=== PATIENT | male | born 1940 | race Caucasian/White ===

== ENCOUNTER → 2018-03-20 11:27 | Outpatient (CLI) | payer MEDICARE, OTHER, SELFPAY ==
[2018-03-20 13:00] LABS: Erythrocyte Sedimentation Rate 25 MM/HR (0-15)
[2018-03-20 13:47] LABS: Vitamin B12 796 pg/mL (239-931)
[2018-03-29 09:42] LABS: Rapid Plasma Reagin NON-REACTIVE
== END ==
PROVIDERS: PCP Physician Assistant; Visit Provider Specialist
DX: F03.90 Unspecified dementia, unspecified severity, without behavioral disturbance, psychotic disturbance, mood disturbance, and anxiety (principal)
CPT/HCPCS: 36415; 82607; 85651; 86592

== ENCOUNTER → 2018-04-11 14:06 | Outpatient (CLI) | payer MEDICARE, OTHER, SELFPAY | PROVIDERS: PCP Family Medicine; Visit Provider Specialist | DX: F03.90 Unspecified dementia, unspecified severity, without behavioral disturbance, psychotic disturbance, mood disturbance, and anxiety (principal); Z53.9 Procedure and treatment not carried out, unspecified reason ==

== ENCOUNTER → 2018-04-15 13:31 | Outpatient (CLI) | payer MEDICARE, OTHER, SELFPAY ==
--- NOTE | 2018-04-15 | DI.MRI.S_ITS ---
PROCEDURE: MR HEAD/BRAIN WO CON INDICATIONS: DEMENTIA WITHOUT BEHAVIORAL DISTURBANCE TECHNIQUE: Non-contrast axial T1 spin echo, axial T2 fast spin echo, sagittal and axial FLAIR, coronal T2 fast spin echo, axial gradient echo, axial diffusion and ADC through the brain. COMPARISON: None. FINDINGS: Image quality: Excellent. CSF spaces: Ventricles appear symmetric in size and shape. Cavum septum vergae is present. Basal cisterns are patent. No extra-axial fluid collections. Brain: No intracranial bleeds or mass effects. There is cerebral volume loss for age. There are periventricular and deep white matter chronic small vessel ischemic changes. Brainstem appears normal. Diffusion-weighted images show no acute ischemic insults. No chronic ischemic insults. Normal intravascular flow voids are present. Skull and face: Calvarial bone marrow is normal in signal. Orbits are normal. Sinuses: Sinuses and mastoids are clear. IMPRESSION: 1. Volume loss and small vessel ischemic disease. 2. No acute process. No recent infarct. Dictated by: Eliel Foster M.D. on 04/15/2018 at 15:55 Approved by: Eliel Foster M.D. on 04/15/2018 at 15:56
== END ==
PROVIDERS: PCP Family Medicine; Visit Provider Family Medicine
DX: F03.90 Unspecified dementia, unspecified severity, without behavioral disturbance, psychotic disturbance, mood disturbance, and anxiety (principal); I67.82 Cerebral ischemia
CPT/HCPCS: 70551

== ENCOUNTER 2018-05-28 13:54 | Inpatient (IN) | payer MEDICARE, OTHER, SELFPAY ==
[2018-05-28] VITALS (12 sets, daily range): BP systolic 118–151; BP diastolic 45–100; PULSE 84–145; RESP 11–31; TEMP 36.4–36.8; O2SAT 94–98; BMI 22.0
--- NOTE | 2018-05-28 13:59 | ED.WEAKNESS ---
HPI - Weakness General Chief complaint: Weakness Stated complaint: Weakness Time Seen by Provider: 05/28/18 13:58 Source: family Mode of arrival: EMS Limitations: altered mental status History of Present Illness HPI Narrative: Patient is a 77-year-old male brought in by EMS with his daughter for concerns of altered mental status and decreased activity. The patient's daughter states that the patient is being worked up for dementia but he has no specific diagnosis as of yet. She states that 3-4 days ago she noticed that the patient was becoming less active. Is becoming less interactive. Is now completely incontinent of urine, and has had decreased oral intake of food. She states that he has not been moving around like normal. Patient states that he has no complaints. His daughter states that he always says that he has no complaints. No fevers. Related Data Home Medications Medication Instructions Recorded Confirmed aspirin 81 mg PO DAILY #0 03/13/11 05/28/18 multivitamin,[id number] 1 tab PO DAILY 05/28/18 05/28/18 [Complete Multivitamin] red yeast rice 600 mg PO DAILY 05/28/18 05/28/18 tamsulosin 2 cap PO DAILY 05/28/18 05/28/18 tolterodine 1 cap PO DAILY 05/28/18 05/28/18 vitamin B complex 1 cap PO DAILY 05/28/18 05/28/18 Allergies Allergy/AdvReac Type Severity Reaction Status Date / Time No Known Drug Allergies Allergy Verified 05/28/18 14:32 Review of Systems Review of Systems Somewhat provided by daughter who was at bedside Constitutional Reports fatigue, Denies fever(s), Denies frequent falls, Reports lethargy and Reports malaise Cardiovascular Denies chest pain, Denies palpitations and Denies dyspnea Respiratory Denies cough, Denies dyspnea and Denies wheezing Gastrointestinal Gastrointestinal: Denies abdominal pain, Denies change in bowel habits and Denies vomiting Genitourinary Reports urinary incontinence Musculoskeletal Denies myalgias and Denies arthralgias Integumentary/Breasts Denies lesions and Denies rash Neurologic Reports behavioral changes and Denies frequent falls Psychiatric Reports behavioral changes Endocrine Reports fatigue and Denies palpitations Hematologic/Lymphatic Denies easy bleeding and Denies easy bruising Allergic/Immunologic Denies wheezing FOR[facility]LY [facility] Medical History Memory changes (Acute) Urinary incontinence (Acute) Surgical History No pertinent past surgical history (Acute) Exam Initial Vital Signs Initial Vital Signs: Vital Signs Temperature 97.5 F L 05/28/18 14:05 Pulse Rate 145 H 05/28/18 14:05 Respiratory Rate 29 H 05/28/18 14:05 Blood Pressure 127/87 05/28/18 14:05 Pulse Oximetry 95 05/28/18 14:05 Const General: No acute distress, disheveled, frail appearing and ill appearing Orientation: alert, awake, oriented to person, oriented to place and not oriented to time HENMT Head: normal to inspection and normocephalic Eyes Pupils: PERRL Resp Effort & Inspection: normal respiratory effort Auscultation: clear to auscultation bilaterally Cardio Rate: tachycardic Rhythm: abnormal rhythm irregularly irregular Pulses: radial pulses present GI Inspection: non-distended Palpation: soft, No firm and No tender Skin Lesions: no lesions Rashes: no rashes Neuro General: alert, awake and moves all extremities Sensory Exam: no sensory deficits noted Extrem General: normal to inspection and capillary refill normal Psych Appearance: grossly normal and disheveled Scores GCS [place] coma scale eye opening: Spontaneous [place] coma scale verbal response: Orientated [place] coma scale motor response: Obey commands [place] coma scale total score: 15 Course Orders Ordered: ED Orders 05/28/18 14:01 EKG-12 Lead Stat 05/28/18 14:18 XR chest 1V Stat 05/28/18 14:41 B Type Natriuretic Peptide Stat Complete Blood Count AUTO DIFF Stat Comprehensive Metabolic Panel Stat Lactate (Lactic Acid) Stat Procalcitonin Stat Troponin I Stat 05/28/18 14:57 Blood Culture Stat 05/28/18 15:35 Urinalysis and Microscopic Stat 05/28/18 15:45 Consult to Physician Routine Diltiazem HCl 125 mg/ Dextrose 125 mls @ 5 mls/hr IV TITRATE RM; Protocol Last Titration: 05/28/18 16:15 Dose: 15 mg/hr, 15 mls/hr Titration: 05/28/18 16:15 Dose: 10 mg/hr, 10 mls/hr Admin: 05/28/18 15:02 Dose: 5 mg/hr, 5 mls/hr Sodium Chloride (Normal Saline 0.9%) 1,973.13 mls @ 657.71 mls/hr 30 ml/kg infuse over 3 hr (1973.13 ml) IV CONT RM Levofloxacin (Levaquin) 750 mg in 150 mls @ 100 mls/hr IV NOW ONE Stop: 05/28/18 17:02 Discontinued Medications Diltiazem HCl (Cardizem) 20 mg IV NOW ONE Stop: 05/28/18 14:33 Last Admin: 05/28/18 14:49 Dose: 20 mg Sodium Chloride (Normal Saline 0.9%) 1,000 mls @ 1,000 mls/hr IV BOLUS ONE Stop: 05/28/18 15:11 Last Infusion: 05/28/18 15:02 Dose: 150 mls/hr Admin: 05/28/18 14:24 Dose: 1,000 mls/hr Ceftriaxone Sodium/Dextrose (Rocephin) 1 gm in 50 mls @ 100 mls/hr IV NOW ONE Stop: 05/28/18 16:02 Last Admin: 05/28/18 15:59 Dose: 100 mls/hr Vital Signs - 8 hr 05/28/18 14:05 05/28/18 14:49 05/28/18 15:02 Temperature 97.5 F L Pulse Rate 145 H 128 H 96 H Respiratory Rate 29 H Blood Pressure 127/87 143/73 H 133/64 Blood Pressure [Right Arm] Pulse Oximetry 95 05/28/18 16:00 Temperature Pulse Rate 98 H Respiratory Rate 27 H Blood Pressure Blood Pressure [Right Arm] 142/65 H Pulse Oximetry 95 MDM - Weakness Lab Data Attestation: I reviewed the patient's lab results. Result diagrams: 05/28/18 14:41 05/28/18 14:41 Lab Results 05/28/18 05/28/18 05/28/18 Range/Units 14:41 14:41 14:41 WBC 11.5 H (4.5-11.0) X10^3/uL RBC 4.76 (4.5-5.9) X10^6/uL Hgb 14.8 (13.5-17.5) g/dL Hct 43.0 (41-53) % MCV 90.3 (80-100) fL MCH 31.0 (26-34) PG MCHC 34.4 (30-36) % RDW 13.5 (11.6-14.8) % Plt Count 365 (150-400) X10^3/uL Neut % (Auto) 80.9 H (50-75) % Lymph % (Auto) 5.5 L (25-40) % [place] % (Auto) 13.3 (3-14) % Eos % (Auto) 0.1 L (2-4) % Baso % (Auto) 0.2 (0-2) % Neut # (Auto) 9300 H (0374-7409) /uL Sodium 138 (137-145) mmol/L Potassium 4.3 (3.4-5.1) mmol/L Chloride 97 L (98-107) mmol/L Carbon Dioxide 28 (22-32) mmol/L BUN 23 H (9-20) mg/dL Creatinine 1.00 (0.66-1.25) mg/dL Estimated GFR > 60.0 (>60) mL/min BUN/Creatinine Ratio 23.0 H (6-22) Glucose 146 H (80-110) mg/dL Lactate (0.7-2.1) mmol/L Calcium 9.3 (8.4-10.2) mg/dL Total Bilirubin 1.0 (0.2-1.3) mg/dL AST 93 H (17-59) IU/L ALT 115 H (21-72) IU/L Alkaline Phosphatase 167 H (38-126) U/L Troponin I < 0.012 (0.01-0.034) ng/mL B-Natriuretic Peptide 117.0 H (<100) Total Protein 7.7 (6.3-8.2) g/dL Albumin 4.1 (3.5-5.0) g/dL Globulin 3.6 (1.7-4.1) g/dL Albumin/Globulin Ratio 1.1 (1.0-2.8) Procalcitonin 0.61 H (<0.5) ng/mL Urine Color Urine Appearance Urine pH (4.5-8.0) Ur Specific [place] (1.000-1.035) Urine Protein (Negative) Urine Glucose (UA) (Normal) g/dL Urine Ketones (NEGATIVE) Urine Occult Blood (Negative) Urine Nitrate (Negative) Urine Bilirubin (NEGATIVE) Urine Urobilinogen (0.2) E.U./dL Ur Leukocyte Esterase (NEGATIVE) Urine RBC (0-5/HPF) Urine WBC (0-5/HPF) Urine Bacteria (None) Ur Culture Indicated? Micro UA Comment 05/28/18 05/28/18 Range/Units 14:41 15:35 WBC (4.5-11.0) X10^3/uL RBC (4.5-5.9) X10^6/uL Hgb (13.5-17.5) g/dL Hct (41-53) % MCV (80-100) fL MCH (26-34) PG MCHC (30-36) % RDW (11.6-14.8) % Plt Count (150-400) X10^3/uL Neut % (Auto) (50-75) % Lymph % (Auto) (25-40) % [place] % (Auto) (3-14) % Eos % (Auto) (2-4) % Baso % (Auto) (0-2) % Neut # (Auto) (7720-1435) /uL Sodium (137-145) mmol/L Potassium (3.4-5.1) mmol/L Chloride (98-107) mmol/L Carbon Dioxide (22-32) mmol/L BUN (9-20) mg/dL Creatinine (0.66-1.25) mg/dL Estimated GFR (>60) mL/min BUN/Creatinine Ratio (6-22) Glucose (80-110) mg/dL Lactate 3.4 H (0.7-2.1) mmol/L Calcium (8.4-10.2) mg/dL Total Bilirubin (0.2-1.3) mg/dL AST (17-59) IU/L ALT (21-72) IU/L Alkaline Phosphatase (38-126) U/L Troponin I (0.01-0.034) ng/mL B-Natriuretic Peptide (<100) Total Protein (6.3-8.2) g/dL Albumin (3.5-5.0) g/dL Globulin (1.7-4.1) g/dL Albumin/Globulin Ratio (1.0-2.8) Procalcitonin (<0.5) ng/mL Urine Color Yellow Urine Appearance Clear Urine pH 5.5 (4.5-8.0) Ur Specific [place] 1.020 (1.000-1.035) Urine Protein 1+ H (Negative) Urine Glucose (UA) Negative (Normal) g/dL Urine Ketones 1+ H (NEGATIVE) Urine Occult Blood 2+ H (Negative) Urine Nitrate Negative (Negative) Urine Bilirubin Negative (NEGATIVE) Urine Urobilinogen 4.0 H (0.2) E.U./dL Ur Leukocyte Esterase Negative (NEGATIVE) Urine RBC 1-5/hpf (0-5/HPF) Urine WBC None seen (0-5/HPF) Urine Bacteria None seen (None) Ur Culture Indicated? Cult not indicated Micro UA Comment Not Reportable Imaging Data Chest x-ray: Radiologist's impression: PROCEDURE: XR CHEST 1V INDICATIONS: a fib TECHNIQUE: One view of the chest was acquired. COMPARISON: [facility], CHEST 2 VIEW, 05/26/2009, 10:20. FINDINGS: Surgical changes and devices: None. Lungs and pleura: Patchy bibasilar opacities, right greater than left are present. Mediastinum: Mediastinal contours appear normal. Heart size is normal. Bones and chest wall: No suspicious bony lesions. Overlying soft tissues appear unremarkable. IMPRESSION: Left greater than right bibasilar opacities most suggestive of pneumonia. Dictated by: Gina Browne M.D. on 05/28/2018 at 15:23 Approved by: Gina Browne M.D. on 05/28/2018 at 15:24 ECG Data Attestation: I personally reviewed and interpreted this ECG as follows: Prior ECG tracings: not available for review Interpretation: Atrial fibrillation Ventricular rate of 148 Normal axis Normal QRS Normal to QTC Nonspecific ST T wave changes MDM Narrative Medical decision making narrative: According to the patient's daughter who is at bedside he is at his baseline as far as his mental status. He was afebrile. He was in AFib with RVR with rates in the 130s and 140s. The daughter does not recall any prior history of this. He was given Cardizem bolus and then a drip which did improve his rate. Chest x-ray is concerning for pneumonia. Blood cultures were obtained. Patient was given fluids per sepsis protocol. Also has an elevated procalcitonin. Rocephin was ordered for a presumptive diagnosis of a urinary tract infection prior to the return of the urinalysis. Upon return of this it does not appear that he has a infection. The patient does smell of urine. I discussed the case with who is the patient's primary care doctor who will admit. Secondary to the Cardizem drip will place in the ICU. I did discuss the admission with the patient and the daughter. I went back to discuss code status however the patient's daughter was not in the room. Discharge Plan Departure Patient Disposition: Admitted As Inpatient Clinical Impression: Atrial fibrillation with RVR, Pneumonia Admit Date/Time: 05/28/18 16:01 Admit Provider: Rikki Dick
--- NOTE | 2018-05-28 14:18 | DI.RAD.S_ITS ---
PROCEDURE: XR CHEST 1V INDICATIONS: a fib TECHNIQUE: One view of the chest was acquired. COMPARISON: [facility], , CHEST 2 VIEW, 05/26/2009, 10:20. FINDINGS: Surgical changes and devices: None. Lungs and pleura: Patchy bibasilar opacities, right greater than left are present. Mediastinum: Mediastinal contours appear normal. Heart size is normal. Bones and chest wall: No suspicious bony lesions. Overlying soft tissues appear unremarkable. IMPRESSION: Left greater than right bibasilar opacities most suggestive of pneumonia. Dictated by: Gina Browne M.D. on 05/28/2018 at 15:23 Approved by: Gina Browne M.D. on 05/28/2018 at 15:24
[2018-05-28] MEDS: SODIUM CHLORIDE 0.9% 1,000 ML 1000 ML IV (14:24)
[2018-05-28] MEDS: dilTIAZem 5 MG/ML SDV 20 MG IV (14:49)
[2018-05-28] MEDS: dilTIAZem 125 MG in DEXTROSE 5 % IN WATER 100 ML IV (15:02)
[2018-05-28 15:15] LABS: Alanine Aminotransferase 115 IU/L (21-72); Albumin 4.1 g/dL (3.5-5.0); Albumin Globulin Ratio 1.1 (1.0-2.8); Alkaline Phosphatase 167 U/L (38-126); Aspartate Aminotransferase 93 IU/L (17-59); Blood Urea Nitrogen 23 mg/dL (9-20); Calcium 9.3 mg/dL (8.4-10.2); Carbon Dioxide 28 mmol/L (22-32); Chloride 97 mmol/L (98-107); Estimated Glomerular Filt Rate > 60.0 mL/min (>60); Globulin 3.6 g/dL (1.7-4.1); Glucose 146 mg/dL (80-110); HEMOLYSIS < 15 (0-50); Lactate (Lactic Acid) 3.4 mmol/L (0.7-2.1); Potassium 4.3 mmol/L (3.4-5.1); Sodium 138 mmol/L (137-145); Total Protein 7.7 g/dL (6.3-8.2)
[2018-05-28 15:25] LABS: Add Manual Diff / Slide Review NO; Basophils Percent Auto 0.2 % (0-2); Eosinophils Percent Auto 0.1 % (2-4); Hemoglobin 14.8 g/dL (13.5-17.5); Lymphocytes Percent Auto 5.5 % (25-40); Mean Corpuscular HGB Conc 34.4 % (30-36); Mean Corpuscular Volume 90.3 fL (80-100); Monocytes Percent Auto 13.3 % (3-14); Neutrophils Absolute Auto 9300 /uL (3000-5900); Neutrophils Percent Auto 80.9 % (50-75); Platelet Count 365 X10^3/uL (150-400); Red Blood Cell Count 4.76 X10^6/uL (4.5-5.9); Red Cell Distribution Width 13.5 % (11.6-14.8); White Blood Cell Count 11.5 X10^3/uL (4.5-11.0)
[2018-05-28 15:27] LABS: Troponin I < 0.012 ng/mL (0.01-0.034)
[2018-05-28 15:30] LABS: Procalcitonin 0.61 ng/mL (<0.5)
[2018-05-28 15:40] LABS: Bacteria Urine None Seen; WBC Urine None Seen (0-5/HPF)
[2018-05-28 15:41] LABS: Appearance Urine UA CLEAR; Bilirubin Urine UA NEGATIVE (NEGATIVE); Color Urine UA YELLOW; Glucose Urine UA NEGATIVE (Normal); Ketones Urine UA 1+ (NEGATIVE); Leukocyte Esterase Urine UA NEGATIVE (NEGATIVE); Nitrite Urine UA Negative (Negative); Occult Blood Urine UA 2+ (Negative); Protein Urine UA 1+ (Negative); pH Urine UA 5.5 (4.5-8.0)
[2018-05-28 15:49] LABS: Culture Indicated Urine Cult Not Indicated; RBC Urine 1-5/HPF (0-5/HPF)
[2018-05-28] MEDS: CEFTRIAXONE 1 GM/50 ML FROZ.PIGGY IV (15:59)
[2018-05-28] MEDS: levoFLOXacin 750 MG/150 ML PIGGYBACK 100 MG IV (16:28)
--- NOTE | 2018-05-28 16:55 | PC.NURSE ---
Per daughter, pt is normally incontinent, but has been urinating more often in the last week. Upon arrival to the ED, pt's brief was completely saturated with urine. The genital and vannesa area were macerated, tender, and raw. Cleaned the area, applied vannesa cream and applied clean brief.
[2018-05-28 19:01] LABS: Reflexed Lactate in 2 Hours Y
[2018-05-28 19:37] LABS: Lactate 2HR (Lactic Acid Rflx) 1.5 mmol/L (0.7-2.1)
--- NOTE | 2018-05-28 19:53 | P.HP_ITS ---
History of Present Illness Date Patient Seen: 05/28/18 Time Patient Seen: 19:33 Chief complaint: Weakness Narrative: Patient well-known to me lives at home with his but she is currently traveling to [facility], so he has been looked after by his daughter. She notes that he had been his usual self up and around until the last few days when he has become more weak and less able to get up and move. Appetite has been off he has been less conversant. Seemed to be getting more sick so he called the office we advised the ER visit. There he was evaluated found to have a possible pneumonia and evidence of a possible sepsis. So referred for admission. I find him this evening somewhat drowsy, his daughter and granddaughter are present. On questioning he says he feels fine. No problems, better now, obviously eager to get home. He was also found with AFib with RVR in the ER where diltiazem was started and a drip continues however he has converted to sinus rhythm at this time. Patient History Medical History Depression (Chronic) Hyperlipidemia (Chronic) Hypothyroid (Chronic) Memory changes (Chronic) PSA elevation (Chronic) Urinary incontinence (Chronic) Surgical History No pertinent past surgical history (Acute) Family & Social History Family History: Reviewed 05/28/18 by Rikki Dick MD Social History: household members spouse Prior Living Arrangements House Safety & Behavioral: Feels Safe in Current Yes Environment Been Physically Hurt or No Threatened By a Person Suicidal Ideation Description None Suicide Plan Description No Plan Tobacco & Substance use: Tobacco type cigarettes Smoking Status Former smoker alcohol intake current alcohol intake frequency 0-2 drinks per day Substance Use Type does not use Meds Home Medications Medication Instructions Recorded Confirmed Type aspirin 81 mg PO DAILY #0 03/13/11 05/28/18 History multivitamin,hf-[id number] 1 tab PO DAILY 05/28/18 05/28/18 History [Complete Multivitamin] red yeast rice 600 mg PO DAILY 05/28/18 05/28/18 History tamsulosin 2 cap PO DAILY 05/28/18 05/28/18 History vitamin B complex 1 cap PO DAILY 05/28/18 05/28/18 History Allergies Allergy/AdvReac Type Severity Reaction Status Date / Time No Known Drug Allergies Allergy Verified 05/28/18 14:32 Review of Systems Constitutional Constitutional: Reports system reviewed and no additional complaints, except as documented Eyes Eyes: Reports system reviewed; no additional complaints, except as documented ENT Ears, Nose, Mouth, and Throat: Yes system reviewed; no additional complaints, except as documented Cardiovascular Cardiovascular: Reports system reviewed; no additional complaints, except as documented Respiratory Respiratory: Reports system reviewed and no additional complaints, except as documented Gastrointestinal Gastrointestinal: Reports system reviewed and no additional complaints, except as documented Genitourinary Genitourinary: Reports system reviewed and no additional complaints, except as documented Musculoskeletal Musculoskeletal: Reports system reviewed; no additional complaints, except as documented Integumentary/Breasts Skin/Breast: Reports system reviewed and no additional complaints, except as documented Neurologic Neurologic: Reports system reviewed and no additional complaints, except as documented, Reports confusion and Reports memory loss Psychiatric Psychiatric: Reports system reviewed and no additional complaints, except as documented, Reports confusion and Reports memory loss Endocrine Endocrine: Reports system reviewed and no additional complaints, except as documented Hematologic/Lymphatic Hematologic/Lymphatic: Reports system reviewed and no additional complaints, except as documented Allergic/Immunologic Allergic/Immunologic: Reports system reviewed and no additional complaints, except as documented Exam Vital Signs (past 8 hours): - 05/28/18 14:05 05/28/18 14:49 05/28/18 15:02 Temperature 97.5 F L Pulse Rate 145 H 128 H 96 H Respiratory Rate 29 H Blood Pressure 127/87 143/73 H 133/64 Blood Pressure [Right Arm] Pulse Oximetry 95 05/28/18 15:30 05/28/18 16:00 05/28/18 16:30 Temperature Pulse Rate 105 H 98 H 118 H Respiratory Rate 27 H 27 H 31 H Blood Pressure Blood Pressure [Right Arm] 151/67 H 142/65 H 125/63 Pulse Oximetry 94 95 96 05/28/18 16:45 05/28/18 17:00 05/28/18 18:00 Temperature 98.2 F Pulse Rate 101 H 99 H 85 Respiratory Rate 25 H 25 H 24 Blood Pressure 145/75 H 149/100 H 130/61 Blood Pressure [Right Arm] Pulse Oximetry 95 94 97 05/28/18 19:05 Temperature Pulse Rate 93 H Respiratory Rate 11 L Blood Pressure 124/61 Blood Pressure [Right Arm] Pulse Oximetry 97 Oxygen Delivery Method Room Air Narrative Exam Narrative: Frail appearing older man lying quietly in bed responding minimally. HEENT unremarkable normocephalic atraumatic, pupils equal round and reactive to light, oropharynx somewhat dry neck benign without JVD normal pulse no significant lymphadenopathy. Chest shows some basilar crackles heart regular without murmur abdomen soft nontender nondistended normoactive bowel tones no masses or organomegaly neurologically seemed somewhat confused but otherwise nonfocal. Extremities with trace edema intact pulses. Objective Labs Result Diagrams: 05/28/18 14:41 05/28/18 14:41 Labs: Laboratory Results - last 24 hr 05/28/18 05/28/18 05/28/18 14:41 14:41 14:41 WBC 11.5 H RBC 4.76 Hgb 14.8 Hct 43.0 MCV 90.3 MCH 31.0 MCHC 34.4 RDW 13.5 Plt Count 365 Neut % (Auto) 80.9 H Lymph % (Auto) 5.5 L [place] % (Auto) 13.3 Eos % (Auto) 0.1 L Baso % (Auto) 0.2 Neut # (Auto) 9300 H Sodium 138 Potassium 4.3 Chloride 97 L Carbon Dioxide 28 BUN 23 H Creatinine 1.00 Estimated GFR > 60.0 BUN/Creatinine Ratio 23.0 H Glucose 146 H Lactate Calcium 9.3 Total Bilirubin 1.0 AST 93 H ALT 115 H Alkaline Phosphatase 167 H Troponin I < 0.012 B-Natriuretic Peptide 117.0 H Total Protein 7.7 Albumin 4.1 Globulin 3.6 Albumin/Globulin Ratio 1.1 Procalcitonin 0.61 H Urine Color Urine Appearance Urine pH Ur Specific [place] Urine Protein Urine Glucose (UA) Urine Ketones Urine Occult Blood Urine Nitrate Urine Bilirubin Urine Urobilinogen Ur Leukocyte Esterase Urine RBC Urine WBC Urine Bacteria Ur Culture Indicated? Micro UA Comment Nasal Screen MRSA (PCR) 05/28/18 05/28/18 05/28/18 14:41 15:35 16:50 WBC RBC Hgb Hct MCV MCH MCHC RDW Plt Count Neut % (Auto) Lymph % (Auto) [place] % (Auto) Eos % (Auto) Baso % (Auto) Neut # (Auto) Sodium Potassium Chloride Carbon Dioxide BUN Creatinine Estimated GFR BUN/Creatinine Ratio Glucose Lactate 3.4 H Calcium Total Bilirubin AST ALT Alkaline Phosphatase Troponin I B-Natriuretic Peptide Total Protein Albumin Globulin Albumin/Globulin Ratio Procalcitonin Urine Color Yellow Urine Appearance Clear Urine pH 5.5 Ur Specific [place] 1.020 Urine Protein 1+ H Urine Glucose (UA) Negative Urine Ketones 1+ H Urine Occult Blood 2+ H Urine Nitrate Negative Urine Bilirubin Negative Urine Urobilinogen 4.0 H Ur Leukocyte Esterase Negative Urine RBC 1-5/hpf Urine WBC None seen Urine Bacteria None seen Ur Culture Indicated? Cult not indicated Micro UA Comment Not Reportable Nasal Screen MRSA (PCR) Negative for mrsa Assessment & Plan (1) Hyperlipidemia: Problem details: No current treatment Current visit: Yes Status: Chronic (2) Hypothyroid: Problem details: No current treatment Current visit: Yes Status: Chronic (3) PSA elevation: Problem details: No recent lab values Current visit: Yes Status: Chronic (4) Urinary incontinence: Problem details: Chronic persistent Current visit: Yes Status: Chronic (5) Memory changes: Problem details: With suspected dementia, possibly Alzheimer's type followed by local neurology Current visit: Yes Status: Chronic (6) Depression: Problem details: No current treatment Current visit: Yes Status: Chronic (7) No pertinent past surgical history: Current visit: Yes Status: Acute (8) Pneumonia: Problem details: This is problem 1. Acute onset likely bacterial with a history of smoking possible chronic lung disease. Will continue antibiotics. Qualifiers: Aspiration pneumonia type: Laterality: unspecified laterality Lung location: unspecified part of lung Pneumonia type: due to unspecified organism Qualified Code(s): J18.9 - Pneumonia, unspecified organism Current visit: Yes Status: Acute (9) Atrial fibrillation with RVR: Problem details: Suspect a prior history of this but the with recurrence now responding to diltiazem currently in sinus rhythm. Will add oral metoprolol Current visit: Yes Status: Acute Plan: Assessment/Plan Narrative: Reviewed code status with patient he has an interest in full code but no intubation. Will follow labs determine need for PT, OT in the morning. Likely back home with family. Quality VTE Deep Vein Thrombosis/Pulmonary Embolism Present on Admission: No
[2018-05-28] MEDS: METOPROLOL 25 MG TABLET PO (19:58)
[2018-05-29] VITALS (12 sets, daily range): BP systolic 107–135; BP diastolic 56–70; PULSE 59–83; RESP 17–26; TEMP 36.1–36.6; O2SAT 94–98
[2018-05-29] MEDS: CEFTRIAXONE 1 GM/50 ML FROZ.PIGGY IV (04:02)
[2018-05-29] MEDS: SODIUM CHLORIDE 0.9% 250 ML 21 ML IV (04:03)
[2018-05-29] MEDS: SODIUM CHLORIDE 0.9% FLUSH 10 ML IV ×3 (04:03→21:17)
[2018-05-29 05:24] LABS: Add Manual Diff / Slide Review NO; Basophils Percent Auto 0.4 % (0-2); Eosinophils Percent Auto 0.6 % (2-4); Hematocrit 37.6 % (41-53); Lymphocytes Percent Auto 12.5 % (25-40); Mean Corpuscular HGB Conc 34.7 % (30-36); Mean Corpuscular Hemoglobin 31.1 PG (26-34); Mean Corpuscular Volume 89.9 fL (80-100); Monocytes Percent Auto 17.5 % (3-14); Neutrophils Absolute Auto 6300 /uL (3000-5900); Platelet Count 321 X10^3/uL (150-400); Red Blood Cell Count 4.18 X10^6/uL (4.5-5.9); Red Cell Distribution Width 13.5 % (11.6-14.8); White Blood Cell Count 9.1 X10^3/uL (4.5-11.0)
[2018-05-29 05:29] LABS: Alanine Aminotransferase 85 IU/L (21-72); Albumin 3.3 g/dL (3.5-5.0); Albumin Globulin Ratio 1.1 (1.0-2.8); Alkaline Phosphatase 120 U/L (38-126); Aspartate Aminotransferase 83 IU/L (17-59); BUN Creatinine Ratio 26.3 (6-22); Bilirubin Total 0.5 mg/dL (0.2-1.3); Blood Urea Nitrogen 21 mg/dL (9-20); Calcium 8.7 mg/dL (8.4-10.2); Carbon Dioxide 28 mmol/L (22-32); Chloride 103 mmol/L (98-107); Estimated Glomerular Filt Rate > 60.0 mL/min (>60); Globulin 3.1 g/dL (1.7-4.1); Glucose 106 mg/dL (80-110); HEMOLYSIS < 15 (0-50); Potassium 3.9 mmol/L (3.4-5.1); Sodium 138 mmol/L (137-145); Total Protein 6.4 g/dL (6.3-8.2)
[2018-05-29] MEDS: METOPROLOL 25 MG TABLET PO (06:36)
[2018-05-29] MEDS: TAMSULOSIN 0.4 MG CAPSULE PO (09:18)
[2018-05-29] MEDS: TOLTERODINE LA 4 MG PO (09:18)
--- NOTE | 2018-05-29 09:18 | PM.PN.1 ---
Subjective Date Patient Seen: 05/29/18 Time Patient Seen: :18 Interval history: Some better, though little difficult to assess, patient remains rather stoic. Quiet night has remained in sinus rhythm, he says he slept okay. Daughter is here, status discussed. She does note as his primary caregiver she must work today and tomorrow which would make it difficult for her to attend to his needs during that time. Exam Vital Signs (past 8 hours): - 05/29/18 04:10 05/29/18 04:13 05/29/18 07:38 Temperature 97.3 F L 97.7 F Pulse Rate 83 59 L Respiratory Rate 26 H 17 Blood Pressure 135/56 L 126/68 Pulse Oximetry 97 94 05/29/18 08:48 Temperature Pulse Rate Respiratory Rate Blood Pressure Pulse Oximetry 98 Oxygen Delivery Method Room Air Narrative Exam Narrative: Resting quietly in bed no acute distress. Provides minimal answers to questions. HEENT unremarkable chest more clear heart regular with occasional ectopy abdomen soft nontender normoactive bowel tones extremities benign neurologically mostly nonfocal. Objective Labs Result Diagrams: 05/29/18 04:58 05/29/18 04:58 Labs: Laboratory Results - last 24 hr 05/28/18 05/28/18 05/28/18 14:41 14:41 14:41 WBC 11.5 H RBC 4.76 Hgb 14.8 Hct 43.0 MCV 90.3 MCH 31.0 MCHC 34.4 RDW 13.5 Plt Count 365 Neut % (Auto) 80.9 H Lymph % (Auto) 5.5 L Jewell % (Auto) 13.3 Eos % (Auto) 0.1 L Baso % (Auto) 0.2 Neut # (Auto) 9300 H Sodium 138 Potassium 4.3 Chloride 97 L Carbon Dioxide 28 BUN 23 H Creatinine 1.00 Estimated GFR > 60.0 BUN/Creatinine Ratio 23.0 H Glucose 146 H Lactate Calcium 9.3 Total Bilirubin 1.0 AST 93 H ALT 115 H Alkaline Phosphatase 167 H Troponin I < 0.012 B-Natriuretic Peptide 117.0 H Total Protein 7.7 Albumin 4.1 Globulin 3.6 Albumin/Globulin Ratio 1.1 Procalcitonin 0.61 H Urine Color Urine Appearance Urine pH Ur Specific [place] Urine Protein Urine Glucose (UA) Urine Ketones Urine Occult Blood Urine Nitrate Urine Bilirubin Urine Urobilinogen Ur Leukocyte Esterase Urine RBC Urine WBC Urine Bacteria Ur Culture Indicated? Micro UA Comment Nasal Screen MRSA (PCR) 05/28/18 05/28/18 05/28/18 14:41 15:35 16:50 WBC RBC Hgb Hct MCV MCH MCHC RDW Plt Count Neut % (Auto) Lymph % (Auto) Jewell % (Auto) Eos % (Auto) Baso % (Auto) Neut # (Auto) Sodium Potassium Chloride Carbon Dioxide BUN Creatinine Estimated GFR BUN/Creatinine Ratio Glucose Lactate 3.4 H Calcium Total Bilirubin AST ALT Alkaline Phosphatase Troponin I B-Natriuretic Peptide Total Protein Albumin Globulin Albumin/Globulin Ratio Procalcitonin Urine Color Yellow Urine Appearance Clear Urine pH 5.5 Ur Specific [place] 1.020 Urine Protein 1+ H Urine Glucose (UA) Negative Urine Ketones 1+ H Urine Occult Blood 2+ H Urine Nitrate Negative Urine Bilirubin Negative Urine Urobilinogen 4.0 H Ur Leukocyte Esterase Negative Urine RBC 1-5/hpf Urine WBC None seen Urine Bacteria None seen Ur Culture Indicated? Cult not indicated Micro UA Comment Not Reportable Nasal Screen MRSA (PCR) Negative for mrsa 05/28/18 05/29/18 05/29/18 19:16 04:58 04:58 WBC 9.1 RBC 4.18 L Hgb 13.0 L Hct 37.6 L MCV 89.9 MCH 31.1 MCHC 34.7 RDW 13.5 Plt Count 321 Neut % (Auto) 69.0 Lymph % (Auto) 12.5 L Jewell % (Auto) 17.5 H Eos % (Auto) 0.6 L Baso % (Auto) 0.4 Neut # (Auto) 6300 H Sodium 138 Potassium 3.9 Chloride 103 Carbon Dioxide 28 BUN 21 H Creatinine 0.80 Estimated GFR > 60.0 BUN/Creatinine Ratio 26.3 H Glucose 106 Lactate 1.5 Calcium 8.7 Total Bilirubin 0.5 AST 83 H ALT 85 H Alkaline Phosphatase 120 Troponin I B-Natriuretic Peptide Total Protein 6.4 Albumin 3.3 L Globulin 3.1 Albumin/Globulin Ratio 1.1 Procalcitonin Urine Color Urine Appearance Urine pH Ur Specific [place] Urine Protein Urine Glucose (UA) Urine Ketones Urine Occult Blood Urine Nitrate Urine Bilirubin Urine Urobilinogen Ur Leukocyte Esterase Urine RBC Urine WBC Urine Bacteria Ur Culture Indicated? Micro UA Comment Nasal Screen MRSA (PCR) Assessment & Plan (1) LFT elevation: Problem details: With history of alcoholism but prior labs indicated normal function as of last winter. Continue to follow. Current visit: Yes Status: Acute (2) Atrial fibrillation with RVR: Problem details: Has remained in sinus rhythm since converting yesterday afternoon, I have had him on a fair dose of metoprolol which has led to some rather marked bradycardia. Will back off some on that. Check echo today Current visit: Yes Status: Acute (3) Pneumonia: Problem details: This is problem 1. White count is down, has maintained oxygenation, was switched to oral antibiotics Qualifiers: Aspiration pneumonia type: Laterality: unspecified laterality Lung location: unspecified part of lung Pneumonia type: due to unspecified organism Qualified Code(s): J18.9 - Pneumonia, unspecified organism Current visit: Yes Status: Acute Plan: Assessment/Plan Narrative: Will check echo, also with history of hypothyroid, will check TSH in the morning, also due for lipids and will check magnesium. Anticipating home likely tomorrow if all is stable. Quality VTE Deep Vein Thrombosis/Pulmonary Embolism Present on Admission: No
[2018-05-29] MEDS: PANTOPRAZOLE 20 MG TABLET PO (09:19)
--- NOTE | 2018-05-29 12:42 | PT.IIE ---
Current Diagnoses Hypothyroidism, unspecified (05/28/18) Major depressive disorder, single episode, unspecified (05/28/18) Unspecified atrial fibrillation (05/28/18) Unspecified bacterial pneumonia (05/28/18) Pneumonia, unspecified organism (05/28/18) Unspecified urinary incontinence (05/28/18) Other amnesia (05/28/18) Abnormal results of liver function studies (05/28/18) Elevated prostate specific antigen [PSA] (05/28/18) Surgical History (Last Reviewed 05/28/18 @ 19:39 by Rikki Dick MD) No pertinent past surgical history (Acute) Medical History (Last Reviewed 05/28/18 @ 19:39 by Rikki Dick MD) Depression (Chronic) Hyperlipidemia (Chronic) Hypothyroid (Chronic) Memory changes (Chronic) PSA elevation (Chronic) Urinary incontinence (Chronic) Physical Therapy Inpatient Evaluation/Re-Eval M1 PT/OT-IP Prior Functional Status Start: 05/29/18 12:21 Freq: NEEDED Status: Active Protocol: Document 05/29/18 11:43 [facility] (Rec: 05/29/18 12:41 IJS [id number]) Medical Review Prior Functional Status Medical History Reviewed Yes Communication Not very conversant but once aroused will answer questions. Mobility and Gait Fluctuates per daughter since the fall last Sunday he has needed assist with gait/ mobility, dressing, ADL's. Activities of Daily Living and IADL's Needs assist at this time but per daughter was independent prior to his fall. Social History Household Members spouse family Living Arrangements House Number of Floors (Floors) One Floor Number of Stairs To Enter/Railing? Yes in several locations without a rail but the daughter said if he discharges home she will have help to get him inside. Home Environment Standard Height Toilet Employment Status Retired Additional Social History Comment Currently ruling out progressive dementia/ alzhiemers. M2 PT-IP Current Condition Start: 05/29/18 12:21 Freq: NEEDED Status: Active Protocol: Document 05/29/18 11:43 IJS (Rec: 05/29/18 12:41 IJS [id number]) Physical Therapy Current Condition Current Condition Evaluation Date 05/29/18 Treatment Diagnosis Walking/gait disturbance Onset Date 05/28/18 Weight Bearing Status Weight Bearing Status Full Weight Bearing M3 PT-IP Subjective Start: 05/29/18 12:21 Freq: NEEDED Status: Active Protocol: Document 05/29/18 11:43 IJS (Rec: 05/29/18 12:41 IJS [id number]) Subjective Physical Therapy Visit Type Type Initial Evaluation Visit Start Time 10:43 Visit Stop Time 11:05 Total Visit Minutes 23 Number of PMO ANALYST Visits 0 Physical Therapy Visit Comments Patient Comments Initially declined to get up out of bed but with some persuasion he agreed. Patient Goals Unclear M4 PT-IP Mobility and Gait Start: 05/29/18 12:21 Freq: NEEDED Status: Active Protocol: Document 05/29/18 11:43 IJS (Rec: 05/29/18 12:41 IJS [id number]) PT-Bed Mobility Assessment Rolling Level of Assist Minimal Assistance Scooting Scooting Up and Down in Bed Contact Guard Assistance PT-Transfer Assessment Sit to and From Stand Sit to and from Stand Minimal Assistance Moderate Assistance Equipment Transfer Assistive Device None Front Wheeled Walker Orthotic/Prosthetic Devices or Brace: No Transfers Transfer Destination Chair Transfer Technique Stand Step Pivot Transfer Ability Level of Assist Moderate Assistance Comments Mobility Comments Attempted to use walker but he pushed it aside. Initial standing balance poor with loss of balance backwards. Gait Assessment Gait Gait Assistance Required: Moderate Assistance Distance (Feet) 5 Able to Maintain Weight Bearing Status Yes During Gait Assistive Devices Assistive Device None Factors Limiting Gait Function Factors Limiting Gait Function Poor Balance Comments Gait Comments Declined to walk only agreed to go to the chair. PT-Balance Assessment Sitting Balance and Reactions Static Sitting Balance Ability Good Dynamic Sitting Balance Ability Fair Standing Balance and Reactions Static Standing Balance Ability Poor Dynamic Standing Balance Ability Poor M5 PT-IP Objective Assessments Start: 05/29/18 12:21 Freq: NEEDED Status: Active Protocol: Document 05/29/18 11:43 IJS (Rec: 05/29/18 12:41 IJS [id number]) Orientation Orientation/Cognition Level of Alertness Alert Orientation Name Safety Awareness Decreased Safety Awareness Comments Unclear of memory deficits as he does not initiate conversation. Once we were able to wake him up he was clear with his speech. Gross Range of Motion Upper Extremity ROM Assessment Within Functional Limits Lower Extremity ROM Assessment Within Functional Limits Strength Upper Extremity Strength Assessment Within Functional Limits Lower Extremity Strength Assessment Within Functional Limits Comments Strength Comments General weakness secondary to immoblity. Coordination Assessment Gross Coordination Gross Coordination WNL Assessment Finger to Nose Test Normal Performance Pronation/Supination Test Normal Performance Foot Tapping Test Normal Performance Sensation Assessment Sensation Gross Sensation WNL Light Touch Intact Proprioception (Position) Intact Muscle Tone Muscle Tone WNL Yes Other Assessments Other Other Assessments Needs encouragement to increase activity. M6 PT-IP Treatment Start: 05/29/18 12:21 Freq: NEEDED Status: Active Protocol: Document 05/29/18 11:43 IJS (Rec: 05/29/18 12:41 IJS [id number]) Physical Therapy Treatment Exercises Exercises Ankle Pumps M7 PT-IP Assessment and Plan Start: 05/29/18 12:21 Freq: NEEDED Status: Active Protocol: Document 05/29/18 11:43 IJS (Rec: 05/29/18 12:41 IJS [id number]) PT Summary Assessment and Plan Potential Rehabilitation Potential Fair Status of Condition at Evaluation Evolving Summary Impairments Strength Balance Cognition Bed Mobility Transfers Gait Activity Tolerance Assessment Summary Inconsistant base line prior level of function may need additional help at time of discharge vs. SNF. Goals Bed Mobility Goal Contact Guard Assistance Transfer Goal Contact Guard Assistance Gait Goal Contact Guard Assistance Gait Distance 100 Days to Meet Goals 3 Frequency of Treatment Frequency Of Treatment Once a Day Treatment Plan Physical Therapy Treatment Plan Bed Mobility Training Transfer Training Gait Training Therapeutic Exercise Balance Retraining Discharge Planning Recommendations To Nursing Amount of Assist Needed 1 Person Assist Discharge Recommendations PT Discharge Recommendations Home with 26/03 Assist SNF Rehab Other Discharge Recommendations [place] and the daughter does not feel she can take care of all of his needs at this time.
[2018-05-29] MEDS: METOPROLOL ER 25 MG TABLET PO (12:58)
--- NOTE | 2018-05-29 14:52 | OT.IP.TRT ---
Current Diagnoses Hypothyroidism, unspecified (05/28/18) Major depressive disorder, single episode, unspecified (05/28/18) Unspecified atrial fibrillation (05/28/18) Unspecified bacterial pneumonia (05/28/18) Pneumonia, unspecified organism (05/28/18) Unspecified urinary incontinence (05/28/18) Other amnesia (05/28/18) Abnormal results of liver function studies (05/28/18) Elevated prostate specific antigen [PSA] (05/28/18) Occupational Therapy Treatment Note M3 OT- IP Subjective and Pain Start: 05/29/18 14:45 Freq: Status: Active Protocol: Document 05/29/18 14:45 [facility] (Rec: 05/29/18 14:52 [facility] [id number]) OT- Subjective Occupational Therapy Visit Type Type Patient Refusal Notes Attempted to see pt for OT eval , Pt in bed and stated too tired and not wanting to get up for OT eval at this time. Pt does voice that he would like to go home versus skilled rehab. Educated to pt the importance of getting up and moving.
--- NOTE | 2018-05-29 14:58 | CM.DANOTE ---
Patient is a 77 year old male who was admitted on 05/28/18 for Weakness. Pt has MCR and COMM for insurance and his PCP is Dr. Dick. EMR was reviewed. Per MD, pt has some memory issues and lives at home with family and not stable for d/c today. Per PT, recommending SNF vs 26/03 pending progress. SW met bedside with pt and adult Dtr December and explained role and pt seemed quite tired and weak and then began working with PT to get to bedside chair. Dtr December confirmed that the pt lives at home with herself and pt's , who is currently on a cruise but returning this weekend. DPOA is 1) and 2) Dtr December. Dtr confirms that at baseline pt is mostly independent with ADL's and does not require assist with ambulation but reminders to use the bathroom and move around the house and medication management. Pt does not drive and relies on family for transport. Pt does not exhibit any behaviors or exit seeking. Dtr states pt is currently way below baseline and has continued to decline the past few days and currently she does not feel she could safely maintain the pt at home. Dtr denies that pt has any hx of HH or SNF and they currently do not have any other community services in place or any other caregivers as pt has been mostly Independent. Dtr states that she knows the pt is financially over the limit for Medicaid and does not qualify and they have begun to consider [facility] options for future needs as pt's memory issues increase. Dtr states she has spoken with her mother, pt's spouse, and both are in agreement that pt needs SNF rehab prior to safe return home. SW provided the SNF choice List and preference is [facility] and Dtr unsure which back up SNF yet but will review the list. WALESKA Lucero made referral to [facility], they are reviewing. SW completed PASRR. Plan: SW to follow for likely need of SNF at d/c prior to safe return home. SW to follow for [facility] review to determine if they can accept and back up SNF preference from Dtr in case [facility] cannot accept due to bed availability. BAKARI Paz Discharge Planning/Care Management CM Discharge Assessment Start: 05/29/18 14:54 Freq: Status: Active Protocol: Document 05/29/18 14:54 BF (Rec: 05/29/18 14:58 [facility] [id number]) Discharge Planning Assessment Assigned Manufacturers Representative BAKARI Ferreira DPOA/Assigned Designee Name and Dtr Contact Information [phone] Advance Directives? Yes Advance Directives on File No History Provided By Family Member Medical Record Has Patient been admitted in last 30 No days? Prior Living Arrangements House Household Members spouse family Comment Pt lives at home with his spouse and adult Dtr Type of transporation used prior to Relies on Others admit Willing to Return to Facility? in [place] until Sunday night. Daughter Kathy in town . Independent with ADL's Yes Is patient alert and oriented? No: some memory issues, seem to be increased Needs Assistance With Managing Medications Home Chores / Shopping Caregiver for Another No Patient/Family Preference [facility] Facility Comment Pt is weak and below baseline and is not able to complete ADL's at this time. Barriers to Discharge No Discharge Plan [facility] Transportation Arrangement Facility likely can provide transport at d/c. Referrals Initiated [facility] Additional Comment Referral made to [facility], reviewing If patient plan is SNF: Has PASSR been Yes completed? Inpatient Status as of 05/28/18 Medicare Choice List Provided Yes SNF/HH Preference [facility] Has Agency SNF been contacted Yes Comment Referral made, [facility] reviewing Whiteboard Updated in Patient Room with Yes name and ext. # of Manufacturers Representative Review Status In Process Please Provide Date Initial DC 05/29/18 Assessment Was Performed Next Review Type Continued Stay Review
[2018-05-29] MEDS: cefUROXime 250 MG TABLET 500 MG PO (21:17)
[2018-05-30] VITALS (7 sets, daily range): BP systolic 116–143; BP diastolic 52–60; PULSE 59–78; RESP 16–19; TEMP 36.4–36.6; O2SAT 95–99
[2018-05-30 05:19] LABS: Add Manual Diff / Slide Review NO; Basophils Percent Auto 0.5 % (0-2); Eosinophils Percent Auto 1.4 % (2-4); Hematocrit 35.6 % (41-53); Hemoglobin 12.3 g/dL (13.5-17.5); Lymphocytes Percent Auto 19.4 % (25-40); Mean Corpuscular HGB Conc 34.5 % (30-36); Mean Corpuscular Hemoglobin 30.7 PG (26-34); Mean Corpuscular Volume 89.2 fL (80-100); Neutrophils Absolute Auto 5800 /uL (3000-5900); Neutrophils Percent Auto 62.7 % (50-75); Platelet Count 362 X10^3/uL (150-400); Red Cell Distribution Width 13.7 % (11.6-14.8); White Blood Cell Count 9.2 X10^3/uL (4.5-11.0)
[2018-05-30 05:23] LABS: Alanine Aminotransferase 75 IU/L (21-72); Albumin 3.1 g/dL (3.5-5.0); Alkaline Phosphatase 106 U/L (38-126); Aspartate Aminotransferase 65 IU/L (17-59); BUN Creatinine Ratio 22.5 (6-22); Bilirubin Total 0.5 mg/dL (0.2-1.3); Blood Urea Nitrogen 18 mg/dL (9-20); Calcium 8.5 mg/dL (8.4-10.2); Carbon Dioxide 27 mmol/L (22-32); Chloride 102 mmol/L (98-107); Cholesterol 126 mg/dL (140-199); Estimated Glomerular Filt Rate > 60.0 mL/min (>60); Globulin 3.2 g/dL (1.7-4.1); Glucose 96 mg/dL (80-110); HDL Cholesterol 24 mg/dL (40-60); HEMOLYSIS < 15 (0-50); LDL Cholesterol Calculated 83 mg/dL (<100); Magnesium 1.7 mg/dL (1.6-2.3); Potassium 3.5 mmol/L (3.4-5.1); Sodium 136 mmol/L (137-145); Total Protein 6.3 g/dL (6.3-8.2); Triglycerides 96 mg/dL (35-150)
[2018-05-30] MEDS: PANTOPRAZOLE 20 MG TABLET PO (06:22)
--- NOTE | 2018-05-30 08:41 | DI.ECHO.S_ITS ---
[facility] +---------+ [facility] +---------+ : : [address] : : : [place], [place] : : : : [id number] : : : : Phone: [phone]+ Echocardiogram Report + + :Name: BARRINGTON MCKINNON Study Date: 05/30/2018 Height: 68 in : :[facility] Weight: 125 lb: : Gender: Male BSA: 1.7 m2 : :: 1940 Age: 77 yrs : :Reason For Study: AFIB RVR : : Performed By: Antonia Montez : :Referring: ANJELICA ROBINS : + + Interpretation Summary The study quality was technically difficult. The ejection fraction is estimated to be 60-65%. There are no obvious focal wall motion abnormalities noted but poor endocardial definition reduces the sensitivity for the detection of such. The right ventricle is moderately dilated. Right ventricular systolic function is mildly reduced. There is no significant valvular heart disease. Procedure: A two-dimensional transthoracic echocardiogram with color flow and Doppler was performed. The study quality was technically difficult. There is no prior echocardiogram noted for this patient. Patient unable to perform breathing techniques to improve image acquisition. The heart rate ranged between 69-101 bpm during the study. Left Ventricle: The left ventricular cavity is small. There is normal left ventricular wall thickness. The ejection fraction is estimated to be 60-65%. There are no obvious focal wall motion abnormalities noted but poor endocardial definition reduces the sensitivity for the detection of such. Right Ventricle: The right ventricle is moderately dilated. Right ventricular systolic function is mildly reduced. Atria: Both atria are normal in size. There is no Doppler evidence for an interatrial shunt. Mitral Valve: The mitral valve leaflets appear thickened, but open well. There is no mitral regurgitation noted. Aortic Valve: The aortic valve is trileaflet. The aortic valve is mildly calcified. There is no aortic valve stenosis. There is trace aortic regurgitation. Tricuspid Valve: The tricuspid valve is not well visualized, but is grossly normal. There is a trace or physiologic amount of tricuspid regurgitation. Pulmonary artery pressures cannot be estimated because of the lack of a measurable TR jet velocity. Pulmonic Valve: The pulmonic valve is normal in structure and function. Great Vessels: The aortic root is normal size. The ascending aorta is normal in size. The aortic arch could not be visualized. The pulmonary artery is normal size. The IVC is of normal diameter and collapses greater than 50% with a sniff. This suggests a low right atrial pressure of 3 mm Hg. Pericardium/ Pleura There is no pericardial effusion. There is no pleural effusion. MMode/2D Measurements & Calculations LVIDd: 3.7 cm LVOT diam: 2.2 cm IVSd: 0.96 cm Ao root diam: 3.4 cm LVPWd: 0.59 cm asc Aorta Diam: 3.0 cm LV suazo. diameter/BSA (cm/m^2): 2.2 LA A2 area: 14.6 cm2 RA long axis: 5.1 cm LA A4 area: 15.0 cm2 RA area: 13.4 cm2 LA length (vol): 6.0 cm RA vol: 30.3 ml LA vol: 31.0 ml RA : 18.1 ml/m2 LA vol index: 18.5 ml/m2 Doppler Measurements & Calculations Ao V2 max: 93.0 cm/sec LVOT Max Krishna: 71.0 cm/sec Ao V2 mean: 61.2 cm/sec LV V1 max P.0 mmHg Ao max P.5 mmHg LV V1 VTI: 16.7 cm Ao mean P.7 mmHg REAL(I,D): 4.1 cm2 Ao V2 VTI: 15.6 cm REAL(V,D): 3.0 cm2 sev ratio: 1.1 REAL indexed to BSA (cm^2/m^2): 2.5 MV E max krishna: 74.8 cm/sec MV A max krishna: 99.3 cm/sec MV E/A: 0.75 MV dec time: 0.24 sec Reading Physician:05:02 PM
--- NOTE | 2018-05-30 08:53 | PT.IPTN ---
Current Diagnoses Hypothyroidism, unspecified (05/28/18) Major depressive disorder, single episode, unspecified (05/28/18) Unspecified atrial fibrillation (05/28/18) Unspecified bacterial pneumonia (05/28/18) Pneumonia, unspecified organism (05/28/18) Unspecified urinary incontinence (05/28/18) Other amnesia (05/28/18) Abnormal results of liver function studies (05/28/18) Elevated prostate specific antigen [PSA] (05/28/18) Physical Therapy Treatment Note M3 PT-IP Subjective Start: 05/29/18 12:21 Freq: NEEDED Status: Active Protocol: Document 05/30/18 08:50 [facility] (Rec: 05/30/18 08:51 [facility] [id number]) Subjective Physical Therapy Visit Type Type Patient Refusal Visit Start Time 08:35 Notes Pt refused treatment. Encouraged multiple times to get up and asked to be left alone. Follow up with pt later . Informed MD re: dgt discussion with CM about possible SNF planning.
--- NOTE | 2018-05-30 09:12 | P.DS_ITS ---
History of Present Illness Date Patient Seen: 05/30/18 Time Patient Seen: 09:04 Chief complaint: Weakness Narrative: See H&P Discharge Providers Date of admission: 05/28/18 16:01 Primary care physician: Rikki Dick MD Consults: 05/28/18 15:45 Consult to Physician Routine Comment: Consulting Provider: Rikki Dick Reason for consultation: Admission Has provider been notified: Yes 05/28/18 19:19 Consult to Dietitian, Adult Routine Comment: Reason For Exam: assessed at high risk Consult to Incident Analyst Routine Comment: increased weakness at home, falls 05/28/18 19:57 Consult to Discharge Planning Routine Comment: Consult to Occupational Therapy Evaluate & Treat Comment: Physician Instructions: Evaluate and treat Consult to Physical Therapy Evaluate & Treat Comment: Physician Instructions: Evaluate and Treat Discharge provider: Rikki Dick MD Summary Discharge Diagnosis: Generalized weakness Pneumonia Atrial fibrillation with rapid ventricular response Volume depletion Dementia suspect Alzheimer's type Urinary incontinence Hospital Course: Patient admitted through the emergency room, found with pneumonia at that time started on antibiotics. Also some IV fluids. Was found with AFib with RVR and started in the ER with Cardizem bolus followed by drip which over the next 24 hr converted the patient to sinus rhythm. He remained in sinus rhythm through the balance of his stay remaining on rate control. Blood pressure ran a little low heart rate also in the 50s, other vital signs remained stable. Admitted with a slight elevation of white blood count which normalized other labs also normalized. Had ordered echocardiogram yesterday that did not get done not sure why will see if he can accomplish that today before discharge. One minor complication was that patient's who is primary caregiver and most aware of patient's status has been [place] so his daughter has been caregiver, and seemed a bit more anxious about caring for him in the status. See care management note regarding the discussion about home versus SNF as well as the PT note all of whom suggested SNF was most appropriate at this time. I am little anxious about that as he is already but confused I think this change may add about confusion. But it does seem appropriate given his overall status has improved clinically a little more awake and alert has been moving more freely maintaining adequate oxygenation. Status at Discharge Cognitive/behavioral status at discharge: Still seems somewhat confused but more conversant. Functional status at discharge: uses cane/walker Overall status at discharge: patient is not back to baseline Time Spent with Patient Greater than 30 minutes Exam Vital Signs (past 8 hours): - 05/30/18 04:12 05/30/18 07:33 Temperature 97.8 F 98 F Pulse Rate 78 59 L Respiratory Rate 16 18 Blood Pressure 116/60 131/59 L Pulse Oximetry 95 97 Oxygen Delivery Method Room Air Oxygen Flow Rate 0 Narrative Exam Narrative: Rather frail appearing lying quietly in bed responding minimally to questions. Says had a rough night with a headache but no other changes. HEENT unremarkable neck is benign chest is clear heart regular although slow no murmurs abdomen soft nontender normoactive bowel tones extremities benign neurologically nonfocal Objective Labs Result Diagrams: 05/30/18 04:58 05/30/18 04:58 Labs: Laboratory Results - last 24 hr 05/30/18 05/30/18 05/30/18 04:58 04:58 04:58 WBC 9.2 RBC 4.00 L Hgb 12.3 L Hct 35.6 L MCV 89.2 MCH 30.7 MCHC 34.5 RDW 13.7 Plt Count 362 Neut % (Auto) 62.7 Lymph % (Auto) 19.4 L [place] % (Auto) 16.0 H Eos % (Auto) 1.4 L Baso % (Auto) 0.5 Neut # (Auto) 5800 Sodium 136 L Potassium 3.5 Chloride 102 Carbon Dioxide 27 BUN 18 Creatinine 0.80 Estimated GFR > 60.0 BUN/Creatinine Ratio 22.5 H Glucose 96 Calcium 8.5 Magnesium 1.7 Total Bilirubin 0.5 AST 65 H ALT 75 H Alkaline Phosphatase 106 Total Protein 6.3 Albumin 3.1 L Globulin 3.2 Albumin/Globulin Ratio 1.0 Triglycerides 96 Cholesterol 126 L LDL Cholesterol, Calc 83 HDL Cholesterol 24 L TSH 2.50 Discharge Plan Discharge Plan Patient Disposition: SNF Transfer to: [facility] Under care of provider: Mayelin Transportation: Wheelchair Consult as needed: Dental, Hearing, Mental health, Podiatry and Vision I certify the postop hospital usp care is medically necessary on a continuing basis for any conditions for which he/ she received care during this hospitalization.: Yes The receiving facility has agreed to accept transfer and provide medical treatment.: Yes Discharge Med Rec/Prescriptions Prescriptions: New latanoprost [Xalatan] 0.005 % Drops 1 drops EYE-LEFT BEDTIME Qty: 1 RF: 0 acetaminophen 325 mg Tablet 650 mg PO Q6HR PRN (Reason: As Needed For Fever/Mild Pain) Qty: 50 RF: 0 cefuroxime axetil 250 mg Tablet 500 mg PO BID 10 Days Qty: 40 RF: 0 tolterodine [Detrol LA] 4 mg Capsule,Extended Release 24hr 4 mg PO DAILY Qty: 30 RF: 0 pantoprazole 20 mg Tablet,Delayed Release (Dr/Ec) 20 mg PO 0600 Qty: 30 RF: 0 metoprolol succinate 25 mg Tablet Extended Release 24 Hr 25 mg PO DAILY Qty: 30 RF: 0 Continue aspirin 81 mg Tablet,Delayed Release (Dr/Ec) 81 mg PO DAILY Qty: 0 RF: 0 tamsulosin 0.4 mg capsule 2 cap PO DAILY RF: 0 vitamin B complex Capsule 1 cap PO DAILY RF: 0 multivitamin,[id number] [Complete Multivitamin] Tablet 1 tab PO DAILY RF: 0 red yeast rice 600 mg Capsule 600 mg PO DAILY RF: 0 Discharge Health Status Brief summary of current health status: Frail older man with evolving dementia, improving pneumonia Multidrug resistant organism: No MDRO MDRO Verified by culture: Yes Date verified: 05/30/18 Precautions: [place] Provider Discharge Instructions Diet: Diet as Tolerated Liquid consistency: Normal/Thin Food texture: Regular Skin/Wound/Dressing Care Skin care: As needed, focus on vannesa area Report to your healthcare provider any signs of infection, such as:: chills, fever, night sweats, increased pain and unusual drainage Special Rehabilitation Services Reason for rehabilitation: Recovery r/t decondition Rehab type: Physical therapy and Occupational therapy Restrictions to mobility: Weakness Discharge Data Primary Care Provider: Rikki Dick Attending Provider: Rikki Dick Admit Date/Time: 05/28/18 16:01 Quality VTE Deep Vein Thrombosis/Pulmonary Embolism Present on Admission: No
--- NOTE | 2018-05-30 09:12 | PM.PN.1 ---
Subjective Date Patient Seen: 05/30/18 Time Patient Seen: 09:12 Interval history: Complains of headache this morning and not getting a good night's sleep. Otherwise stable. Reviewed PT and case management notes regarding status and potential for home versus SNF Exam Vital Signs (past 8 hours): - 05/30/18 04:12 05/30/18 07:33 Temperature 97.8 F 98 F Pulse Rate 78 59 L Respiratory Rate 16 18 Blood Pressure 116/60 131/59 L Pulse Oximetry 95 97 Oxygen Delivery Method Room Air Oxygen Flow Rate 0 Narrative Exam Narrative: Frail-appearing lying on his side minimal response, HEENT unremarkable chest seems more clear heart regular lobe slow abdomen soft nontender normoactive bowel tones extremities benign neurologically unchanged/nonfocal Objective Labs Result Diagrams: 05/30/18 04:58 05/30/18 04:58 Labs: Laboratory Results - last 24 hr 05/30/18 05/30/18 05/30/18 04:58 04:58 04:58 WBC 9.2 RBC 4.00 L Hgb 12.3 L Hct 35.6 L MCV 89.2 MCH 30.7 MCHC 34.5 RDW 13.7 Plt Count 362 Neut % (Auto) 62.7 Lymph % (Auto) 19.4 L [place] % (Auto) 16.0 H Eos % (Auto) 1.4 L Baso % (Auto) 0.5 Neut # (Auto) 5800 Sodium 136 L Potassium 3.5 Chloride 102 Carbon Dioxide 27 BUN 18 Creatinine 0.80 Estimated GFR > 60.0 BUN/Creatinine Ratio 22.5 H Glucose 96 Calcium 8.5 Magnesium 1.7 Total Bilirubin 0.5 AST 65 H ALT 75 H Alkaline Phosphatase 106 Total Protein 6.3 Albumin 3.1 L Globulin 3.2 Albumin/Globulin Ratio 1.0 Triglycerides 96 Cholesterol 126 L LDL Cholesterol, Calc 83 HDL Cholesterol 24 L TSH 2.50 Assessment & Plan (1) Pneumonia: Problem details: This is problem 1. Clinical findings unchanged with change to oral antibiotics continue same. Qualifiers: Aspiration pneumonia type: Laterality: unspecified laterality Lung location: unspecified part of lung Pneumonia type: due to unspecified organism Qualified Code(s): J18.9 - Pneumonia, unspecified organism Current visit: Yes Status: Acute (2) Atrial fibrillation with RVR: Problem details: Has remained in sinus rhythm since conversion on day 1, now on oral beta-jamin will continue same. Current visit: Yes Status: Acute (3) LFT elevation: Problem details: Numbers have improved slightly. Current visit: Yes Status: Acute Plan: Assessment/Plan Narrative: Plan transfer SNF tomorrow. Orders in place. Quality VTE Deep Vein Thrombosis/Pulmonary Embolism Present on Admission: No
--- NOTE | 2018-05-30 09:15 | P.PN_ITS ---
Subjective Date Patient Seen: 05/30/18 Time Patient Seen: 09:12 Interval history: Complains of headache this morning and not getting a good night's sleep. Otherwise stable. Reviewed PT and case management notes regarding status and potential for home versus SNF Exam Vital Signs (past 8 hours): - 05/30/18 04:12 05/30/18 07:33 Temperature 97.8 F 98 F Pulse Rate 78 59 L Respiratory Rate 16 18 Blood Pressure 116/60 131/59 L Pulse Oximetry 95 97 Oxygen Delivery Method Room Air Oxygen Flow Rate 0 Narrative Exam Narrative: Frail-appearing lying on his side minimal response, HEENT unremarkable chest seems more clear heart regular lobe slow abdomen soft nontender normoactive bowel tones extremities benign neurologically unchanged/ nonfocal Objective Labs Result Diagrams: 05/30/18 04:58 05/30/18 04:58 Labs: Laboratory Results - last 24 hr 05/30/18 05/30/18 05/30/18 04:58 04:58 04:58 WBC 9.2 RBC 4.00 L Hgb 12.3 L Hct 35.6 L MCV 89.2 MCH 30.7 MCHC 34.5 RDW 13.7 Plt Count 362 Neut % (Auto) 62.7 Lymph % (Auto) 19.4 L [place] % (Auto) 16.0 H Eos % (Auto) 1.4 L Baso % (Auto) 0.5 Neut # (Auto) 5800 Sodium 136 L Potassium 3.5 Chloride 102 Carbon Dioxide 27 BUN 18 Creatinine 0.80 Estimated GFR > 60.0 BUN/Creatinine Ratio 22.5 H Glucose 96 Calcium 8.5 Magnesium 1.7 Total Bilirubin 0.5 AST 65 H ALT 75 H Alkaline Phosphatase 106 Total Protein 6.3 Albumin 3.1 L Globulin 3.2 Albumin/Globulin Ratio 1.0 Triglycerides 96 Cholesterol 126 L LDL Cholesterol, Calc 83 HDL Cholesterol 24 L TSH 2.50 Assessment & Plan (1) Pneumonia: Problem details: This is problem 1. Clinical findings unchanged with change to oral antibiotics continue same. Qualifiers: Aspiration pneumonia type: Laterality: unspecified laterality Lung location: unspecified part of lung Pneumonia type: due to unspecified organism Qualified Code(s): J18.9 - Pneumonia, unspecified organism Current visit: Yes Status: Acute (2) Atrial fibrillation with RVR: Problem details: Has remained in sinus rhythm since conversion on day 1, now on oral beta- jamin will continue same. Current visit: Yes Status: Acute (3) LFT elevation: Problem details: Numbers have improved slightly. Current visit: Yes Status: Acute Plan: Assessment/Plan Narrative: Plan transfer SNF tomorrow. Orders in place. Quality VTE Deep Vein Thrombosis/Pulmonary Embolism Present on Admission: No
[2018-05-30] MEDS: cefUROXime 250 MG TABLET 500 MG PO ×2 (09:41→21:24)
[2018-05-30] MEDS: METOPROLOL ER 25 MG TABLET PO (09:41)
[2018-05-30] MEDS: TOLTERODINE LA 4 MG PO (09:41)
[2018-05-30] MEDS: TAMSULOSIN 0.4 MG CAPSULE PO (09:41)
--- NOTE | 2018-05-30 12:25 | PT.IPTN ---
Current Diagnoses Hypothyroidism, unspecified (05/28/18) Major depressive disorder, single episode, unspecified (05/28/18) Unspecified atrial fibrillation (05/28/18) Unspecified bacterial pneumonia (05/28/18) Pneumonia, unspecified organism (05/28/18) Unspecified urinary incontinence (05/28/18) Other amnesia (05/28/18) Abnormal results of liver function studies (05/28/18) Elevated prostate specific antigen [PSA] (05/28/18) Physical Therapy Treatment Note M2 PT-IP Current Condition Start: 05/29/18 12:21 Freq: NEEDED Status: Active Protocol: Document 05/30/18 12:25 RCC (Rec: 05/30/18 12:35 RCC [email or web address]) Physical Therapy Current Condition Current Condition Evaluation Date 05/29/18 Treatment Diagnosis Walking/gait disturbance Onset Date 05/28/18 Weight Bearing Status Weight Bearing Status Full Weight Bearing M3 PT-IP Subjective Start: 05/29/18 12:21 Freq: NEEDED Status: Active Protocol: Document 05/30/18 12:25 RCC (Rec: 05/30/18 12:35 RCC [email or web address]) Subjective Physical Therapy Visit Type Type Treatment Note Visit Start Time 12:05 Visit Stop Time 12:25 Total Visit Minutes 20 Notes Ching, OT also present during session. Number of SEWAGE SCREEN OPERATOR Visits 0 Physical Therapy Visit Comments Patient Comments Pt initially did not want to get OOB, but responded to Ching from OT with simple, direct orders. Patient Goals go home Therapy Pain Assessment Pain Present Pain Present Denied Pain M4 PT-IP Mobility and Gait Start: 05/29/18 12:21 Freq: NEEDED Status: Active Protocol: Document 05/30/18 12:25 RCC (Rec: 05/30/18 12:35 RCC [email or web address]) PT-Bed Mobility Assessment Scooting Scooting to Edge of Bed Moderate Assistance PT-Transfer Assessment Sit to and From Stand Sit to and from Stand Moderate Assistance 2 Person Assistance Use of Upper Extremities Equipment Transfer Assistive Device Gait Belt Transfers Transfer Destination Chair Transfer Technique Stand Step Pivot Transfer Ability Level of Assist Moderate Assistance 1 Person Assistance Comments Mobility Comments Hand-held assistance with gait belt Gait Assessment Gait Gait Assistance Required: Moderate Assistance 1 Person Assist Distance (Feet) 10 Assistive Devices Assistive Device Gait Belt Gait Deviations General Gait Pattern Ataxic Decreased Stride Length Decreased Feet Clearance Flexed Trunk Lateral Trunk Lean Narrow Based Gait Step-to Gait Factors Limiting Gait Function Factors Limiting Gait Function Decreased Activity Tolerance Decreased Strength Difficulty Following Directions Poor Balance Poor Safety Awareness Comments Gait Comments Hand-held gait with gait belt. M5 PT-IP Objective Assessments Start: 05/29/18 12:21 Freq: NEEDED Status: Active Protocol: Document 05/29/18 11:43 IJS (Rec: 05/29/18 12:41 IJS [id number]) Orientation Orientation/Cognition Level of Alertness Alert Orientation Name Safety Awareness Decreased Safety Awareness Comments Unclear of memory deficits as he does not initiate conversation. Once we were able to wake him up he was clear with his speech. Gross Range of Motion Upper Extremity ROM Assessment Within Functional Limits Lower Extremity ROM Assessment Within Functional Limits Strength Upper Extremity Strength Assessment Within Functional Limits Lower Extremity Strength Assessment Within Functional Limits Comments Strength Comments General weakness secondary to immoblity. Coordination Assessment Gross Coordination Gross Coordination WNL Assessment Finger to Nose Test Normal Performance Pronation/Supination Test Normal Performance Foot Tapping Test Normal Performance Sensation Assessment Sensation Gross Sensation WNL Light Touch Intact Proprioception (Position) Intact Muscle Tone Muscle Tone WNL Yes Other Assessments Other Other Assessments Needs encouragement to increase activity. M6 PT-IP Treatment Start: 05/29/18 12:21 Freq: NEEDED Status: Active Protocol: Document 05/30/18 12:25 RCC (Rec: 05/30/18 12:35 RCC [email or web address]) Physical Therapy Treatment Exercises Exercises Ankle Pumps Education Education Provided Safety Other Treatments Other Treatment Performed Ching, OT in room at end of session; chair alarm placed. M7 PT-IP Assessment and Plan Start: 05/29/18 12:21 Freq: NEEDED Status: Active Protocol: Document 05/30/18 12:25 RCC (Rec: 05/30/18 12:35 [facility] [email or web address]) PT Summary Assessment and Plan Summary Assessment Summary Pt required assistance to perform sit<->stand, and demonstrated impulsive behaviors by attempting to sit down too soon/quickly after gait. Pt appeared to be confused with walker yesterday , likely due to not being familiar with using one. Pt was able to ambulate with holding PTs hand, but does require moderate assistance for stability to prevent falls while ambulating even short distances. The burden of care is too high at this time for the pt to safely manage at home or be assisted by family, he would greatly benefit from SNF rehabilitation. Goals Bed Mobility Goal Contact Guard Assistance Transfer Goal Contact Guard Assistance Gait Goal Contact Guard Assistance Gait Distance 100 Days to Meet Goals 3 Frequency of Treatment Frequency Of Treatment Once a Day Treatment Plan Other Recommendations and Next Treatment prog. gait, sit<->stand, Focus activity tolerance Recommendations To Nursing Amount of Assist Needed 2 Person Assist Discharge Recommendations PT Discharge Recommendations SNF Rehab
--- NOTE | 2018-05-30 12:33 | OT.IP.EVAL ---
Current Diagnoses Hypothyroidism, unspecified (05/28/18) Major depressive disorder, single episode, unspecified (05/28/18) Unspecified atrial fibrillation (05/28/18) Unspecified bacterial pneumonia (05/28/18) Pneumonia, unspecified organism (05/28/18) Unspecified urinary incontinence (05/28/18) Other amnesia (05/28/18) Abnormal results of liver function studies (05/28/18) Elevated prostate specific antigen [PSA] (05/28/18) Past Medical History (Last Reviewed 05/28/18 @ 19:39 by Rikki Dick MD) Depression (Chronic) Hyperlipidemia (Chronic) Hypothyroid (Chronic) Memory changes (Chronic) PSA elevation (Chronic) Urinary incontinence (Chronic) Surgical History (Last Reviewed 05/28/18 @ 19:39 by Rikki Dick MD) No pertinent past surgical history (Acute) Occupational Therapy Inpatient Evaluation/Re-Eval M1 PT/OT-IP Prior Functional Status Start: 05/29/18 12:21 Freq: NEEDED Status: Active Protocol: Document 05/29/18 11:43 IJS (Rec: 05/29/18 12:41 IJS [id number]) Medical Review Prior Functional Status Medical History Reviewed Yes Communication Not very conversant but once aroused will answer questions. Mobility and Gait Fluctuates per daughter since the fall last Sunday he has needed assist with gait/ mobility, dressing, ADL's. Activities of Daily Living and IADL's Needs assist at this time but per daughter was independent prior to his fall. Social History Household Members spouse family Living Arrangements House Number of Floors (Floors) One Floor Number of Stairs To Enter/Railing? Yes in several locations without a rail but the daughter said if he discharges home she will have help to get him inside. Home Environment Standard Height Toilet Employment Status Retired Additional Social History Comment Currently ruling out progressive dementia/ Alzheimer. M1 PT/OT-IP Prior Functional Status Start: 05/29/18 14:45 Freq: NEEDED Status: Active Protocol: Document 05/30/18 12:33 PJM (Rec: 05/30/18 15:24 PJM [id number]) Medical Review Prior Functional Status Medical History Reviewed Yes Diet/Fluid Consistency Regular Communication Not very conversant but once aroused will answer questions. Mobility and Gait Fluctuates per daughter; since the fall last Sunday he has needed assist with gait/ mobility, dressing, ADL's. Activities of Daily Living and IADL's Needs assist at this time but per daughter was independent prior to his fall. Social History Household Members spouse family Living Arrangements House Number of Stairs To Enter/Railing? there are stairs in several locations within home, one rail Home Environment Standard Height Toilet Employment Status Retired Additional Social History Comment No family here to confirm home situation M2 OT-IP Current Condition Start: 05/29/18 14:45 Freq: Status: Active Protocol: Document 05/30/18 12:33 PJM (Rec: 05/30/18 15:24 [facility] [id number]) Occupational Therapy Current Condition Current Condition Evaluation Date 05/30/18 Treatment Diagnosis decreased self care, functional mobility, cognition with new dx of PNA Post Operative Precautions Other Precautions fall risk, confusion, bed/ chair alarm Weight Bearing Status Weight Bearing Status Full Weight Bearing M3 OT- IP Subjective and Pain Start: 05/29/18 14:45 Freq: Status: Active Protocol: Document 05/30/18 12:33 PJM (Rec: 05/30/18 15:24 PJ [id number]) OT- Subjective Occupational Therapy Visit Type Type Initial Evaluation Visit Start Time 12:10 Visit Stop Time 12:33 Total Visit Minutes 23 Occupational Therapy Visit Comments Patient/Caregiver Goals pt unable to verbalize goal due to confusion OT Pain Assessment Pain When Pain Assessed After Treatment Pain Present Pain Present Denied Pain M4 OT- IP ADL's Start: 05/29/18 14:45 Freq: Status: Active Protocol: Document 05/30/18 12:33 PJM (Rec: 05/30/18 15:24 [facility] [id number]) OT [id number] General Evaluation Self-Feeding Ability Standby Assistance Comments OT Self-Feeding Comments needs cup with lid to prevent spilling due to inattention; needs set up of meal tray, then intermittent supervision for safety OT ADL-Grooming General Evaluation Grooming Ability Standby Assistance Areas Needing Assistance Combing/Brushing Hair Face Washing Comments OT Grooming Comments with encouragement in chair OT ADL-Oral Care Comments Oral Care Comments to be assessed OT ADL-Dressing Comments OT Dressing Comments to be assessed; pt declined this session OT ADL-Toileting Comments OT Toileting Comments did not occur this session M5 OT- IP IADL's Start: 05/29/18 14:45 Freq: Status: Active Protocol: Document 05/30/18 12:33 PJM (Rec: 05/30/18 15:24 PJ [id number]) OT-Instrumental Activities of Daily Living Deficits IADL Deficits Identified Deficits Home Safety Awareness Awareness of Need for Assistance at Home Decreased Awareness Ability to Problem Solve Emergency Unable to Problem Solve Situations Medication Management Medication Management Caregiver Administers Money Management Money Management Caregiver Provides Assistance Meal Preparation Meal Preparation Caregiver Provides Assist Lump Maker Lump Maker Caregiver Provides Assist Driving Driving Caregiver Provides Assist M6 OT- IP Functional Cognition Start: 05/29/18 14:45 Freq: Status: Active Protocol: Document 05/30/18 12:33 PJM (Rec: 05/30/18 15:24 PJ [email or web address]) Cognitive Factors Limiting Selfcare Function Cognitive Ability Level of Alertness Alert Patient Orientation Name Place Attention Span Ability Capable of Focused Attention Ability to Follow Commands Able to Follow One Step Commands Memory Description Immediate Impaired Short Term Impaired Safety Awareness Decreased Recall of Precautions Underestimates Need for Assistance Problem Solving Ability Unable to Identify Errors Needs Assist to Identify Solutions Executive Function Ability Unable to Filter Distractions Unable to Organize Plans Unable to Remember Details Cognitive Comments Cognitive Assessment Comments Pt cooperative and follows one step commands. Able to state place and recognizes friend in room and asked about friend's appropriately. OT- Vision and Hearing OT- Hearing Assessment OT- Hearing Assessment WFL OT- Vision Assessment Visual Acuity WFL Glasses All The Time Vision Assessment Comments Pt able to read wall clock correctly and see small hand held video game. M7 OT- IP Mobility and Balance Start: 05/29/18 14:45 Freq: Status: Active Protocol: Document 05/30/18 12:33 PJM (Rec: 05/30/18 15:24 PJ [id number]) OT- Bed Mobility Assessment Rolling Type of Rolling Roll to Left Level of Assistance Minimal Assistance 1 Person Assistance Supine to Sit Supine to Sit Assist Moderate Assistance 1 Person Assistance Scooting Scooting to Edge of Bed Minimal Assistance 1 Person Assistance OT-Transfer Assessment Sit to and From Stand Sit to and from Stand Minimal Assistance Transfers Transfer Ability Moderate Assistance Technique Transfer Destination Chair Transfer Technique Stand Step Pivot Devices Transfer Assistive Devices Gait Belt Comments Mobility Comments Pt transfers with hand hold assist due to confusion when FWW presented. OT- Gait Assessment Gait Gait Assistance Required: Moderate Assistance Comments Gait Ability Comments See P.T. note OT- Balance Assessment Sitting Balance and Reactions Static Sitting Balance Ability Fair Standing Balance and Reactions Static Standing Balance Ability Fair M8 OT- IP Objective Assessments Start: 05/29/18 14:45 Freq: Status: Active Protocol: Document 05/30/18 12:33 PJM (Rec: 05/30/18 15:24 PJ [id number]) OT Gross Range of Motion Upper Extremity Range of Motion Assessment Within Functional Limits OT Strength Upper Extremity Strength Assessment Within Functional Limits Hand Woodworking Machine Setter Strength Hand Dominance Right Comments Strength Comments BUE strength at least 3+ to 4-/5 by observation this session OT- Coordination Assessment Comments Coordination Comments WFL for self feeding with finger foods and holding hairbrush this session OT-Muscle Tone Assessment Muscle Tone WNL Yes OT Sensation Assessment Comments Summary Comments appears WFL, unable to formally assess due to cognitive deficits M9 OT- IP Assessment and Plan Start: 05/29/18 14:45 Freq: Status: Active Protocol: Document 05/30/18 12:33 PJM (Rec: 05/30/18 15:24 PJ [id number]) OT Summary Assessment and Plan Potential Rehabilitation Potential Good Analytic Complexity at Evaluation Low Summary OT Impairments Strength Balance Functional Cognition Functional Mobility Grooming Dressing Toileting Bathing Toilet Transfers Shower Transfers Assessment Summary Low complexity OT assessment completed with emphasis on functional mobility and self care. Pt is far below his baseline of ambulating without a device and independence with basic self care with verbal cues only. Pt has significant performance deficits in bed mobility, transfers, ambulation, standing grooming, dressing, bathing, and toileting. Recommend SNF at discharge for subacute rehab. Pt may need Memory Care unit buttermaker helper Goals Grooming Goal Standby Assistance Dressing Goal Standby Assistance Toileting Goal Standby Assistance Bathing Goal Minimal Assistance Toilet Transfer Goal Standby Assistance Shower Transfer Goal Contact Guard Assistance OT-Other Goals Grooming to be done standing at sink Days to Meet Goals 7 Frequency of Treatment Frequency Of Treatment Once a Day Treatment Plan OT Treatment Plan ADL Training Functional Mobility Patient/Family Education Discharge Planning Discharge Recommendations OT Discharge Recommendations SNF Rehab Home Equipment Needs to be determined pending progress
--- NOTE | 2018-05-30 14:29 | CM.DPC ---
Referral faxed to [facility]
--- NOTE | 2018-05-30 16:06 | CM.DPC ---
DCP Cont: [facility] does not have a bed Sunday. Referral faxed to [facility], Michaelle in admissions is reviewing this afternoon and understands pt will be DC Sunday. Following closely. BAKARI Vega
[2018-05-30] MEDS: SODIUM CHLORIDE 0.9% FLUSH 10 ML IV (21:25)
[2018-05-31 00:11] VITALS: BP 136/96; PULSE 66; RESP 17; TEMP 36.9; O2SAT 96
[2018-05-31 05:01] LABS: Add Manual Diff / Slide Review NO; Basophils Percent Auto 0.6 % (0-2); Eosinophils Percent Auto 2.2 % (2-4); Hematocrit 35.1 % (41-53); Hemoglobin 12.3 g/dL (13.5-17.5); Lymphocytes Percent Auto 24.1 % (25-40); Mean Corpuscular Hemoglobin 31.2 PG (26-34); Mean Corpuscular Volume 89.2 fL (80-100); Monocytes Percent Auto 12.8 % (3-14); Neutrophils Absolute Auto 5500 /uL (3000-5900); Neutrophils Percent Auto 60.3 % (50-75); Platelet Count 403 X10^3/uL (150-400); Red Blood Cell Count 3.93 X10^6/uL (4.5-5.9); Red Cell Distribution Width 13.7 % (11.6-14.8); White Blood Cell Count 9.1 X10^3/uL (4.5-11.0)
[2018-05-31 05:08] LABS: Alanine Aminotransferase 79 IU/L (21-72); Albumin 3.1 g/dL (3.5-5.0); Alkaline Phosphatase 91 U/L (38-126); Aspartate Aminotransferase 70 IU/L (17-59); BUN Creatinine Ratio 21.3 (6-22); Bilirubin Total 0.4 mg/dL (0.2-1.3); Blood Urea Nitrogen 17 mg/dL (9-20); Calcium 8.5 mg/dL (8.4-10.2); Carbon Dioxide 30 mmol/L (22-32); Chloride 100 mmol/L (98-107); Estimated Glomerular Filt Rate > 60.0 mL/min (>60); Globulin 3.2 g/dL (1.7-4.1); Glucose 112 mg/dL (80-110); HEMOLYSIS < 15 (0-50); Potassium 3.9 mmol/L (3.4-5.1); Sodium 137 mmol/L (137-145); Total Protein 6.3 g/dL (6.3-8.2)
[2018-05-31 06:00] VITALS: BP 138/61; PULSE 70; RESP 17; TEMP 36.9; O2SAT 95
[2018-05-31] MEDS: PANTOPRAZOLE 20 MG TABLET PO (06:48)
[2018-05-31 07:39] VITALS: BP 107/54; PULSE 74; RESP 18; TEMP 36.8; O2SAT 95
[2018-05-31 07:40] VITALS: BP 107/54; PULSE 75; RESP 23; TEMP 36.8; O2SAT 98
[2018-05-31] MEDS: cefUROXime 250 MG TABLET 500 MG PO (09:02)
[2018-05-31] MEDS: TAMSULOSIN 0.4 MG CAPSULE PO (09:03)
[2018-05-31] MEDS: TOLTERODINE LA 4 MG PO (09:03)
[2018-05-31] MEDS: METOPROLOL ER 25 MG TABLET PO (09:03)
[2018-05-31 09:18] VITALS: O2SAT 94
--- NOTE | 2018-05-31 13:47 | PC.NURSE ---
Addendum entered by Linda Rene R.N. 05/31/18 15:26: 1520 - [facility] staff arrived to pick patient up. Patient discharged to facility with all belongings. Left floor in good condition. Original Note: Addendum entered by Babita Duong R.N. 05/31/18 14:28: report given to nurse at [facility]- awaiting transportation at this time Original Note: pt prepared for discharge ot [facility] this afternoon- his skin is intact other his scrotum and vannesa-area which is bright red and appears tender but pt denies it - cleansed and dried carefully with generous application of barrier cream to entire area- he is mostly incont of urine- awaiting discharge time
--- NOTE | 2018-05-31 15:11 | CM.DPC ---
Addendum entered by BAKARI Vega 05/31/18 15:30: PASSR also faxed to [facility]. Original Note: DC Note: Spoke w/pt's dtr December yesterday and today; she understood that [facility] did not have a bed and requested [facility] as their b/u choice yesterday. Today, [facility] has accepted and they arranged for their van to pick pt up at approx [phone]. Vera and RN made aware of this p/u time. plumber's assistant Federico faxed completed DC ppk and signed med list to [facility]. P: [facility] SNF via w/c van today. BAKARI Vega
== END 2018-05-31 15:20 | DRG 195 ==
LOC: ED 15:45 → ICU 16:54
PROVIDERS: Admitting Provider Family Medicine; Emergency Provider Emergency Medicine; PCP Family Medicine; Visit Provider Family Medicine
DX: J15.9 Unspecified bacterial pneumonia (principal); I48.91 Unspecified atrial fibrillation; E86.9 Volume depletion, unspecified; G30.9 Alzheimer's disease, unspecified; F02.80 Dementia in other diseases classified elsewhere, unspecified severity, without behavioral disturbance, psychotic disturbance, mood disturbance, and anxiety; R32 Unspecified urinary incontinence; E03.9 Hypothyroidism, unspecified; F32.9 Major depressive disorder, single episode, unspecified; E78.5 Hyperlipidemia, unspecified; Z87.891 Personal history of nicotine dependence; R94.5 Abnormal results of liver function studies
CPT/HCPCS: 36415; 71045; 80053; 80061; 81001; 83605; 83735; 83880; 84145; 84443; 84484; 85025; 87040; 87797; 93005; 93306; 96361; 96365; 96366; 96375; 97162; 97165; 97530; 99285; J1956

== ENCOUNTER 2019-06-08 10:40 | Inpatient (IN) | payer MEDICARE, OTHER, SELFPAY ==
[2018-05-28 17:52] VITALS: BMI 22.0
[2019-06-08] VITALS (9 sets, daily range): BP systolic 103–139; BP diastolic 52–63; PULSE 55–91; RESP 15–18; TEMP 36.7–37.1; O2SAT 92–100; BMI 22.1; BMI 21.6
--- NOTE | 2019-06-08 10:59 | DI.RAD.S_ITS ---
PROCEDURE: XR CHEST 2V INDICATIONS: shortness of breath TECHNIQUE: 2 views of the chest were acquired. COMPARISON: [facility], CR, XR CHEST 1V, 05/28/2018, 14:32. FINDINGS: Surgical changes and devices: None. Lungs and pleura: There is moderate airspace disease identified at the left lung base that partially obscures portions of the left diaphragm. Mild airspace disease at the right lung base is also present, which is new. No large effusion is identified. There is no definitive pneumothorax. There may be pleural calcifications within the left lung apex. Mediastinum: Mediastinal contours are normal. Heart size is normal. There is aortic atherosclerosis. Bones and chest wall: No suspicious bony abnormalities. Degenerative changes of the spine and shoulders are not well characterized. Soft tissues appear unremarkable. IMPRESSION: Bibasilar opacities (left greater than right) are most likely related to pneumonia. Atelectasis or aspiration may also have this appearance. Dictated by: Bipin Kraus M.D. on 06/08/2019 at 10:55 Approved by: Bipin Kraus M.D. on 06/08/2019 at 10:56
[2019-06-08 11:39] LABS: Add Manual Diff / Slide Review NO; Basophils Absolute Auto 0 /uL (0-100); Basophils Percent Auto 0.2 % (0-2); Eosinophils Absolute Auto 0 /uL (0-450); Eosinophils Percent Auto 0.1 % (2-4); Hematocrit 39.2 % (41-53); Hemoglobin 13.6 g/dL (13.5-17.5); Lymphocytes Absolute Auto 600 /uL (1100-4500); Lymphocytes Percent Auto 5.2 % (25-40); Mean Corpuscular HGB Conc 34.8 % (30-36); Mean Corpuscular Hemoglobin 31.4 PG (26-34); Mean Corpuscular Volume 90.3 fL (80-100); Monocytes Absolute Auto 600 /uL (0-900); Monocytes Percent Auto 5.4 % (3-14); Neutrophils Absolute Auto 9400 /uL (1500-7000); Neutrophils Percent Auto 89.1 % (50-75); Platelet Count 338 X10^3/uL (150-400); Red Blood Cell Count 4.34 X10^6/uL (4.5-5.9); Red Cell Distribution Width 13.7 % (11.6-14.8); White Blood Cell Count 10.5 X10^3/uL (4.5-11.0)
[2019-06-08 11:43] LABS: INR 1.1 (0.9-1.3); Prothrombin Time 12.1 SECONDS (10.1-12.7)
[2019-06-08 11:45] LABS: PTT Partial Thromboplastin Tim 29 SECONDS (26.4-36.2)
[2019-06-08 11:50] LABS: Alanine Aminotransferase 17 IU/L (21-72); Albumin 4.2 g/dL (3.5-5.0); Albumin Globulin Ratio 1.2 (1.0-2.8); Alkaline Phosphatase 63 U/L (38-126); Aspartate Aminotransferase 24 IU/L (17-59); Bilirubin Total 1.1 mg/dL (0.2-1.3); Blood Urea Nitrogen 16 mg/dL (9-20); Calcium 9.3 mg/dL (8.4-10.2); Carbon Dioxide 29 mmol/L (22-32); Chloride 89 mmol/L (98-107); Estimated Glomerular Filt Rate > 60.0 mL/min (>60); Globulin 3.4 g/dL (1.7-4.1); Glucose 141 mg/dL (80-110); HEMOLYSIS < 15 (0-50); Potassium 4.8 mmol/L (3.4-5.1); Sodium 128 mmol/L (137-145); Total Protein 7.6 g/dL (6.3-8.2)
[2019-06-08 11:51] LABS: Lactate (Lactic Acid) 1.7 mmol/L (0.7-2.1)
[2019-06-08] MEDS: SODIUM CHLORIDE 0.9% 1,000 ML 1000 ML IV ×2 (11:55→14:08)
--- NOTE | 2019-06-08 11:59 | ED_ITS ---
HPI - Weakness General Chief complaint: Weakness Stated complaint: Mobility issues Time Seen by Provider: 06/08/19 11:08 Source: patient and family Mode of arrival: Family Vehicle Limitations: other (Dementia) History of Present Illness HPI Narrative: Patient is brought to the emergency department by his , who i s states that the patient seems to be more confused and weaker today than usual. Patient has had what seemed to be respiratory infection for about the last week, and has a history of COPD and pneumonia. states that the patient has not had as much of a cough over the last couple of days. She states she thinks the patient may have had fevers, but she has not measured his temperature. She denies any nausea or vomiting for the patient. She states that he has Alzheimer's dementia, and that he will always answer that everything is ?fine? if asked. No other complaints at this time. Related Data Home Medications Medication Instructions Recorded Confirmed aspirin 81 mg PO DAILY #0 03/13/11 05/28/18 multivitamin,[id number] 1 tab PO DAILY 05/28/18 05/28/18 [Complete Multivitamin] red yeast rice 600 mg PO DAILY 05/28/18 05/28/18 tamsulosin 2 cap PO DAILY 05/28/18 05/28/18 vitamin B complex 1 cap PO DAILY 05/28/18 05/28/18 Previous Rx's Medication Instructions Recorded acetaminophen 650 mg PO Q6HR PRN #50 tab 05/30/18 latanoprost [Xalatan] 1 drops EYE-LEFT BEDTIME #1 ml 05/30/18 metoprolol succinate 25 mg PO DAILY #30 tab 05/30/18 pantoprazole 20 mg PO 0600 #30 tab 05/30/18 tolterodine [Detrol LA] 4 mg PO DAILY #30 cap 05/30/18 Allergies Allergy/AdvReac Type Severity Reaction Status Date / Time No Known Drug Allergies Allergy Verified 05/28/18 14:32 Review of Systems Constitutional Constitutional: Denies chills, Denies fatigue, Denies fever(s), Denies frequent falls, Denies lethargy and Denies weakness Eyes Eyes: Denies change in vision, Denies eye discharge, Denies irritation and Denies loss of vision ENT Ears, Nose, Mouth, and Throat: Denies change in voice, Denies dizziness, Denies neck pain, Denies sore throat and Denies throat swelling Cardiovascular Cardiovascular: Denies chest pain, Denies irregular heart rhythm, Denies lightheadedness, Denies palpitations, Denies dyspnea, Denies dyspnea on exertion and Denies orthopnea Respiratory Respiratory: Denies cough, Denies dyspnea, Denies dyspnea on exertion and Denies wheezing Gastrointestinal Gastrointestinal: Denies abdominal pain, Denies change in bowel habits, Denies diarrhea, Denies nausea and Denies vomiting Genitourinary Genitourinary: Denies hematuria, Denies flank pain, Denies urinary incontinence and Denies urinary urgency Musculoskeletal Musculoskeletal: Denies back pain, Denies muscle weakness, Denies neck pain, Denies numbness and Denies tingling Integumentary/Breasts Skin/Breast: Denies pruritus, Denies erythema, Denies rash and Denies wounds Neurologic Neurologic: Denies behavioral changes, Denies confusion, Denies dizziness, Denies frequent falls, Denies loss of vision, Denies numbness, Denies tingling and Denies weakness Psychiatric Psychiatric: Denies anxiety, Denies behavioral changes, Denies confusion, Denies depression, Denies homicidal ideation and Denies suicidal ideation Endocrine Endocrine: Denies fatigue, Denies flushing and Denies palpitations Hematologic/Lymphatic Hematologic/Lymphatic: Denies easy bruising Allergic/Immunologic Allergic/Immunologic: Denies urticaria, Denies throat swelling and Denies wheezing [facility] Medical History Depression (Chronic) Hyperlipidemia (Chronic) Hypothyroid (Chronic) Memory changes (Chronic) PSA elevation (Chronic) Urinary incontinence (Chronic) Surgical History No pertinent past surgical history (Acute) Social History household members: spouse and family Smoking Status: Former smoker alcohol intake: current Social History household members: spouse and family Smoking Status: Former smoker alcohol intake: current Exam Initial Vital Signs Initial Vital Signs: Vital Signs Temperature 98.0 F 06/08/19 10:50 Pulse Rate 91 H 06/08/19 10:50 Respiratory Rate 18 06/08/19 10:50 Blood Pressure 113/59 L 06/08/19 10:50 Pulse Oximetry 92 06/08/19 10:50 Const General: cooperative and well developed Nutritional Appearance: well nourished Orientation: alert and awake [facility] Head: normocephalic and atraumatic Ears: external ears normal and TM's normal bilaterally Nose: external nose normal and No nasal discharge Face and sinus: sinuses nontender, face symmetric, no sinus tenderness and No dry mucous membranes Mouth: oral mucosae normal and moist mucous membranes Teeth and gingiva: dentition normal Throat: tonsils normal and uvula midline Eyes General: appearance normal, both eyes and all related structures Eyelids: eyelids normal Conjunctivae: conjunctivae normal Sclera: sclerae normal Pupils: PERRL EOM: EOM intact bilaterally Neck Neck: normal visual inspection, trachea midline, No lymphadenopathy, No midline deformity and No JVD Lymphatic: No lymphedema Chest Chest: normal inspection of the chest Resp Effort & Inspection: normal respiratory effort, able to speak in complete sentences, no respiratory distress and no use of accessory muscles Auscultation: clear to auscultation bilaterally, no rales, no rhonchi and no wheezes Other: The patient has moderately decreased air movement bilaterally Cardio Rate: regular rate Rhythm: regular rhythm Heart Sounds: no click, no gallops, no murmurs and no rubs Pulses: normal peripheral pulses GI Inspection: non-distended Palpation: soft, no hepatosplenomegaly, No guarding, No pulsatile mass and No tender Auscultation: normal bowel sounds Back/Spine/Pelvis Back: No CVA tenderness Cervical Spine: cervical ROM normal and No pain with cervical ROM Thoracic/Lumbar Spine: thoracic and lumbar spine normal to inspection Skin General: no rashes or lesions noted, No jaundice and No petechiae Neuro General: alert, awake and no focal motor deficits Speech: speech normal Extrem General: full ROM, no clubbing, cyanosis or edema, no pedal edema and no calf tenderness Psych Appearance: well kempt Mental Status: mental status grossly normal Attitude: cooperative Thought Content: normal and suicidality Judgment: judgment good Course Course Course Narrative: Patient was worked up with labs, EKG, and chest x-ray, as well as urine dip. He was treated with IV fluids. Chest x-ray showed what appeared to be bilateral basilar infiltrates. The patient's labs were unremarkable. His oxygen saturation in the emergency department was good, and he was hemodynamically stable. Patient was treated with IV Rocephin and Zithromax in the emergency department. Patient was unable to get up or transfer himself at all in the emergency department, and required 2 staff members to strongly support him while transferring. Given his degree of weakness, I felt he should be admitted to the hospital, as patient's stated she is unable to take care of him at home by herself in this condition. spoke with Dr. Aguero, who is the patient's primary care physician and on-call for Family Medicine, and she did agree to admit the patient to her service. Orders Ordered: ED Orders 06/08/19 10:59 XR chest 2V Stat EKG-12 Lead Stat Measure peak expiratory flow ONCE RT Consult Eval and Treat Now 06/08/19 11:15 Complete Blood Count AUTO DIFF Stat Comprehensive Metabolic Panel Stat Lactate (Lactic Acid) Stat Partial Thromboplastin Time Stat Procalcitonin Stat Prothrombin Time INR Stat 06/08/19 12:19 Blood Culture Stat 06/08/19 12:31 B Type Natriuretic Peptide Stat Discontinued Medications Sodium Chloride (Normal Saline 0.9%) 1,000 mls @ 1,000 mls/hr IV BOLUS ONE Stop: 06/08/19 11:59 Last Infusion: 06/08/19 12:23 Dose: 400 mls/hr Documented by: Admin: 06/08/19 11:55 Dose: 1,000 mls/hr Documented by: BENNIE Sodium Chloride (Normal Saline 0.9%) 1,000 mls @ 1,000 mls/hr IV BOLUS ONE Stop: 06/08/19 12:57 Ceftriaxone Sodium/Dextrose (Rocephin) 2 gm in 50 mls @ 100 mls/hr IV NOW ONE Stop: 06/08/19 12:34 Last Infusion: 06/08/19 13:00 Dose: 0 mls/hr Documented by: Admin: 06/08/19 12:22 Dose: 100 mls/hr Documented by: BENNIE Azithromycin 500 mg/ Dextrose 250 mls @ 250 mls/hr IV NOW ONE Stop: 06/08/19 12:06 Last Admin: 06/08/19 12:45 Dose: 250 mls/hr Documented by: BENNIE Vital Signs Vital signs: Vital Signs - 8 hr 06/08/19 10:50 06/08/19 11:35 Temperature 98.0 F Pulse Rate 91 H 68 Respiratory Rate 18 16 Blood Pressure 113/59 L Blood Pressure [Right Arm] 103/63 Pulse Oximetry 92 100 MDM - Weakness Medical Records Attestation: I reviewed the patient's medical records. Lab Data Attestation: I reviewed the patient's lab results. Result diagrams: 06/08/19 11:15 06/08/19 11:15 Labs: Lab Results 06/08/19 06/08/19 06/08/19 Range/Units 11:15 11:15 11:15 WBC 10.5 (4.5-11.0) X10^3/uL RBC 4.34 L (4.5-5.9) X10^6/uL Hgb 13.6 (13.5-17.5) g/dL Hct 39.2 L (41-53) % MCV 90.3 (80-100) fL MCH 31.4 (26-34) PG MCHC 34.8 (30-36) % RDW 13.7 (11.6-14.8) % Plt Count 338 (150-400) X10^3/uL Neut % (Auto) 89.1 H (50-75) % Lymph % (Auto) 5.2 L (25-40) % [place] % (Auto) 5.4 (3-14) % Eos % (Auto) 0.1 L (2-4) % Baso % (Auto) 0.2 (0-2) % Neut # (Auto) 9400 H (6250-8086) /uL Lymph # (Auto) 600 L (2204-6188) /uL [place] # (Auto) 600 (0-900) /uL Eos # (Auto) 0 (0-450) /uL Baso # (Auto) 0 (0-100) /uL PT 12.1 (10.1-12.7) SECONDS INR 1.1 (0.9-1.3) APTT 29 (26.4-36.2) SECONDS Sodium 128 L (137-145) mmol/L Potassium 4.8 (3.4-5.1) mmol/L Chloride 89 L (98-107) mmol/L Carbon Dioxide 29 (22-32) mmol/L BUN 16 (9-20) mg/dL Creatinine 1.00 (0.66-1.25) mg/dL Estimated GFR > 60.0 (>60) mL/min BUN/Creatinine Ratio 16.0 (6-22) Glucose 141 H (80-110) mg/dL Lactate (0.7-2.1) mmol/L Calcium 9.3 (8.4-10.2) mg/dL Total Bilirubin 1.1 (0.2-1.3) mg/dL AST 24 (17-59) IU/L ALT 17 L (21-72) IU/L Alkaline Phosphatase 63 (38-126) U/L B-Natriuretic Peptide (<100) Total Protein 7.6 (6.3-8.2) g/dL Albumin 4.2 (3.5-5.0) g/dL Globulin 3.4 (1.7-4.1) g/dL Albumin/Globulin Ratio 1.2 (1.0-2.8) Procalcitonin (<0.5) ng/mL 06/08/19 06/08/19 06/08/19 Range/Units 11:15 11:15 12:31 WBC (4.5-11.0) X10^3/uL RBC (4.5-5.9) X10^6/uL Hgb (13.5-17.5) g/dL Hct (41-53) % MCV (80-100) fL MCH (26-34) PG MCHC (30-36) % RDW (11.6-14.8) % Plt Count (150-400) X10^3/uL Neut % (Auto) (50-75) % Lymph % (Auto) (25-40) % [place] % (Auto) (3-14) % Eos % (Auto) (2-4) % Baso % (Auto) (0-2) % Neut # (Auto) (7034-5742) /uL Lymph # (Auto) (4705-2740) /uL [place] # (Auto) (0-900) /uL Eos # (Auto) (0-450) /uL Baso # (Auto) (0-100) /uL PT (10.1-12.7) SECONDS INR (0.9-1.3) APTT (26.4-36.2) SECONDS Sodium (137-145) mmol/L Potassium (3.4-5.1) mmol/L Chloride (98-107) mmol/L Carbon Dioxide (22-32) mmol/L BUN (9-20) mg/dL Creatinine (0.66-1.25) mg/dL Estimated GFR (>60) mL/min BUN/Creatinine Ratio (6-22) Glucose (80-110) mg/dL Lactate 1.7 (0.7-2.1) mmol/L Calcium (8.4-10.2) mg/dL Total Bilirubin (0.2-1.3) mg/dL AST (17-59) IU/L ALT (21-72) IU/L Alkaline Phosphatase (38-126) U/L B-Natriuretic Peptide < 100 (<100) Total Protein (6.3-8.2) g/dL Albumin (3.5-5.0) g/dL Globulin (1.7-4.1) g/dL Albumin/Globulin Ratio (1.0-2.8) Procalcitonin < 0.05 (<0.5) ng/mL Imaging Data Chest x-ray: Radiologist's impression: PROCEDURE: XR CHEST 2V INDICATIONS: shortness of breath TECHNIQUE: 2 views of the chest were acquired. COMPARISON: [facility], , XR CHEST 1V, 05/28/2018, 14:32. FINDINGS: Surgical changes and devices: None. Lungs and pleura: There is moderate airspace disease identified at the left lung base that partially obscures portions of the left diaphragm. Mild airspace disease at the right lung base is also present, which is new. No large effusion is identified. There is no definitive pneumothorax. There may be pleural calcifications within the left lung apex. Mediastinum: Mediastinal contours are normal. Heart size is normal. There is aortic atherosclerosis. Bones and chest wall: No suspicious bony abnormalities. Degenerative changes of the spine and shoulders are not well characterized. Soft tissues appear unremarkable. IMPRESSION: Bibasilar opacities (left greater than right) are most likely related to pneumonia. Atelectasis or aspiration may also have this appearance. Dictated by: Bipin Kraus M.D. on 06/08/2019 at 10:55 Approved by: Bipin Kraus M.D. on 06/08/2019 at 10:56 ECG Data Attestation: I personally reviewed and interpreted this ECG as follows: (See below) Interpretation: Twelve lead EKG performed June 08, 2019, at 11:03 a.m., as follows: Regular ventricular rhythm with a rate of 77 beats per minute IN interval to 18 milliseconds QRS duration 71 milliseconds QTC interval 397 millisecond No ectopy No significant ST T wave changes Interpretation: Normal sinus rhythm with first-degree AV block; nonspecific T- wave abnormality; no signs of acute ischemia; abnormal EKG as interpreted by ED MD. Discharge Plan Departure Admit Date/Time: 06/08/19 12:34 Admit Provider: Su Aguero
[2019-06-08 12:14] LABS: Procalcitonin < 0.05 ng/mL (<0.5)
[2019-06-08] MEDS: CEFTRIAXONE 2 GM/50 ML FROZ.PIGGY IV (12:22)
[2019-06-08] MEDS: AZITHROMYCIN 500 MG in DEXTROSE 5% IN WATER 250 ML IV (12:45)
--- NOTE | 2019-06-08 12:49 | PM.HP.1 ---
History of Present Illness History of Present Illness Date Patient Seen: 06/08/19 Time Patient Seen: 12:49 Chief complaint: Mobility issues Narrative: 78 yo Male with Alzheimer's dementia, significant smoking history, and history of respiratory infection x1 week presents from the ED with confusion and weakness x1 day. Chest x-ray showd bibasilar opacities, left greater than right, consistent with pneumonia versus atelectasis versus aspiration. caretakes for for him and states that she has been unable to move him this morning as he was so weak. She has not been taking his temperature but reports a subjective fever. Denies nausea or vomiting. As the patient has Alzheimer's, is providing the history. Patient will answer fine to any question. His last inpatient admission was for the same complaint approximately 1 year ago, developed atrial fibrillation with a rapid ventricular rate during that inpatient stay, was started on metoprolol 25 mg PO qd for rate control but that was discontinued after leaving his SNF. EKG today shows a normal sinus rhythm with first-degree AV block; nonspecific T-wave abnormality and ventricular rate of 77 bmp; no signs of acute ischemia. Echo done during last admission on 05/28/2018 revealed an ejection fraction of 60-65%, moderately dilated right ventricle with RV systolic function mildly reduced and no valvular dysfunction. Vital signs in the ED included a temperature of 98.0, pulse 91, respirations 18, blood pressure 113/59, O2 saturation 92% on room air. Workup including lactate, CBC, CMP, blood cultures, lipase, PT/INR, procalcitonin, and UA significant for a slightly low hematocrit 39.2, low sodium at 128 a.m., low chloride at 89, and elevated glucose at 141. Notable negatives include a normal white count of 10.5, procalcitonin less than 0.05, and lactate of 1.7. Past medical history: Alzheimer's dementia Hyperlipidemia Hypothyroidism, currently euthyroid Atrial fibrillation GERD BPH with urinary obstruction Fecal incontinence Urinary incontinence Chronic alcoholism in remission Former smoker Past surgical history: Tonsillectomy Eye surgery Family history: Father: Disease, heart attack Mother: Brother: from lung cancer Social history: to Demi, 4 children. 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 . Patient History Medical History Depression (Chronic) Hyperlipidemia (Chronic) Hypothyroid (Chronic) Memory changes (Chronic) PSA elevation (Chronic) Urinary incontinence (Chronic) Surgical History No pertinent past surgical history (Acute) Social History household members: spouse and family Smoking Status: Former smoker alcohol intake: current Family & Social History Social History: household members spouse,family Tobacco & Substance use: Tobacco type cigarettes Smoking Status Former smoker alcohol intake current alcohol intake frequency 0-2 drinks per day Substance Use Type does not use Meds Home Medications and Allergies Home Medications Medication Instructions Recorded Confirmed Type aspirin 81 mg PO DAILY #0 03/13/11 06/08/19 History Complete Multivitamin 1 tab PO DAILY 05/28/18 06/08/19 History red yeast rice 600 mg PO DAILY 05/28/18 06/08/19 History tamsulosin 2 cap PO DAILY 05/28/18 06/08/19 History vitamin B complex 1 cap PO DAILY 05/28/18 05/28/18 History acetaminophen 650 mg PO Q6HR PRN #50 tab 05/30/18 06/08/19 Rx latanoprost [Xalatan] 1 drops EYE-LEFT BEDTIME #1 ml 05/30/18 06/08/19 Rx darifenacin mg PO DAILY 06/08/19 History Allergies Allergy/AdvReac Type Severity Reaction Status Date / Time No Known Drug Allergies Allergy Verified 05/28/18 14:32 Review of Systems Review of Systems ROS Unobtainable: All systems reviewed & are unremarkable except as noted in HPI and below Exam Vital Signs (past 8 hours): - 06/08/19 10:50 06/08/19 11:35 Temperature 98.0 F Pulse Rate 91 H 68 Respiratory Rate 18 16 Blood Pressure 113/59 L Blood Pressure [Right Arm] 103/63 Pulse Oximetry 92 100 Oxygen Delivery Method Room Air Narrative Exam Narrative: GENERAL: Alert but disoriented, appearing stated age and in no acute distress. HEENT: Head normocephalic/atraumatic. Pupils equal, round, and reactive to light and accomodation. Extraocular muscles intact. Tympanic membranes clear. Nasal mucosa moist, septum midline. Oral mucosa dry, no lesions. Neck soft and supple, no lymphadenopathy. LUNGS: Diminished inspiratory effort throughout, bibasilar crackles, no wheezes. CV: Normal S1 and S2 with regular rate and rhythm, no audible murmurs, rubs or gallops. ABDOMEN: Soft, non-tender, non-distended, no organomegaly. Positive bowel sounds. EXTREMITIES: No clubbing, cyanosis, or edema. NEURO: Cranial nerves II through XII grossly intact, no focal deficits. PSYCH: Alert and oriented x 3. SKIN: No concerning lesions. Objective Labs Result Diagrams: 06/08/19 11:15 06/08/19 11:15 Labs: Laboratory Results - last 24 hr 06/08/19 06/08/19 06/08/19 11:15 11:15 11:15 WBC 10.5 RBC 4.34 L Hgb 13.6 Hct 39.2 L MCV 90.3 MCH 31.4 MCHC 34.8 RDW 13.7 Plt Count 338 Neut % (Auto) 89.1 H Lymph % (Auto) 5.2 L [place] % (Auto) 5.4 Eos % (Auto) 0.1 L Baso % (Auto) 0.2 Neut # (Auto) 9400 H Lymph # (Auto) 600 L [place] # (Auto) 600 Eos # (Auto) 0 Baso # (Auto) 0 PT 12.1 INR 1.1 APTT 29 Sodium 128 L Potassium 4.8 Chloride 89 L Carbon Dioxide 29 BUN 16 Creatinine 1.00 Estimated GFR > 60.0 BUN/Creatinine Ratio 16.0 Glucose 141 H Lactate Calcium 9.3 Total Bilirubin 1.1 AST 24 ALT 17 L Alkaline Phosphatase 63 Total Protein 7.6 Albumin 4.2 Globulin 3.4 Albumin/Globulin Ratio 1.2 Procalcitonin 06/08/19 06/08/19 11:15 11:15 WBC RBC Hgb Hct MCV MCH MCHC RDW Plt Count Neut % (Auto) Lymph % (Auto) [place] % (Auto) Eos % (Auto) Baso % (Auto) Neut # (Auto) Lymph # (Auto) [place] # (Auto) Eos # (Auto) Baso # (Auto) PT INR APTT Sodium Potassium Chloride Carbon Dioxide BUN Creatinine Estimated GFR BUN/Creatinine Ratio Glucose Lactate 1.7 Calcium Total Bilirubin AST ALT Alkaline Phosphatase Total Protein Albumin Globulin Albumin/Globulin Ratio Procalcitonin < 0.05 Assessment & Plan Assessment & Plan narrative: Assessment 1: Worsening weakness, likely multifactorial and worsened by recent respiratory tract infection. Chest x-ray shows bibasilar opacity, concerning for pneumonia but could also be due to atelectasis versus aspiration. Patient did suffer from aspiration pneumonia during his last inpatient stay. With crackles on patient's exam today, community acquired pneumonia a likely possibility. Patient is not currently febrile and not mounting a white count or procalcitonin, but these may be lagging behind his symptoms. His notes a profound change in his baseline status and he certainly is weak. Plan: Will start levofloxain to cover gram positive, gram negative, and atypical pathogens while awaiting blood and sputum cultures. Will also check influenza A/B as patient has not received his flu shot. PT/OT/RT to consult and treat. CBC, BMP, BNP in the morning. Assessment 2: Atrial fibrillation, paroxysmal, one lifetime episode. Has not been on metoprolol for about 1 year, will watch closely. Due to patient's age and fall risk, anticoagulation contraindicated. Assessment 3: Hyperlipidemia, low-cholesterol diet. Assessment 4: Hpothyroidism, currently euthyroid, will update TSH. Assessment 5: GERD, asymptomatic. Assessment 6: BPH with urinary obstruction and urinary incontinence, continue home doses of tamsulosin 0.4 mg p.o. q.day and tolterodine 4 mg p.o. q.day. Assessment 7: Fecal incontinence, adult diapers. DVT prophylaxis: SCDs Code: DNR.
[2019-06-08 13:06] LABS: B Type Natriuretic Peptide < 100 (<100)
[2019-06-08 14:23] LABS: Bacteria Urine None Seen; RBC Urine None Seen (0-5/HPF)
[2019-06-08 14:32] LABS: Amorphous Sediment Urine 1+; Culture Indicated Urine Specimen Cultured; WBC Urine 0-1/HPF (0-5/HPF)
[2019-06-08] MEDS: DEXTROSE 5%-0.45% NS 1,000 ML 100 ML IV (15:18)
[2019-06-08] MEDS: levoFLOXacin 750 MG/150 ML PIGGYBACK 100 MG IV (15:29)
--- NOTE | 2019-06-08 16:11 | PC.NURSE ---
Arrival to room [address] ba[address] used to transport, IVF infusing per Emar, and daughter at bedside. Admit and med rec completed. POC updated.
[2019-06-08 17:14] LABS: Influenza A and B by PCR Rapid Negative (Negative)
[2019-06-09] MEDS: DEXTROSE 5%-0.45% NS 1,000 ML 100 ML IV ×3 (02:11→23:44)
[2019-06-09 05:22] LABS: Add Manual Diff / Slide Review NO; Basophils Absolute Auto 0 /uL (0-100); Basophils Percent Auto 0.7 % (0-2); Eosinophils Absolute Auto 0 /uL (0-450); Eosinophils Percent Auto 0.6 % (2-4); Hematocrit 34.5 % (41-53); Lymphocytes Absolute Auto 1000 /uL (1100-4500); Mean Corpuscular HGB Conc 34.7 % (30-36); Mean Corpuscular Hemoglobin 31.3 PG (26-34); Mean Corpuscular Volume 90.3 fL (80-100); Monocytes Absolute Auto 1000 /uL (0-900); Monocytes Percent Auto 12.9 % (3-14); Neutrophils Absolute Auto 5400 /uL (1500-7000); Neutrophils Percent Auto 72.8 % (50-75); Platelet Count 284 X10^3/uL (150-400); Red Blood Cell Count 3.82 X10^6/uL (4.5-5.9); Red Cell Distribution Width 13.4 % (11.6-14.8); White Blood Cell Count 7.4 X10^3/uL (4.5-11.0)
[2019-06-09 05:30] LABS: BUN Creatinine Ratio 12.5 (6-22); Blood Urea Nitrogen 10 mg/dL (9-20); Calcium 8.5 mg/dL (8.4-10.2); Carbon Dioxide 24 mmol/L (22-32); Chloride 96 mmol/L (98-107); Estimated Glomerular Filt Rate > 60.0 mL/min (>60); Glucose 115 mg/dL (80-110); HEMOLYSIS < 15 (0-50); Potassium 4.1 mmol/L (3.4-5.1); Sodium 129 mmol/L (137-145)
[2019-06-09 05:57] LABS: B Type Natriuretic Peptide 125 (<100)
[2019-06-09 06:00] VITALS: BP 117/45; PULSE 67; RESP 16; TEMP 36.3; O2SAT 94
[2019-06-09 06:00] LABS: TSH w/ Reflex to FT4 2.91 uIU/mL (0.47-4.68)
--- NOTE | 2019-06-09 08:20 | PM.PN.1 ---
Subjective Subjective Date Patient Seen: 06/09/19 Time Patient Seen: 08:20 Interval history: Patient slept poorly overnight but is feeling better this morning. Had a large meal last night, not hungry this morning. Still feeling weak and coughing, afebrile. Has not had physical therapy yet. Exam Vital Signs (past 8 hours): - 06/09/19 06:00 Temperature 97.4 F L Pulse Rate 67 Respiratory Rate 16 Blood Pressure 117/45 L Pulse Oximetry 94 Oxygen Delivery Method Room Air,Nasal Cannula Narrative Exam Narrative: GENERAL: Alert but disoriented, appearing stated age and in no acute distress. HEENT: Head normocephalic/atraumatic. LUNGS: Diminished inspiratory effort throughout, bibasilar crackles, no wheezes. CV: Normal S1 and S2 with regular rate and rhythm, no audible murmurs, rubs or gallops. ABDOMEN: Soft, non-tender, non-distended, no organomegaly. Positive bowel sounds. EXTREMITIES: No clubbing, cyanosis, or edema. NEURO: Cranial nerves II through XII grossly intact, no focal deficits. PSYCH: Alert and oriented x 3. SKIN: No concerning lesions. Objective Labs Result Diagrams: 06/09/19 04:56 06/09/19 04:56 Labs: Laboratory Results - last 24 hr 06/08/19 06/08/19 06/08/19 11:15 11:15 11:15 WBC 10.5 RBC 4.34 L Hgb 13.6 Hct 39.2 L MCV 90.3 MCH 31.4 MCHC 34.8 RDW 13.7 Plt Count 338 Neut % (Auto) 89.1 H Lymph % (Auto) 5.2 L Bulloch % (Auto) 5.4 Eos % (Auto) 0.1 L Baso % (Auto) 0.2 Neut # (Auto) 9400 H Lymph # (Auto) 600 L Bulloch # (Auto) 600 Eos # (Auto) 0 Baso # (Auto) 0 PT 12.1 INR 1.1 APTT 29 Sodium 128 L Potassium 4.8 Chloride 89 L Carbon Dioxide 29 BUN 16 Creatinine 1.00 Estimated GFR > 60.0 BUN/Creatinine Ratio 16.0 Glucose 141 H Lactate Calcium 9.3 Total Bilirubin 1.1 AST 24 ALT 17 L Alkaline Phosphatase 63 B-Natriuretic Peptide Total Protein 7.6 Albumin 4.2 Globulin 3.4 Albumin/Globulin Ratio 1.2 Procalcitonin TSH Urine RBC Urine WBC Amorphous Sediment Urine Bacteria Ur Culture Indicated? Influenza A & B (PCR) 06/08/19 06/08/19 06/08/19 11:15 11:15 12:31 WBC RBC Hgb Hct MCV MCH MCHC RDW Plt Count Neut % (Auto) Lymph % (Auto) Bulloch % (Auto) Eos % (Auto) Baso % (Auto) Neut # (Auto) Lymph # (Auto) Bulloch # (Auto) Eos # (Auto) Baso # (Auto) PT INR APTT Sodium Potassium Chloride Carbon Dioxide BUN Creatinine Estimated GFR BUN/Creatinine Ratio Glucose Lactate 1.7 Calcium Total Bilirubin AST ALT Alkaline Phosphatase B-Natriuretic Peptide < 100 Total Protein Albumin Globulin Albumin/Globulin Ratio Procalcitonin < 0.05 TSH Urine RBC Urine WBC Amorphous Sediment Urine Bacteria Ur Culture Indicated? Influenza A & B (PCR) 06/08/19 06/08/19 06/09/19 14:20 16:41 04:56 WBC 7.4 RBC 3.82 L Hgb 12.0 L Hct 34.5 L MCV 90.3 MCH 31.3 MCHC 34.7 RDW 13.4 Plt Count 284 Neut % (Auto) 72.8 Lymph % (Auto) 13.0 L Bulloch % (Auto) 12.9 Eos % (Auto) 0.6 L Baso % (Auto) 0.7 Neut # (Auto) 5400 Lymph # (Auto) 1000 L Bulloch # (Auto) 1000 H Eos # (Auto) 0 Baso # (Auto) 0 PT INR APTT Sodium Potassium Chloride Carbon Dioxide BUN Creatinine Estimated GFR BUN/Creatinine Ratio Glucose Lactate Calcium Total Bilirubin AST ALT Alkaline Phosphatase B-Natriuretic Peptide 125 H Total Protein Albumin Globulin Albumin/Globulin Ratio Procalcitonin TSH Urine RBC None seen Urine WBC 0-1/hpf Amorphous Sediment 1+ Urine Bacteria None seen Ur Culture Indicated? Specimen cultured Influenza A & B (PCR) Negative 06/09/19 06/09/19 04:56 04:56 WBC RBC Hgb Hct MCV MCH MCHC RDW Plt Count Neut % (Auto) Lymph % (Auto) Bulloch % (Auto) Eos % (Auto) Baso % (Auto) Neut # (Auto) Lymph # (Auto) Bulloch # (Auto) Eos # (Auto) Baso # (Auto) PT INR APTT Sodium 129 L Potassium 4.1 Chloride 96 L Carbon Dioxide 24 BUN 10 Creatinine 0.80 Estimated GFR > 60.0 BUN/Creatinine Ratio 12.5 Glucose 115 H Lactate Calcium 8.5 Total Bilirubin AST ALT Alkaline Phosphatase B-Natriuretic Peptide Total Protein Albumin Globulin Albumin/Globulin Ratio Procalcitonin TSH 2.91 Urine RBC Urine WBC Amorphous Sediment Urine Bacteria Ur Culture Indicated? Influenza A & B (PCR) Assessment & Plan Assessment & Plan narrative: Assessment 1: Worsening weakness, likely multifactorial and worsened by recent respiratory tract infection. Chest x-ray shows bibasilar opacity, concerning for pneumonia but could also be due to atelectasis versus aspiration. Patient did suffer from aspiration pneumonia during his last inpatient stay. Had crackles on admission exam, community acquired pneumonia a likely possibility. Plan: Continue levofloxain to cover gram positive, gram negative, and atypical pathogens while awaiting blood and sputum cultures. Will also check influenza A/B as patient has not received his flu shot. Swallow evaluation today. PT/OT/RT to consult and treat. CBC, BMP, BNP in the morning. Assessment 2: Hyponatremia and hypochloremia, trending up. Baseline sodium 130-135, now 129. Baseline chloride 99-103, now 96, Will fluid restrict today and trend labs. Assessment 3: Atrial fibrillation, paroxysmal, one lifetime episode. Has not been on metoprolol for about 1 year, will watch closely. Due to patient's age and fall risk, anticoagulation contraindicated. Assessment 4: Hyperlipidemia, low-cholesterol diet. Assessment 5: Hpothyroidism, currently euthyroid, will update TSH. Assessment 6: GERD, asymptomatic. 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 q.day and tolterodine 4 mg p.o. q.day. Assessment 8: Fecal incontinence, adult diapers. DVT prophylaxis: SCDs Code: DNR. Quality VTE Deep Vein Thrombosis/Pulmonary Embolism Present on Admission: No
[2019-06-09 08:47] VITALS: BP 169/73; PULSE 70; RESP 22; TEMP 36.4; O2SAT 94
[2019-06-09] MEDS: ACETAMINOPHEN 325 MG TABLET 650 MG PO (09:47)
[2019-06-09] MEDS: TOLTERODINE LA 4 MG PO (09:48)
[2019-06-09] MEDS: TAMSULOSIN 0.4 MG CAPSULE PO (09:48)
[2019-06-09 10:57] VITALS: PULSE 54; RESP 18; O2SAT 98
--- NOTE | 2019-06-09 11:08 | PT.IIE ---
Current Diagnoses Pneumonia, unspecified organism (06/08/19) Surgical History (Last Reviewed 06/08/19 @ 12:02 by Emily Reilly MD) No pertinent past surgical history (Acute) Medical History (Last Reviewed 06/08/19 @ 12:02 by Emily Reilly MD) Depression (Chronic) Hyperlipidemia (Chronic) Hypothyroid (Chronic) Memory changes (Chronic) PSA elevation (Chronic) Urinary incontinence (Chronic) Physical Therapy Inpatient Evaluation/Re-Eval M1 PT/OT-IP Prior Functional Status Start: 06/09/19 14:46 Freq: NEEDED Status: Active Protocol: Document 06/09/19 15:10 LRN (Rec: 06/09/19 15:38 LRN [id number]) Medical Review Prior Functional Status Medical History Reviewed Yes Communication Poor. Responds typically with fine Mobility and Gait Walked with spouse providing SBA>Deepa of hand held assist. Activities of Daily Living and IADL's Pt requires assist with ADLs. Prior Functional Level (Other details) Pt with Alzheimer's Dementia Fecal and Urinary Incontinence Social History Household Members spouse,family Living Arrangements House Number of Floors (Floors) One Floor Number of Stairs To Enter/Railing? One step, no railing Additional Social History Comment Spouse is caregiver. M2 PT-IP Current Condition Start: 06/09/19 12:50 Freq: NEEDED Status: Active Protocol: Document 06/09/19 15:10 LRN (Rec: 06/09/19 15:38 LRN [id number]) Physical Therapy Current Condition Current Condition Evaluation Date 06/09/19 Treatment Diagnosis Mobility Issues Onset Date 1 week ago Weight Bearing Status Weight Bearing Status Full Weight Bearing M3 PT-IP Subjective Start: 06/09/19 12:50 Freq: NEEDED Status: Active Protocol: Document 06/09/19 15:10 LRN (Rec: 06/09/19 15:38 LRN [id number]) Subjective Physical Therapy Visit Type Type Initial Evaluation Visit Start Time 10:40 Visit Stop Time 11:07 Total Visit Minutes 27 Number of ENGINEERING LIBRARIAN Visits 0 Physical Therapy Visit Comments Patient Comments Pt agreeable to therapy. Patient Goals Pt and spouse goal is to go home at [place]. Therapy Pain Assessment Pain Present Pain Present Denied Pain M4 PT-IP Mobility and Gait Start: 06/09/19 12:50 Freq: NEEDED Status: Active Protocol: Document 06/09/19 15:10 LRN (Rec: 06/09/19 15:38 LRN [id number]) PT-Bed Mobility Assessment Rolling Level of Assist Moderate Assistance,1 Person Assistance Supine to Sit Supine to Sit Moderate Assistance,Maximum Assistance,1 Person Assistance Scooting Scooting to Edge of Bed Moderate Assistance,Maximum Assistance Scooting Up and Down in Bed Moderate Assistance,Maximum Assistance PT-Transfer Assessment Sit to and From Stand Sit to and from Stand Moderate Assistance,Maximum Assistance,1 Person Assistance Equipment Transfer Assistive Device Gait Belt Transfer Ability Level of Assist Moderate Assistance,Maximum Assistance,1 Person Assistance ,Use of Upper Extremities Comments Mobility Comments Pt required trunk flexion training in order to be able to stand at bedside. Deferred gait due to pt's inability to maintain upright positioning. His tendency was to fall backward with a stiff upper body. Gait Assessment Gait Able to Maintain Weight Bearing Status No During Gait Assistive Devices Assistive Device Gait Belt Factors Limiting Gait Function Factors Limiting Gait Function Difficulty Following Directions,Poor Balance,Poor Safety Awareness Comments Gait Comments Pt was not appropriate due to pt's poor standing balance. PT-Balance Assessment Sitting Balance and Reactions Static Sitting Balance Ability Fair Dynamic Sitting Balance Ability Fair Standing Balance and Reactions Static Standing Balance Ability Poor Comments Other Balance Tests/Deviations/Treatment Pt was not able to maintain : balance with static standing. M5 PT-IP Objective Assessments Start: 06/09/19 12:50 Freq: NEEDED Status: Active Protocol: Document 06/09/19 15:10 LRN (Rec: 06/09/19 15:38 LRN [id number]) Orientation Orientation/Cognition Level of Alertness Confusional State Orientation Name Language Function Ability Expressive Aphasia Safety Awareness Decreased Safety Awareness Comments Pt with Alzheimers dementia. Pt did not follow 1 step instructions and did not respond most of the time to questions or conversation. Spouse was present during therapy and answered questions . Gross Range of Motion Upper Extremity ROM Assessment Within Functional Limits Lower Extremity ROM Assessment Within Functional Limits Impairments Pt lacks normal ankle DF with the R worse than the L. Strength Upper Extremity Strength Assessment Within Functional Limits Lower Extremity Strength Assessment Within Functional Limits Comments Strength Comments Pt was not able to follow all of the time to accurately determine strength. M6 PT-IP Treatment Start: 06/09/19 12:50 Freq: NEEDED Status: Active Protocol: Document 06/09/19 15:10 LRN (Rec: 06/09/19 15:38 LRN [id number]) Physical Therapy Treatment Other Treatments Other Treatment Performed Sitting: Active and Active Resistive trunk flexion. M7 PT-IP Assessment and Plan Start: 06/09/19 12:50 Freq: NEEDED Status: Active Protocol: Document 06/09/19 15:10 LRN (Rec: 06/09/19 15:38 LRN [id number]) PT Summary Assessment and Plan Potential Rehabilitation Potential Fair Status of Condition at Evaluation Evolving Summary Impairments Strength,Balance,Cognition,Bed Mobility,Transfers,Gait, Activity Tolerance Assessment Summary Pt presents with general weakness, poor mobility and balance, and was unsafe to ambulate. He has a very supportive who is physically able to assist him; therefore he has good potential for DC home if he is able to participate in therapy. The pt will benefit from skilled physical therapy to improve his activity tolerance, improve his transfer and gait ability on level and stairs in order to achieve his goal to go home on DC. The pt might require acute rehab if he is not able to achieve the ambulatory and gait goals appropriate for DC home. Goals Bed Mobility Goal Contact Guard Assistance, Minimal Assistance Transfer Goal Contact Guard Assistance, Minimal Assistance Gait Goal Minimal Assistance Gait Distance 100' Other Goals Up/Down 1 step with Min>Mod Assist. Days to Meet Goals 2 Frequency of Treatment Frequency Of Treatment Twice a Day Treatment Plan Physical Therapy Treatment Plan Bed Mobility Training,Transfer Training,Gait Training, Therapeutic Exercise, Neuromuscular Re-ed Other Recommendations and Next Treatment Trunk flexion strengthening Focus and neuromuscular re-ed for postural training and awareness. Recommendations To Nursing Amount of Assist Needed 1 Person Assist Discharge Recommendations PT Discharge Recommendations Acute Rehab Other Discharge Recommendations Further assessment is needed. Pt may progress well enough for DC home with spouse to assist 26/03.
[2019-06-09 12:00] VITALS: BP 139/62; PULSE 55; RESP 22; TEMP 36.3; O2SAT 99
--- NOTE | 2019-06-09 12:09 | CM.DANOTE ---
DCP: Case received, EMR reviewed and met with patient. Had originally spoken to , Ericka, via phone, and met her in person at bedside. Patient has history of dementia. Introduced self and role to , and patient. DCP template/assessment completed with information currently available. Patient is a 78 year old male who admitted yesterday afternoon to the care of the hospitalist team. PCP: Was Dr. Dick, retired, Dr. Aguero. Payer: confirmed: Medicare/[employer]. Patient came to the hospital via family vehicle secondary to increased confusion, coughing and weakness. Patient has history of dementia. Patient holds diagnosis of Pneumonia. Originally called , Ericka, and retrieved some information over the phone, and was later able to meet with her in patient's room. Patient and live in [place]. , Ericka, is primary caregiver. Daughter also lives with them and grand daughter. According to , patient was diagnosed a few years ago with dementia. He has a cane, rarely uses it. He needs stand by for showers, reminders, and she assists him with grooming. They have been for approximately 40 years. supportive. Stated, You got to do what you got to do. Dr. Aguero was in earlier seeing the patient. P: DCP to continue to follow closely. Patient had adequate support at home. Will see how he does with P.T. team, and collaborate with them regarding plan. Has supportive help at home. Esthela Bansal RN/Solution Manager
--- NOTE | 2019-06-09 13:18 | PC.NURSE ---
Addendum entered by Isadora Garrison R.N. 06/09/19 13:21: PAIN - with spouse's assist, again asked if any pain, pt stated he did have a headache, given 650mg po tylenol. Original Note: AM NOTE - pt is awake and can follow basic directions, oriented self, states I don't feel good , no specific pain noted, resting calmly, declined po breakfast until his spouse arrived, then ate well, bs dim, with her assist, pt is comfortable, phys therapy in and pt could only mobilize to dangle position, too weak to stand, speech therapy in this afternoon for eval.
[2019-06-09] MEDS: levoFLOXacin 750 MG/150 ML PIGGYBACK 100 MG IV (14:09)
--- NOTE | 2019-06-09 14:39 | PC.NURSE ---
Addendum entered by Jillian Jj 06/09/19 14:47: patient's corey in eye drops from home. Original Note: patient's brought in at home eye drops. stated they are being used to prevent glaucoma. patient has been using them for 1 year. apply in patient left eye at night. eye drops at bedside and labeled
--- NOTE | 2019-06-09 15:00 | DIET.PN ---
Dietary Note Assessment: Mr. Cross is a 78 yom assessed at risk for malnutrition with a low MNA score and worsening hyponatremia. He is currently on fluid restriction. He was eating a sandwich during my assessment with progressing appetite. He was able to tell me likes and dislikes as we reviewed the menu. DX: Mobility Issues, Confusion/Weakness PMHX: Hyperlipidemia, GERD HT: 170.18cm WT: 62.5kg UBW: No change BMI: 21.6 Labs: Na: 129 Glucose: 115 BNP: 125 MNA: 9 Sunday: NA Nutrition Diagnosis: Non-severe acute malnutrition r/t psychological causes aeb energy intake <75% > 1 week, BMI < normative standards (>65yo <23), client HX of severe dementia Interventions: 1. Discussed likes/dislikes and reviewed heart healthy menu options with patient. 2. Discussed adding ONS ensure enlive BID if PO's < 75%. Patient agreeable. Diet Order: Heart Healthy/Cardiac PO's: 50%, 100% EER: 1875 @ 30cal/kg Pro: 75 g @1.2g/kg Monitoring/Evaluations: Weight, PO's, need for ONS, labs.
--- NOTE | 2019-06-09 15:02 | ST.IPIE ---
Visit Care Team Role Provider Type Rikki Dick MD Primary Care Provider Non-Staff Specialty: Family Practice Address: [address] [place] [address], [id number] Email: [email or web address] Emergency Provider Physician Specialty: Emergency Medicine Address: [address] [place] [address], [id number] Email: [email or web address] MD Admit Provider Physician Attending Provider Specialty: [facility] Address: [address] [place] [address], [id number] Email: [email or web address] Current Diagnoses Pneumonia, unspecified organism (06/08/19) Past Medical History (Last Reviewed 06/08/19 @ 12:02 by Emily Reilly MD) Depression (Chronic Medical) No current treatment Hyperlipidemia (Chronic Medical) No current treatment Hypothyroid (Chronic Medical) No current treatment Memory changes (Chronic Medical) With suspected dementia, possibly Alzheimer's type followed by local neurology PSA elevation (Chronic Medical) No recent lab values Urinary incontinence (Chronic Medical) Chronic persistent ST IP Initial Evaulation Report BUILDING DRAFTER Clinical Swallow Evaluation Start: 06/09/19 14:36 Freq: Status: Active Protocol: Document 06/09/19 14:37 SAMSON (Rec: 06/09/19 15:02 SAMSON [id number]) Clinical Swallow Evaluation Session Time Visit Start Time 13:00 Visit Stop Time 13:30 Total Visit Minutes [address] Su Aguero Reason for Referral Hx of aspiration PNA Setting Assessment Location Acute Care Visit Type Note Type Initial Evaluation Next Note Type Next Note Type Treatment Note Patient Information Identification Type Name,ID Card History 78 yo Male with Alzheimer's dementia, significant smoking history, and history of respiratory infection x1 week presented from the ED with confusion and weakness x1 day. Chest x-ray showed bibasilar opacities, left greater than right, consistent with pneumonia versus atelectasis versus aspiration. Worsening weakness, likely multifactorial and worsened by recent respiratory tract infection. Chest x-ray shows bibasilar opacity, concerning for pneumonia but could also be due to atelectasis versus aspiration. Patient did suffer from aspiration pneumonia during his last inpatient stay. With crackles on patient's initial exam, community acquired pneumonia a likely possibility. Clinical swallow evaluation ordered to determine swallow function/safety and aspiration risk. Subjective Observations The pt was sitting up in bed watching TV with at bedside. His empty lunch tray was present. He had consumed a whole soft sandwich and fruit plate. Still water and carbonated beverage were on bedside table. The pt was minimally conversant throughout the evaluation. He did not recall what he had eaten for lunch. He was agreeable to additional oral intake for swallow evaluation. He denied dysphagia symptoms. His reported no significant concern of swallow safety, stating that there is occasional coughing but denied concern of choking. Evaluation Liquids Trialed Thin Solids Trialed Puree,Mechanical Soft,Regular Administration Type Cup Single Sip,Straw,Self- Feeding Oral Impairment Mildly Impaired Oral Strategies Upright at 90 degrees,Lingual Sweep,Controlled Bite/Sip Size, Dementia Strategies Oral Phase Comments Oral Peripheral Exam: Mild- moderate oral residue of bread from the pt's lunch was present at upper and lower right side between teeth and cheeks. The pt was able to clear this with his tongue and finger but did not appear to be aware of its presence prior to BUILDING DRAFTER's instructions. The pt exhibited symmetrical features WFL of strength and ROM. Reduced buccal coordination observed as pt was unable to alternate air in cheeks laterally. He followed 1-step verbal commands with occasional need for demonstration. He wears good- fitting upper and lower full dentures. Soft palate elevates upon phonation. Mildly reduced hyolaryngeal elevation /excursion observed via palpation upon volitional swallow; improved with swallows of food/liquid boluses. Oral Phase: WFL with exception of right side pocketing, of which the pt does not appear to be aware. Bolus formation and A/P propulsion appear normal and swallow trigger prompt. The pt exhibited mild- moderate impulsivity, tending to take in additional food prior to swallowing. This increased content pocketing in right side and required verbal prompts for the pt to reduce rate of intake and clear right side with lingual sweep and/or liquid wash. Pharyngeal Impairment Mildly Impaired Pharyngeal Strategies Sitting Upright (90 deg),Small Bites and Sips Pharyngeal Phase Comments The pt exhibited no overt s/sx of aspiration until the final trial, when, while chewing a bite of sandwhich, he consumed thin liquid. This resulted in strong and long-lasting coughing with occasional gagging. The pt was encouraged to spit out remaining contents, which contained only crumb residue. Oral sweep with toothette was performed by BUILDING DRAFTER, which removed minimal bread crumbs. The pt's reported such coughing is not typical. Findings Dysphagia Type Mild Oropharyngeal Dysphagia Rehabilitation Potential Good Impressions The pt presents with mild oropharyngeal dysphagia secondary to dementia and characterized by impulsive intake, right side pocketing, and reduced coordination and airway protection with mixed textures. The pt requires supervision to monitor rate of intake and right side pocketing. No change in diet will be made at this time. General aspiration precautions, dementia strategies and supervision required. ST to follow up 1-2 times for ongoing assessment and pt/ caregiver training as needed. Diet Recommendations Liquids Order Thin Diet Order Regular Medication Recommendations As Tolerated Additional Dietary Needs Controlled Sips,1:1 Supervision,Reminders to Use Strategies Aspiration Precautions Recommended Precautions Upright at 90 Degrees,Small Bites/Sips,Lingual Sweep,Check for Pocketing Additional Precautions Slow rate of intake. Oral cavity to be clear prior to each bite/sip. Treatment Plan Placement Recommendations after Home Discharge Appropriate for Therapy Yes: Follow-up x 1-2 Therapy Recommendations Ongoing assessment and pt/ caregiver training as needed. Dysphagia Goals 1. The pt will follow safe swallow strategies with minimal cuing to reduce risk of aspiration. 2. The pt will tolerate least restricted diet to meet his nutrition and hydration needs.
[2019-06-09 15:55] VITALS: BP 132/59; PULSE 63; RESP 14; TEMP 36.6; O2SAT 100
[2019-06-09 20:05] VITALS: BP 139/91; PULSE 81; RESP 15; TEMP 37.1; O2SAT 99
[2019-06-09] MEDS: LATANOPROST 0.005% OPHTH 2.5 ML 1 DROPS EYE-LEFT (21:05)
[2019-06-10] VITALS (8 sets, daily range): BP systolic 138–148; BP diastolic 44–70; PULSE 53–80; RESP 15–20; TEMP 36.2–37; O2SAT 96–100
--- NOTE | 2019-06-10 03:20 | PC.NURSE ---
Addendum entered by Shannon Jimenes R.N. 06/10/19 06:29: Voiding large amounts incontinent. Awake most of night watching TV although frequently telling staff I need to sleep. Original Note: Patient is oriented to self, birthday and place. Breath sounds diminished at bases with crackles; RA sat 96% and is on continuous pulse oximetry. Has loose sounding cough but is swallowing anything he brings up so have been unable to obtain a sputum specimen. HRR; on telemetry and 0000 reading was SR with 1st degree AVB, premature junctional contractions and PAC's. Denies nausea. BT present. Incontinent of copious amount brown, pasty stool. Needing help to reposition q2h as is not turning himself. Denies pain. Currently on fluid restriction due to low sodium. Wearing bilateral calf SCD's. Fall risk score high per RN discretion; bed alarm is activated.
[2019-06-10 05:24] LABS: Hematocrit 34.8 % (41-53); Hemoglobin 12.1 g/dL (13.5-17.5); Mean Corpuscular HGB Conc 34.7 % (30-36); Mean Corpuscular Hemoglobin 31.4 PG (26-34); Mean Corpuscular Volume 90.5 fL (80-100); Platelet Count 315 X10^3/uL (150-400); Red Blood Cell Count 3.84 X10^6/uL (4.5-5.9); Red Cell Distribution Width 13.5 % (11.6-14.8)
[2019-06-10 05:33] LABS: Blood Urea Nitrogen 12 mg/dL (9-20); Calcium 8.7 mg/dL (8.4-10.2); Carbon Dioxide 27 mmol/L (22-32); Chloride 94 mmol/L (98-107); Estimated Glomerular Filt Rate > 60.0 mL/min (>60); Glucose 102 mg/dL (80-110); HEMOLYSIS < 15 (0-50); Potassium 4.1 mmol/L (3.4-5.1); Sodium 130 mmol/L (137-145)
[2019-06-10 05:40] LABS: Neutrophils Absolute Manual 5040 /uL (3000-5900); RBC Morphology Normal Morphology; Total Cells Counted 100
--- NOTE | 2019-06-10 09:32 | PC.NURSE ---
Addendum entered by Isadora Garrison R.N. 06/10/19 14:57: MS - phys therapy in and pt assisted to dangle position, using fww, able to ambul into br to void and then ret to chair. Addendum entered by Isadora Garrison R.N. 06/10/19 10:19: /GI - incont urine, brief changed, now ready for breakfast, assisted upright and with supervision celestine po, spouse is at bedside to encourage, given 650mg po tylenol for headache discomfort. Original Note: AM NOTE - pt awakens for vitals this am, no complaint discomfort, declines breakfast at this time, I want to go back to sleep, incont urine, pericare performed, pink at meatus, applied barrier cream, ra 97%, congested cough, enc try to spit out into kleenex, pt swallows, repositioned for comfort, spouse arrives later am and will notifiy staff when pt is ready for po.
[2019-06-10] MEDS: DEXTROSE 5%-0.45% NS 1,000 ML 100 ML IV ×2 (09:55→21:43)
[2019-06-10] MEDS: TOLTERODINE LA 4 MG PO (10:10)
[2019-06-10] MEDS: ACETAMINOPHEN 325 MG TABLET 650 MG PO (10:10)
[2019-06-10] MEDS: TAMSULOSIN 0.4 MG CAPSULE PO (10:11)
--- NOTE | 2019-06-10 10:31 | CM.DPC ---
Addendum entered by Esthela Bansal R.N. 06/10/19 15:20: Patient worked with physical therapy today. Spoke to Yaritza in P.T. Patient ambulating in room, he mostly holds on to items when he walks, needs cueing with walker. , Ericka, stated, he's doing a lot better today. Discussed home health, and gave the Medicare choice list for home health agencies. She mentioned, no preference between [facility] and [facility], but does not want [facility] health, and [facility] does not serve [facility]. Agreed that nursing and P.T. would be beneficial at this time. is not expecting them to be in long, just to get him stronger. Nursing can also come in and check oxygen levels, listen to his lungs. Will have to have provider sign face to face tomorrow. Filled out most of the form already, minus physician signature. Patient has good support system for home, as very supportive. Original Note: DCP Cont: Met with patient's , and patient. He was sitting up in his bed, more alert today. Provider has not yet been in today. Discussed discharge planning, mentioned skilled rehab possibility secondary to weakness. stated that he has been to [facility] before, but feels confident about doing his care at home. She mentioned that skilled is still an option, and will depend upon therapy, and what Dr. Aguero states. Let know that this special events planner would come back later after provider sees patient. P: DCP to continue to follow closely. At this time, is wanting home, but skilled is still an option. Esthela Bansal RN/[employer]
--- NOTE | 2019-06-10 11:19 | ST.IPDYTX ---
Visit Care Team Role Provider Type Rikki Dick MD Primary Care Provider Non-Staff Specialty: Family [facility] Address: [address] [place] [address], [id number] Email: [email or web address] Emily Reilly MD Emergency Provider Physician Specialty: Emergency Medicine Address: [address] [place] [address], [id number] Email: [email or web address] Admit Provider Physician Attending Provider Specialty: [facility] Address: [address] [place] [address], [id number] Email: [email or web address] [email or web address] BOX ATTENDANT Dysphagia Treatment SWEAT BOX ATTENDANT Dysphagia Treatment Start: 06/09/19 14:36 Freq: Status: Active Protocol: Document 06/10/19 11:10 JOLLYK (Rec: 06/10/19 11:19 LNK [id number]) Dysphagia Treatment Session Time Visit Start Time 10:45 Visit Stop Time 11:00 Total Visit Minutes 15 Setting Assessment Location Acute Care Visit Type Note Type Treatment Note Next Note Type Next Note Type Treatment Note Patient Information Subjective Observations Pt in bed with in his room. Had just completed oral care. Treatment Treatment Activities Caregiver training re: safe swallowing strategies secondary to pt eating too quickly with too big of bites. Provided strategies to slow pt PO intake such as: use smaller utensils to decrease amount/bite, close monitoring with cuing as indicated to slow rate of intake, cue to clear pocketing right side with lingual sweep, etc. pt's indicated that she understood and agreed. feels that she would be able to monitor and use strategies as discussed at home. Diet Recommendations Recommendations Continue Current Diet Additional Dietary Needs No Straws,1:1 Supervision,1:1 Assistance,Encourage to Self- Feed,Reminders to Use Strategies Aspiration Precautions Recommended Precautions Upright at 90 Degrees, Alternate Liquids/Solids,Small Bites/Sips,Check for Pocketing,Liquids from Cup Treatment Plan Placement Recommendation after Discharge Long Term Facility,Home with Home Health Appropriate for Continued Therapy No
--- NOTE | 2019-06-10 11:53 | PT.IPTN ---
Current Diagnoses Pneumonia, unspecified organism (06/08/19) Physical Therapy Treatment Note M2 PT-IP Current Condition Start: 06/09/19 12:50 Freq: NEEDED Status: Active Protocol: Document 06/09/19 15:10 LRN (Rec: 06/09/19 15:38 LRN [id number]) Physical Therapy Current Condition Current Condition Evaluation Date 06/09/19 Treatment Diagnosis Mobility Issues Onset Date 1 week ago Weight Bearing Status Weight Bearing Status Full Weight Bearing M3 PT-IP Subjective Start: 06/09/19 12:50 Freq: NEEDED Status: Active Protocol: Document 06/10/19 11:50 CLB (Rec: 06/10/19 11:53 CLB [id number]) Subjective Physical Therapy Visit Type Type Administrative Note Notes Unable to see pt due to activity order. A call to the doctor has been placed and message was left. Dr. Aguero is out today and am awaiting nuclear monitoring technician doctor to return call. Will see pt as soon as activity order has been changed to activity as tolerated.
--- NOTE | 2019-06-10 13:36 | PM.PN.1 ---
Subjective Subjective Date Patient Seen: 05/11/19 Time Patient Seen: 13:00 Interval history: Patient is 78-year-old gentleman with pneumonia. This presented as severe and worsening weakness with following respiratory tract infection. Chest x-ray on admission showed bibasilar pneumonia is. Feels a little bit better today although still profoundly weak. Too weak to participate in physical therapy yesterday even to the level of impossible to almost get him to sit at bedside with his legs dangling. Little less weak today but still profoundly weak and overall. Review reviewed likely diagnosis of pneumonia with patient and spouse. Sodium improved to 130. Patient is eating well has good appetite. Seems alert and cognitively intact. Patient has supportive family here with him an very good level of support. No significant smoking history Exam Vital Signs (past 8 hours): - 06/10/19 05:47 06/10/19 07:40 06/10/19 08:28 Temperature 97.2 F L 97.9 F Pulse Rate 60 53 L 65 Respiratory Rate 18 20 Blood Pressure 143/65 H 142/68 H Pulse Oximetry 97 98 97 06/10/19 13:04 Temperature 97.8 F Pulse Rate 80 Respiratory Rate 20 Blood Pressure 138/62 Pulse Oximetry 96 Oxygen Delivery Method Room Air Oxygen Flow Rate 0 Narrative Exam Narrative: Patient is sitting comfortably in bed speaking 2-3 word replies without signs of significant dyspnea. PERRLA EOMs intact Lungs with decreased range of motion and rales at bases CC see exam shows irregularly irregular heart rate no murmur noted Abdomen nontender no hepatosplenomegaly mass rebound or guarding Neuro shows patient to be awfully weak throughout out. Sensory and speech clear and normal. Patient does have a history of fecal incontinence probably neurogenic Skin without significant skin breakdowns Objective Labs Result Diagrams: 06/10/19 04:53 06/10/19 04:53 Labs: Laboratory Results - last 24 hr 06/10/19 06/10/19 04:53 04:53 WBC 7.0 RBC 3.84 L Hgb 12.1 L Hct 34.8 L MCV 90.5 MCH 31.4 MCHC 34.7 RDW 13.5 Plt Count 315 Total Counted 100 Seg Neutrophils % 72.0 H Lymphocytes % (Manual) 14.0 L Monocytes % (Manual) 12.0 H Basophils % (Manual) 2.0 H Neutrophils # (Manual) 5040 RBC Morphology Normal morphology Sodium 130 L Potassium 4.1 Chloride 94 L Carbon Dioxide 27 BUN 12 Creatinine 0.80 Estimated GFR > 60.0 BUN/Creatinine Ratio 15.0 Glucose 102 Calcium 8.7 Assessment & Plan Assessment & Plan narrative: Assessment 1. Profound weakness. Not significantly improved at this point. Likely cause seems most consistent with pneumonia. At his age I think that with his x-ray seems most likely causative factor. Also borderline or mild decrease in sodium. Has been on fluid restriction will lighten that since it is up to 130 today. Assessment 2. Chronic atrial fibrillation paroxysmal. Patient not on medication for rate control or anticoagulation at this point Assessment 3. History of hyperlipidemia intact will continue on current diet Assessment 4. History of hypothyroidism. Will continue to monitor TSH. Assessment 5. Gastroesophageal reflux disease symptomatic control. Assessment 6. BPH with urinary obstruction and some incontinence. Will continue his current medications for that. Assessment 7. Fecal incontinence with adult diapers. Continue same course. Quality VTE Deep Vein Thrombosis/Pulmonary Embolism Present on Admission: No
--- NOTE | 2019-06-10 14:06 | PT.IPTN ---
Current Diagnoses Pneumonia, unspecified organism (06/08/19) Physical Therapy Treatment Note M2 PT-IP Current Condition Start: 06/09/19 12:50 Freq: NEEDED Status: Active Protocol: Document 06/09/19 15:10 LRN (Rec: 06/09/19 15:38 LRN [id number]) Physical Therapy Current Condition Current Condition Evaluation Date 06/09/19 Treatment Diagnosis Mobility Issues Onset Date 1 week ago Weight Bearing Status Weight Bearing Status Full Weight Bearing M3 PT-IP Subjective Start: 06/09/19 12:50 Freq: NEEDED Status: Active Protocol: Document 06/10/19 13:41 CLB (Rec: 06/10/19 15:24 CLB [id number]) Subjective Physical Therapy Visit Type Type Treatment Note Visit Start Time 13:41 Visit Stop Time 14:06 Total Visit Minutes 25 Number of PROFESSIONAL WRESTLER Visits 1 Physical Therapy Visit Comments Patient Comments Pt agreeable to get up with encouragement from . Patient Goals Pt and spouse goal is to go home at DC. M4 PT-IP Mobility and Gait Start: 06/09/19 12:50 Freq: NEEDED Status: Active Protocol: Document 06/10/19 13:41 CLB (Rec: 06/10/19 15:24 CLB [id number]) PT-Bed Mobility Assessment Supine to Sit Supine to Sit Moderate Assistance,1 Person Assistance,Bedrails Scooting Scooting to Edge of Bed Maximum Assistance PT-Transfer Assessment Sit to and From Stand Sit to and from Stand Minimal Assistance,Moderate Assistance,1 Person Assistance Equipment Transfer Assistive Device None,Bed Rail,Front Wheeled Walker Transfers Transfer Destination Chair,Toilet Transfer Technique Stand Step Pivot Transfer Ability Level of Assist Moderate Assistance,1 Person Assistance Comments Mobility Comments Pt required Mod A and Max verbal and tactile cues to sit up at EOB. Pt needed Max A to get to scoot forward to edge. Pt was able to stand from the bed Min A x1 with FWW but needed Mod A x1 from window seat, toilet and chair. Pt sits prematurely once near chair and sat on arm on chair requiring assist to center in chair. Gait Assessment Gait Gait Assistance Required: Minimum Assistance,Moderate Assistance,1 Person Assist,2 Person Assist Distance (Feet) 20 Assistive Devices Assistive Device None,Gait Belt,Front Wheeled Walker Gait Deviations General Gait Pattern Decreased Stride Length, Decreased Feet Clearance, Flexed Trunk,Wide Based Gait Factors Limiting Gait Function Factors Limiting Gait Function Decreased Activity Tolerance, Decreased Strength,Difficulty Following Directions,Poor Balance,Poor Safety Awareness Comments Gait Comments Pt required Min A with two with FWW, pt will need more training with FWW but and pt agreed that it would be of use with balance. Pt's was able to assist pt Mod A w/ o AD but pt has difficulty PT-Balance Assessment Sitting Balance and Reactions Static Sitting Balance Ability Fair Dynamic Sitting Balance Ability Poor Standing Balance and Reactions Static Standing Balance Ability Fair Dynamic Standing Balance Ability Poor M5 PT-IP Objective Assessments Start: 06/09/19 12:50 Freq: NEEDED Status: Active Protocol: Document 06/09/19 15:10 LRN (Rec: 06/09/19 15:38 LRN [id number]) Orientation Orientation/Cognition Level of Alertness Confusional State Orientation Name Language Function Ability Expressive Aphasia Safety Awareness Decreased Safety Awareness Comments Pt with Alzheimers dementia. Pt did not follow 1 step instructions and did not respond most of the time to questions or conversation. Spouse was present during therapy and answered questions . Gross Range of Motion Upper Extremity ROM Assessment Within Functional Limits Lower Extremity ROM Assessment Within Functional Limits Impairments Pt lacks normal ankle DF with the R worse than the L. Strength Upper Extremity Strength Assessment Within Functional Limits Lower Extremity Strength Assessment Within Functional Limits Comments Strength Comments Pt was not able to follow all of the time to accurately determine strength. M6 PT-IP Treatment Start: 06/09/19 12:50 Freq: NEEDED Status: Active Protocol: Document 06/09/19 15:10 LRN (Rec: 06/09/19 15:38 LRN [id number]) Physical Therapy Treatment Other Treatments Other Treatment Performed Sitting: Active and Active Resistive trunk flexion. M7 PT-IP Assessment and Plan Start: 06/09/19 12:50 Freq: NEEDED Status: Active Protocol: Document 06/10/19 13:41 CLB (Rec: 06/10/19 15:24 CLB [id number]) PT Summary Assessment and Plan Summary Impairments Strength,Balance,Cognition,Bed Mobility,Transfers,Gait, Activity Tolerance Progress Towards Goals Progressing Toward Goals Assessment Summary Pt was able to ambulate in room from bed to window seat with FWW Min A x2. Pt needed assist with walker management and will require additional training for walker use. Pt then ambulated to chair and after resting walked to BR where OT assisted pt with toileting, breif change and pericare. Pt's was able to assist pt during gait w/o an AD pt requiring Mod A from for sit-stand and gait. states pt is almost at baseline. stated she would be comfortable taking the pt home. Pt will may progress during hospital stay and may be safe for d/c home with . Goals Bed Mobility Goal Contact Guard Assistance, Minimal Assistance Transfer Goal Contact Guard Assistance, Minimal Assistance Gait Goal Minimal Assistance Gait Distance 100' Other Goals Up/Down 1 step with Min>Mod Assist. Days to Meet Goals 2 Frequency of Treatment Frequency Of Treatment Twice a Day Treatment Plan Physical Therapy Treatment Plan Bed Mobility Training,Transfer Training,Gait Training, Therapeutic Exercise, Neuromuscular Re-ed Other Recommendations and Next Treatment CG training using FWW, Focus ambulation, bed mobility. Recommendations To Nursing Amount of Assist Needed 1 Person Assist Discharge Recommendations PT Discharge Recommendations Home with 24/7 Assist,Home Health,SNF Rehab Equipment Needed for Home Before FWW Discharge
[2019-06-10] MEDS: levoFLOXacin 750 MG/150 ML PIGGYBACK 100 MG IV (14:30)
--- NOTE | 2019-06-10 15:09 | OT.IP.EVAL ---
Current Diagnoses Pneumonia, unspecified organism (06/08/19) Past Medical History (Last Reviewed 06/08/19 @ 12:02 by Emily Reilly MD) Depression (Chronic) Hyperlipidemia (Chronic) Hypothyroid (Chronic) Memory changes (Chronic) PSA elevation (Chronic) Urinary incontinence (Chronic) Surgical History (Last Reviewed 06/08/19 @ 12:02 by Emily Reilly MD) No pertinent past surgical history (Acute) Occupational Therapy Inpatient Evaluation/Re-Eval M1 PT/OT-IP Prior Functional Status Start: 06/09/19 14:46 Freq: NEEDED Status: Active Protocol: Document 06/10/19 14:38 [facility] (Rec: 06/10/19 15:09 [facility] [id number]) Medical Review Prior Functional Status Medical History Reviewed Yes Communication Pt able to answer simple questions. Mobility and Gait Walked with spouse providing SBA>Deepa of hand held assist. Activities of Daily Living and IADL's Pt requires assist with ADLs for bathing, toileting ( hygiene) needs. Pt has to sit from grooming needs. Pt's states usually able to hand pt his clothing and pt able to get dressed on his own. Prior Functional Level (Other details) Pt has Alzheimer's Dementia, Fecal and Urinary Incontinence Social History Household Members spouse,family Living Arrangements House Number of Floors (Floors) One Floor Number of Stairs To Enter/Railing? One step, no railing Home Environment Tub/Shower Additional Social History Comment Spouse is caregiver. They have a shower chair that pt sits back to. Pt's states has tried a tub bench but did not work for them. M2 OT-IP Current Condition Start: 06/09/19 14:46 Freq: Status: Active Protocol: Document 06/10/19 14:38 [facility] (Rec: 06/10/19 15:09 [facility] [id number]) Occupational Therapy Current Condition Current Condition Evaluation Date 06/10/19 Treatment Diagnosis Pneumonia Diagnosis Onset Date 06/08/19 Weight Bearing Status Weight Bearing Status Weight Bear as Tolerated M3 OT- IP Subjective and Pain Start: 06/09/19 14:46 Freq: Status: Active Protocol: Document 06/10/19 14:38 [facility] (Rec: 06/10/19 15:09 [facility] [id number]) OT- Subjective Occupational Therapy Visit Type Type Initial Evaluation Visit Start Time 13:49 Visit Stop Time 14:27 Total Visit Minutes 38 Occupational Therapy Visit Comments Patient Comments Pt 's present in the room as well as SPIRITUAL COUNSELOR during OT eval . Patient/Caregiver Goals Pt's wanting pt to go home when medically stable. OT Pain Assessment Pain When Pain Assessed At Rest Pain Present Pain Present Denied Pain M4 OT- IP ADL's Start: 06/09/19 14:46 Freq: Status: Active Protocol: Document 06/10/19 14:38 [facility] (Rec: 06/10/19 15:09 [facility] [id number]) OT [id number] Comments OT Self-Feeding Comments Per MAINTENANCE TECHNICIAN 3RD SHIFT note pt currently 1:1 and has been training pt's to be able to assist pt for meals as needed. OT ADL-Grooming Comments OT Grooming Comments Pt able to wipe his hands with wipes after given to pt. OT ADL-Dressing General Eval Lower Body Dressing Ability Maximum Assistance Areas Needing Assistance Underpants/Brief Comments OT Dressing Comments Pt having difficulty to reach down, maintain his balance to be able to lift his legs into the brief and needing assist to elizabeth brief over his feet. Pt needing DEEPA for balance and able to pull up brief over his hips. OT ADL-Toileting Comments OT Toileting Comments Pt is incontinent. OT ADL-Bathing Comments OT Bathing Comments Not ready at this time due to decreased activity tolerance. M5 OT- IP IADL's Start: 06/09/19 14:46 Freq: Status: Active Protocol: Document 06/10/19 14:38 [facility] (Rec: 06/10/19 15:09 [facility] [id number]) OT-Instrumental Activities of Daily Living Home Safety Awareness Awareness of Need for Assistance at Home Decreased Awareness Medication Management Medication Management Caregiver Administers Money Management Money Management Caregiver Provides Assistance Meal Preparation Meal Preparation Caregiver Provides Assist Tribal Council Member Tribal Council Member Caregiver Provides Assist M6 OT- IP Functional Cognition Start: 06/09/19 14:46 Freq: Status: Active Protocol: Document 06/10/19 14:38 [facility] (Rec: 06/10/19 15:09 [facility] [id number]) Cognitive Factors Limiting Selfcare Function Cognitive Ability Level of Alertness Alert Patient Orientation Name Attention Span Ability Capable of Focused Attention Ability to Follow Commands Able to Follow One Step Commands Memory Description Short Term Impaired Safety Awareness Underestimates Need for Assistance Cognitive Comments Cognitive Assessment Comments Pt needing simple concrete commands to follow as per pt has Alzheimer's dementia and today more baseline for cognition versus yesterday. OT- Vision and Hearing OT- Hearing Assessment OT- Hearing Assessment Use of Hearing Aids OT- Vision Assessment Visual Acuity Glasses All The Time M7 OT- IP Mobility and Balance Start: 06/09/19 14:46 Freq: Status: Active Protocol: Document 06/10/19 14:38 [facility] (Rec: 06/10/19 15:09 [facility] [id number]) OT- Bed Mobility Assessment Rolling Type of Rolling Roll to Left Supine to Sit Supine to Sit Assist Moderate Assistance,1 Person Assistance Scooting Scooting to Edge of Bed Maximum Assistance,1 Person Assistance OT-Transfer Assessment Sit to and From Stand Sit to and from Stand Minimal Assistance,Moderate Assistance,1 Person Assistance Transfers Transfer Ability Moderate Assistance Technique Transfer Destination Bed,Chair,Toilet Transfer Technique Stand Step Pivot Devices Transfer Assistive Devices None,Gait Belt,Front Wheeled Walker Comments Mobility Comments Per pt is used to doing SHEET TURNER to walk pt from SBA to DEEPA. Pt prior did use a FWW a year ago when he was in rehab per ,improved so much that he no longer needed the FWW. When asking pt, pt states he would prefer to use FWW now. OT- Balance Assessment Sitting Balance and Reactions Static Sitting Balance Ability Good Dynamic Sitting Balance Ability Fair Standing Balance and Reactions Static Standing Balance Ability Poor Dynamic Standing Balance Ability Poor M8 OT- IP Objective Assessments Start: 06/09/19 14:46 Freq: Status: Active Protocol: Document 06/10/19 14:38 [facility] (Rec: 06/10/19 15:09 [facility] [id number]) OT Gross Range of Motion Upper Extremity Range of Motion Assessment Left Impaired ROM Impairments RUE 0-100, LUE 0-95, per pt's at baseline for AROM. OT Strength Comments Strength Comments BUE 4/5 M9 OT- IP Assessment and Plan Start: 06/09/19 14:46 Freq: Status: Active Protocol: Document 06/10/19 14:38 [facility] (Rec: 06/10/19 15:09 [facility] [id number]) OT Summary Assessment and Plan Potential Rehabilitation Potential Good Analytic Complexity at Evaluation Low Summary OT Impairments Balance,Functional Mobility, Dressing,Toileting,Bathing, Toilet Transfers,Shower Transfers Progress Towards Goals Progressing Toward Goals Assessment Summary Pt low complexity and main barrier is decreased balance , activity tolerance, and now needing more assist for ADL's and functional mobility. Pt's in the room and able to assist pt and states pt not at baseline level but feels confident able to take pt home when medically stable. Pt would benefit from home health. Goals Grooming Goal Standby Assistance Dressing Goal Standby Assistance Toileting Goal Minimal Assistance Toilet Transfer Goal Standby Assistance Shower Transfer Goal Minimal Assistance Patient/Caregiver Education Goal Caregiver Independent Assisting Patient Days to Meet Goals 5 Frequency of Treatment Frequency Of Treatment Once a Day Treatment Plan OT Treatment Plan ADL Training,Functional Mobility,Patient/Family Education,Discharge Planning Other Treatment Recommendations and Next Training with for bathroom Treatment Focus transfers. Discharge Recommendations OT Discharge Recommendations Home with 24/ Assist,Home Health Home Equipment Needs FWW
[2019-06-10] MEDS: LATANOPROST 0.005% OPHTH 2.5 ML 1 DROPS EYE-LEFT (20:16)
--- NOTE | 2019-06-10 23:42 | PC.NURSE ---
Addendum entered by Shannon Jimenes R.N. 06/11/19 06:26: Slept more tonight than last night. Incontinent of large amounts of urine each time changed and has been incontinent of stool x 3 this shift. Denies pain. Repositioned q2h. Original Note: Patient more alert and oriented tonight; did not know day of week, month or year. Breath sounds diminished throughout with expiratory rhonchi in left mid/lower lobes. Loose, intermittent cough which sounds like he brings up sputum but is swallowing rather than expectorating. Denies SOB. RA sat 96%; on continuous pulse oximetry. HRR but bradycardic at 58 bpm. On telemetry. BT present; incontinent of stool. Incontinent of urine. Needing assistance to reposition q2h as not turning himself and is still and resistive when turned. Wearing bilateral SCD's. Denies pain. Fall risk score is high and bed alarm is activated. Continues on fluid restriction.
[2019-06-11 03:10] VITALS: BP 142/69; PULSE 66; RESP 18; TEMP 36.7; O2SAT 97
[2019-06-11 05:07] LABS: Add Manual Diff / Slide Review NO; Basophils Absolute Auto 0 /uL (0-100); Basophils Percent Auto 0.7 % (0-2); Eosinophils Absolute Auto 100 /uL (0-450); Eosinophils Percent Auto 2.5 % (2-4); Hematocrit 34.8 % (41-53); Lymphocytes Absolute Auto 1400 /uL (1100-4500); Lymphocytes Percent Auto 24.3 % (25-40); Mean Corpuscular HGB Conc 34.5 % (30-36); Mean Corpuscular Hemoglobin 31.2 PG (26-34); Mean Corpuscular Volume 90.4 fL (80-100); Monocytes Absolute Auto 700 /uL (0-900); Monocytes Percent Auto 12.2 % (3-14); Neutrophils Absolute Auto 3500 /uL (1500-7000); Neutrophils Percent Auto 60.3 % (50-75); Platelet Count 337 X10^3/uL (150-400); Red Blood Cell Count 3.85 X10^6/uL (4.5-5.9); Red Cell Distribution Width 13.4 % (11.6-14.8); White Blood Cell Count 5.9 X10^3/uL (4.5-11.0)
[2019-06-11 05:15] LABS: Alanine Aminotransferase 17 IU/L (21-72); Albumin 3.3 g/dL (3.5-5.0); Albumin Globulin Ratio 1.1 (1.0-2.8); Alkaline Phosphatase 48 U/L (38-126); Aspartate Aminotransferase 19 IU/L (17-59); Bilirubin Total 0.5 mg/dL (0.2-1.3); Blood Urea Nitrogen 12 mg/dL (9-20); Calcium 8.6 mg/dL (8.4-10.2); Carbon Dioxide 27 mmol/L (22-32); Chloride 94 mmol/L (98-107); Estimated Glomerular Filt Rate > 60.0 mL/min (>60); Globulin 3.1 g/dL (1.7-4.1); Glucose 104 mg/dL (80-110); HEMOLYSIS < 15 (0-50); Sodium 129 mmol/L (137-145); Total Protein 6.4 g/dL (6.3-8.2)
[2019-06-11 07:40] VITALS: BP 145/70; PULSE 74; RESP 16; TEMP 36.8; O2SAT 93
--- NOTE | 2019-06-11 08:29 | PM.PN.1 ---
Subjective Subjective Date Patient Seen: 06/11/19 Time Patient Seen: 08:29 Interval history: Feeling better this morning. reports that his appetite has improved and he is ambulating with physical therapy, approaching his baseline. He continues to be weak. Denies any shortness of breath, not using any supplemental oxygen. offered some additional history today regarding his stool pattern that she says has been loose over the last 3 months. She has used intermittent Imodium which works well but then causes him to be constipated and when he finally does stool, has a ?blow out.? Nursing is at bedside and reports that he had 3 soft stools yesterday. requesting ear lavage for patient today, she had made an outpatient appointment for this in July but was wondering if this could be done in the hospital. Exam Vital Signs (past 8 hours): - 06/11/19 03:10 Temperature 98.0 F Pulse Rate 66 Respiratory Rate 18 Blood Pressure 142/69 H Pulse Oximetry 97 Oxygen Delivery Method Room Air Oxygen Flow Rate 0 Narrative Exam Narrative: GENERAL: Alert but disoriented, appearing stated age and in no acute distress. HEENT: Head normocephalic/atraumatic. Cerumen impaction bilaterally. LUNGS: Diminished inspiratory effort throughout, bibasilar crackles, no wheezes. CV: Normal S1 and S2 with regular rate and rhythm, no audible murmurs, rubs or gallops. ABDOMEN: Soft, non-tender, non-distended, no organomegaly. Positive bowel sounds. EXTREMITIES: No clubbing, cyanosis, or edema. NEURO: Cranial nerves II through XII grossly intact, no focal deficits. PSYCH: Alert and oriented x 3. SKIN: No concerning lesions. Objective Labs Result Diagrams: 06/11/19 04:50 06/11/19 04:50 Labs: Laboratory Results - last 24 hr 06/11/19 06/11/19 04:50 04:50 WBC 5.9 RBC 3.85 L Hgb 12.0 L Hct 34.8 L MCV 90.4 MCH 31.2 MCHC 34.5 RDW 13.4 Plt Count 337 Neut % (Auto) 60.3 Lymph % (Auto) 24.3 L N[place]olls % (Auto) 12.2 Eos % (Auto) 2.5 Baso % (Auto) 0.7 Neut # (Auto) 3500 Lymph # (Auto) 1400 [place] # (Auto) 700 Eos # (Auto) 100 Baso # (Auto) 0 Sodium 129 L Potassium 4.0 Chloride 94 L Carbon Dioxide 27 BUN 12 Creatinine 0.80 Estimated GFR > 60.0 BUN/Creatinine Ratio 15.0 Glucose 104 Calcium 8.6 Total Bilirubin 0.5 AST 19 ALT 17 L Alkaline Phosphatase 48 Total Protein 6.4 Albumin 3.3 L Globulin 3.1 Albumin/Globulin Ratio 1.1 Assessment & Plan Assessment & Plan narrative: Assessment 1: Worsening weakness, likely multifactorial and worsened by recent respiratory tract infection, community acquired pneumonia likely secondary to chest x-ray and age. Patient was able to ambulate with physical therapy yesterday and feels that he is progressing back to his baseline. Plan: Will transition to oral levofloxain today with anticipated discharge tomorrow. Continue PT/OT/RT. Will plan for home physical therapy upon discharge. CBC, BMP, in the morning. Assessment 2: Hyponatremia and hypochloremia, trending back down but close to baseline. Baseline sodium 130-135, now again 129. Baseline chloride 99-103, now 94, Will fluid restrict again today and trend labs. Assessment 3: Atrial fibrillation, paroxysmal, one lifetime episode. Has not been on metoprolol for about 1 year, will watch closely. Due to patient's age and fall risk, anticoagulation contraindicated. Assessment 4: Hyperlipidemia, low-cholesterol diet. Assessment 5: Hpothyroidism, currently euthyroid, TSH within normal limits. Assessment 6: GERD, asymptomatic. 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 q.day and tolterodine 4 mg p.o. q.day. Assessment 8: Fecal incontinence, adult diapers. Assessment 9: Chronic diarrhea, will check stool culture and O& P. Will start probiotics. Assessment 10: Cerumen impaction, bilateral ear lavage today. DVT prophylaxis: SCDs Code: DNR. Disposition: Plan for discharge to home tomorrow with home health PT and close outpatient follow-up. Quality VTE Deep Vein Thrombosis/Pulmonary Embolism Present on Admission: No
[2019-06-11] MEDS: TOLTERODINE LA 4 MG PO (09:26)
[2019-06-11] MEDS: ACETAMINOPHEN 325 MG TABLET 650 MG PO (09:26)
[2019-06-11] MEDS: TAMSULOSIN 0.4 MG CAPSULE PO (09:26)
[2019-06-11] MEDS: DEXTROSE 5%-0.45% NS 1,000 ML 100 ML IV ×2 (09:28→21:13)
--- NOTE | 2019-06-11 11:56 | PT.IPTN ---
Current Diagnoses Pneumonia, unspecified organism (06/08/19) Physical Therapy Treatment Note M2 PT-IP Current Condition Start: 06/09/19 12:50 Freq: NEEDED Status: Active Protocol: Document 06/09/19 15:10 LRN (Rec: 06/09/19 15:38 LRN [id number]) Physical Therapy Current Condition Current Condition Evaluation Date 06/09/19 Treatment Diagnosis Mobility Issues Onset Date 1 week ago Weight Bearing Status Weight Bearing Status Full Weight Bearing M3 PT-IP Subjective Start: 06/09/19 12:50 Freq: NEEDED Status: Active Protocol: Document 06/11/19 11:00 HH (Rec: 06/11/19 11:55 [id number]) Subjective Physical Therapy Visit Type Type Treatment Note Visit Start Time 11:00 Visit Stop Time 11:25 Total Visit Minutes 25 Notes pt's spouse attended session Number of FELLER MACHINE OPERATOR Visits 0 Physical Therapy Visit Comments Patient Comments Pt agreeable to get up with encouragement from . M4 PT-IP Mobility and Gait Start: 06/09/19 12:50 Freq: NEEDED Status: Active Protocol: Document 06/11/19 11:00 HH (Rec: 06/11/19 11:55 [id number]) PT-Transfer Assessment Sit to and From Stand Sit to and from Stand Minimal Assistance,Moderate Assistance,1 Person Assistance Equipment Transfer Assistive Device None,Gait Belt Transfers Transfer Destination Chair Transfer Technique Stand Step Pivot Transfer Ability Level of Assist Minimal Assistance,1 Person Assistance,Use of Upper Extremities Comments Mobility Comments Pt required max verbal and tactile cues for safety, mobility and sequencing. Pt overall needed min A for sit<> stand, scooting in chair and transfers. Pt's did CUSTOM FEED MILL OPERATOR HELPER the entire time and able to instruct pt. Gait Assessment Gait Gait Assistance Required: Minimum Assistance,Moderate Assistance,1 Person Assist,2 Person Assist Distance (Feet) 20 Assistive Devices Assistive Device None,Gait Belt Gait Deviations General Gait Pattern Decreased Stride Length, Decreased Feet Clearance,Wide Based Gait Factors Limiting Gait Function Factors Limiting Gait Function Decreased Activity Tolerance, Decreased Strength,Difficulty Following Directions,Poor Balance,Poor Safety Awareness Comments Gait Comments Pt required CUSTOM FEED MILL OPERATOR HELPER with and pt appears with a improved upright posture. Pt amb approx 50 ft in total but request to sit and rest after due to fatigue. M5 PT-IP Objective Assessments Start: 06/09/19 12:50 Freq: NEEDED Status: Active Protocol: Document 06/09/19 15:10 LRN (Rec: 06/09/19 15:38 LRN [id number]) Orientation Orientation/Cognition Level of Alertness Confusional State Orientation Name Language Function Ability Expressive Aphasia Safety Awareness Decreased Safety Awareness Comments Pt with Alzheimers dementia. Pt did not follow 1 step instructions and did not respond most of the time to questions or conversation. Spouse was present during therapy and answered questions . Gross Range of Motion Upper Extremity ROM Assessment Within Functional Limits Lower Extremity ROM Assessment Within Functional Limits Impairments Pt lacks normal ankle DF with the R worse than the L. Strength Upper Extremity Strength Assessment Within Functional Limits Lower Extremity Strength Assessment Within Functional Limits Comments Strength Comments Pt was not able to follow all of the time to accurately determine strength. M6 PT-IP Treatment Start: 06/09/19 12:50 Freq: NEEDED Status: Active Protocol: Document 06/09/19 15:10 LRN (Rec: 06/09/19 15:38 LRN [id number]) Physical Therapy Treatment Other Treatments Other Treatment Performed Sitting: Active and Active Resistive trunk flexion. M7 PT-IP Assessment and Plan Start: 06/09/19 12:50 Freq: NEEDED Status: Active Protocol: Document 06/11/19 11:00 HH (Rec: 06/11/19 11:55 HH [id number]) PT Summary Assessment and Plan Summary Impairments Strength,Balance,Cognition,Bed Mobility,Transfers,Gait, Activity Tolerance Progress Towards Goals Progressing Toward Goals Assessment Summary Pt's spouse attended session today and used CUSTOM FEED MILL OPERATOR HELPER for pt's mobility without FWW. Pt overall did fairly well for this session but he refused to use FWW. He shows improved steadiness, amb distance and min A for scooting, transfers and amb. Pt's has a very good understanding for safety awareness and techniques on assisting pt. Educated her to use gait belt for pt's mobility to prevent falls. At this point, home health will be a better option for pt to cont improve mobiltiy and strength Goals Bed Mobility Goal Contact Guard Assistance, Minimal Assistance Transfer Goal Contact Guard Assistance, Minimal Assistance Gait Goal Minimal Assistance Gait Distance 100' Other Goals Up/Down 1 step with Min>Mod Assist. Days to Meet Goals 2 Frequency of Treatment Frequency Of Treatment Twice a Day Treatment Plan Physical Therapy Treatment Plan Bed Mobility Training,Transfer Training,Gait Training, Therapeutic Exercise, Neuromuscular Re-ed Other Recommendations and Next Treatment CG training using FWW/ CUSTOM FEED MILL OPERATOR HELPER, Focus ambulation, bed mobility. step training Recommendations To Nursing Amount of Assist Needed 1 Person Assist Discharge Recommendations PT Discharge Recommendations Home with 26/03 Assist,Home Health Equipment Needed for Home Before FWW if needed Discharge
--- NOTE | 2019-06-11 12:18 | OT.IP.TRT ---
Current Diagnoses Pneumonia, unspecified organism (06/08/19) Occupational Therapy Treatment Note M2 OT-IP Current Condition Start: 06/09/19 14:46 Freq: Status: Active Protocol: Document 06/10/19 14:38 [facility] (Rec: 06/10/19 15:09 [facility] [id number]) Occupational Therapy Current Condition Current Condition Evaluation Date 06/10/19 Treatment Diagnosis Pneumonia Diagnosis Onset Date 06/08/19 Weight Bearing Status Weight Bearing Status Weight Bear as Tolerated M3 OT- IP Subjective and Pain Start: 06/09/19 14:46 Freq: Status: Active Protocol: Document 06/11/19 12:01 [facility] (Rec: 06/11/19 12:17 [facility] [id number]) OT- Subjective Occupational Therapy Visit Type Type Treatment Note Visit Start Time 10:13 Visit Stop Time 10:58 Total Visit Minutes 45 Occupational Therapy Visit Comments Patient Comments Pt agreeable to get up and pt' s present for caregiver training. Patient/Caregiver Goals To go home. OT Pain Assessment Pain When Pain Assessed At Rest Pain Present Pain Present Denied Pain M4 OT- IP ADL's Start: 06/09/19 14:46 Freq: Status: Active Protocol: Document 06/11/19 12:01 [facility] (Rec: 06/11/19 12:17 [facility] [id number]) OT [id number] Comments OT Self-Feeding Comments Noted residue of eggs in his mouth. Educated pt's to double check his mouth especially after eating and to sit upright prior for at least 30 minutes before lying down. OT ADL-Toileting General Evaluation Toileting Ability Maximum Assistance Areas Needing Assistance Manage Clothing,Perform Perineal Hygiene Comments OT Toileting Comments Pt needing MODA to stand and MAX a for all hygiene and pants management needs. M5 OT- IP IADL's Start: 06/09/19 14:46 Freq: Status: Active Protocol: Document 06/10/19 14:38 [facility] (Rec: 06/10/19 15:09 [facility] [id number]) OT-Instrumental Activities of Daily Living Home Safety Awareness Awareness of Need for Assistance at Home Decreased Awareness Medication Management Medication Management Caregiver Administers Money Management Money Management Caregiver Provides Assistance Meal Preparation Meal Preparation Caregiver Provides Assist Snuff Grinder And Screener Snuff Grinder And Screener Caregiver Provides Assist M6 OT- IP Functional Cognition Start: 06/09/19 14:46 Freq: Status: Active Protocol: Document 06/11/19 12:01 [facility] (Rec: 06/11/19 12:17 [facility] [id number]) Cognitive Factors Limiting Selfcare Function Cognitive Ability Level of Alertness Alert Patient Orientation Name Attention Span Ability Capable of Focused Attention Ability to Follow Commands Able to Follow One Step Commands Memory Description Short Term Impaired Safety Awareness Underestimates Need for Assistance Cognitive Comments Cognitive Assessment Comments Educated pt's to give simple concrete commands, emphasized that pt need time to process the information and at times tactile and visual cues can be more beneficial to the pt. M7 OT- IP Mobility and Balance Start: 06/09/19 14:46 Freq: Status: Active Protocol: Document 06/11/19 12:01 [facility] (Rec: 06/11/19 12:17 [facility] [id number]) OT- Bed Mobility Assessment Rolling Type of Rolling Roll to Left Supine to Sit Supine to Sit Assist Moderate Assistance,1 Person Assistance OT-Transfer Assessment Sit to and From Stand Sit to and from Stand Minimal Assistance,Moderate Assistance,1 Person Assistance Transfers Transfer Ability Moderate Assistance Technique Transfer Destination Bed,Chair,Toilet Transfer Technique Stand Step Pivot Devices Transfer Assistive Devices None,Gait Belt Comments Mobility Comments Asked pt of his preference to use FWW or hand held assist and pt know wanting to just be hand held assist. Pt's educated how to put on the gait belt, how to hold the gait belt and use of other hand to hold his hand to help guide the pt. Pt's doing better today and therapist not having to have hands on to assist today. Continued caregiver training would be beneficial for transfer needs. OT- Balance Assessment Sitting Balance and Reactions Static Sitting Balance Ability Fair Dynamic Sitting Balance Ability Poor Standing Balance and Reactions Static Standing Balance Ability Poor Dynamic Standing Balance Ability Poor Comments Other Balance Tests/Deviations/Treatment Educated pt and for : stretching into anterior and lateral tilt to the right and left to help pt's midline when sitting and when standing. M8 OT- IP Objective Assessments Start: 06/09/19 14:46 Freq: Status: Active Protocol: Document 06/10/19 14:38 [facility] (Rec: 06/10/19 15:09 [facility] [id number]) OT Gross Range of Motion Upper Extremity Range of Motion Assessment Left Impaired ROM Impairments RUE 0-100, LUE 0-95, per pt's at baseline for AROM. OT Strength Comments Strength Comments BUE 4/5 M9 OT- IP Assessment and Plan Start: 06/09/19 14:46 Freq: Status: Active Protocol: Document 06/11/19 12:01 [facility] (Rec: 06/11/19 12:17 [facility] [id number]) OT Summary Assessment and Plan Potential Rehabilitation Potential Good Analytic Complexity at Evaluation Low Summary OT Impairments Balance,Functional Mobility, Dressing,Toileting,Bathing, Toilet Transfers,Shower Transfers Progress Towards Goals Progressing Toward Goals Assessment Summary Pt's doing caregiver training and feeling more comfortable to be able to assist pt for needs at home. Home health OT/PT/STONEMASON would help to benefit pt and for continued education for safety of transfers, mobility and ADl needs. Goals Grooming Goal Standby Assistance Dressing Goal Standby Assistance Toileting Goal Minimal Assistance Toilet Transfer Goal Standby Assistance Shower Transfer Goal Minimal Assistance Patient/Caregiver Education Goal Caregiver Independent Assisting Patient Days to Meet Goals 4 Frequency of Treatment Frequency Of Treatment Once a Day Treatment Plan OT Treatment Plan ADL Training,Functional Mobility,Patient/Family Education,Discharge Planning Other Treatment Recommendations and Next Caregiver training. Treatment Focus Discharge Recommendations OT Discharge Recommendations Home with 26/03 Assist,Home Health
[2019-06-11] MEDS: LACTOBACILLUS ACIDOPHILUS TABLET 1 EACH PO (12:36)
[2019-06-11 13:25] VITALS: BP 148/73; PULSE 73; RESP 17; TEMP 36.6; O2SAT 95
--- NOTE | 2019-06-11 13:32 | CM.DPC ---
Addendum entered by Courtney Lester LPN 06/11/19 14:26: Spoke now with Justyn/[facility]ia [facility] PT Advocate: cell: [phone]. He clarifies that he is now the contact for Lucia and as Rosemarie has taken a different position. Referral is accepted and he will look at the clinicals that have been faxed. He then plans to reach out to pt's spouse to further discuss HH specific plans. Original Note: DCP: continued: Case received, EMR reviewed and note plan for home with spouse Ericka and HH support. Met now in followup with both. Introduced self and role. Ericka confirms that she is the primary caregiver for her who carries dx of Alzheimer's disease. Their daughter Vera lives with them and can also assist. Ericka has [facility] private caregiver agency lined up for prn use in case of respite need. She says they have been wonderful to work with but expensive (although she says she knows not more so that other pvt agencies). She very much agrees with the HH plan and, after more discussion, agrees RN/PT/OT would be helpful. Pt did see TECHNICAL ASSOCIATE while here and recommendations have been posted in room and also discussed with her. She says she does not think having TECHNICAL ASSOCIATE at home will be helpful but the ideas provided here by TECHNICAL ASSOCIATE were. She says she is extremely attentive to her when he eats has he does go too fast and can pocket food. As per CM Esthela's discussion with them yesterday have now given referral to [facility] as they are HH Vendor Choice for this week per CM Door To Door Sales Representative monthly schedule. [facility] will fax the referral info. Have placed a vm to the [facility] liaison number and am awaiting call back. HH specific order is obtained. Face/Face reviewed. Needs Dr. Aguero's signature and form is now placed on the Red Folder/chart at [facility]. RADHA Braswell is updated. Will be looking for Dr. Aguero tomorrow morning and go from there. P: home when stable, likely tomorrow, with [facility] and family support.
--- NOTE | 2019-06-11 14:01 | PC.NURSE ---
Day Shift- Ear irrigation performed with warm water and 60ml syringe. Bilateral ears irrigated. Left ear had very small pieces of gold colored material. Right ear had even less very scant pieces of yellow material. Pt's present during irrigation. Pt stated while the irrigation was taking place that it hurt. Pt's states that at the Dr's office, he also says this.
[2019-06-11] MEDS: levoFLOXacin 250 MG TABLET 750 MG PO (14:07)
--- NOTE | 2019-06-11 15:54 | PT.IPTN ---
Current Diagnoses Pneumonia, unspecified organism (06/08/19) Physical Therapy Treatment Note M2 PT-IP Current Condition Start: 06/09/19 12:50 Freq: NEEDED Status: Active Protocol: Document 06/09/19 15:10 LRN (Rec: 06/09/19 15:38 LRN [id number]) Physical Therapy Current Condition Current Condition Evaluation Date 06/09/19 Treatment Diagnosis Mobility Issues Onset Date 1 week ago Weight Bearing Status Weight Bearing Status Full Weight Bearing M3 PT-IP Subjective Start: 06/09/19 12:50 Freq: NEEDED Status: Active Protocol: Document 06/11/19 15:54 AB (Rec: 06/11/19 17:37 AB [id number]) Subjective Physical Therapy Visit Type Type Treatment Note Visit Start Time 15:54 Visit Stop Time 16:22 Total Visit Minutes 28 Number of BLEACH MIXER Visits 0 Physical Therapy Visit Comments Patient Comments spouse in room with pt M4 PT-IP Mobility and Gait Start: 06/09/19 12:50 Freq: NEEDED Status: Active Protocol: Document 06/11/19 15:54 AB (Rec: 06/11/19 17:37 AB [id number]) PT-Transfer Assessment Sit to and From Stand Sit to and from Stand Maximum Assistance,1 Person Assistance,Use of Upper Extremities Equipment Transfer Assistive Device None,Bed Rail Orthotic/Prosthetic Devices or Brace: No Transfers Transfer Destination Chair Transfer Technique pt ambulated with FIELD CROP II FARMWORKER Transfer Ability Level of Assist Maximum Assistance,1 Person Assistance,Use of Upper Extremities Comments Mobility Comments pt found sitting on the toilet . spouse in room. Assisted pt sit to stand from the toilet using grab bar max A and max cues. NAC assisted with hygiene care. pt required max A to maintain standing balance. pt requires max cues with all tasks. pt ambulated in room FIELD CROP II FARMWORKER max A and max cues ~ 20 ft. pt tends to just sit down unsafely when tired. Spouse able to cue pt appropriately. SC increased to 131 bpm after ambulation and O2 sat at 96%. caregiver training conducted. Spouse stated that she has been trained and knows what to do. asked spouse to demonstrate assisting pt. spouse tried to assist pt sit to stand from the chair and spouse was pulling on pt's L arm/shoulder to get up and pt was unable to stand. educated spouse on how to use safety belt to assist pt and completed. completed up/down step stool and spouse was able to safely assist pt but with PT providing CGA. spouse stated that her daughter will also be available to assist them with the step if pt goes home tomorrow. spouse was able to ambulate pt in the room ~ 20 ft. positioned pt on the chair. educated spouse on how to use safety belt and how it will assist for safe mobility with pt. spouse understood. will conduct further caregiver training next tx session. Gait Assessment Gait Gait Assistance Required: Maximum Assistance Distance (Feet) 20 Able to Maintain Weight Bearing Status Yes During Gait Assistive Devices Assistive Device None,Gait Belt Orthotic/Prosthetic Devices or Brace: No Gait Deviations General Gait Pattern Decreased Stride Length, Decreased Feet Clearance, Flexed Trunk Factors Limiting Gait Function Factors Limiting Gait Function Decreased Activity Tolerance, Decreased Strength,Difficulty Following Directions, Incoordination,Poor Balance, Poor Safety Awareness, Respiratory Distress Comments Gait Comments please refer to mobility section for details Stair Climbing Assessment Evaluation Level of Assist On Stairs Maximal Assistance,1 Person Assistance,2 Person Assistance Devices Stair Climbing Assistive Devices None Technique/Endurance Stair Climbing Direction Ascend and Descend Stair Climbing Technique Step to Step Number of Steps Climbed 1 Stair Climbing Set # Repetitions (reps) 1 M5 PT-IP Objective Assessments Start: 06/09/19 12:50 Freq: NEEDED Status: Active Protocol: Document 06/09/19 15:10 LRN (Rec: 06/09/19 15:38 LRN [id number]) Orientation Orientation/Cognition Level of Alertness Confusional State Orientation Name Language Function Ability Expressive Aphasia Safety Awareness Decreased Safety Awareness Comments Pt with Alzheimers dementia. Pt did not follow 1 step instructions and did not respond most of the time to questions or conversation. Spouse was present during therapy and answered questions . Gross Range of Motion Upper Extremity ROM Assessment Within Functional Limits Lower Extremity ROM Assessment Within Functional Limits Impairments Pt lacks normal ankle DF with the R worse than the L. Strength Upper Extremity Strength Assessment Within Functional Limits Lower Extremity Strength Assessment Within Functional Limits Comments Strength Comments Pt was not able to follow all of the time to accurately determine strength. M6 PT-IP Treatment Start: 06/09/19 12:50 Freq: NEEDED Status: Active Protocol: Document 06/09/19 15:10 LRN (Rec: 06/09/19 15:38 LRN [id number]) Physical Therapy Treatment Other Treatments Other Treatment Performed Sitting: Active and Active Resistive trunk flexion. M7 PT-IP Assessment and Plan Start: 06/09/19 12:50 Freq: NEEDED Status: Active Protocol: Document 06/11/19 15:54 AB (Rec: 06/11/19 17:37 AB [id number]) PT Summary Assessment and Plan Potential Rehabilitation Potential Fair Summary Impairments Pain,ROM,Strength,Balance, Coordination,Sensation,Tone, Cognition,Bed Mobility, Transfers,Gait,Activity Tolerance Progress Towards Goals Slow Progress due to Medical Issues,Slow Progress due to Activity Tolerance Assessment Summary caregiver training conducted and will need further training . pt plans to go home and spouse to assist him. Pt will need homehealth services. Goals Bed Mobility Goal Contact Guard Assistance, Minimal Assistance Transfer Goal Contact Guard Assistance, Minimal Assistance Gait Goal Minimal Assistance Gait Distance 100' Other Goals Up/Down 1 step with Min>Mod Assist. Days to Meet Goals 5 Frequency of Treatment Frequency Of Treatment Twice a Day Treatment Plan Physical Therapy Treatment Plan Bed Mobility Training,Transfer Training,Gait Training, Therapeutic Exercise, Neuromuscular Re-ed Other Recommendations and Next Treatment CG training using FWW/ FIELD CROP II FARMWORKER, Focus ambulation, bed mobility. step training Recommendations To Nursing Amount of Assist Needed 1 Person Assist Discharge Recommendations PT Discharge Recommendations Home with 26/03 Assist,Home Health
[2019-06-11 15:55] VITALS: BP 107/55; RESP 18; TEMP 36.6; O2SAT 98
[2019-06-11 19:54] VITALS: BP 125/65; PULSE 79; RESP 18; TEMP 36.4; O2SAT 100
[2019-06-11] MEDS: LATANOPROST 0.005% OPHTH 2.5 ML 1 DROPS EYE-LEFT (20:27)
[2019-06-11 23:20] VITALS: BP 137/77; PULSE 77; RESP 16; TEMP 37.1; O2SAT 94
[2019-06-12] VITALS (8 sets, daily range): BP systolic 119–169; BP diastolic 56–69; PULSE 57–72; RESP 16–19; TEMP 36.3–36.7; O2SAT 97–99
--- NOTE | 2019-06-12 01:40 | PC.NURSE ---
Addendum entered by Shannon Jimenes R.N. 06/12/19 06:32: Has had large amounts of soft stools when changed q2h. Slightly reddened around perianal area; using barrier cream. Original Note: Patient alert and mostly oriented; did not know day of month or year. Breath sounds diminished with crackles in right LL; RA sat 96%. Remains on continuous oximetry per MD order. HRR; telemetry reading was SR w/1st degree AVB. Denies nausea. Incontinent of B&B; stools soft/loose but not liquid or watery. Needs assist to reposition q2h. Wearing bilateral SCD's. Denies pain. Continues on fluid restriction although rarely will accept offer of po intake during the night. Fall risk score is high and bed alarm is activated.
[2019-06-12 05:11] LABS: Add Manual Diff / Slide Review NO; Basophils Absolute Auto 0 /uL (0-100); Basophils Percent Auto 0.8 % (0-2); Eosinophils Absolute Auto 100 /uL (0-450); Eosinophils Percent Auto 2.5 % (2-4); Hematocrit 33.9 % (41-53); Hemoglobin 11.8 g/dL (13.5-17.5); Lymphocytes Absolute Auto 1600 /uL (1100-4500); Lymphocytes Percent Auto 28.5 % (25-40); Mean Corpuscular HGB Conc 34.7 % (30-36); Mean Corpuscular Hemoglobin 31.2 PG (26-34); Monocytes Absolute Auto 800 /uL (0-900); Monocytes Percent Auto 13.4 % (3-14); Neutrophils Absolute Auto 3100 /uL (1500-7000); Neutrophils Percent Auto 54.8 % (50-75); Platelet Count 353 X10^3/uL (150-400); Red Blood Cell Count 3.77 X10^6/uL (4.5-5.9); Red Cell Distribution Width 13.5 % (11.6-14.8); White Blood Cell Count 5.6 X10^3/uL (4.5-11.0)
[2019-06-12 05:14] LABS: BUN Creatinine Ratio 12.2 (6-22); Blood Urea Nitrogen 11 mg/dL (9-20); Calcium 8.5 mg/dL (8.4-10.2); Carbon Dioxide 26 mmol/L (22-32); Chloride 93 mmol/L (98-107); Estimated Glomerular Filt Rate > 60.0 mL/min (>60); Glucose 95 mg/dL (80-110); HEMOLYSIS < 15 (0-50); Potassium 3.9 mmol/L (3.4-5.1); Sodium 127 mmol/L (137-145)
--- NOTE | 2019-06-12 05:17 | PC.NURSE ---
Patient is laying supine with his knees bent. We were changing patient's brief and were going to turn him to face the sunrise (on his left), or we offered to turn him onto his right side. He refused both ways and wanted to lay supine with his knees bench. He said he was comfortable as is. Bed alarm on, call light within reach.
--- NOTE | 2019-06-12 08:12 | PM.PN.1 ---
Subjective Subjective Date Patient Seen: 06/12/19 Time Patient Seen: 08:12 Interval history: Patient is feeling well this morning. Appetite is good and he is eating his breakfast this morning. Denies nausea or vomiting. No cough. Continues to be weak but progressing back to his baseline with PT. Nutrition was by yesterday treating his acute malnutrition. Exam Vital Signs (past 8 hours): - 06/12/19 05:05 Temperature 98.0 F Pulse Rate 67 Respiratory Rate 16 Blood Pressure 157/58 H Pulse Oximetry 98 Oxygen Delivery Method Room Air Oxygen Flow Rate 0 Narrative Exam Narrative: GENERAL: Alert but disoriented, appearing stated age and in no acute distress. HEENT: Head normocephalic/atraumatic. Cerumen impaction bilaterally. LUNGS: Diminished inspiratory effort throughout, bibasilar crackles, no wheezes. CV: Normal S1 and S2 with regular rate and rhythm, no audible murmurs, rubs or gallops. ABDOMEN: Soft, non-tender, non-distended, no organomegaly. Positive bowel sounds. EXTREMITIES: No clubbing, cyanosis, or edema. NEURO: Cranial nerves II through XII grossly intact, no focal deficits. PSYCH: Alert and oriented x 3. SKIN: No concerning lesions. Objective Labs Result Diagrams: 06/12/19 04:51 06/12/19 04:51 Labs: Laboratory Results - last 24 hr 06/12/19 06/12/19 04:51 04:51 WBC 5.6 RBC 3.77 L Hgb 11.8 L Hct 33.9 L MCV 90.0 MCH 31.2 MCHC 34.7 RDW 13.5 Plt Count 353 Neut % (Auto) 54.8 Lymph % (Auto) 28.5 [place] % (Auto) 13.4 Eos % (Auto) 2.5 Baso % (Auto) 0.8 Neut # (Auto) 3100 Lymph # (Auto) 1600 [place] # (Auto) 800 Eos # (Auto) 100 Baso # (Auto) 0 Sodium 127 L Potassium 3.9 Chloride 93 L Carbon Dioxide 26 BUN 11 Creatinine 0.90 Estimated GFR > 60.0 BUN/Creatinine Ratio 12.2 Glucose 95 Calcium 8.5 Assessment & Plan Assessment & Plan narrative: Assessment 1: Worsening weakness, likely multifactorial and worsened by recent respiratory tract infection. Community acquired pneumonia likely secondary to chest x-ray and age. Cannot exclude acute on chronic hyponatremia. Patient participating in physical therapy and progressing back to baseline. Plan: Continue oral levofloxain with anticipated discharge to home tomorrow. Continue PT/OT/RT. Will plan for home physical therapy upon discharge. CBC, BMP, in the morning. Assessment 2: Hyponatremia and hypochloremia, trending down again, will delay discharge while searching for etiology. Patient does have chronic hyponatremia and hypochloremia but he is falling below his baseline; with his weakness, this may be the underlying reason. Will search for cause and try to correct before discharge. Will check urine sodium, urine chloride, and urine osmolality today. Patient is demented and has acute malnutrition and that certainly could have contributed to his suspected hypovolemic hyponatremia. Senior Mobile Application Developer is consulting, appreciate their care. Will continue fluid restrictions, less than 800 cc per day. Baseline sodium 130-135, now 127. Baseline chloride 99-103, now 93. Will trend labs in the morning. Assessment 3: Acute malnutrition, as above. Assessment 4: Atrial fibrillation, paroxysmal, one lifetime episode. Has not been on metoprolol for about 1 year, will watch closely. Due to patient's age and fall risk, anticoagulation contraindicated. Assessment 5: Hyperlipidemia, low-cholesterol diet. Assessment 6: Hpothyroidism, currently euthyroid, TSH within normal limits. Assessment 7: GERD, asymptomatic. 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 q.day and tolterodine 4 mg p.o. q.day. Assessment 9: Fecal incontinence, adult diapers. Assessment 10: Chronic diarrhea, will check stool culture and O& P. Will start probiotics. Assessment 11: Cerumen impaction, bilateral ear lavage completed yesterday. DVT prophylaxis: SCDs Code: DNR. Disposition: Plan for discharge to home tomorrow with home health PT and close outpatient follow-up. Quality VTE Deep Vein Thrombosis/Pulmonary Embolism Present on Admission: No
--- NOTE | 2019-06-12 08:50 | CM.DPC ---
DCP: continued: Checked in this morning as planned. RADHA Braswell said Dr. Aguero was here to see pt, is keeping him as his sodium level is still problematic. The Face/Face HH document is not yet signed. Michaelle said she expects an update from Dr. Aguero later today and will alert her to need to sign the F/F (still attached to [employer] hard copy chart at [facility]. Spoke now with pt's , at bedside. She said she tried to be here early enough to see Dr. Patel but missed her. She says she understands from RADHA Braswell that her will be here at least until tomorrow. Gave her the [facility] brochure. P: follow..Home with and daughter support and HHS when pt stable for same.
[2019-06-12] MEDS: levoFLOXacin 250 MG TABLET 750 MG PO (09:41)
[2019-06-12] MEDS: LACTOBACILLUS ACIDOPHILUS TABLET 1 EACH PO (09:41)
[2019-06-12] MEDS: TAMSULOSIN 0.4 MG CAPSULE PO (09:42)
[2019-06-12] MEDS: TOLTERODINE LA 4 MG PO (09:44)
--- NOTE | 2019-06-12 11:30 | PT.IPTN ---
Current Diagnoses Hypo-osmolality and hyponatremia (06/08/19) Pneumonia, unspecified organism (06/08/19) Physical Therapy Treatment Note M2 PT-IP Current Condition Start: 06/09/19 12:50 Freq: NEEDED Status: Active Protocol: Document 06/09/19 15:10 LRN (Rec: 06/09/19 15:38 LRN [id number]) Physical Therapy Current Condition Current Condition Evaluation Date 06/09/19 Treatment Diagnosis Mobility Issues Onset Date 1 week ago Weight Bearing Status Weight Bearing Status Full Weight Bearing M3 PT-IP Subjective Start: 06/09/19 12:50 Freq: NEEDED Status: Active Protocol: Document 06/12/19 11:30 GGD (Rec: 06/12/19 12:08 GGD [id number]) Subjective Physical Therapy Visit Type Type Treatment Note Visit Start Time 11:11 Visit Stop Time 11:30 Total Visit Minutes 18 Number of MEDICARE BILLER Visits 1 Physical Therapy Visit Comments Patient Comments Pt states he doesn't feel good . M4 PT-IP Mobility and Gait Start: 06/09/19 12:50 Freq: NEEDED Status: Active Protocol: Document 06/12/19 11:30 GGD (Rec: 06/12/19 12:08 GGD [id number]) PT-Bed Mobility Assessment Supine to Sit Supine to Sit Moderate Assistance,1 Person Assistance,Bedrails Scooting Scooting to Edge of Bed Moderate Assistance PT-Transfer Assessment Sit to and From Stand Sit to and from Stand Minimal Assistance,1 Person Assistance,Use of Upper Extremities Equipment Transfer Assistive Device None,Bed Rail Orthotic/Prosthetic Devices or Brace: No Transfers Transfer Destination Toilet Transfer Ability Level of Assist Moderate Assistance,1 Person Assistance,Use of Upper Extremities Comments Mobility Comments Pt assisted with sit to stand with pt's hand hold assist. She need min cues for safety. Pt had mild LOB, but was able to keep pateint safe. Gait Assessment Gait Gait Assistance Required: Minimum Assistance,1 Person Assist Distance (Feet) 10 Assistive Devices Assistive Device None,Gait Belt Gait Deviations General Gait Pattern Decreased Stride Length, Decreased Feet Clearance, Flexed Trunk Factors Limiting Gait Function Factors Limiting Gait Function Decreased Activity Tolerance, Decreased Strength,Difficulty Following Directions, Incoordination,Poor Balance, Poor Safety Awareness, Respiratory Distress M5 PT-IP Objective Assessments Start: 06/09/19 12:50 Freq: NEEDED Status: Active Protocol: Document 06/09/19 15:10 LRN (Rec: 06/09/19 15:38 LRN [id number]) Orientation Orientation/Cognition Level of Alertness Confusional State Orientation Name Language Function Ability Expressive Aphasia Safety Awareness Decreased Safety Awareness Comments Pt with Alzheimers dementia. Pt did not follow 1 step instructions and did not respond most of the time to questions or conversation. Spouse was present during therapy and answered questions . Gross Range of Motion Upper Extremity ROM Assessment Within Functional Limits Lower Extremity ROM Assessment Within Functional Limits Impairments Pt lacks normal ankle DF with the R worse than the L. Strength Upper Extremity Strength Assessment Within Functional Limits Lower Extremity Strength Assessment Within Functional Limits Comments Strength Comments Pt was not able to follow all of the time to accurately determine strength. M6 PT-IP Treatment Start: 06/09/19 12:50 Freq: NEEDED Status: Active Protocol: Document 06/09/19 15:10 LRN (Rec: 06/09/19 15:38 LRN [id number]) Physical Therapy Treatment Other Treatments Other Treatment Performed Sitting: Active and Active Resistive trunk flexion. M7 PT-IP Assessment and Plan Start: 06/09/19 12:50 Freq: NEEDED Status: Active Protocol: Document 06/12/19 11:30 GGD (Rec: 06/12/19 12:08 GGD [id number]) PT Summary Assessment and Plan Summary Assessment Summary Caregiver training conducted for bed mobility and transfers . needed min cues for gait belt. Frequency of Treatment Frequency Of Treatment Twice a Day Treatment Plan Physical Therapy Treatment Plan Bed Mobility Training,Transfer Training,Gait Training, Therapeutic Exercise, Neuromuscular Re-ed Other Recommendations and Next Treatment CG training using FWW/ EXTRACTIONS TECHNOLOGIST, Focus ambulation, bed mobility. step training Recommendations To Nursing Amount of Assist Needed 1 Person Assist Discharge Recommendations PT Discharge Recommendations Home with / Assist,Home Health
--- NOTE | 2019-06-12 12:04 | OT.IP.TRT ---
Current Diagnoses Hypo-osmolality and hyponatremia (06/08/19) Pneumonia, unspecified organism (06/08/19) Occupational Therapy Treatment Note M2 OT-IP Current Condition Start: 06/09/19 14:46 Freq: Status: Active Protocol: Document 06/10/19 14:38 [facility] (Rec: 06/10/19 15:09 [facility] [id number]) Occupational Therapy Current Condition Current Condition Evaluation Date 06/10/19 Treatment Diagnosis Pneumonia Diagnosis Onset Date 06/08/19 Weight Bearing Status Weight Bearing Status Weight Bear as Tolerated M3 OT- IP Subjective and Pain Start: 06/09/19 14:46 Freq: Status: Active Protocol: Document 06/12/19 11:40 [facility] (Rec: 06/12/19 12:04 [facility] [id number]) OT- Subjective Occupational Therapy Visit Type Type Treatment Note Visit Start Time 11:26 Visit Stop Time 11:36 Total Visit Minutes 10 Occupational Therapy Visit Comments Patient Comments WORK ORDER DETAILER just finishing with pt and and pt sitting on the commode. Pt states has a head ache all over but not able to state a number, nursing surgical services director aware and looking to get him medication. Patient/Caregiver Goals Pt wanting to go home. Pt's wanting pt to go home when medically stable. OT Pain Assessment Pain When Pain Assessed At Rest Pain Present Pain Present Pain Reported M4 OT- IP ADL's Start: 06/09/19 14:46 Freq: Status: Active Protocol: Document 06/12/19 11:40 [facility] (Rec: 06/12/19 12:04 [facility] [id number]) OT ADL-Grooming General Evaluation Grooming Ability Maximum Assistance Comments OT Grooming Comments Pt needing cues to use hand cloth to wash his hands thoroughly and needing hands to be soaked to be able to clean his fingernails with toothbrush by . OT ADL-Dressing General Eval Lower Body Dressing Ability Moderate Assistance Areas Needing Assistance Underpants/Brief Comments OT Dressing Comments Pt having to assist to elizabeth brief over his feet, assisted him for balance and pt able to assist to pull up brief over his hips with SHAISTA from in the back. OT ADL-Toileting General Evaluation Toileting Ability Maximum Assistance Areas Needing Assistance Manage Clothing,Perform Perineal Hygiene Comments OT Toileting Comments Pt able to demonstrate good safety to stand and help pt with balance by blocking him with her hip and able to reach back to do all hygiene needs for pt. Pt able to use grab bar to help with his balance. Pt's states looking to install grab bar in the bathroom. OT ADL-Bathing Comments OT Bathing Comments Per if pt feeling better tomorrow willing to try shower with pt. M5 OT- IP IADL's Start: 06/09/19 14:46 Freq: Status: Active Protocol: Document 06/10/19 14:38 [facility] (Rec: 06/10/19 15:09 [facility] [id number]) OT-Instrumental Activities of Daily Living Home Safety Awareness Awareness of Need for Assistance at Home Decreased Awareness Medication Management Medication Management Caregiver Administers Money Management Money Management Caregiver Provides Assistance Meal Preparation Meal Preparation Caregiver Provides Assist Quality Assurance Lead Quality Assurance Lead Caregiver Provides Assist M6 OT- IP Functional Cognition Start: 06/09/19 14:46 Freq: Status: Active Protocol: Document 06/12/19 11:40 [facility] (Rec: 06/12/19 12:04 [facility] [id number]) Cognitive Factors Limiting Selfcare Function Cognitive Ability Level of Alertness Alert Patient Orientation Name Attention Span Ability Capable of Focused Attention Ability to Follow Commands Able to Follow One Step Commands Memory Description Short Term Impaired Safety Awareness Underestimates Need for Assistance Cognitive Comments Cognitive Assessment Comments Pt at baseline level for cognition. Pt's doing better today with not over giving cues to pt in order to let him try to process the information first. M7 OT- IP Mobility and Balance Start: 06/09/19 14:46 Freq: Status: Active Protocol: Document 06/12/19 11:40 [facility] (Rec: 06/12/19 12:04 [facility] [id number]) OT-Transfer Assessment Sit to and From Stand Sit to and from Stand Moderate Assistance Transfers Transfer Ability Moderate Assistance Technique Transfer Destination Chair,Toilet Transfer Technique Stand Step Pivot Devices Transfer Assistive Devices None,Gait Belt Comments Mobility Comments Pt's much improved today for use of gait and safety with pt for getting up from the toilet and walk over to the recliner to sit. OT- Balance Assessment Sitting Balance and Reactions Static Sitting Balance Ability Good Dynamic Sitting Balance Ability Fair Standing Balance and Reactions Static Standing Balance Ability Poor Dynamic Standing Balance Ability Poor M8 OT- IP Objective Assessments Start: 06/09/19 14:46 Freq: Status: Active Protocol: Document 06/10/19 14:38 [facility] (Rec: 06/10/19 15:09 [facility] [id number]) OT Gross Range of Motion Upper Extremity Range of Motion Assessment Left Impaired ROM Impairments RUE 0-100, LUE 0-95, per pt's at baseline for AROM. OT Strength Comments Strength Comments BUE 4/5 M9 OT- IP Assessment and Plan Start: 06/09/19 14:46 Freq: Status: Active Protocol: Document 06/12/19 11:40 [facility] (Rec: 06/12/19 12:04 [facility] [id number]) OT Summary Assessment and Plan Potential Rehabilitation Potential Good Analytic Complexity at Evaluation Low Summary OT Impairments Balance,Functional Mobility, Dressing,Toileting,Bathing, Toilet Transfers,Shower Transfers Progress Towards Goals Progressing Toward Goals Assessment Summary Pt feeling confident that she will be able to assist pt when he is medically stable to go home. Home health is still recommended to help look at safety needs in the home for ADl needs. Goals Grooming Goal Moderate Assistance Dressing Goal Moderate Assistance Toileting Goal Moderate Assistance Toilet Transfer Goal Minimal Assistance Shower Transfer Goal Moderate Assistance Patient/Caregiver Education Goal Caregiver Independent Assisting Patient Days to Meet Goals 3 Frequency of Treatment Frequency Of Treatment Once a Day Treatment Plan OT Treatment Plan ADL Training,Functional Mobility,Patient/Family Education,Discharge Planning Other Treatment Recommendations and Next Caregiver training/shower Treatment Focus Discharge Recommendations OT Discharge Recommendations Home with 26/03 Assist,Home Health
--- NOTE | 2019-06-12 16:07 | PT.IPTN ---
Current Diagnoses Hypo-osmolality and hyponatremia (06/08/19) Pneumonia, unspecified organism (06/08/19) Physical Therapy Treatment Note M2 PT-IP Current Condition Start: 06/09/19 12:50 Freq: NEEDED Status: Active Protocol: Document 06/09/19 15:10 LRN (Rec: 06/09/19 15:38 LRN [id number]) Physical Therapy Current Condition Current Condition Evaluation Date 06/09/19 Treatment Diagnosis Mobility Issues Onset Date 1 week ago Weight Bearing Status Weight Bearing Status Full Weight Bearing M3 PT-IP Subjective Start: 06/09/19 12:50 Freq: NEEDED Status: Active Protocol: Document 06/12/19 15:58 GGD (Rec: 06/12/19 16:06 GGD [email or web address]) Subjective Physical Therapy Visit Type Type Treatment Note Visit Start Time 15:30 Visit Stop Time 15:58 Total Visit Minutes 28 Number of CREW MESS ATTENDANT Visits 2 Physical Therapy Visit Comments Patient Comments Pt willing to work with therapy. M4 PT-IP Mobility and Gait Start: 06/09/19 12:50 Freq: NEEDED Status: Active Protocol: Document 06/12/19 15:58 GGD (Rec: 06/12/19 16:06 GGD [id number]) PT-Transfer Assessment Sit to and From Stand Sit to and from Stand Minimal Assistance,1 Person Assistance,Use of Upper Extremities Equipment Transfer Assistive Device None,Gait Belt Orthotic/Prosthetic Devices or Brace: No Transfers Transfer Destination Chair,Toilet Transfer Ability Level of Assist Moderate Assistance,1 Person Assistance,Use of Upper Extremities Comments Mobility Comments Pt assist with pt's mobility. needed min cues for sit to stand technique. Gait Assessment Gait Gait Assistance Required: Minimum Assistance,1 Person Assist Distance (Feet) 30 Assistive Devices Assistive Device None,Gait Belt Gait Deviations General Gait Pattern Decreased Stride Length, Decreased Feet Clearance, Flexed Trunk Factors Limiting Gait Function Factors Limiting Gait Function Decreased Activity Tolerance, Decreased Strength,Difficulty Following Directions, Incoordination,Poor Balance, Poor Safety Awareness, Respiratory Distress Stair Climbing Assessment Evaluation Level of Assist On Stairs Maximal Assistance,1 Person Assistance Devices Stair Climbing Assistive Devices None Technique/Endurance Stair Climbing Direction Ascend and Descend Stair Climbing Technique Step to Step Number of Steps Climbed 1 Stair Climbing Set # Repetitions (reps) 2 M5 PT-IP Objective Assessments Start: 06/09/19 12:50 Freq: NEEDED Status: Active Protocol: Document 06/09/19 15:10 LRN (Rec: 06/09/19 15:38 LRN [id number]) Orientation Orientation/Cognition Level of Alertness Confusional State Orientation Name Language Function Ability Expressive Aphasia Safety Awareness Decreased Safety Awareness Comments Pt with Alzheimers dementia. Pt did not follow 1 step instructions and did not respond most of the time to questions or conversation. Spouse was present during therapy and answered questions . Gross Range of Motion Upper Extremity ROM Assessment Within Functional Limits Lower Extremity ROM Assessment Within Functional Limits Impairments Pt lacks normal ankle DF with the R worse than the L. Strength Upper Extremity Strength Assessment Within Functional Limits Lower Extremity Strength Assessment Within Functional Limits Comments Strength Comments Pt was not able to follow all of the time to accurately determine strength. M6 PT-IP Treatment Start: 06/09/19 12:50 Freq: NEEDED Status: Active Protocol: Document 06/09/19 15:10 LRN (Rec: 06/09/19 15:38 LRN [id number]) Physical Therapy Treatment Other Treatments Other Treatment Performed Sitting: Active and Active Resistive trunk flexion. M7 PT-IP Assessment and Plan Start: 06/09/19 12:50 Freq: NEEDED Status: Active Protocol: Document 06/12/19 15:58 GGD (Rec: 06/12/19 16:06 GGD [id number]) PT Summary Assessment and Plan Summary Assessment Summary caregiver training conducted for gait, sit to stand and stair mobility. able to assist pt with all mobility. Frequency of Treatment Frequency Of Treatment Twice a Day Treatment Plan Physical Therapy Treatment Plan Bed Mobility Training,Transfer Training,Gait Training, Therapeutic Exercise, Neuromuscular Re-ed Other Recommendations and Next Treatment CG training using FWW/ RAIL CAR PAINTER/SANDBLASTER, Focus ambulation, bed mobility. step training Recommendations To Nursing Amount of Assist Needed 1 Person Assist Discharge Recommendations PT Discharge Recommendations Home with 26/03 Assist,Home Health
[2019-06-12 16:29] LABS: Sodium Urine Random 145 mmol/L (30-90)
[2019-06-12] MEDS: DEXTROSE 5%-0.45% NS 1,000 ML 100 ML IV (19:00)
[2019-06-12] MEDS: LATANOPROST 0.005% OPHTH 2.5 ML 1 DROPS EYE-LEFT (21:26)
--- NOTE | 2019-06-13 00:24 | PC.NURSE ---
Addendum entered by Shannon Jimenes R.N. 06/13/19 06:21: Has, again, had multiple soft, loose, incontinent stools this shift. Addendum entered by Shannon Jimenes R.N. 06/13/19 03:37: Found crawling out of bed; states I need to use the bathroom. Assisted to BSC with 1 assist + walker but patient very unsteady on feet so used 2 assist back into bed. Original Note: Patient is alert but confused; knew self, birthday, month and place. Breath sounds diminished but CTA with RA sat of 97%; continues on continuous oximetry per MD order. HRR with telemetry reading of SR w/1st degree AVB. Denies nausea. BT present; no stools since yesterday morning. Incontinent of B&B and voids large amounts so needs to be changed at least q2h with repositioning as patient does not turn himself. Noted scabbed abrasions on left anterior/lateral lower extremity. At shift change refused SCD's but now agreeable to having them put on. Denies pain. Remains on 800cc fluid restriction. Fall risk score is high and bed alarm is activated.
[2019-06-13 03:45] VITALS: BP 134/68; PULSE 61; RESP 16; TEMP 36.3; O2SAT 98
[2019-06-13] MEDS: DEXTROSE 5%-0.45% NS 1,000 ML 100 ML IV (04:27)
[2019-06-13 05:27] LABS: Add Manual Diff / Slide Review NO; Basophils Absolute Auto 0 /uL (0-100); Basophils Percent Auto 0.8 % (0-2); Eosinophils Absolute Auto 100 /uL (0-450); Eosinophils Percent Auto 2.1 % (2-4); Hematocrit 34.4 % (41-53); Hemoglobin 11.9 g/dL (13.5-17.5); Lymphocytes Absolute Auto 1500 /uL (1100-4500); Lymphocytes Percent Auto 25.7 % (25-40); Mean Corpuscular HGB Conc 34.6 % (30-36); Mean Corpuscular Hemoglobin 30.9 PG (26-34); Mean Corpuscular Volume 89.4 fL (80-100); Monocytes Absolute Auto 700 /uL (0-900); Neutrophils Absolute Auto 3300 /uL (1500-7000); Neutrophils Percent Auto 58.4 % (50-75); Platelet Count 367 X10^3/uL (150-400); Red Blood Cell Count 3.85 X10^6/uL (4.5-5.9); Red Cell Distribution Width 13.2 % (11.6-14.8); White Blood Cell Count 5.7 X10^3/uL (4.5-11.0)
[2019-06-13 05:31] LABS: BUN Creatinine Ratio 13.8 (6-22); Blood Urea Nitrogen 11 mg/dL (9-20); Calcium 8.3 mg/dL (8.4-10.2); Carbon Dioxide 26 mmol/L (22-32); Chloride 91 mmol/L (98-107); Estimated Glomerular Filt Rate > 60.0 mL/min (>60); Glucose 91 mg/dL (80-110); HEMOLYSIS < 15 (0-50); Potassium 3.8 mmol/L (3.4-5.1)
[2019-06-13 05:37] LABS: Sodium 126 mmol/L (137-145)
[2019-06-13 08:00] VITALS: BP 115/55; PULSE 54; TEMP 36.9; O2SAT 100
--- NOTE | 2019-06-13 08:20 | P.PN_ITS ---
Subjective Subjective Date Patient Seen: 06/13/19 Time Patient Seen: 08:20 Interval history: Patient continues to feel better, walking in the hallways with PT, feels like he is getting back to his baseline. Good appetite and eating well. No nausea or vomiting. is present and she complains of worsening eczema on his face, long-standing problem. Uses lotion as home, has been applying in the hospital as well. No diarrhea or vomiting. Exam Vital Signs (past 8 hours): - 06/13/19 03:45 06/13/19 08:00 Temperature 97.4 F L 98.4 F Pulse Rate 61 54 L Respiratory Rate 16 Blood Pressure 134/68 115/55 L Pulse Oximetry 98 100 Oxygen Delivery Method Room Air Oxygen Flow Rate 0 Narrative Exam Narrative: GENERAL: Alert but disoriented, appearing stated age and in no acute distress. HEENT: Head normocephalic/atraumatic. Cerumen impaction in left ear today. LUNGS: Diminished inspiratory effort throughout, bibasilar crackles, no wheezes. CV: Normal S1 and S2 with regular rate and rhythm, no audible murmurs, rubs or gallops. ABDOMEN: Soft, non-tender, non-distended, no organomegaly. Positive bowel sounds. EXTREMITIES: No clubbing, cyanosis, or edema. NEURO: Cranial nerves II through XII grossly intact, no focal deficits. PSYCH: Alert and oriented x 3. SKIN: Dry, eczematous rash, periorbital. Objective Labs Result Diagrams: 06/13/19 05:01 06/13/19 05:01 Labs: Laboratory Results - last 24 hr 06/12/19 06/13/19 06/13/19 Unknown 05:01 05:01 WBC 5.7 RBC 3.85 L Hgb 11.9 L Hct 34.4 L MCV 89.4 MCH 30.9 MCHC 34.6 RDW 13.2 Plt Count 367 Neut % (Auto) 58.4 Lymph % (Auto) 25.7 [place] % (Auto) 13.0 Eos % (Auto) 2.1 Baso % (Auto) 0.8 Neut # (Auto) 3300 Lymph # (Auto) 1500 [place] # (Auto) 700 Eos # (Auto) 100 Baso # (Auto) 0 Sodium 126 L Potassium 3.8 Chloride 91 L Carbon Dioxide 26 BUN 11 Creatinine 0.80 Estimated GFR > 60.0 BUN/Creatinine Ratio 13.8 Glucose 91 Calcium 8.3 L Ur Random Sodium 145 H Assessment & Plan Assessment & Plan narrative: Assessment 1: Weakness, likely multifactorial and worsened by recent respiratory tract infection. Community acquired pneumonia suspected secondary to chest x-ray and age. Possible SIADH. Patient is working well with physical therapy and progressing back to his baseline. Plan: Will continue oral levofloxain. Continue PT/OT/RT. Will plan for home physical therapy upon discharge. CBC, BMP, in the morning. Assessment 2: Hyponatremia and hypochloremia, worsening. Baseline sodium 130- 135, now 126. Baseline chloride 99-103, now 91. Suspect SIADH, urine sodium quite elevated, urine osmolality and urine chloride still pending. If SIADH confirmed, will look for etiology; possibly secondary to pneumonia or age but cannot rule out malignancy. Will update chest x-ray. While awaiting studies, will continue fluid restriction again today and trend labs. Assessment 3: Eczema, 1% hydrocortisone to affected area, twice daily as needed. Continue liberal lubrication. Assessment 4: Atrial fibrillation, paroxysmal, one lifetime episode. Has not been on metoprolol for about 1 year, will watch closely. Due to patient's age and fall risk, anticoagulation contraindicated. Assessment 5: Hyperlipidemia, low-cholesterol diet. Assessment 6: Hpothyroidism, currently euthyroid, TSH within normal limits. Assessment 7: GERD, asymptomatic. 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 q.day and tolterodine 4 mg p.o. q.day. Assessment 9: Fecal incontinence, adult diapers. Assessment 10: Chronic diarrhea, will check stool culture and O& P. Will start probiotics. Assessment 11: Cerumen impaction, left ear lavage today. DVT prophylaxis: SCDs Code: DNR. Disposition: Plan for discharge to home tomorrow with home health PT and close outpatient follow-up. Quality VTE Deep Vein Thrombosis/Pulmonary Embolism Present on Admission: No
--- NOTE | 2019-06-13 08:29 | DI.RAD.S_ITS ---
PROCEDURE: XR CHEST 2V INDICATIONS: PNA follow up TECHNIQUE: 2 views of the chest were acquired. COMPARISON: [facility], CR, XR CHEST 2V, 06/08/2019, 11:10. [facility], CR, XR CHEST 1V, 05/28/2018, 14:32. FINDINGS: Surgical changes and devices: None. Lungs and pleura: Lungs are abnormal with persistent interstitial prominence diffusely, and left lower lobe pneumonia superimposed. This is in the setting of pulmonary hyperexpansion consistent with COPD. No pleural effusions or pneumothorax. Mediastinum: Mediastinal contours are normal. Heart size is normal. Bones and chest wall: No suspicious bony abnormalities. Soft tissues appear unremarkable. IMPRESSION: No change from 5 days ago, left lower lobe pneumonia in addition to chronic interstitial prominence and severe COPD. Dictated by: Enrique Rodriguez M.D. on 06/13/2019 at 10:35 Approved by: Enrique Rodriguez M.D. on 06/13/2019 at 10:36
[2019-06-13] MEDS: levoFLOXacin 250 MG TABLET 750 MG PO (09:24)
[2019-06-13] MEDS: TAMSULOSIN 0.4 MG CAPSULE PO (09:24)
[2019-06-13] MEDS: TOLTERODINE LA 4 MG PO (09:24)
[2019-06-13] MEDS: LACTOBACILLUS ACIDOPHILUS TABLET 1 EACH PO (09:24)
[2019-06-13 10:37] VITALS: RESP 18
--- NOTE | 2019-06-13 11:35 | PT.IPTN ---
Current Diagnoses Hypo-osmolality and hyponatremia (06/08/19) Pneumonia, unspecified organism (06/08/19) Physical Therapy Treatment Note M2 PT-IP Current Condition Start: 06/09/19 12:50 Freq: NEEDED Status: Active Protocol: Document 06/09/19 15:10 LRN (Rec: 06/09/19 15:38 LRN [id number]) Physical Therapy Current Condition Current Condition Evaluation Date 06/09/19 Treatment Diagnosis Mobility Issues Onset Date 1 week ago Weight Bearing Status Weight Bearing Status Full Weight Bearing M3 PT-IP Subjective Start: 06/09/19 12:50 Freq: NEEDED Status: Active Protocol: Document 06/13/19 11:35 SP (Rec: 06/13/19 11:46 SP [id number]) Subjective Physical Therapy Visit Type Type Treatment Note Visit Start Time 11:10 Visit Stop Time 11:35 Total Visit Minutes 25 Number of MEDICAL ASSISTANT INSTRUCTOR Visits 3 Physical Therapy Visit Comments Patient Comments Pt willing to work with therapy. M4 PT-IP Mobility and Gait Start: 06/09/19 12:50 Freq: NEEDED Status: Active Protocol: Document 06/13/19 11:35 SP (Rec: 06/13/19 11:46 SP [id number]) PT-Bed Mobility Assessment Supine to Sit Supine to Sit Moderate Assistance,2 Person Assistance Scooting Scooting to Edge of Bed Moderate Assistance PT-Transfer Assessment Sit to and From Stand Sit to and from Stand Minimal Assistance,1 Person Assistance,Use of Upper Extremities Equipment Transfer Assistive Device None,Gait Belt Orthotic/Prosthetic Devices or Brace: No Transfers Transfer Destination Chair Transfer Ability Level of Assist Moderate Assistance,1 Person Assistance,2 Person Assistance ,Use of Upper Extremities Comments Mobility Comments Pt assist with pt's mobility. needed min cues for sit to stand technique. Gait Assessment Gait Gait Assistance Required: Minimum Assistance,1 Person Assist Distance (Feet) 65 Assistive Devices Assistive Device None,Gait Belt Gait Deviations General Gait Pattern Decreased Stride Length, Decreased Feet Clearance, Flexed Trunk Factors Limiting Gait Function Factors Limiting Gait Function Decreased Activity Tolerance, Decreased Strength,Difficulty Following Directions, Incoordination,Poor Balance, Poor Safety Awareness, Respiratory Distress Comments Gait Comments Increased stride length. COCOA BUTTER FILTER OPERATOR no AD. M5 PT-IP Objective Assessments Start: 06/09/19 12:50 Freq: NEEDED Status: Active Protocol: Document 06/09/19 15:10 LRN (Rec: 06/09/19 15:38 LRN [id number]) Orientation Orientation/Cognition Level of Alertness Confusional State Orientation Name Language Function Ability Expressive Aphasia Safety Awareness Decreased Safety Awareness Comments Pt with Alzheimers dementia. Pt did not follow 1 step instructions and did not respond most of the time to questions or conversation. Spouse was present during therapy and answered questions . Gross Range of Motion Upper Extremity ROM Assessment Within Functional Limits Lower Extremity ROM Assessment Within Functional Limits Impairments Pt lacks normal ankle DF with the R worse than the L. Strength Upper Extremity Strength Assessment Within Functional Limits Lower Extremity Strength Assessment Within Functional Limits Comments Strength Comments Pt was not able to follow all of the time to accurately determine strength. M6 PT-IP Treatment Start: 06/09/19 12:50 Freq: NEEDED Status: Active Protocol: Document 06/09/19 15:10 LRN (Rec: 06/09/19 15:38 LRN [id number]) Physical Therapy Treatment Other Treatments Other Treatment Performed Sitting: Active and Active Resistive trunk flexion. M7 PT-IP Assessment and Plan Start: 06/09/19 12:50 Freq: NEEDED Status: Active Protocol: Document 06/13/19 11:35 SP (Rec: 06/13/19 11:46 SP [id number]) PT Summary Assessment and Plan Summary Assessment Summary caregiver training conducted for gait, sit to stand and stair mobility. able to assist pt with all mobility. Frequency of Treatment Frequency Of Treatment Twice a Day Treatment Plan Physical Therapy Treatment Plan Bed Mobility Training,Transfer Training,Gait Training, Therapeutic Exercise, Neuromuscular Re-ed Other Recommendations and Next Treatment CG training using FWW/ COCOA BUTTER FILTER OPERATOR, Focus ambulation, bed mobility. step training Recommendations To Nursing Amount of Assist Needed 1 Person Assist Discharge Recommendations PT Discharge Recommendations Home with 26/03 Assist,Home Health
--- NOTE | 2019-06-13 11:52 | PC.NURSE ---
Addendum entered by Michaelle Ritter R.N. 06/13/19 14:59: Per Dr. Aguero, briefs, urine output are to be weighed. Started at 1135, dry small white pull up is 67 grams weighed with a black garbage bag. Pt's brief was 194 grams. Equals 127. Information passed to evening shift. Addendum entered by Michaelle Ritter R.N. 06/13/19 13:51: Left ear irrigation done with water water and 60ml syringe. Pt allowed for 3 X60mls flush then asked me to stop flushing. Only scant pieces of orange material flushed out. Pt's Demi assists pt with meals and some ADL's, she performs 1:1 feeding assist and monitors for pocketing of food. Pt eating 100% of meals. Pt does not usually eat breakfast when at home. Original Note: Day Shift- Pt A&OX3, disoriented to day, day of week, year, states June. Denies pain, nausea, shortness of breath. Does exhibit SOBOE when transferring from bed to wheelchair for XRAY this AM. Pt has intermittent moist cough with white sputum production. AE diminished with coarseness to LLL. O2 sat 97% on RA. Pt has rash to forehead and right side of face that states is intermittent to various parts of pt's body. 06/12, pt's requested lotion as skin was dry at some areas peeling. Hypoallergenic lotion given. Pt OOB to wheelchair for XRAY this AM with 2PA using walker and gait belt, pt has weakness to BLE and did need frequent verbal cues for positioning of walker and direction to turn and placement of hands to assist OOB movement. Around 1130, pt OOB with PT assist and pt's Demi both performing hand held assist. High fall precautions in place, bed/chair alarm on.
--- NOTE | 2019-06-13 12:13 | DIET.PN ---
Dietary Progress Note Pt POs 50-100% which are normal for him per his . Concern with dropping sodium (126) despite hypertonic IV @100mL/h. Pt is on heart healthy diet which limits dietary sodium to 2g/d and is on fluid restriction. DX: Mobility Issues, Confusion/Weakness PMHX: Hyperlipidemia, GERD HT: 170.18cm WT: 64.1 kg BMI: 22 Labs: Na: 126 trending down Glucose: 91-94 MNA: 9 Diet Order: Heart Healthy/Cardiac PO's: 50%, 100% EER: 1875 @ 30cal/kg Pro: 75 g @1.2g/kg Monitoring/Evaluations: Weight, PO's, labs.
[2019-06-13 13:44] VITALS: BP 117/56; PULSE 66; RESP 17; TEMP 36.7; O2SAT 99
--- NOTE | 2019-06-13 13:47 | CM.DPC ---
DCP; continued: Dr. Patel was here this afternoon and spoke re POC with RADHA Braswell and with pt and his . Pt's sodium level is worsening and Dr. Patel is following closely for same. See #2 problem in her progress note of today. Dr. Aguero has told pt that he will likely need to be here a couple more days. Face/Face document is now signed and faxed to Lucia . Justyn/Lucia is updated. [facility] Aguero's note to Lucia today to coincide with F/F signature.
--- NOTE | 2019-06-13 14:52 | CM.DPC ---
DCP Cont: Faxed Face 2 Face form and today's progress note to [facility] at fax # [phone] as requested by the DCP. Delmis Hua, Care [employer] Coach
--- NOTE | 2019-06-13 15:02 | OT.IP.TRT ---
Current Diagnoses Hypo-osmolality and hyponatremia (06/08/19) Pneumonia, unspecified organism (06/08/19) Occupational Therapy Treatment Note M2 OT-IP Current Condition Start: 06/09/19 14:46 Freq: Status: Active Protocol: Document 06/10/19 14:38 [facility] (Rec: 06/10/19 15:09 [facility] [id number]) Occupational Therapy Current Condition Current Condition Evaluation Date 06/10/19 Treatment Diagnosis Pneumonia Diagnosis Onset Date 06/08/19 Weight Bearing Status Weight Bearing Status Weight Bear as Tolerated M3 OT- IP Subjective and Pain Start: 06/09/19 14:46 Freq: Status: Active Protocol: Document 06/13/19 15:01 [facility] (Rec: 06/13/19 15:02 [facility] [id number]) OT- Subjective Occupational Therapy Visit Type Type Patient Unavailable Notes Attempted to see pt for OT treatment and also caregiver training for possible shower. Nurse stated that pt's gone for the day and aids were able to shower to pt. Therefore to see pt tomorrow for OT treatment.
[2019-06-13 16:22] VITALS: BP 116/60; PULSE 66; RESP 14; TEMP 36.7; O2SAT 99
--- NOTE | 2019-06-13 16:24 | PT-IP ANOTE ---
Pt refused physical therapy in the afternoon, I don't want to go, I just want to stay in my chair.
[2019-06-13 19:38] VITALS: BP 130/67; PULSE 67; RESP 14; TEMP 36.9; O2SAT 97
[2019-06-13] MEDS: SODIUM CHLORIDE 0.9% FLUSH 10 ML IV (21:07)
[2019-06-13] MEDS: LATANOPROST 0.005% OPHTH 2.5 ML 1 DROPS EYE-LEFT (21:07)
[2019-06-14] VITALS (7 sets, daily range): BP systolic 106–189; BP diastolic 57–90; PULSE 69–96; RESP 15–19; TEMP 36.5–36.9; O2SAT 94–100
[2019-06-14 05:14] LABS: Add Manual Diff / Slide Review NO; Basophils Absolute Auto 100 /uL (0-100); Basophils Percent Auto 0.7 % (0-2); Eosinophils Absolute Auto 100 /uL (0-450); Eosinophils Percent Auto 1.5 % (2-4); Hematocrit 35.1 % (41-53); Hemoglobin 12.4 g/dL (13.5-17.5); Lymphocytes Absolute Auto 1700 /uL (1100-4500); Lymphocytes Percent Auto 20.8 % (25-40); Mean Corpuscular HGB Conc 35.2 % (30-36); Mean Corpuscular Volume 88.2 fL (80-100); Monocytes Absolute Auto 1100 /uL (0-900); Monocytes Percent Auto 13.4 % (3-14); Neutrophils Absolute Auto 5100 /uL (1500-7000); Neutrophils Percent Auto 63.6 % (50-75); Platelet Count 374 X10^3/uL (150-400); Red Blood Cell Count 3.98 X10^6/uL (4.5-5.9); Red Cell Distribution Width 13.1 % (11.6-14.8)
[2019-06-14 05:19] LABS: BUN Creatinine Ratio 12.2 (6-22); Blood Urea Nitrogen 11 mg/dL (9-20); Calcium 8.7 mg/dL (8.4-10.2); Carbon Dioxide 26 mmol/L (22-32); Chloride 91 mmol/L (98-107); Estimated Glomerular Filt Rate > 60.0 mL/min (>60); Glucose 88 mg/dL (80-110); HEMOLYSIS < 15 (0-50); Potassium 4.3 mmol/L (3.4-5.1); Sodium 124 mmol/L (137-145)
[2019-06-14] MEDS: TAMSULOSIN 0.4 MG CAPSULE PO (08:41)
[2019-06-14] MEDS: LACTOBACILLUS ACIDOPHILUS TABLET 1 EACH PO (08:41)
[2019-06-14] MEDS: levoFLOXacin 250 MG TABLET 750 MG PO (08:42)
[2019-06-14] MEDS: SODIUM CHLORIDE 0.9% FLUSH 10 ML IV ×2 (08:42→20:34)
[2019-06-14] MEDS: TOLTERODINE LA 4 MG PO (08:42)
[2019-06-14] MEDS: HYDROCORTISONE 1% CREAM 28 GM 1 APPLIC TOP (08:42)
--- NOTE | 2019-06-14 11:18 | DI.CT.S_ITS ---
PROCEDURE: CT CHEST WO CON INDICATIONS: pneumonia , severe hyponatremia TECHNIQUE: Noncontrast 5 mm thick sections acquired from the pulmonary apices to the posterior costophrenic angles. 1 mm lung window, 5 mm thick coronal and sagittal and 7 mm axial MIP reformats were then acquired. For radiation dose reduction, the following was used: automated exposure control, adjustment of mA and/or kV according to patient size. COMPARISON: [facility], CR, XR CHEST 2V, 06/13/2019, 10:39. FINDINGS: Image quality: Excellent. Lungs and pleura: No acute air space opacities. No pleural effusions or pneumothorax. Central and peripheral airways are patent and normal in caliber. Reticular opacities are present at the bases with areas of focal increased superimposed opacity. Mediastinum: Heart size is normal. No pericardial effusion. No mediastinal adenopathy by size criteria. Thoracic aorta and central pulmonary arteries are normal in size. Esophagus is normal in caliber. No hiatal hernia. Bones and chest wall: No suspicious bony lesions. No vertebral body compression fractures. No axillary or supraclavicular adenopathy by size criteria. Thyroid gland is unremarkable. Abdomen: Visualized upper abdominal solid organs and bowel loops appear normal in the absence of contrast. IMPRESSION: 1. Reticular opacities within the lung most prominent in the bases. As noted above, there are focal areas of increased patchy opacity suggestive of superimposed airspace disease such as pneumonia. Recommend interval followup after appropriate therapy to document resolution. Dictated by: Gina Browne M.D. on 06/14/2019 at 13:54 Approved by: Gina Browne M.D. on 06/14/2019 at 13:56
--- NOTE | 2019-06-14 11:23 | PM.PN.1 ---
Subjective Subjective Date Patient Seen: 06/14/19 Time Patient Seen: 10:30 Interval history: Patient is a 78-year-old male with history of dementia with hospitalized with significant bilateral pneumonia. Continues to be on antibiotics. On and has had progressive development of hyponatremia in spite of fluid redo stricture chin Z and careful review of medications. Do not see acute neurologic change to suggest that he might have a brain related SIADH but possibility of a pulmonary SI ADH situation would go get a CT scan today to try to make sure he content. He continues to drop sodium small amount each day and if that gets just a little bit lower I think he is going to be extreme risk for cognitive dysfunction worsening and acute severe medical complications secondary to that. Exam Vital Signs (past 8 hours): - 06/14/19 03:33 06/14/19 08:00 Temperature 97.7 F 98.4 F Pulse Rate 95 H 76 Respiratory Rate 18 19 Blood Pressure 159/90 H 189/72 H Pulse Oximetry 94 96 Oxygen Delivery Method Room Air Oxygen Flow Rate 0 Narrative Exam Narrative: Patient is sitting up in bed and vital signs are good answering questions with his baseline level of cognitive dysfunction. No complaints of pain. PERRLA EOMs intact Lungs with rhonchi and significant gurgling Cardiovascular exam shows regular rate and rhythm without murmur. Abdomen no mass no significant hepatosplenomegaly no rebound Neuro shows cognitive deficit which is patient's baseline per family which is present and attentive. Skin without significant breakdowns. Motor and musculoskeletal function limitations secondary to patient's chronic disease but no evolution or worsening Objective Labs Result Diagrams: 06/14/19 04:50 06/14/19 04:50 Labs: Laboratory Results - last 24 hr 06/14/19 06/14/19 04:50 04:50 WBC 8.0 RBC 3.98 L Hgb 12.4 L Hct 35.1 L MCV 88.2 MCH 31.0 MCHC 35.2 RDW 13.1 Plt Count 374 Neut % (Auto) 63.6 Lymph % (Auto) 20.8 L [place] % (Auto) 13.4 Eos % (Auto) 1.5 L Baso % (Auto) 0.7 Neut # (Auto) 5100 Lymph # (Auto) 1700 [place] # (Auto) 1100 H Eos # (Auto) 100 Baso # (Auto) 100 Sodium 124 L Potassium 4.3 Chloride 91 L Carbon Dioxide 26 BUN 11 Creatinine 0.90 Estimated GFR > 60.0 BUN/Creatinine Ratio 12.2 Glucose 88 Calcium 8.7 Assessment & Plan Assessment & Plan narrative: Assessment 1. Pneumonia patient continues to cough up prep productive material at this point fact may even have increased a little bit. Will continue with his antibiotics today. Assessment 2. Continuing drop in sodium levels now down to 124. And no medications that I am aware that would be responsible for that. Is on fluid restriction free fluid restriction and yet continues to drop this level. Neurologic is used status seems stable but maybe a slight worsening in his productive cough makes 1 wonder about pulmonary SI ADH situation. Will do CT scan today. Assessment 3. Alzheimer's dementia which actually seems stable at this point patient is good with basic questions answers clearly without neurologic compromise for pronunciation or difficulty swallowing. Assessment 3. History of hypothyroidism has been evaluated in felt to be stable Assessment 4. Atrial fibrillation has been in good control during this admission. Assessment 5. 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 July combined with small as well smoking history Quality VTE Deep Vein Thrombosis/Pulmonary Embolism Present on Admission: No
--- NOTE | 2019-06-14 14:16 | PC.NURSE ---
AM NOTE - pt awakens easily, prefers to wait until spouse arrived and then repositioned upright for breakfast, incont urine, vannesa care performed, hr 78, ra 96%, bs dim, denies pain, per spouse no headache today, hydrocortisone cream applied to red rash patches face and neck, after lunch phys and occup therapy in, pt wc to stair practice with family, notified by icu pt hr was in 140's w/max to 150, observed pt on the practice stair w/PT and spouse, he appeared anxious trying go down steps, req that PT have pt back into wc when down from step, hr decr to low 100s, wheeled back to room, assisted back to bed, spouse and mult family members at bedside. No rr distress noted, 02 sat 98%.
--- NOTE | 2019-06-14 15:24 | PT.IPTN ---
Current Diagnoses Hypo-osmolality and hyponatremia (06/08/19) Pneumonia, unspecified organism (06/08/19) Physical Therapy Treatment Note M2 PT-IP Current Condition Start: 06/09/19 12:50 Freq: NEEDED Status: Active Protocol: Document 06/09/19 15:10 LRN (Rec: 06/09/19 15:38 LRN [id number]) Physical Therapy Current Condition Current Condition Evaluation Date 06/09/19 Treatment Diagnosis Mobility Issues Onset Date 1 week ago Weight Bearing Status Weight Bearing Status Full Weight Bearing M3 PT-IP Subjective Start: 06/09/19 12:50 Freq: NEEDED Status: Active Protocol: Document 06/14/19 14:14 LJ (Rec: 06/14/19 15:24 LJ [email or web address]) Subjective Physical Therapy Visit Type Type Treatment Note Visit Start Time 14:14 Visit Stop Time 14:44 Total Visit Minutes 30 Notes OT with pt in bathroom. assisteng Physical Therapy Visit Comments Patient Comments Pt willing to work with therapy. M4 PT-IP Mobility and Gait Start: 06/09/19 12:50 Freq: NEEDED Status: Active Protocol: Document 06/14/19 14:14 LJ (Rec: 06/14/19 15:24 LJ [email or web address]) PT-Bed Mobility Assessment Sit to Supine Sit to Supine Moderate Assistance,1 Person Assistance Scooting Scooting to Edge of Bed Maximum Assistance PT-Transfer Assessment Sit to and From Stand Sit to and from Stand Minimal Assistance,1 Person Assistance,Use of Upper Extremities Equipment Transfer Assistive Device None,Gait Belt Orthotic/Prosthetic Devices or Brace: No Transfers Transfer Destination Bed,Wheelchair Transfer Ability Level of Assist Moderate Assistance,1 Person Assistance,Use of Upper Extremities Comments Mobility Comments initially assisting pt from toilet to WC next to bed. Deepa with Mod cueing for. Pt able to transfer sit<>stand with Deepa and mod cues. Sit> supine required mod cues and ModA for getting legs into bed . Pt needed MaxA x2 (PT and ) for scooting up in bed. Gait Assessment Gait Gait Assistance Required: Moderate Assistance,1 Person Assist Distance (Feet) 12 Assistive Devices Assistive Device None,Gait Belt Gait Deviations General Gait Pattern Decreased Stride Length, Decreased Feet Clearance, Flexed Trunk,Narrow Based Gait Factors Limiting Gait Function Factors Limiting Gait Function Decreased Activity Tolerance, Decreased Strength,Difficulty Following Directions, Incoordination,Limited Range of Motion,Poor Balance,Poor Safety Awareness Comments Gait Comments Pt needs Mod cueing for all mobility, transfers, and gait activities. Pt more effecient with CGA and cueing w/o AD than when using FWW. Pt with posterior lean in standing, flexed trunk with gait. uses hand hold on pt and one arm under his armpit to assist pt with ambulation and transfers. Occasionally uses gait belt but is inconsistent and relies on her body to support . Situation is unsafe for both pt and . Stair Climbing Assessment Evaluation Level of Assist On Stairs Maximal Assistance,2 Person Assistance Devices Stair Climbing Assistive Devices None,Right Railing Technique/Endurance Stair Climbing Direction Ascend and Descend Stair Climbing Technique Step to Step Number of Steps Climbed 3 Stair Climbing Set # Repetitions (reps) 2 Comments Stair Climbing Comments First time pt attempted stairs was holding pts R hand and pt had arm over wifes shoulder. Ascending req'd max cueing. Descent on first trial pt used ;'s hand and arm around her waist. Pt stepped with L foot first and slid on heels onto lower steps. It was an unsafe situation for both pt and . Second time pt attempted stairs he held onto L rail and was on pts right side. Max cues were required. On descent pt held onto R rail and had arm around and again stepped and slid down steps landing on [place] feet almost simultaneously. Again, an unsafe situation for both pt and . During second trial, nurse arrived and reported pt HR at 140. Pt immediately returned to bed. M5 PT-IP Objective Assessments Start: 06/09/19 12:50 Freq: NEEDED Status: Active Protocol: Document 06/09/19 15:10 LRN (Rec: 06/09/19 15:38 LRN [id number]) Orientation Orientation/Cognition Level of Alertness Confusional State Orientation Name Language Function Ability Expressive Aphasia Safety Awareness Decreased Safety Awareness Comments Pt with Alzheimers dementia. Pt did not follow 1 step instructions and did not respond most of the time to questions or conversation. Spouse was present during therapy and answered questions . Gross Range of Motion Upper Extremity ROM Assessment Within Functional Limits Lower Extremity ROM Assessment Within Functional Limits Impairments Pt lacks normal ankle DF with the R worse than the L. Strength Upper Extremity Strength Assessment Within Functional Limits Lower Extremity Strength Assessment Within Functional Limits Comments Strength Comments Pt was not able to follow all of the time to accurately determine strength. M6 PT-IP Treatment Start: 06/09/19 12:50 Freq: NEEDED Status: Active Protocol: Document 06/09/19 15:10 LRN (Rec: 06/09/19 15:38 LRN [id number]) Physical Therapy Treatment Other Treatments Other Treatment Performed Sitting: Active and Active Resistive trunk flexion. M7 PT-IP Assessment and Plan Start: 06/09/19 12:50 Freq: NEEDED Status: Active Protocol: Document 06/14/19 14:14 LJ (Rec: 06/14/19 15:24 LJ [email or web address]) PT Summary Assessment and Plan Summary Assessment Summary is able to assist pt but is not safe with methods of assisting pt. Hand placement and guarding of pt inappropriate for both pt and . Inconsistent use of gait belt and 's comment on having difficulty remembering how to use the belt is a concern. Assist with handhold and arm under pts armpit is not a safe or stable method of gait and/or transfer activity assistance. Would recommend further caregiver training for in view of the fact that the burden of care has increased. Frequency of Treatment Frequency Of Treatment Twice a Day Treatment Plan Physical Therapy Treatment Plan Bed Mobility Training,Transfer Training,Gait Training, Therapeutic Exercise, Neuromuscular Re-ed Other Recommendations and Next Treatment CG training using proper Focus assisting methods with ambulation, bed mobility. transfers and stair training Recommendations To Nursing Amount of Assist Needed 1 Person Assist Discharge Recommendations PT Discharge Recommendations Home with 26/03 Assist,Home Health
--- NOTE | 2019-06-14 15:39 | OT.IP.TRT ---
Current Diagnoses Hypo-osmolality and hyponatremia (06/08/19) Pneumonia, unspecified organism (06/08/19) Occupational Therapy Treatment Note M2 OT-IP Current Condition Start: 06/09/19 14:46 Freq: Status: Active Protocol: Document 06/10/19 14:38 CCC (Rec: 06/10/19 15:09 [facility] [id number]) Occupational Therapy Current Condition Current Condition Evaluation Date 06/10/19 Treatment Diagnosis Pneumonia Diagnosis Onset Date 06/08/19 Weight Bearing Status Weight Bearing Status Weight Bear as Tolerated M3 OT- IP Subjective and Pain Start: 06/09/19 14:46 Freq: Status: Active Protocol: Document 06/14/19 15:30 CGR (Rec: 06/14/19 15:38 CGR [id number]) OT- Subjective Occupational Therapy Visit Type Type Treatment Note Visit Start Time 13:46 Visit Stop Time 14:10 Total Visit Minutes 24 Notes Overlap with P.T. OT Pain Assessment Pain When Pain Assessed At Rest Pain Present Pain Present Denied Pain M4 OT- IP ADL's Start: 06/09/19 14:46 Freq: Status: Active Protocol: Document 06/14/19 15:30 CGR (Rec: 06/14/19 15:38 CGR [id number]) OT [id number] Comments OT Self-Feeding Comments Not meal time OT ADL-Grooming Comments OT Grooming Comments Not performed OT ADL-Oral Care Comments Oral Care Comments Not performed OT ADL-Dressing Comments OT Dressing Comments Not performed OT ADL-Toileting General Evaluation Toileting Ability Maximum Assistance Devices Toileting Assistive Devices Grab Bars Comments OT Toileting Comments max a for pericare, mod a for clothing management. M5 OT- IP IADL's Start: 06/09/19 14:46 Freq: Status: Active Protocol: Document 06/10/19 14:38 CCC (Rec: 06/10/19 15:09 [facility] [id number]) OT-Instrumental Activities of Daily Living Home Safety Awareness Awareness of Need for Assistance at Home Decreased Awareness Medication Management Medication Management Caregiver Administers Money Management Money Management Caregiver Provides Assistance Meal Preparation Meal Preparation Caregiver Provides Assist Junior Loan Processor Junior Loan Processor Caregiver Provides Assist M6 OT- IP Functional Cognition Start: 06/09/19 14:46 Freq: Status: Active Protocol: Document 06/14/19 15:30 CGR (Rec: 06/14/19 15:38 CGR [id number]) Cognitive Factors Limiting Selfcare Function Cognitive Ability Level of Alertness Confusional State Patient Orientation Name Attention Span Ability Unable to Focus,Unable to Sustain Attention Ability to Follow Commands Able to Follow One Step Commands with Increased Time, Able to Follow One Step Commands with Repetition Memory Description Immediate Impaired,Short Term Impaired,[facility] Impaired, Working Impaired Cognitive Comments Cognitive Assessment Comments Pt with advanced dementia OT- Vision and Hearing OT- Hearing Assessment OT- Hearing Assessment Use of Hearing Aids OT- Vision Assessment Visual Acuity Glasses All The Time M7 OT- IP Mobility and Balance Start: 06/09/19 14:46 Freq: Status: Active Protocol: Document 06/14/19 15:30 CGR (Rec: 06/14/19 15:38 CGR [id number]) OT- Bed Mobility Assessment Supine to Sit Supine to Sit Assist Moderate Assistance Scooting Scooting to Edge of Bed Moderate Assistance OT-Transfer Assessment Sit to and From Stand Sit to and from Stand Minimal Assistance Transfers Transfer Ability Contact Guard Assistance Technique Transfer Destination Bed,Chair,Toilet Transfer Technique Stand Pivot Devices Transfer Assistive Devices Gait Belt Comments Mobility Comments Started with FWW but pt does better with hand held assist. OT- Gait Assessment Gait Gait Assistance Required: Contact Guard Assist Assistive Devices Assistive Device Gait Belt Comments Gait Ability Comments Pt ambulated around the room with CGA OT- Balance Assessment Sitting Balance and Reactions Static Sitting Balance Ability Good Dynamic Sitting Balance Ability Fair M8 OT- IP Objective Assessments Start: 06/09/19 14:46 Freq: Status: Active Protocol: Document 06/10/19 14:38 [facility] (Rec: 06/10/19 15:09 CCC [id number]) OT Gross Range of Motion Upper Extremity Range of Motion Assessment Left Impaired ROM Impairments RUE 0-100, LUE 0-95, per pt's at baseline for AROM. OT Strength Comments Strength Comments BUE 4/5 M9 OT- IP Assessment and Plan Start: 06/09/19 14:46 Freq: Status: Active Protocol: Document 06/14/19 15:30 CGR (Rec: 06/14/19 15:38 CGR [id number]) OT Summary Assessment and Plan Potential Rehabilitation Potential Good Analytic Complexity at Evaluation Low Summary OT Impairments Balance,Functional Mobility, Dressing,Toileting,Bathing, Toilet Transfers,Shower Transfers Progress Towards Goals Progressing Toward Goals Assessment Summary Pt feeling confident that she will be able to assist pt when he is medically stable to go home. Home health is still recommended to help look at safety needs in the home for ADl needs. Pt and family would likely benefit from a ramp entry after discussion with P.T. Goals Grooming Goal Moderate Assistance Dressing Goal Moderate Assistance Toileting Goal Moderate Assistance Toilet Transfer Goal Minimal Assistance Shower Transfer Goal Moderate Assistance Patient/Caregiver Education Goal Caregiver Independent Assisting Patient Days to Meet Goals 2 Frequency of Treatment Frequency Of Treatment Once a Day Treatment Plan OT Treatment Plan ADL Training,Functional Mobility,Patient/Family Education,Discharge Planning Other Treatment Recommendations and Next Caregiver training/shower Treatment Focus Discharge Recommendations OT Discharge Recommendations Home with 26/03 Assist,Home Health Home Equipment Needs IESHA
[2019-06-14 15:56] LABS: Osmolality Urine 416 mOsm/kg (50-1200)
[2019-06-14] MEDS: LATANOPROST 0.005% OPHTH 2.5 ML 1 DROPS EYE-LEFT (20:34)
[2019-06-15] VITALS (8 sets, daily range): BP systolic 101–159; BP diastolic 51–104; PULSE 59–91; RESP 17–20; TEMP 36.6–36.9; O2SAT 94–99
[2019-06-15 05:11] LABS: Add Manual Diff / Slide Review NO; Basophils Absolute Auto 100 /uL (0-100); Basophils Percent Auto 0.7 % (0-2); Eosinophils Absolute Auto 100 /uL (0-450); Eosinophils Percent Auto 1.4 % (2-4); Hematocrit 34.7 % (41-53); Hemoglobin 12.2 g/dL (13.5-17.5); Lymphocytes Absolute Auto 1700 /uL (1100-4500); Lymphocytes Percent Auto 24.4 % (25-40); Mean Corpuscular Volume 88.5 fL (80-100); Monocytes Absolute Auto 1000 /uL (0-900); Monocytes Percent Auto 14.3 % (3-14); Neutrophils Absolute Auto 4200 /uL (1500-7000); Neutrophils Percent Auto 59.2 % (50-75); Platelet Count 377 X10^3/uL (150-400); Red Blood Cell Count 3.92 X10^6/uL (4.5-5.9); Red Cell Distribution Width 13.4 % (11.6-14.8); White Blood Cell Count 7.1 X10^3/uL (4.5-11.0)
[2019-06-15 05:20] LABS: Alanine Aminotransferase 23 IU/L (21-72); Albumin 3.6 g/dL (3.5-5.0); Albumin Globulin Ratio 1.2 (1.0-2.8); Alkaline Phosphatase 47 U/L (38-126); Aspartate Aminotransferase 25 IU/L (17-59); BUN Creatinine Ratio 17.8 (6-22); Bilirubin Total 0.5 mg/dL (0.2-1.3); Blood Urea Nitrogen 16 mg/dL (9-20); Calcium 8.8 mg/dL (8.4-10.2); Carbon Dioxide 25 mmol/L (22-32); Chloride 91 mmol/L (98-107); Estimated Glomerular Filt Rate > 60.0 mL/min (>60); Globulin 2.9 g/dL (1.7-4.1); Glucose 85 mg/dL (80-110); HEMOLYSIS < 15 (0-50); Potassium 4.8 mmol/L (3.4-5.1); Sodium 126 mmol/L (137-145); Total Protein 6.5 g/dL (6.3-8.2)
[2019-06-15] MEDS: levoFLOXacin 250 MG TABLET 750 MG PO (08:33)
[2019-06-15] MEDS: LACTOBACILLUS ACIDOPHILUS TABLET 1 EACH PO (08:33)
[2019-06-15] MEDS: HYDROCORTISONE 1% CREAM 28 GM 1 APPLIC TOP (08:34)
[2019-06-15] MEDS: SODIUM CHLORIDE 0.9% FLUSH 10 ML IV ×2 (08:34→19:06)
[2019-06-15] MEDS: TOLTERODINE LA 4 MG PO (08:34)
[2019-06-15] MEDS: TAMSULOSIN 0.4 MG CAPSULE PO (08:35)
--- NOTE | 2019-06-15 08:58 | PC.NURSE ---
Addendum entered by Isadora Garrison R.N. 06/15/19 14:06: MS/CARDIAC - up with phys therapy, ambul into hallway partially around [facility], during mobilization, notified by icu that pt hr incr to 130 briefly, ret to chair and hr slowed to 90's - low 100's. Original Note: AM NOTE - awakened when spouse arrived, oriented to hospital, incont urine, pericare performed, barrier cream to pink at coccyx, blanchable and no opening noted, enc freq repositioning while in bed when discussing care plan w/spouse, denies pain this am, occassional congested, non productive cough, repositioned upright and spouse supervised meal.
--- NOTE | 2019-06-15 10:45 | P.PN_ITS ---
Subjective Subjective Date Patient Seen: 06/15/19 Time Patient Seen: 11:18 Interval history: Patient Caleb Cross with a admission for profound weakness and pneumonia. Continues on antibiotics during this admission use also had profound rapidly progressive hyponatremia. This was evaluated by his regular physician Dr. Aguero looking at possibility of SIADH medication interactions and. No focal neurologic abnormality other than his longstanding dementia issu es and lower extremity weakness issues which are chronic. Patient is feeling better and less week following his pneumonia issues however continued to have his hyponatremia progress yesterday was down to 124 in spite of no diuretic activity or other meds that should lower that. 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 That is probably the culprit. No new focal changes in his recognition or Clementina family's recognition to suggested he might have a GLASS BLOWING LATHE OPERATOR mediated S side ADH issue. Also not on diuretics for meds that would spend that sodium. Will continue patient on his free fluid really restriction today and his IV antibiotics given that he is making progress even though it is somewhat slow. Exam Vital Signs (past 8 hours): - 06/15/19 05:00 06/15/19 08:00 06/15/19 08:24 Temperature 97.8 F 97.9 F Pulse Rate 60 91 H Respiratory Rate 18 20 Blood Pressure 124/69 159/104 H Pulse Oximetry 96 96 94 06/15/19 09:53 Temperature Pulse Rate 59 L Respiratory Rate 18 Blood Pressure Pulse Oximetry 96 Oxygen Delivery Method Room Air Oxygen Flow Rate 0 Narrative Exam Narrative: Sitting fairly alert in bed without complication or problem progressing neurologically. PERRLA EOMs intact Neck without mass Lungs rales and spots diffusely but better than has been CV is shows irregular rhythm. Good rate control Abdomen nontender no hepatosplenomegaly or mass Neuro shows lower extremity weakness. There is stable cognitive dysfunction that patient notes and family notes is not progressed at all No skin lesions. Objective Labs Result Diagrams: 06/15/19 04:55 06/15/19 04:55 Labs: Laboratory Results - last 24 hr 06/12/19 06/15/19 06/15/19 Unknown 04:55 04:55 WBC 7.1 RBC 3.92 L Hgb 12.2 L Hct 34.7 L MCV 88.5 MCH 31.0 MCHC 35.0 RDW 13.4 Plt Count 377 Neut % (Auto) 59.2 Lymph % (Auto) 24.4 L [place] % (Auto) 14.3 H Eos % (Auto) 1.4 L Baso % (Auto) 0.7 Neut # (Auto) 4200 Lymph # (Auto) 1700 [place] # (Auto) 1000 H Eos # (Auto) 100 Baso # (Auto) 100 Sodium 126 L Potassium 4.8 Chloride 91 L Carbon Dioxide 25 BUN 16 Creatinine 0.90 Estimated GFR > 60.0 BUN/Creatinine Ratio 17.8 Glucose 85 Calcium 8.8 Total Bilirubin 0.5 AST 25 ALT 23 Alkaline Phosphatase 47 Total Protein 6.5 Albumin 3.6 Globulin 2.9 Albumin/Globulin Ratio 1.2 Urine Osmolality 416 Assessment & Plan Assessment & Plan narrative: Assessment 1. Pneumonia. Patient continues to have infiltrates and bilateral lobes wound in with his chest CT scan done yesterday afternoon. There is no pleural effusion or mass noted other than these infiltrate like fullness as bilaterally. Will continue with antibiotics at this point Assessment 2. Hyponatremia. Sodium is improved from 124-126 today. Will continue free fluid restriction. Assessment 3. Chronic atrial fibrillation rate stable control at this point vital signs good. Will continue with current regimen Assessment 4. BPH tolerating that well and not having complications with the current management will continue current medications and avoiding care Assessment 5. 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 CT scan shows no use of the ileum a like lesions. Time Spent With Patient Time with patient: 25 - 35 minutes Quality VTE Deep Vein Thrombosis/Pulmonary Embolism Present on Admission: No
--- NOTE | 2019-06-15 10:52 | PT.IPTN ---
Current Diagnoses Hypo-osmolality and hyponatremia (06/08/19) Pneumonia, unspecified organism (06/08/19) Physical Therapy Treatment Note M2 PT-IP Current Condition Start: 06/09/19 12:50 Freq: NEEDED Status: Active Protocol: Document 06/09/19 15:10 LRN (Rec: 06/09/19 15:38 LRN [id number]) Physical Therapy Current Condition Current Condition Evaluation Date 06/09/19 Treatment Diagnosis Mobility Issues Onset Date 1 week ago Weight Bearing Status Weight Bearing Status Full Weight Bearing M3 PT-IP Subjective Start: 06/09/19 12:50 Freq: NEEDED Status: Active Protocol: Document 06/15/19 10:27 CLB (Rec: 06/15/19 13:33 CLB [id number]) Subjective Physical Therapy Visit Type Type Treatment Note Visit Start Time 10:27 Visit Stop Time 10:52 Total Visit Minutes 25 Number of SYSTEMS LIBRARIAN Visits 5 Physical Therapy Visit Comments Patient Comments Pt willing to work with therapy. M4 PT-IP Mobility and Gait Start: 06/09/19 12:50 Freq: NEEDED Status: Active Protocol: Document 06/15/19 10:27 CLB (Rec: 06/15/19 13:33 CLB [id number]) PT-Bed Mobility Assessment Supine to Sit Supine to Sit Moderate Assistance,1 Person Assistance Scooting Scooting to Edge of Bed Moderate Assistance PT-Transfer Assessment Sit to and From Stand Sit to and from Stand Minimal Assistance,1 Person Assistance,Use of Upper Extremities Equipment Transfer Assistive Device None,Gait Belt Orthotic/Prosthetic Devices or Brace: No Transfers Transfer Destination Chair Transfer Ability Level of Assist Moderate Assistance,1 Person Assistance,Use of Upper Extremities Comments Mobility Comments assisted pt supine-sit then to EOB Mod A. Pt stood with assistance with GB Min A, pt then ambulated with assisting with ELECTRICAL ASSEMBLER and other hand on GB. Pt was able to open BR door and turn on light with cues from . gave Max verbal cues for turning for approach to toilet and cues for hand placement to use grab bars on BR wall. donned clean brief and assist pt with pericare. Gait Assessment Gait Gait Assistance Required: Moderate Assistance,1 Person Assist Distance (Feet) 70 Assistive Devices Assistive Device None,Gait Belt Gait Deviations General Gait Pattern Decreased Stride Length, Decreased Feet Clearance, Flexed Trunk,Narrow Based Gait Factors Limiting Gait Function Factors Limiting Gait Function Decreased Activity Tolerance, Decreased Strength,Difficulty Following Directions, Incoordination,Limited Range of Motion,Poor Balance,Poor Safety Awareness Comments Gait Comments Pt ambulated with 's assistance of ELECTRICAL ASSEMBLER and GB Min A with cues for direction and destination. Once pt was back in room pt required increased assist with Max cues for chair approach. M5 PT-IP Objective Assessments Start: 06/09/19 12:50 Freq: NEEDED Status: Active Protocol: Document 06/09/19 15:10 LRN (Rec: 06/09/19 15:38 LRN [id number]) Orientation Orientation/Cognition Level of Alertness Confusional State Orientation Name Language Function Ability Expressive Aphasia Safety Awareness Decreased Safety Awareness Comments Pt with Alzheimers dementia. Pt did not follow 1 step instructions and did not respond most of the time to questions or conversation. Spouse was present during therapy and answered questions . Gross Range of Motion Upper Extremity ROM Assessment Within Functional Limits Lower Extremity ROM Assessment Within Functional Limits Impairments Pt lacks normal ankle DF with the R worse than the L. Strength Upper Extremity Strength Assessment Within Functional Limits Lower Extremity Strength Assessment Within Functional Limits Comments Strength Comments Pt was not able to follow all of the time to accurately determine strength. M6 PT-IP Treatment Start: 06/09/19 12:50 Freq: NEEDED Status: Active Protocol: Document 06/09/19 15:10 LRN (Rec: 06/09/19 15:38 LRN [id number]) Physical Therapy Treatment Other Treatments Other Treatment Performed Sitting: Active and Active Resistive trunk flexion. M7 PT-IP Assessment and Plan Start: 06/09/19 12:50 Freq: NEEDED Status: Active Protocol: Document 06/15/19 10:27 CLB (Rec: 06/15/19 13:33 CLB [id number]) PT Summary Assessment and Plan Summary Assessment Summary Pt's is able to perform care for using Max cuing for safety during transfers. Pt's is able to assist pt with ELECTRICAL ASSEMBLER and use of other hand on GB. Pt gives appropriate cues for all mobility. stated she has one step to get onto porch and then a threshold to cross. Pt 's has assist of daughter that lives in home to assist with pt into house. Goals Bed Mobility Goal Contact Guard Assistance, Minimal Assistance Transfer Goal Contact Guard Assistance, Minimal Assistance Gait Goal Minimal Assistance Gait Distance 100' Other Goals Up/Down 1 step with Min>Mod Assist. Days to Meet Goals 5 Frequency of Treatment Frequency Of Treatment Twice a Day Treatment Plan Physical Therapy Treatment Plan Bed Mobility Training,Transfer Training,Gait Training, Therapeutic Exercise, Neuromuscular Re-ed Other Recommendations and Next Treatment CG training using proper Focus assisting methods with ambulation, bed mobility. transfers and stair training Recommendations To Nursing Amount of Assist Needed 1 Person Assist Discharge Recommendations PT Discharge Recommendations Home with 26/03 Assist,Home Health
--- NOTE | 2019-06-15 14:07 | PT.IPTN ---
Current Diagnoses Hypo-osmolality and hyponatremia (06/08/19) Pneumonia, unspecified organism (06/08/19) Physical Therapy Treatment Note M2 PT-IP Current Condition Start: 06/09/19 12:50 Freq: NEEDED Status: Active Protocol: Document 06/09/19 15:10 LRN (Rec: 06/09/19 15:38 LRN [id number]) Physical Therapy Current Condition Current Condition Evaluation Date 06/09/19 Treatment Diagnosis Mobility Issues Onset Date 1 week ago Weight Bearing Status Weight Bearing Status Full Weight Bearing M3 PT-IP Subjective Start: 06/09/19 12:50 Freq: NEEDED Status: Active Protocol: Document 06/15/19 13:41 CLB (Rec: 06/15/19 15:06 CLB [id number]) Subjective Physical Therapy Visit Type Type Treatment Note Visit Start Time 13:41 Visit Stop Time 14:07 Total Visit Minutes 26 Number of CAREER LAW CLERK Visits 6 Physical Therapy Visit Comments Patient Comments Pt willing to work with therapy. M4 PT-IP Mobility and Gait Start: 06/09/19 12:50 Freq: NEEDED Status: Active Protocol: Document 06/15/19 13:41 CLB (Rec: 06/15/19 15:06 CLB [id number]) PT-Transfer Assessment Sit to and From Stand Sit to and from Stand Minimal Assistance,1 Person Assistance,Use of Upper Extremities Equipment Transfer Assistive Device None,Gait Belt Orthotic/Prosthetic Devices or Brace: No Transfers Transfer Destination Chair,Toilet Transfer Ability Level of Assist Moderate Assistance,1 Person Assistance,Use of Upper Extremities Comments Mobility Comments Pt's able to transfer pt from chair to toilet with DRILLER HELPER and use of GB. assisted pt doffing/donning brief. Gait Assessment Gait Gait Assistance Required: Moderate Assistance,1 Person Assist Distance (Feet) 70 Assistive Devices Assistive Device None,Gait Belt Gait Deviations General Gait Pattern Decreased Stride Length, Decreased Feet Clearance, Flexed Trunk,Narrow Based Gait Factors Limiting Gait Function Factors Limiting Gait Function Decreased Activity Tolerance, Decreased Strength,Difficulty Following Directions, Incoordination,Limited Range of Motion,Poor Balance,Poor Safety Awareness Comments Gait Comments Pt requires Max cues for safety during ambulation, pt able to assist pt with DRILLER HELPER and use of GB with other hand while providing approriate cues for safety. Pt HR was 130 towards end of walk and GARNETT FEEDER came into room. Pt sat and RN stated HR was decreasing. M5 PT-IP Objective Assessments Start: 06/09/19 12:50 Freq: NEEDED Status: Active Protocol: Document 06/09/19 15:10 LRN (Rec: 06/09/19 15:38 LRN [id number]) Orientation Orientation/Cognition Level of Alertness Confusional State Orientation Name Language Function Ability Expressive Aphasia Safety Awareness Decreased Safety Awareness Comments Pt with Alzheimers dementia. Pt did not follow 1 step instructions and did not respond most of the time to questions or conversation. Spouse was present during therapy and answered questions . Gross Range of Motion Upper Extremity ROM Assessment Within Functional Limits Lower Extremity ROM Assessment Within Functional Limits Impairments Pt lacks normal ankle DF with the R worse than the L. Strength Upper Extremity Strength Assessment Within Functional Limits Lower Extremity Strength Assessment Within Functional Limits Comments Strength Comments Pt was not able to follow all of the time to accurately determine strength. M6 PT-IP Treatment Start: 06/09/19 12:50 Freq: NEEDED Status: Active Protocol: Document 06/09/19 15:10 LRN (Rec: 06/09/19 15:38 LRN [id number]) Physical Therapy Treatment Other Treatments Other Treatment Performed Sitting: Active and Active Resistive trunk flexion. M7 PT-IP Assessment and Plan Start: 06/09/19 12:50 Freq: NEEDED Status: Active Protocol: Document 06/15/19 13:41 CLB (Rec: 06/15/19 15:06 CLB [id number]) PT Summary Assessment and Plan Summary Assessment Summary Pt's continues to assist pt in approapriate manner and will be able to safely care for her . Pt's able to assist pt from chair to toilet then for walk in serna ~70ft with DRILLER HELPER and gait belt giving pt max cues to assure pt's safety. Pt uses small shuffled steps and flexed posture needing cues for yenni and posture as well as cues to avoid obstacles in serna. Goals Bed Mobility Goal Contact Guard Assistance, Minimal Assistance Transfer Goal Contact Guard Assistance, Minimal Assistance Gait Goal Minimal Assistance Gait Distance 100' Other Goals Up/Down 1 step with Min>Mod Assist. Days to Meet Goals 5 Frequency of Treatment Frequency Of Treatment Twice a Day Treatment Plan Physical Therapy Treatment Plan Bed Mobility Training,Transfer Training,Gait Training, Therapeutic Exercise, Neuromuscular Re-ed Other Recommendations and Next Treatment CG training using proper Focus assisting methods with ambulation, bed mobility. transfers and stair training Recommendations To Nursing Amount of Assist Needed 1 Person Assist Discharge Recommendations PT Discharge Recommendations Home with 24/7 Assist,Home Health
[2019-06-15] MEDS: LATANOPROST 0.005% OPHTH 2.5 ML 1 DROPS EYE-LEFT (20:59)
[2019-06-16] VITALS (10 sets, daily range): BP systolic 107–159; BP diastolic 56–76; PULSE 62–105; RESP 16–18; TEMP 36.5–37.1; O2SAT 95–98
[2019-06-16 05:29] LABS: Add Manual Diff / Slide Review NO; Basophils Absolute Auto 100 /uL (0-100); Basophils Percent Auto 0.9 % (0-2); Eosinophils Absolute Auto 100 /uL (0-450); Eosinophils Percent Auto 1.3 % (2-4); Hematocrit 34.6 % (41-53); Hemoglobin 12.1 g/dL (13.5-17.5); Lymphocytes Absolute Auto 1900 /uL (1100-4500); Lymphocytes Percent Auto 26.3 % (25-40); Mean Corpuscular Hemoglobin 30.9 PG (26-34); Mean Corpuscular Volume 88.2 fL (80-100); Monocytes Absolute Auto 1100 /uL (0-900); Monocytes Percent Auto 15.2 % (3-14); Neutrophils Absolute Auto 4000 /uL (1500-7000); Neutrophils Percent Auto 56.3 % (50-75); Platelet Count 396 X10^3/uL (150-400); Red Blood Cell Count 3.92 X10^6/uL (4.5-5.9); Red Cell Distribution Width 13.5 % (11.6-14.8); White Blood Cell Count 7.2 X10^3/uL (4.5-11.0)
[2019-06-16 05:35] LABS: BUN Creatinine Ratio 18.9 (6-22); Blood Urea Nitrogen 17 mg/dL (9-20); Calcium 8.8 mg/dL (8.4-10.2); Carbon Dioxide 26 mmol/L (22-32); Chloride 93 mmol/L (98-107); Estimated Glomerular Filt Rate > 60.0 mL/min (>60); Glucose 84 mg/dL (80-110); HEMOLYSIS < 15 (0-50); Potassium 4.2 mmol/L (3.4-5.1); Sodium 127 mmol/L (137-145)
--- NOTE | 2019-06-16 05:54 | PC.NURSE ---
Pt is alert to self and the month, not day or year. Pleasantly confused. Tolerating room air at 96%. Has intermittent non-productive cough. Lungs very diminished. Incontinent of urine, frequent changes, weighing diapers when able. IV site changed this morning with labs. No complaints of pain. Refused SCDs overnight, i explained DVT/stroke risks, pt still refusing. Tele: NSR/1st AVB Fluid restriction maintained. T&P q2h with pillow support.
--- NOTE | 2019-06-16 08:10 | P.PN_ITS ---
Subjective Subjective Date Patient Seen: 06/16/19 Time Patient Seen: 08:51 Interval history: Feeling good this morning, at bedside helping patient brush his teeth/gums. He had one episode of elevated blood pressure yesterday while working on stairs during his physical therapy session. Otherwise, doing well, no cough, afebrile. Tolerating diet, no nausea or vomiting. Exam Vital Signs (past 8 hours): - 06/16/19 05:05 Temperature 98.7 F Pulse Rate 69 Respiratory Rate 18 Blood Pressure 125/58 L Pulse Oximetry 96 Oxygen Delivery Method Room Air Oxygen Flow Rate 0 Narrative Exam Narrative: GENERAL: Alert but disoriented, appearing stated age and in no acute distress. HEENT: Head normocephalic/atraumatic. LUNGS: Diminished inspiratory effort throughout, no crackles, no wheezes. CV: Normal S1 and S2 with regular rate and rhythm, no audible murmurs, rubs or gallops. ABDOMEN: Soft, non-tender, non-distended, no organomegaly. Positive bowel sounds. EXTREMITIES: No clubbing, cyanosis, or edema. NEURO: Cranial nerves II through XII grossly intact, no focal deficits. PSYCH: Alert and oriented x 3. SKIN: Dry, eczematous rash, periorbital. Objective Labs Result Diagrams: 06/16/19 05:10 06/16/19 05:10 Labs: Laboratory Results - last 24 hr 06/16/19 06/16/19 05:10 05:10 WBC 7.2 RBC 3.92 L Hgb 12.1 L Hct 34.6 L MCV 88.2 MCH 30.9 MCHC 35.0 RDW 13.5 Plt Count 396 Neut % (Auto) 56.3 Lymph % (Auto) 26.3 Noble % (Auto) 15.2 H Eos % (Auto) 1.3 L Baso % (Auto) 0.9 Neut # (Auto) 4000 Lymph # (Auto) 1900 Noble # (Auto) 1100 H Eos # (Auto) 100 Baso # (Auto) 100 Sodium 127 L Potassium 4.2 Chloride 93 L Carbon Dioxide 26 BUN 17 Creatinine 0.90 Estimated GFR > 60.0 BUN/Creatinine Ratio 18.9 Glucose 84 Calcium 8.8 Assessment & Plan Assessment & Plan narrative: Assessment 1: Weakness, likely multifactorial and worsened by recent respiratory tract infection. Community acquired pneumonia suspected secondary to chest x-ray, CT, and age. Possible SIADH. Patient continues physical therapy and is progressing back to his baseline. Plan: Will continue oral levofloxain. Continue PT/OT/RT. Will plan for home physical therapy upon discharge. CBC, BMP, in the morning. Assessment 2: Hyponatremia and hypochloremia, improving. Baseline sodium 130- 135, now 127. Baseline chloride 99-103, now 93. Possible SIADH, urine sodium was quite elevated last week, urine osmolality within normal limits. IV fluids with D5 1/2 NS found to be continuously run despite order for fluid restriction, TAR < 800. Hyponatremia possibly iatrogenic due to dilution from fluids. Will recheck urine sodium and watch sodium and choloride trends and continue with fluid restriction TAR < 800. CT consistent with pneumonia rather than mass. Currently asymptomatic from hyponatremia. Assessment 3: Eczema, 1% hydrocortisone to affected area, twice daily as needed. Continue liberal lubrication. Assessment 4: Atrial fibrillation, paroxysmal, one lifetime episode. Has not been on metoprolol for about 1 year, will watch closely. Due to patient's age and fall risk, anticoagulation contraindicated. Assessment 5: Hyperlipidemia, low-cholesterol diet. Assessment 6: Hpothyroidism, currently euthyroid, TSH within normal limits. Assessment 7: GERD, asymptomatic. 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 q.day and tolterodine 4 mg p.o. q.day. Assessment 9: Fecal incontinence, adult diapers. Assessment 10: Chronic diarrhea, stool culture and O& P negative. Continue probiotics. Assessment 11: Cerumen impaction, status post ear lavage. DVT prophylaxis: SCDs Code: DNR. Disposition: possibly home tomorrow. Quality VTE Deep Vein Thrombosis/Pulmonary Embolism Present on Admission: No
--- NOTE | 2019-06-16 08:54 | CM.DPC ---
Addendum entered by Courtney Lester LPN 06/16/19 09:49: Spoke now by phone with Dr. Aguero. She confirms that she is concerned re pt's overall weakness and sodium level and has been reluctant to let him go home too early as she is concerned he may fall again and readmit with the sodium still low. Discussed option of a snf stay but she noted this would only be for a day or so and not best option for pt. She is hopeful that pt will continue to do well today and will plan to d/c him to home setting with his tomorrow. Discussed that addition of RN and OT to the PT HHS and she readily agrees this will be helpful. Addendum entered by Courtney Lester LPN 06/16/19 09:17: Spoke briefly with pt and Ericka. Both were in serna walking with PT and marching in place. Dr. Aguero was here earlier this morning and says that pt may be ready for d/c tomorrow with HHS. OF NOTE: UR RN Boogie did review case over weekend and this morning. He states that the UR criteria guidelines state that pt is no longer meeting acute level of care need as of 06/15. As per his protocol he has discussed case with physician advisor Dr. Brennan who agrees with same. Cm manager play Maricruz advises this d/c land planner discuss case further with Dr. Aguero who may be able to provide the needed documentation to support the continued inpt stay. Original Note: DCP: continued: Case received and note that pt has remained here over the weekend. Those notes are reviewed. Will check in today and follow accordingly. Pt is currently set up to d/c to home setting with family support and [facility] services.
[2019-06-16] MEDS: LACTOBACILLUS ACIDOPHILUS TABLET 1 EACH PO (09:26)
[2019-06-16] MEDS: levoFLOXacin 250 MG TABLET 750 MG PO (09:26)
[2019-06-16] MEDS: TAMSULOSIN 0.4 MG CAPSULE PO (09:27)
[2019-06-16] MEDS: SODIUM CHLORIDE 0.9% FLUSH 10 ML IV ×2 (09:27→21:43)
[2019-06-16] MEDS: TOLTERODINE LA 4 MG PO (09:27)
--- NOTE | 2019-06-16 09:34 | PT.IPTN ---
Current Diagnoses Hypo-osmolality and hyponatremia (06/08/19) Pneumonia, unspecified organism (06/08/19) Physical Therapy Treatment Note M2 PT-IP Current Condition Start: 06/09/19 12:50 Freq: NEEDED Status: Active Protocol: Document 06/09/19 15:10 LRN (Rec: 06/09/19 15:38 LRN [id number]) Physical Therapy Current Condition Current Condition Evaluation Date 06/09/19 Treatment Diagnosis Mobility Issues Onset Date 1 week ago Weight Bearing Status Weight Bearing Status Full Weight Bearing M3 PT-IP Subjective Start: 06/09/19 12:50 Freq: NEEDED Status: Active Protocol: Document 06/16/19 08:57 LJ (Rec: 06/16/19 09:34 LJ [id number]) Subjective Physical Therapy Visit Type Type Treatment Note Visit Start Time 08:57 Visit Stop Time 09:23 Total Visit Minutes 26 Number of GRAPHIC ENGINEER Visits 7 Physical Therapy Visit Comments Patient Comments Pt willing to work with therapy. in room ready to assist pt. M4 PT-IP Mobility and Gait Start: 06/09/19 12:50 Freq: NEEDED Status: Active Protocol: Document 06/16/19 08:57 LJ (Rec: 06/16/19 09:34 LJ [id number]) PT-Bed Mobility Assessment Supine to Sit Supine to Sit Moderate Assistance,1 Person Assistance Scooting Scooting to Edge of Bed Moderate Assistance PT-Transfer Assessment Sit to and From Stand Sit to and from Stand Minimal Assistance,1 Person Assistance,Use of Upper Extremities Equipment Transfer Assistive Device None,Gait Belt Orthotic/Prosthetic Devices or Brace: No Transfers Transfer Destination Chair,Toilet Transfer Ability Level of Assist Moderate Assistance,1 Person Assistance,Use of Upper Extremities Comments Mobility Comments Pt's able to transfer pt from bed to toilet with BRAZER HELPER INDUCTION and use of GB. assisted pt doffing/donning brief. Pt more involved with his situation and more appropriate with ADLs this session. Gait Assessment Gait Gait Assistance Required: Moderate Assistance,1 Person Assist Distance (Feet) 150 Gait Deviations General Gait Pattern Decreased Stride Length, Decreased Feet Clearance, Flexed Trunk,Narrow Based Gait ,Step-to Gait Factors Limiting Gait Function Factors Limiting Gait Function Decreased Activity Tolerance, Decreased Strength,Difficulty Following Directions, Incoordination,Limited Range of Motion,Poor Balance,Poor Safety Awareness Comments Gait Comments Pt more aware and involved with his mobility this session . still giving max cues but pt responding quicker and appropriatesl. Ambulated in hallway with BRAZER HELPER INDUCTION and gait belt assist. Pt used railing outside his room with holding GB. Pt and team demonstrating safe ambulation and transfers. M5 PT-IP Objective Assessments Start: 06/09/19 12:50 Freq: NEEDED Status: Active Protocol: Document 06/09/19 15:10 LRN (Rec: 06/09/19 15:38 LRN [id number]) Orientation Orientation/Cognition Level of Alertness Confusional State Orientation Name Language Function Ability Expressive Aphasia Safety Awareness Decreased Safety Awareness Comments Pt with Alzheimers dementia. Pt did not follow 1 step instructions and did not respond most of the time to questions or conversation. Spouse was present during therapy and answered questions . Gross Range of Motion Upper Extremity ROM Assessment Within Functional Limits Lower Extremity ROM Assessment Within Functional Limits Impairments Pt lacks normal ankle DF with the R worse than the L. Strength Upper Extremity Strength Assessment Within Functional Limits Lower Extremity Strength Assessment Within Functional Limits Comments Strength Comments Pt was not able to follow all of the time to accurately determine strength. M6 PT-IP Treatment Start: 06/09/19 12:50 Freq: NEEDED Status: Active Protocol: Document 06/09/19 15:10 LRN (Rec: 06/09/19 15:38 LRN [id number]) Physical Therapy Treatment Other Treatments Other Treatment Performed Sitting: Active and Active Resistive trunk flexion. M7 PT-IP Assessment and Plan Start: 06/09/19 12:50 Freq: NEEDED Status: Active Protocol: Document 06/16/19 08:57 LJ (Rec: 06/16/19 09:34 LJ [id number]) PT Summary Assessment and Plan Summary Assessment Summary Pt's continues to assist pt in approapriate manner and will be able to safely care for her . Pt's able to assist pt from chair to toilet then for walk in serna ~150ft with BRAZER HELPER INDUCTION and gait belt giving pt max cues to assure pt's safety. Pt uses small shuffled steps and flexed posture. Pt able to take larger steps and lift feet for better clearance when cued to november. Goals Transfer Goal Contact Guard Assistance, Minimal Assistance Gait Goal Minimal Assistance Gait Distance 100' Other Goals Up/Down 1 step with Min>Mod Assist. Days to Meet Goals 5 Frequency of Treatment Frequency Of Treatment Twice a Day Treatment Plan Physical Therapy Treatment Plan Bed Mobility Training,Transfer Training,Gait Training, Therapeutic Exercise, Neuromuscular Re-ed Discharge Recommendations PT Discharge Recommendations Home with 26/03 Assist,Home Health
[2019-06-16] MEDS: HYDROCORTISONE 1% CREAM 28 GM 1 APPLIC TOP (09:37)
--- NOTE | 2019-06-16 09:38 | PC.NURSE ---
Patient up to chair, at bedside Patient is A/O to birthday, name and place, not to date. Patient is calm and cooperative. IV flushed with 10cc NS, patent dsg is cdi Patient was up with PT this morning, tolerated well Hydrocortisone applied to patients face with 's assistance remains in room.
--- NOTE | 2019-06-16 14:26 | OT.IP.TRT ---
Current Diagnoses Hypo-osmolality and hyponatremia (06/08/19) Pneumonia, unspecified organism (06/08/19) Occupational Therapy Treatment Note M2 OT-IP Current Condition Start: 06/09/19 14:46 Freq: Status: Active Protocol: Document 06/10/19 14:38 [facility] (Rec: 06/10/19 15:09 [facility] [id number]) Occupational Therapy Current Condition Current Condition Evaluation Date 06/10/19 Treatment Diagnosis Pneumonia Diagnosis Onset Date 06/08/19 Weight Bearing Status Weight Bearing Status Weight Bear as Tolerated M3 OT- IP Subjective and Pain Start: 06/09/19 14:46 Freq: Status: Active Protocol: Document 06/16/19 14:22 [facility] (Rec: 06/16/19 14:26 [facility] [id number]) OT- Subjective Occupational Therapy Visit Type Type Administrative Note Notes Touched base with pt's regarding any further caregiver training for OT needs. Attempted to do caregiver training for showering, but insisting she did not need any further training at this time. Pt's wanting pt to get a shower, informed nursing of her request.
--- NOTE | 2019-06-16 17:08 | PT.IPTN ---
Current Diagnoses Hypo-osmolality and hyponatremia (06/08/19) Pneumonia, unspecified organism (06/08/19) Physical Therapy Treatment Note M2 PT-IP Current Condition Start: 06/09/19 12:50 Freq: NEEDED Status: Active Protocol: Document 06/09/19 15:10 LRN (Rec: 06/09/19 15:38 LRN [id number]) Physical Therapy Current Condition Current Condition Evaluation Date 06/09/19 Treatment Diagnosis Mobility Issues Onset Date 1 week ago Weight Bearing Status Weight Bearing Status Full Weight Bearing M3 PT-IP Subjective Start: 06/09/19 12:50 Freq: NEEDED Status: Active Protocol: Document 06/16/19 16:38 LJ (Rec: 06/16/19 17:07 LJ [id number]) Subjective Physical Therapy Visit Type Type Treatment Note Visit Start Time 16:38 Visit Stop Time 16:58 Total Visit Minutes 20 Notes Per nusring, pt goes into Afib during mobility. Nursing states he can get up but keep activity to a minimum. Physical Therapy Visit Comments Patient Comments Pt willing to get up and transfer to chair for dinner. M4 PT-IP Mobility and Gait Start: 06/09/19 12:50 Freq: NEEDED Status: Active Protocol: Document 06/16/19 16:38 LJ (Rec: 06/16/19 17:07 LJ [id number]) PT-Bed Mobility Assessment Supine to Sit Supine to Sit Moderate Assistance,1 Person Assistance Scooting Scooting to Edge of Bed Moderate Assistance PT-Transfer Assessment Sit to and From Stand Sit to and from Stand Minimal Assistance,2 Person Assistance Equipment Transfer Assistive Device None,Gait Belt Orthotic/Prosthetic Devices or Brace: No Transfers Transfer Destination Chair Transfer Ability Level of Assist Minimal Assistance,2 Person Assistance Comments Mobility Comments Pt was fatigued and confused this afternoon. Required more assistance and verbal cueing to transfer to chair. Mobility still slow with posterior lean during transfer. Gait Assessment Gait Gait Assistance Required: Moderate Assistance,2 Person Assist Distance (Feet) 3 Assistive Devices Assistive Device None,Gait Belt Gait Deviations General Gait Pattern Decreased Stride Length, Decreased Feet Clearance, Flexed Trunk,Narrow Based Gait ,Step-to Gait Factors Limiting Gait Function Factors Limiting Gait Function Decreased Activity Tolerance, Decreased Strength,Difficulty Following Directions, Incoordination,Limited Range of Motion,Poor Balance,Poor Safety Awareness Comments Gait Comments Pt fatigued this afternoon and requiring max cueing. Pts assisting pt more this time with bed mobility. Pt was able to transfer but demonstrates increased posterior lean. Ptresponded appropriately to cueing. M5 PT-IP Objective Assessments Start: 06/09/19 12:50 Freq: NEEDED Status: Active Protocol: Document 06/09/19 15:10 LRN (Rec: 06/09/19 15:38 LRN [id number]) Orientation Orientation/Cognition Level of Alertness Confusional State Orientation Name Language Function Ability Expressive Aphasia Safety Awareness Decreased Safety Awareness Comments Pt with Alzheimers dementia. Pt did not follow 1 step instructions and did not respond most of the time to questions or conversation. Spouse was present during therapy and answered questions . Gross Range of Motion Upper Extremity ROM Assessment Within Functional Limits Lower Extremity ROM Assessment Within Functional Limits Impairments Pt lacks normal ankle DF with the R worse than the L. Strength Upper Extremity Strength Assessment Within Functional Limits Lower Extremity Strength Assessment Within Functional Limits Comments Strength Comments Pt was not able to follow all of the time to accurately determine strength. M6 PT-IP Treatment Start: 06/09/19 12:50 Freq: NEEDED Status: Active Protocol: Document 06/09/19 15:10 LRN (Rec: 06/09/19 15:38 LRN [id number]) Physical Therapy Treatment Other Treatments Other Treatment Performed Sitting: Active and Active Resistive trunk flexion. M7 PT-IP Assessment and Plan Start: 06/09/19 12:50 Freq: NEEDED Status: Active Protocol: Document 06/16/19 16:38 LJ (Rec: 06/16/19 17:07 LJ [id number]) PT Summary Assessment and Plan Summary Assessment Summary Due to nursing report pt is experiencing Afib with activity. Pt fatigued this afternoon however transfered safely with additional cueing. is appropriate to assist pt independently. Goals Bed Mobility Goal Contact Guard Assistance, Minimal Assistance Transfer Goal Contact Guard Assistance, Minimal Assistance Gait Goal Minimal Assistance Gait Distance 100' Other Goals Up/Down 1 step with Min>Mod Assist. Days to Meet Goals 5 Recommendations To Nursing Amount of Assist Needed 1 Person Assist Discharge Recommendations PT Discharge Recommendations Home with 26/03 Assist,Home Health
[2019-06-16 17:34] LABS: Sodium Urine Random 75 mmol/L (30-90)
[2019-06-16] MEDS: CARVEDILOL 12.5 MG TABLET PO (18:02)
[2019-06-16] MEDS: LATANOPROST 0.005% OPHTH 2.5 ML 1 DROPS EYE-LEFT (21:43)
[2019-06-17 03:39] VITALS: BP 117/55; PULSE 60; RESP 18; TEMP 36.5; O2SAT 95
[2019-06-17 05:29] LABS: Add Manual Diff / Slide Review NO; Basophils Absolute Auto 100 /uL (0-100); Basophils Percent Auto 0.9 % (0-2); Eosinophils Absolute Auto 100 /uL (0-450); Eosinophils Percent Auto 2.2 % (2-4); Hematocrit 33.6 % (41-53); Hemoglobin 11.8 g/dL (13.5-17.5); Lymphocytes Absolute Auto 1900 /uL (1100-4500); Lymphocytes Percent Auto 29.3 % (25-40); Mean Corpuscular HGB Conc 35.2 % (30-36); Mean Corpuscular Hemoglobin 31.3 PG (26-34); Monocytes Absolute Auto 900 /uL (0-900); Monocytes Percent Auto 14.6 % (3-14); Neutrophils Absolute Auto 3400 /uL (1500-7000); Platelet Count 397 X10^3/uL (150-400); Red Blood Cell Count 3.77 X10^6/uL (4.5-5.9); Red Cell Distribution Width 13.2 % (11.6-14.8); White Blood Cell Count 6.4 X10^3/uL (4.5-11.0)
[2019-06-17 05:36] LABS: Blood Urea Nitrogen 18 mg/dL (9-20); Calcium 8.7 mg/dL (8.4-10.2); Carbon Dioxide 29 mmol/L (22-32); Chloride 89 mmol/L (98-107); Estimated Glomerular Filt Rate > 60.0 mL/min (>60); Glucose 82 mg/dL (80-110); HEMOLYSIS < 15 (0-50); Potassium 4.4 mmol/L (3.4-5.1)
[2019-06-17 05:51] LABS: Sodium 126 mmol/L (137-145)
[2019-06-17 08:00] VITALS: BP 159/61; PULSE 62; RESP 18; TEMP 36.6; O2SAT 97
--- NOTE | 2019-06-17 08:14 | DI.ECHO.S_ITS ---
[facility] +---------+ : : [address] : : : : [id number] : : : : Phone: [phone]---------+ Echocardiogram Report + + :Name: BARRINGTON MCKINNON Study Date: 06/18/2019 Height: 67 in : :[facility] Weight: 137 lb : : Gender: Male BSA: 1.7 m2 : :: 1940 Age: 78 yrs BP: 144/62 mmHg: :Reason For Study: AFIB : : Performed By: Mahamed Cannon : :Referring: JOSE BLANCO : + + Interpretation Summary The study quality was technically difficult. Echo contrast to improve visualization. The subcostal views were difficult to obtain and are suboptimal in quality. The patient was in normal sinus rhythm during the exam. There is a questionable mild hypokinesis in the basal anterolateral wall. However, visualization is limited due to poor acoustic windows. The left ventricular ejection fraction is normal. The right ventricle is mildly dilated. The systolic function is normal. Pulmonary artery pressures cannot be estimated because of the lack of a measurable TR jet velocity. -The left ventricular ejection fraction is normal. There is a questionable area of hypokinesis. However, this wall is not adequately visualized. If coronary artery disease suspected, a perfusion study is recommended. -Overall findings are similar to the prior echocardiogram. The wall motion cannot be directly compared as this is study was done with echo contrast. Procedure: A two-dimensional transthoracic echocardiogram with color flow and Doppler was performed. The study quality was technically difficult. Comparison is made with the echocardiogram of 05/30/18. A contrast injection of Definity was performed to improve assessment of LV function. The subcostal views were difficult to obtain and are suboptimal in quality. The patient was in normal sinus rhythm during the exam. Left Ventricle: The left ventricle is normal in size. Left ventricular wall thickness is at the upper limits of normal. The ejection fraction is estimated to be 60-65%. The left ventricular ejection fraction is normal. There are no focal wall motion abnormalities. Diastolic parameters suggest a relaxation abnormality of the left ventricle, consistent with probable normal filling pressures. Right Ventricle: The right ventricle is mildly dilated. The right ventricular systolic function is normal. Atria: Both atria are normal in size. There is no Doppler evidence for an interatrial shunt. Mitral Valve: The mitral valve is normal in structure and function. There is no mitral regurgitation noted. Aortic Valve: The aortic valve is trileaflet. The aortic valve is mildly calcified. The aortic valve opens well. There is discrete nodular thickening of the non- coronary cusp. There is no aortic valve stenosis. No aortic regurgitation is present. Tricuspid Valve: The tricuspid valve is normal in structure and function. No tricuspid regurgitation. Pulmonary artery pressures cannot be estimated because of the lack of a measurable TR jet velocity. Pulmonic Valve: The pulmonic valve is normal in structure and function. There is trace pulmonic regurgitation. Great Vessels: The aortic root is normal size. The ascending aorta is mildly enlarged. The pulmonary artery is normal size. The inferior vena cava was not well visualized. Pericardium/ Pleura There is no pericardial effusion. There is no pleural effusion. MMode/2D Measurements & Calculations LVIDd: 3.9 cm LVOT diam: 2.1 cm LVIDs: 1.5 cm Ao root diam: 3.5 cm FS: 61.4 % Aortic Jxn: 2.7 cm EPSS: 0.43 cm asc Aorta Diam: 3.5 cm IVSd: 0.95 cm LVPWd: 1.1 cm LV suazo. diameter/BSA (cm/m^2): 2.3 LV sys. diameter/BSA (cm/m^2): 0.87 LA dimension: 2.9 cm RA long axis: 4.4 cm LA A2 area: 13.4 cm2 RA area: 13.8 cm2 LA A4 area: 18.5 cm2 RA vol: 36.5 ml LA length (vol): 5.3 cm RA : 21.2 ml/m2 LA vol: 40.0 ml LA vol index: 23.3 ml/m2 RVD1 (basal): 4.5 cm RVD2 (mid): 3.9 cm Doppler Measurements & Calculations Ao V2 max: 107.1 cm/sec LVOT Max Krishna: 70.2 cm/sec Ao V2 mean: 81.1 cm/sec LV V1 max P.0 mmHg Ao max P.6 mmHg LV V1 VTI: 13.2 cm Ao mean P.8 mmHg REAL(I,D): 2.4 cm2 Ao V2 VTI: 18.4 cm REAL(V,D): 2.2 cm2 sev ratio: 0.72 REAL indexed to BSA (cm^2/m^2): 1.4 MV E max krishna: 68.0 cm/sec PA V2 max: 72.2 cm/sec MV A max krishna: 96.8 cm/sec PA V2 mean: 55.0 cm/sec MV E/A: 0.70 PA mean P.3 mmHg Med Peak E' Krishna: 5.6 cm/sec PA pr(Accel): 44.1 mmHg E/E' med: 12.2 PA Accel Time: 0.08 sec Lat Peak E' Krishna: 5.8 cm/sec E/E' lat: 11.8 E/e' average: 12.0 MV dec time: 0.19 sec SV(LVOT): 45.2 ml Electronically signed by: Jalil Hennessy M.D. on Reading Physician:06/18/2019 02:41 PM
--- NOTE | 2019-06-17 08:17 | P.PN_ITS ---
Subjective Subjective Date Patient Seen: 06/17/19 Time Patient Seen: 08:30 Interval history: Nursing reports no further episodes of atrial fibrillation overnight, has received carvedilol 12.5 mg x1 after 3 hours of atrial fibrillation yesterday, no further recurrence. Patient denies shortness of breath, headache, nausea, vomiting, or chest pain but does say that he reported to her yesterday that he felt dopey. He has dementia and often answers that he is fine to every questions, so this is a change. They had many visitors yesterday and after they left, he took a shower and that is what started the atrial fibrillation. Was weak yesterday during physical therapy. On general diet now, continues on fluid restriction. Exam Vital Signs (past 8 hours): - 06/17/19 03:39 Temperature 97.7 F Pulse Rate 60 Respiratory Rate 18 Blood Pressure 117/55 L Pulse Oximetry 95 Oxygen Delivery Method Room Air Oxygen Flow Rate 0 Narrative Exam Narrative: GENERAL: Alert but disoriented, appearing stated age and in no acute distress. HEENT: Head normocephalic/atraumatic. LUNGS: Diminished inspiratory effort throughout, no crackles, no wheezes. CV: Normal S1 and S2 with regular rate and rhythm, no audible murmurs, rubs or gallops. ABDOMEN: Soft, non-tender, non-distended, no organomegaly. Positive bowel sounds. EXTREMITIES: No clubbing, cyanosis, or edema. NEURO: Cranial nerves II through XII grossly intact, no focal deficits. PSYCH: Alert and oriented x 3. SKIN: Dry, eczematous rash, periorbital. Objective Labs Result Diagrams: 06/17/19 05:05 06/17/19 05:05 Labs: Laboratory Results - last 24 hr 06/16/19 06/17/19 06/17/19 16:45 05:05 05:05 WBC 6.4 RBC 3.77 L Hgb 11.8 L Hct 33.6 L MCV 89.0 MCH 31.3 MCHC 35.2 RDW 13.2 Plt Count 397 Neut % (Auto) 53.0 Lymph % (Auto) 29.3 Blaine % (Auto) 14.6 H Eos % (Auto) 2.2 Baso % (Auto) 0.9 Neut # (Auto) 3400 Lymph # (Auto) 1900 Blaine # (Auto) 900 Eos # (Auto) 100 Baso # (Auto) 100 Sodium 126 L Potassium 4.4 Chloride 89 L Carbon Dioxide 29 BUN 18 Creatinine 0.90 Estimated GFR > 60.0 BUN/Creatinine Ratio 20.0 Glucose 82 Calcium 8.7 Ur Random Sodium 75 Assessment & Plan Assessment & Plan narrative: Assessment 1: Atrial fibrillation, paroxysmal, recurrence yesterday x 1 for approximately 3 hours. Previously had one other episode while ill with pneumonia approximately 1 year ago. Placed on metoprolol at that time but discontinued prior to [facility] discharge and has not been on metoprolol for about 1 year. Secondary to patient's low blood pressures, started low does carvedilol 12.5 mg p.o. x1 yesterday, no further atrial fibrillation noted throughout the night. Due to patient's age and fall risk, anticoagulation contraindicated. Will get EKG and echo this morning and follow telemetry closely. Secondary to hypotension and mandaeism of sinus rhythm, will hold carvedilol today. Also stopping levofloxacin as noted in Assessment 3 to see if that improves patient's hyponatremia which may be contributing to the atrial fibrillation. Watching closely. Assessment 2: Weakness, likely multifactorial and worsened by recent respiratory tract infection. Community acquired pneumonia suspected secondary to chest x-ray, CT, and age. Possible SIADH. Patient continues physical therapy and is progressing back to his baseline, but progress is slow and complicated by his dementia. Plan: Continue PT/OT/RT. Will plan for home physical therapy upon discharge. CBC, BMP, in the morning. Assessment 3: Hyponatremia and hypochloremia, worsening again. Baseline sodium 130-135, now 126, down from 127 yesterday. Baseline chloride 99-103, now 89, down from 93. Possible SIADH, urine sodium was quite elevated last week, normal yesterday upon recheck. Urine osmolality within normal limits. IV fluids with D5 1/2 NS found to be continuously run despite order for fluid restriction, TAR < 800. Hyponatremia possibly iatrogenic due to dilution from fluids but now falling again even after fluids have been stopped. Diet has been changed from cardiac to regular. Possibly secondary to levofloxacin, patient has had a full course and has been afebrile with no white count throughout his stay, will discontinue levofloacin and trend labs. Will continue with fluid restriction TAR < [address] consistent with pneumonia rather than mass. Unclear if paroxysmal atrial fibrillation yesterday secondary to hyponatremia or patient's pneumonia, will continue to follow closely. Assessment 4: Eczema, 1% hydrocortisone to affected area, twice daily as need ed. Continue liberal lubrication. Assessment 5: Hyperlipidemia, low-cholesterol diet. Assessment 6: Hpothyroidism, currently euthyroid, TSH within normal limits. Assessment 7: GERD, asymptomatic. 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 q.day and tolterodine 4 mg p.o. q.day. Assessment 9: Fecal incontinence, adult diapers. Assessment 10: Chronic diarrhea, stool culture and O& P negative. Continue probiotics. Assessment 11: Cerumen impaction, status post ear lavage. DVT prophylaxis: SCDs Code: DNR. Disposition: possibly home tomorrow. Quality VTE Deep Vein Thrombosis/Pulmonary Embolism Present on Admission: No
[2019-06-17] MEDS: TAMSULOSIN 0.4 MG CAPSULE PO (08:32)
[2019-06-17] MEDS: TOLTERODINE LA 4 MG PO (08:32)
[2019-06-17] MEDS: LACTOBACILLUS ACIDOPHILUS TABLET 1 EACH PO (08:33)
[2019-06-17] MEDS: MAGNESIUM HYDROXIDE 30 ML UDC PO (08:35)
[2019-06-17] MEDS: SODIUM CHLORIDE 0.9% FLUSH 10 ML IV ×2 (08:36→20:09)
--- NOTE | 2019-06-17 10:25 | CM.DPC ---
DCP; continued: checked in with pt and his after Team Rounds. reports Dr. Aguero was here, is keeping pt for another day as concerns continue re his sodium level and episode of AFib (see her note today for specifics and her addendum to her progress note of 06/17). UR Team is updated re the need for continued care in hospital setting as per Dr. Aguero. P: remains home with support and [facility]. [facility] is updated now. He confirms that [facility] has all needed information. Just needs to be updated on day of d/c and d/c summary faxed when available.
--- NOTE | 2019-06-17 11:11 | PC.NURSE ---
Pt is Alert but confused x2. He is familiar with his and faces. Pt repositioned to his back from his left side. He feeds himself at meals and appetite is good. Pt has had no BM for 4 days, given MOM this morning to help promote movement. Pt does have some skin issues, please refer to physical assessment to see.
--- NOTE | 2019-06-17 11:48 | PT.IPTN ---
Current Diagnoses Hypo-osmolality and hyponatremia (06/08/19) Pneumonia, unspecified organism (06/08/19) Physical Therapy Treatment Note M2 PT-IP Current Condition Start: 06/09/19 12:50 Freq: NEEDED Status: Active Protocol: Document 06/09/19 15:10 LRN (Rec: 06/09/19 15:38 LRN [id number]) Physical Therapy Current Condition Current Condition Evaluation Date 06/09/19 Treatment Diagnosis Mobility Issues Onset Date 1 week ago Weight Bearing Status Weight Bearing Status Full Weight Bearing M3 PT-IP Subjective Start: 06/09/19 12:50 Freq: NEEDED Status: Active Protocol: Document 06/17/19 11:23 CLB (Rec: 06/17/19 12:15 CLB [id number]) Subjective Physical Therapy Visit Type Type Treatment Note Visit Start Time 11:23 Visit Stop Time 11:48 Total Visit Minutes 25 Number of PARA MACHINE OPERATOR Visits 9 M4 PT-IP Mobility and Gait Start: 06/09/19 12:50 Freq: NEEDED Status: Active Protocol: Document 06/17/19 11:23 CLB (Rec: 06/17/19 12:15 CLB [id number]) PT-Bed Mobility Assessment Supine to Sit Supine to Sit Moderate Assistance,1 Person Assistance Scooting Scooting to Edge of Bed Contact Guard Assistance PT-Transfer Assessment Sit to and From Stand Sit to and from Stand Minimal Assistance,1 Person Assistance Equipment Transfer Assistive Device None,Gait Belt Orthotic/Prosthetic Devices or Brace: No Transfers Transfer Destination Chair,Toilet Transfer Ability Level of Assist Minimal Assistance,1 Person Assistance Comments Mobility Comments Pt improved with bed mobility, able to assist pt to EOB . Gait Assessment Gait Gait Assistance Required: Moderate Assistance,1 Person Assist Distance (Feet) 100 Assistive Devices Assistive Device None,Gait Belt Gait Deviations General Gait Pattern Decreased Stride Length, Decreased Feet Clearance, Flexed Trunk,Narrow Based Gait ,Step-to Gait Factors Limiting Gait Function Factors Limiting Gait Function Decreased Activity Tolerance, Decreased Strength,Difficulty Following Directions, Incoordination,Limited Range of Motion,Poor Balance,Poor Safety Awareness Comments Gait Comments Pt requires max cuing and pts is able to appropriately cues pt during gait. Stair Climbing Assessment Comments Stair Climbing Comments stating she thinks she will do just fine getting him up the step and respectfully refused stair training st this time. M5 PT-IP Objective Assessments Start: 06/09/19 12:50 Freq: NEEDED Status: Active Protocol: Document 06/09/19 15:10 LRN (Rec: 06/09/19 15:38 LRN [id number]) Orientation Orientation/Cognition Level of Alertness Confusional State Orientation Name Language Function Ability Expressive Aphasia Safety Awareness Decreased Safety Awareness Comments Pt with Alzheimers dementia. Pt did not follow 1 step instructions and did not respond most of the time to questions or conversation. Spouse was present during therapy and answered questions . Gross Range of Motion Upper Extremity ROM Assessment Within Functional Limits Lower Extremity ROM Assessment Within Functional Limits Impairments Pt lacks normal ankle DF with the R worse than the L. Strength Upper Extremity Strength Assessment Within Functional Limits Lower Extremity Strength Assessment Within Functional Limits Comments Strength Comments Pt was not able to follow all of the time to accurately determine strength. M6 PT-IP Treatment Start: 06/09/19 12:50 Freq: NEEDED Status: Active Protocol: Document 06/09/19 15:10 LRN (Rec: 06/09/19 15:38 LRN [id number]) Physical Therapy Treatment Other Treatments Other Treatment Performed Sitting: Active and Active Resistive trunk flexion. M7 PT-IP Assessment and Plan Start: 06/09/19 12:50 Freq: NEEDED Status: Active Protocol: Document 06/17/19 11:23 CLB (Rec: 06/17/19 12:15 CLB [id number]) PT Summary Assessment and Plan Summary Assessment Summary Pt improved with bed mobility and was able to assist with donning his brief as supported pt using gait belt. Pt was able to follow her commands during bed mobility, transfer and gait. Pt is at his baseline and after speaking with PT, someone from the therapy team will see pt once a day to continue with CG training. Goals Transfer Goal Contact Guard Assistance, Minimal Assistance Gait Goal Minimal Assistance Gait Distance 100' Other Goals Up/Down 1 step with Min>Mod Assist. Days to Meet Goals 5 Frequency of Treatment Frequency Of Treatment Once a Day Treatment Plan Physical Therapy Treatment Plan Bed Mobility Training,Transfer Training,Gait Training, Therapeutic Exercise, Neuromuscular Re-ed Recommendations To Nursing Amount of Assist Needed 1 Person Assist Discharge Recommendations PT Discharge Recommendations Home with 26/03 Assist,Home Health
[2019-06-17 12:00] VITALS: BP 124/64; PULSE 64; RESP 18; TEMP 36.8; O2SAT 96
--- NOTE | 2019-06-17 15:00 | OT.IP.TRT ---
Current Diagnoses Hypo-osmolality and hyponatremia (06/08/19) Pneumonia, unspecified organism (06/08/19) Occupational Therapy Treatment Note M2 OT-IP Current Condition Start: 06/09/19 14:46 Freq: Status: Active Protocol: Document 06/10/19 14:38 [facility] (Rec: 06/10/19 15:09 [facility] [id number]) Occupational Therapy Current Condition Current Condition Evaluation Date 06/10/19 Treatment Diagnosis Pneumonia Diagnosis Onset Date 06/08/19 Weight Bearing Status Weight Bearing Status Weight Bear as Tolerated M3 OT- IP Subjective and Pain Start: 06/09/19 14:46 Freq: Status: Active Protocol: Document 06/17/19 15:00 [facility] (Rec: 06/17/19 15:00 [facility] [id number]) OT- Subjective Occupational Therapy Visit Type Type Patient Unavailable Notes Pt's states has no further OT needs at this time.
[2019-06-17 16:00] VITALS: BP 106/55; PULSE 68; RESP 14; TEMP 36.5; O2SAT 96
[2019-06-17 20:00] VITALS: BP 123/57; PULSE 69; RESP 16; TEMP 36.9; O2SAT 96
[2019-06-17] MEDS: LATANOPROST 0.005% OPHTH 2.5 ML 1 DROPS EYE-LEFT (20:06)
--- NOTE | 2019-06-17 21:38 | PC.NURSE ---
Jaylene shift note: Patient continue with Strict I and O's Output 156 ml weighted brief, x 1 large unmeasured incontinent void Intake for JAYLENE shift 200 ml
[2019-06-18 00:10] VITALS: BP 118/54; PULSE 70; RESP 16; TEMP 36.8; O2SAT 94
[2019-06-18 05:18] LABS: Add Manual Diff / Slide Review NO; Basophils Absolute Auto 100 /uL (0-100); Basophils Percent Auto 0.5 % (0-2); Eosinophils Absolute Auto 100 /uL (0-450); Hematocrit 32.6 % (41-53); Hemoglobin 11.3 g/dL (13.5-17.5); Lymphocytes Absolute Auto 1500 /uL (1100-4500); Lymphocytes Percent Auto 15.3 % (25-40); Mean Corpuscular HGB Conc 34.7 % (30-36); Mean Corpuscular Hemoglobin 31.1 PG (26-34); Mean Corpuscular Volume 89.6 fL (80-100); Monocytes Absolute Auto 1200 /uL (0-900); Monocytes Percent Auto 12.2 % (3-14); Neutrophils Absolute Auto 6700 /uL (1500-7000); Platelet Count 397 X10^3/uL (150-400); Red Blood Cell Count 3.64 X10^6/uL (4.5-5.9); Red Cell Distribution Width 13.3 % (11.6-14.8); White Blood Cell Count 9.5 X10^3/uL (4.5-11.0)
[2019-06-18 05:20] VITALS: BP 134/46; PULSE 71; RESP 20; TEMP 36.6; O2SAT 92
[2019-06-18 05:23] LABS: Blood Urea Nitrogen 21 mg/dL (9-20); Calcium 8.4 mg/dL (8.4-10.2); Carbon Dioxide 27 mmol/L (22-32); Chloride 95 mmol/L (98-107); Estimated Glomerular Filt Rate > 60.0 mL/min (>60); Glucose 97 mg/dL (80-110); HEMOLYSIS < 15 (0-50); Potassium 4.2 mmol/L (3.4-5.1); Sodium 128 mmol/L (137-145)
--- NOTE | 2019-06-18 06:21 | PC.NURSE ---
Pt A&O x1. Pt strict NPO, offered sips of water at bedside. Pt declined all PO intake overnight. Pt incontinent in brief. Weighing briefs. Pt con't with congested cough, able to clear secretions. HOB elevated as best pt tolerates. On tele in NSR with 1 AVB, Monitoring NA level, this AM is 128, yesterday 127. Pt turned/shifted weight with assist q2hr overnight, barrier to bottom, skin appears pink. Anticipate dishcharge to SNF today.
--- NOTE | 2019-06-18 06:41 | PM.DS.1 ---
History of Present Illness History of Present Illness Chief complaint: Mobility issues Narrative: 78 yo Male with Alzheimer's dementia, significant smoking history, and history of respiratory infection x1 week presents from the ED with confusion and weakness x1 day. Chest x-ray showd bibasilar opacities, left greater than right, consistent with pneumonia versus atelectasis versus aspiration. caretakes for for him and states that she has been unable to move him this morning as he was so weak. She has not been taking his temperature but reports a subjective fever. Denies nausea or vomiting. As the patient has Alzheimer's, is providing the history. Patient will answer fine to any question. His last inpatient admission was for the same complaint approximately 1 year ago, developed atrial fibrillation with a rapid ventricular rate during that inpatient stay, was started on metoprolol 25 mg PO qd for rate control but that was discontinued after leaving his SNF. EKG today shows a normal sinus rhythm with first-degree AV block; nonspecific T-wave abnormality and ventricular rate of 77 bmp; no signs of acute ischemia. Echo done during last admission on 05/28/2018 revealed an ejection fraction of 60-65%, moderately dilated right ventricle with RV systolic function mildly reduced and no valvular dysfunction. Vital signs in the ED included a temperature of 98.0, pulse 91, respirations 18, blood pressure 113/59, O2 saturation 92% on room air. Workup including lactate, CBC, CMP, blood cultures, lipase, PT/INR, procalcitonin, and UA significant for a slightly low hematocrit 39.2, low sodium at 128 a.m., low chloride at 89, and elevated glucose at 141. Notable negatives include a normal white count of 10.5, procalcitonin less than 0.05, and lactate of 1.7. Past medical history: Alzheimer's dementia Hyperlipidemia Hypothyroidism, currently euthyroid Atrial fibrillation GERD BPH with urinary obstruction Fecal incontinence Urinary incontinence Chronic alcoholism in remission Former smoker Past surgical history: Tonsillectomy Eye surgery Family history: Father: Disease, heart attack Mother: Brother: from lung cancer Social history: to Demi, 4 children. 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 . Discharge Providers Provider Date of admission: 06/08/19 12:34 Discharge Date: 06/18/19 Primary care physician: Su Aguero MD Consults: 06/08/19 14:31 Consult to Discharge Planning Routine Comment: Consult to Occupational Therapy Evaluate & Treat Comment: Physician Instructions: Evaluate and treat Consult to Physical Therapy Evaluate & Treat Comment: Physician Instructions: Evaluate and Treat 06/08/19 14:32 Consult to Respiratory Therapy Evaluate & Treat Comment: Physician Instructions: Evaluate and treat 06/08/19 16:01 Consult to Dietitian, Adult Routine Comment: Reason For Exam: score 06/09/19 08:54 Consult to Speech Therapy Evaluate & Treat Comment: hx aspiration pneumonia Physician Instructions: Evaluate and treat 06/10/19 12:03 Consult to Physical Therapy Evaluate & Treat Comment: Ambulate as tolerated Physician Instructions: Evaluate and Treat 06/11/19 13:25 Consult to Home Health Routine Comment: Reason For Exam: Home Health PT/OT/web press operator assistant provider: Su Aguero MD Summary Hospital Course Discharge Diagnosis: Assessment 1: Community-acquired pneumonia, resolved Assessment 2: Weakness, multifactorial improved Assessment 3: Hyponatremia and hypochloremia, possible SIADH, improving Assessment 4: Atrial fibrillation, paroxysmal, resolved. Assessment 5: Eczema, improving Assessment 6: Hyperlipidemia, chronic Assessment 7: Hpothyroidism, euthyroid Assessment 8: GERD, chronic, stable Assessment 9: BPH with urinary obstruction and urinary incontinence, chronic Assessment 9: Fecal incontinence, chronic Assessment 10: Chronic diarrhea, improved Assessment 11: Cerumen impaction, resolved. Hospital Course: Patient was admitted for profound weakness, likely multifactorial and secondary to community-acquired pneumonia and chronic disease. Patient does have chronic hyponatremia and hypochloremia but both significantly worsened during his inpatient stay and it was unclear why. His fluid was restricted with little improvement and there was concern for SIADH. Repeat chest x-ray and CT chest showed ongoing opacities consistent with pneumonia but no mass. Urine sodium concentration was initially elevated but then normalized. Urine osmolality was normal. On the day prior to discharge, patient's levofloxacin was discontinued as his sodium continued to fall and on day of discharge his sodium is now trending up. Hyponatremia possibly secondary to medication effect alone. Will recheck BMP in the outpatient setting in 1 week. Patient did have 1 episode of approximately 3 hours paroxysmal atrial fibrillation after a day of visiting, hot shower, and physical therapy. He was treated with 1 dose of carvedilol 12.5 mg and it resolved with no recurrence. It is unclear if this atrial fibrillation was secondary to his hyponatremia and/or exacerbated by activity, infection, or excitement. His white count has remained low and normal throughout his hospital stay and he has been afebrile. He received 9 total days of levofloxacin. Patient has only 1 other lifetime episode of paroxysmal atrial fibrillation that also occurred in the setting of a pneumonia. He was prescribed metoprolol at that time but never took it after being discharged from senior living. Patient has been observed for approximately 36 hours with no recurrence of his atrial fibrillation; will hold off on rate control as it does not appear the patient needs that and he is at risk of bradycardia and hypotension with treatment. He has contraindications for anticoagulation secondary to his dementia fall risk. Echo results pending from yesterday. If any ongoing concerns, will refer to cardiology as an outpatient. Plan to follow up in 1 week. Goal of visit will be to check BMP and ensure that sodium and chloride are trending towards his baseline levels and that he has continuity of care with home PT/OT, and home health. Will also perform EKG at that visit to ensure that patient is maintaining sinus rhythm. Time spent on Discharge and Coordination of post-hospital care: 35 minutes Exam Vital Signs (past 8 hours): - 06/18/19 00:10 06/18/19 05:20 Temperature 98.2 F 97.9 F Pulse Rate 70 71 Respiratory Rate 16 20 Blood Pressure 118/54 L 134/46 L Pulse Oximetry 94 92 Oxygen Delivery Method Room Air Oxygen Flow Rate 0 Narrative Exam Narrative: GENERAL: Alert but disoriented, appearing stated age and in no acute distress. HEENT: Head normocephalic/atraumatic. LUNGS: Diminished inspiratory effort throughout, no crackles, no wheezes. CV: Normal S1 and S2 with regular rate and rhythm, no audible murmurs, rubs or gallops. ABDOMEN: Soft, non-tender, non-distended, no organomegaly. Positive bowel sounds. EXTREMITIES: No clubbing, cyanosis, or edema. NEURO: Cranial nerves II through XII grossly intact, no focal deficits. PSYCH: Alert and oriented x 3. SKIN: Dry, eczematous rash, periorbital. Objective Labs Result Diagrams: 06/18/19 05:05 06/18/19 05:05 Labs: Laboratory Results - last 24 hr 06/18/19 06/18/19 05:05 05:05 WBC 9.5 RBC 3.64 L Hgb 11.3 L Hct 32.6 L MCV 89.6 MCH 31.1 MCHC 34.7 RDW 13.3 Plt Count 397 Neut % (Auto) 71.0 Lymph % (Auto) 15.3 L [place] % (Auto) 12.2 Eos % (Auto) 1.0 L Baso % (Auto) 0.5 Neut # (Auto) 6700 Lymph # (Auto) 1500 [place] # (Auto) 1200 H Eos # (Auto) 100 Baso # (Auto) 100 Sodium 128 L Potassium 4.2 Chloride 95 L Carbon Dioxide 27 BUN 21 H Creatinine 1.00 Estimated GFR > 60.0 BUN/Creatinine Ratio 21.0 Glucose 97 Calcium 8.4 Discharge Plan Discharge Plan Patient Disposition: Home Discharge Med Rec/Prescriptions Prescriptions: New hydrocortisone 1 % Cream 1 applic topical BID PRN (Reason: Eczema) 30 Days Qty: 25 RF: 0 Bacid 1 billion cell- 250 mg Tablet 1 ea PO DAILY 21 Days Qty: 21 RF: 0 Continued aspirin 81 mg Tablet,Delayed Release (Dr/Ec) 81 mg PO DAILY Qty: 0 RF: 0 tamsulosin 0.4 mg capsule 2 cap PO DAILY RF: 0 vitamin B complex Capsule 1 cap PO DAILY RF: 0 Complete Multivitamin Tablet 1 tab PO DAILY RF: 0 red yeast rice 600 mg Capsule 600 mg PO DAILY RF: 0 latanoprost [Xalatan] 0.005 % Drops 1 drops EYE-LEFT BEDTIME Qty: 1 RF: 0 acetaminophen 325 mg Tablet 650 mg PO Q6HR PRN (Reason: As Needed For Fever/Mild Pain) Qty: 50 RF: 0 darifenacin 7.5 mg tablet extended release 24 hr 7.5 mg PO DAILY RF: 0 Follow up/Referrals: Rikki Dick MD [Primary Care Provider] - Su Aguero MD [Physician] - Provider Discharge Instructions Diet: Regular Activity: with assist, home PT/OT, home health Skin/Wound/Dressing Care Skin care: hydrocortisone 1% cream to rash as needed. Report to your healthcare provider any signs of infection, such as:: chills, fever and increased pain Visit Report/Discharge Packet Instructions: DI for Pneumonia -- Adult, DI for Hyponatremia, How to Prevent Falls, DI for Muscle Weakness Discharge Data Primary Care Provider: iRkki Dick Quality VTE Deep Vein Thrombosis/Pulmonary Embolism Present on Admission: No
[2019-06-18 08:20] VITALS: BP 144/62; PULSE 71; RESP 16; TEMP 37; O2SAT 91
--- NOTE | 2019-06-18 08:48 | CM.DPC ---
DCP Cont: Patient is being discharged today, went ahead and contacted [facility], and sent over notes, DC summary, face to face, and orders. Esthela Bansal RN/Golf Club Manager
[2019-06-18] MEDS: SODIUM CHLORIDE 0.9% FLUSH 10 ML IV (09:59)
[2019-06-18] MEDS: TAMSULOSIN 0.4 MG CAPSULE PO (09:59)
[2019-06-18] MEDS: TOLTERODINE LA 4 MG PO (09:59)
[2019-06-18] MEDS: LACTOBACILLUS ACIDOPHILUS TABLET 1 EACH PO (09:59)
--- NOTE | 2019-06-18 10:28 | PT.IPTN ---
Current Diagnoses Hypo-osmolality and hyponatremia (06/08/19) Pneumonia, unspecified organism (06/08/19) Physical Therapy Treatment Note M2 PT-IP Current Condition Start: 06/09/19 12:50 Freq: NEEDED Status: Active Protocol: Document 06/09/19 15:10 LRN (Rec: 06/09/19 15:38 LRN [id number]) Physical Therapy Current Condition Current Condition Evaluation Date 06/09/19 Treatment Diagnosis Mobility Issues Onset Date 1 week ago Weight Bearing Status Weight Bearing Status Full Weight Bearing M3 PT-IP Subjective Start: 06/09/19 12:50 Freq: NEEDED Status: Active Protocol: Document 06/18/19 10:28 SP (Rec: 06/18/19 10:51 SP [id number]) Subjective Physical Therapy Visit Type Type Treatment Note Visit Start Time 10:00 Visit Stop Time 10:28 Total Visit Minutes 28 Number of SEMICONDUCTOR PACKAGE SYMBOL STAMPER Visits 10 Physical Therapy Visit Comments Patient Comments Pt willing to get up and walk to the bathroom then stay up in the chair. M4 PT-IP Mobility and Gait Start: 06/09/19 12:50 Freq: NEEDED Status: Active Protocol: Document 06/18/19 10:28 SP (Rec: 06/18/19 10:51 SP [id number]) PT-Bed Mobility Assessment Rolling Type of Rolling Roll to Right Supine to Sit Supine to Sit Moderate Assistance,2 Person Assistance Scooting Scooting to Edge of Bed Maximum Assistance PT-Transfer Assessment Sit to and From Stand Sit to and from Stand Maximum Assistance,2 Person Assistance Equipment Transfer Assistive Device Gait Belt Orthotic/Prosthetic Devices or Brace: No Transfers Transfer Destination Toilet Transfer Ability Level of Assist Maximum Assistance,2 Person Assistance Comments Mobility Comments Pt required Max cuing by therapist and for forward trunk flexion initially at EOB then standing tall ( forward shlds, flexed posture) PREDATORY GAME HUNTER then use FWW. Gait Assessment Gait Gait Assistance Required: Maximum Assistance,2 Person Assist Distance (Feet) 15 Assistive Devices Assistive Device None,Gait Belt,Front Wheeled Walker Orthotic/Prosthetic Devices or Brace: No Gait Deviations General Gait Pattern Antalgic,Ataxic,Decreased Stride Length,Decreased Feet Clearance,Festinating,Flexed Trunk,Lateral Trunk Lean, Narrow Based Gait,Step-to Gait Factors Limiting Gait Function Factors Limiting Gait Function Decreased Activity Tolerance, Decreased Strength,Difficulty Following Directions, Incoordination,Poor Balance, Poor Safety Awareness Comments Gait Comments Pt required max cues for upright posture, body spacial awareness, advancing BLE and directioning, initially PREDATORY GAME HUNTER then incorporated FWW for BUE WB allowin A Max A x2 for directioning. and therapist assisted. PT-Balance Assessment Sitting Balance and Reactions Static Sitting Balance Ability Poor Dynamic Sitting Balance Ability Poor Standing Balance and Reactions Static Standing Balance Ability Poor Dynamic Standing Balance Ability Poor Device Used PREDATORY GAME HUNTER and FWW M5 PT-IP Objective Assessments Start: 06/09/19 12:50 Freq: NEEDED Status: Active Protocol: Document 06/09/19 15:10 LRN (Rec: 06/09/19 15:38 LRN [id number]) Orientation Orientation/Cognition Level of Alertness Confusional State Orientation Name Language Function Ability Expressive Aphasia Safety Awareness Decreased Safety Awareness Comments Pt with Alzheimers dementia. Pt did not follow 1 step instructions and did not respond most of the time to questions or conversation. Spouse was present during therapy and answered questions . Gross Range of Motion Upper Extremity ROM Assessment Within Functional Limits Lower Extremity ROM Assessment Within Functional Limits Impairments Pt lacks normal ankle DF with the R worse than the L. Strength Upper Extremity Strength Assessment Within Functional Limits Lower Extremity Strength Assessment Within Functional Limits Comments Strength Comments Pt was not able to follow all of the time to accurately determine strength. M6 PT-IP Treatment Start: 06/09/19 12:50 Freq: NEEDED Status: Active Protocol: Document 06/09/19 15:10 LRN (Rec: 06/09/19 15:38 LRN [id number]) Physical Therapy Treatment Other Treatments Other Treatment Performed Sitting: Active and Active Resistive trunk flexion. M7 PT-IP Assessment and Plan Start: 06/09/19 12:50 Freq: NEEDED Status: Active Protocol: Document 06/18/19 10:28 SP (Rec: 06/18/19 10:51 SP [id number]) PT Summary Assessment and Plan Summary Assessment Summary Pt required increased A of 2 person for BM, transfers and gait with max cuing. Suggested using bed side commode if mobility is decreased. Utilized belt for safety. Goals Bed Mobility Goal Contact Guard Assistance, Minimal Assistance Transfer Goal Contact Guard Assistance, Minimal Assistance Gait Goal Minimal Assistance Gait Distance 100' Other Goals Up/Down 1 step with Min>Mod Assist. Days to Meet Goals 5 Frequency of Treatment Frequency Of Treatment Once a Day Treatment Plan Physical Therapy Treatment Plan Bed Mobility Training,Transfer Training,Gait Training, Therapeutic Exercise, Neuromuscular Re-ed Recommendations To Nursing Amount of Assist Needed 2 Person Assist Discharge Recommendations PT Discharge Recommendations Home with 26/03 Assist,Home Health
--- NOTE | 2019-06-18 10:40 | OT.IP.TRT ---
Current Diagnoses Hypo-osmolality and hyponatremia (06/08/19) Pneumonia, unspecified organism (06/08/19) Occupational Therapy Treatment Note M2 OT-IP Current Condition Start: 06/09/19 14:46 Freq: Status: Active Protocol: Document 06/10/19 14:38 [facility] (Rec: 06/10/19 15:09 [facility] [id number]) Occupational Therapy Current Condition Current Condition Evaluation Date 06/10/19 Treatment Diagnosis Pneumonia Diagnosis Onset Date 06/08/19 Weight Bearing Status Weight Bearing Status Weight Bear as Tolerated M3 OT- IP Subjective and Pain Start: 06/09/19 14:46 Freq: Status: Active Protocol: Document 06/18/19 10:40 [facility] (Rec: 06/18/19 13:34 [facility] [id number]) OT- Subjective Occupational Therapy Visit Type Type Administrative Note Notes Assisted nursing to get pt back from recliner to bed. Dependent x 1 stand pivot. No charge. M4 OT- IP ADL's Start: 06/09/19 14:46 Freq: Status: Active Protocol: Document 06/14/19 15:30 CGR (Rec: 06/14/19 15:38 CGR [id number]) OT [id number] Comments OT Self-Feeding Comments Not meal time OT ADL-Grooming Comments OT Grooming Comments Not performed OT ADL-Oral Care Comments Oral Care Comments Not performed OT ADL-Dressing Comments OT Dressing Comments Not performed OT ADL-Toileting General Evaluation Toileting Ability Maximum Assistance Devices Toileting Assistive Devices Grab Bars Comments OT Toileting Comments max a for pericare, mod a for clothing management. M5 OT- IP IADL's Start: 06/09/19 14:46 Freq: Status: Active Protocol: Document 06/10/19 14:38 [facility] (Rec: 06/10/19 15:09 [facility] [id number]) OT-Instrumental Activities of Daily Living Home Safety Awareness Awareness of Need for Assistance at Home Decreased Awareness Medication Management Medication Management Caregiver Administers Money Management Money Management Caregiver Provides Assistance Meal Preparation Meal Preparation Caregiver Provides Assist Trauma Nurse Trauma Nurse Caregiver Provides Assist M6 OT- IP Functional Cognition Start: 06/09/19 14:46 Freq: Status: Active Protocol: Document 06/14/19 15:30 CGR (Rec: 06/14/19 15:38 CGR [id number]) Cognitive Factors Limiting Selfcare Function Cognitive Ability Level of Alertness Confusional State Patient Orientation Name Attention Span Ability Unable to Focus,Unable to Sustain Attention Ability to Follow Commands Able to Follow One Step Commands with Increased Time, Able to Follow One Step Commands with Repetition Memory Description Immediate Impaired,Short Term Impaired,Dye Range Operator Impaired, Working Impaired Cognitive Comments Cognitive Assessment Comments Pt with advanced dementia OT- Vision and Hearing OT- Hearing Assessment OT- Hearing Assessment Use of Hearing Aids OT- Vision Assessment Visual Acuity Glasses All The Time M7 OT- IP Mobility and Balance Start: 06/09/19 14:46 Freq: Status: Active Protocol: Document 06/14/19 15:30 CGR (Rec: 06/14/19 15:38 CGR [id number]) OT- Bed Mobility Assessment Supine to Sit Supine to Sit Assist Moderate Assistance Scooting Scooting to Edge of Bed Moderate Assistance OT-Transfer Assessment Sit to and From Stand Sit to and from Stand Minimal Assistance Transfers Transfer Ability Contact Guard Assistance Technique Transfer Destination Bed,Chair,Toilet Transfer Technique Stand Pivot Devices Transfer Assistive Devices Gait Belt Comments Mobility Comments Started with FWW but pt does better with hand held assist. OT- Gait Assessment Gait Gait Assistance Required: Contact Guard Assist Assistive Devices Assistive Device Gait Belt Comments Gait Ability Comments Pt ambulated around the room with CGA OT- Balance Assessment Sitting Balance and Reactions Static Sitting Balance Ability Good Dynamic Sitting Balance Ability Fair M8 OT- IP Objective Assessments Start: 06/09/19 14:46 Freq: Status: Active Protocol: Document 06/10/19 14:38 [facility] (Rec: 06/10/19 15:09 [facility] [id number]) OT Gross Range of Motion Upper Extremity Range of Motion Assessment Left Impaired ROM Impairments RUE 0-100, LUE 0-95, per pt's at baseline for AROM. OT Strength Comments Strength Comments BUE 4/5 M9 OT- IP Assessment and Plan Start: 06/09/19 14:46 Freq: Status: Active Protocol: Document 06/14/19 15:30 CGR (Rec: 06/14/19 15:38 CGR [id number]) OT Summary Assessment and Plan Potential Rehabilitation Potential Good Analytic Complexity at Evaluation Low Summary OT Impairments Balance,Functional Mobility, Dressing,Toileting,Bathing, Toilet Transfers,Shower Transfers Progress Towards Goals Progressing Toward Goals Assessment Summary Pt feeling confident that she will be able to assist pt when he is medically stable to go home. Home health is still remommended to help look at safety needs in the home for ADl needs. Pt and family would lauren solano from a ramp entry after discussion with PAugustin. Goals Grooming Goal Moderate Assistance Dressing Goal Moderate Assistance Toileting Goal Moderate Assistance Toilet Transfer Goal Minimal Assistance Shower Transfer Goal Moderate Assistance Patient/Caregiver Education Goal Caregiver Independent Assisting Patient Days to Meet Goals 2 Frequency of Treatment Frequency Of Treatment Once a Day Treatment Plan OT Treatment Plan ADL Training,Functional Mobility,Patient/Family Education,Discharge Planning Other Treatment Recommendations and Next Caregiver training/shower Treatment Focus Discharge Recommendations OT Discharge Recommendations Home with 26/03 Assist,Home Health Home Equipment Needs FWW
[2019-06-18 12:00] VITALS: BP 142/60; PULSE 101; RESP 16; TEMP 36.8; O2SAT 95
--- NOTE | 2019-06-18 13:35 | OT.IP.TRT ---
Current Diagnoses Hypo-osmolality and hyponatremia (06/08/19) Pneumonia, unspecified organism (06/08/19) Occupational Therapy Treatment Note M2 OT-IP Current Condition Start: 06/09/19 14:46 Freq: Status: Active Protocol: Document 06/10/19 14:38 [facility] (Rec: 06/10/19 15:09 [facility] [id number]) Occupational Therapy Current Condition Current Condition Evaluation Date 06/10/19 Treatment Diagnosis Pneumonia Diagnosis Onset Date 06/08/19 Weight Bearing Status Weight Bearing Status Weight Bear as Tolerated M3 OT- IP Subjective and Pain Start: 06/09/19 14:46 Freq: Status: Active Protocol: Document 06/18/19 10:40 [facility] (Rec: 06/18/19 13:34 [facility] [id number]) OT- Subjective Occupational Therapy Visit Type Type Administrative Note Notes Assisted nursing to get pt back from recliner to bed. Dependent x 1 stand pivot. No charge.
--- NOTE | 2019-06-18 14:17 | PC.NURSE ---
Discharge Note: Pt with uneventful shift. Pt helped to the bathroom with PT and LOG YARD DERRICK OPERATOR. Large BM in bathroom. Pt's at bedside and participating in planning and care management. Discharge orders received. Pt slightly fatigued after transferring to bathroom and chair. Helped back to bed but required more assistance than is normally required for mobility. Pt's stated that she thought he was overwhelmed by the number of people and activity in room, and that he normally takes naps after breakfast. Pt allowed to rest and then had lunch. Pt then discharged without incident to private vehicle. Pt's states that her daughter lives with them exhibits curator and will be able to assist with care when needed. Arrangements for home health and PT/OT made by care management. Pt discharged to private vehicle without incident this shift.
== END 2019-06-18 14:15 | disposition home health service (06) | DRG 194 ==
LOC: ED 12:29 → AC 12:35
PROVIDERS: Family Medicine; Admitting Provider Student in an Organized Health Care Education/Training Program; Emergency Provider Emergency Medicine; PCP Family Medicine; Visit Provider Student in an Organized Health Care Education/Training Program
DX: J18.9 Pneumonia, unspecified organism (principal); E46 Unspecified protein-calorie malnutrition; E22.2 Syndrome of inappropriate secretion of antidiuretic hormone; G30.9 Alzheimer's disease, unspecified; F02.80 Dementia in other diseases classified elsewhere, unspecified severity, without behavioral disturbance, psychotic disturbance, mood disturbance, and anxiety; E87.8 Other disorders of electrolyte and fluid balance, not elsewhere classified; I48.0 Paroxysmal atrial fibrillation; E78.5 Hyperlipidemia, unspecified; E03.9 Hypothyroidism, unspecified; N40.1 Benign prostatic hyperplasia with lower urinary tract symptoms; R33.9 Retention of urine, unspecified; R32 Unspecified urinary incontinence; R53.1 Weakness; R15.9 Full incontinence of feces; H61.23 Impacted cerumen, bilateral; K52.9 Noninfective gastroenteritis and colitis, unspecified; Z68.22 Body mass index [BMI] 22.0-22.9, adult; R19.7 Diarrhea, unspecified; L30.9 Dermatitis, unspecified
CPT/HCPCS: 36415; 71046; 71250; 80048; 80053; 81003; 81015; 83605; 83880; 83935; 84145; 84300; 84443; 85025; 85610; 85730; 87040; 87045; 87070; 87086; 87147; 87177; 87205; 87400; 87502; 87899; 92526; 92610; 93005; 93306; 94760; 94762; 96365; 96366; 96367; 96368; 97116; 97162; 97165; 97530; 97535; 99285; J0696; J1956; Q9957

== ENCOUNTER 2019-07-19 00:59 | Inpatient (IN) | payer MEDICARE, OTHER, SELFPAY ==
[2019-06-08 15:55] VITALS: BMI 21.6
[2019-07-19] VITALS (23 sets, daily range): BP systolic 104–161; BP diastolic 46–74; PULSE 70–92; RESP 12–20; TEMP 36.1–37.6; O2SAT 89–100; BMI 23.8
--- NOTE | 2019-07-19 | DI.RAD.S_ITS ---
PROCEDURE: XR PELVIS 1-2V INDICATIONS: INTER OP TECHNIQUE: Intra-operative view of the pelvis and hip acquired. COMPARISON: [facility], CR, XR HIP W PEL IF DONE LT 2V, 07/19/2019, 1:07. FINDINGS: Bones: Intraoperative devices prior to placement of arthroplasty prostheses are in expected positions. No fractures or suspicious bony lesions. Soft tissues: Overlying surgical retractors are present, along with other intraoperative changes. IMPRESSION: Intraoperative images obtained during the patient's left hip arthroplasty. Dictated by: Bipin Kraus M.D. on 07/19/2019 at 15:48 Approved by: Bipin Kraus M.D. on 07/19/2019 at 15:48
--- NOTE | 2019-07-19 | DI.RAD.S_ITS ---
PROCEDURE: XR PELVIS 1-2V INDICATIONS: POST OP TECHNIQUE: 1 view of the lower pelvis acquired. COMPARISON: [facility], , XR PELVIS 1-2V, 07/19/2019, 16:14. FINDINGS: Bones: Patient is status post left hip arthroplasty, with hardware components in expected positions. The hip joint appears congruent. The visualized bony structures appear intact. Soft tissues: Overlying postoperative changes are noted. No suspicious soft tissue densities. Expected postoperative changes within the overlying soft tissues of the left hip are present related to the patient's left hip arthroplasty. There is a soft tissue air and edema. Skin karli are noted. No unexpected radiopaque foreign bodies are identified. A very large amount of stool is seen within the rectal vault. Scattered vascular calcifications are present. IMPRESSION: 1. Expected postoperative changes related to a left hip arthroplasty. 2. Large amount of stool within the rectal vault may represent constipation or early fecal impaction. Please correlate clinically. Dictated by: Bipin Kraus M.D. on 07/19/2019 at 16:52 Approved by: Bipin Kraus M.D. on 07/19/2019 at 16:53
--- NOTE | 2019-07-19 01:05 | DI.RAD.S_ITS ---
PROCEDURE: XR HIP W PEL IF DONE LT 2V INDICATIONS: fall with left hip pain TECHNIQUE: 2 views of the hip were acquired. COMPARISON: None. FINDINGS: Bones: A transverse fracture is identified extending through the left femoral neck with superior displacement of the distal larger fracture fragment by as much as 2 cm. No dislocation is evident. No definite suspicious osseous lesions are appreciated. However, the femoral neck region is not well seen on this exam. No additional displaced pelvic fractures are evident. Soft tissues: A large amount of stool seen within the rectal vault. Otherwise, no suspicious soft tissue calcifications or masses. IMPRESSION: 1. Left femoral neck fracture. 2. Large amount of stool within the rectal vault may represent early fecal impaction or constipation. Note: The preliminary ED physician interpretation and the final report are concordant. Dictated by: Bipin Kraus M.D. on 07/19/2019 at 7:04 Approved by: Bipin Kraus M.D. on 07/19/2019 at 7:06
--- NOTE | 2019-07-19 01:30 | PC.NURSE ---
Patient's daughter at bedside.
--- NOTE | 2019-07-19 01:39 | ED_ITS ---
HPI - Fall General Chief Complaint: Fall Stated Complaint: GLF, Left hip pain Time Seen by Provider: 07/19/19 01:03 Source: family and EMS Mode of arrival: EMS History of Present Illness HPI Narrative: Patient is a 78-year-old male with history of dementia and atrial fibrillation presenting with ground level fall and left hip pain. He got up to use the restroom when he fell he called for his who found him on the ground. He is unable to ambulate. Left leg is shortened. No head injury or loss of consciousness. He is on aspirin but no other anticoagulation medication. Admitted in June for pneumonia and hyponatremia. Patient is a poor historian but denies any all other pain or injury. MD complaint: fall Onset (ago): minute(s) Fall from: standing Related Data Home Medications Medication Instructions Recorded Confirmed aspirin 81 mg PO DAILY #0 03/13/11 06/08/19 Complete Multivitamin 1 tab PO DAILY 05/28/18 06/08/19 red yeast rice 600 mg PO DAILY 05/28/18 06/08/19 tamsulosin 2 cap PO DAILY 05/28/18 06/08/19 vitamin B complex 1 cap PO DAILY 05/28/18 06/09/19 darifenacin 7.5 mg PO DAILY 06/08/19 06/09/19 Previous Rx's Medication Instructions Recorded acetaminophen 650 mg PO Q6HR PRN #50 tab 05/30/18 latanoprost [Xalatan] 1 drops EYE-LEFT BEDTIME #1 ml 05/30/18 hydrocortisone 1 applic TOPICAL BID PRN 30 Days 06/18/19 #25 gram Allergies Allergy/AdvReac Type Severity Reaction Status Date / Time No Known Drug Allergies Allergy Verified 05/28/18 14:32 Review of Systems Review of Systems ROS Unobtainable: All systems reviewed & are unremarkable except as noted in HPI and below Constitutional Constitutional: Denies chills, Denies fever(s), Denies lethargy and Denies weakness Cardiovascular Cardiovascular: Denies chest pain, Denies irregular heart rhythm, Denies lightheadedness, Denies palpitations, Denies dyspnea, Denies dyspnea on exertion and Denies orthopnea Respiratory Respiratory: Denies cough, Denies dyspnea, Denies dyspnea on exertion and Denies wheezing Gastrointestinal Gastrointestinal: Denies abdominal pain, Denies change in bowel habits, Denies diarrhea, Denies nausea and Denies vomiting Genitourinary Genitourinary: Denies hematuria, Denies flank pain, Denies urinary incontinence and Denies urinary urgency Musculoskeletal Musculoskeletal: Reports as per HPI Integumentary/Breasts Skin/Breast: Denies pruritus, Denies erythema, Denies rash and Denies wounds Neurologic Neurologic: Denies weakness Endocrine Endocrine: Denies palpitations Allergic/Immunologic Allergic/Immunologic: Denies wheezing Patient History Medical History Depression (Chronic) Hyperlipidemia (Chronic) Hypothyroid (Chronic) Memory changes (Chronic) PSA elevation (Chronic) Urinary incontinence (Chronic) Surgical History No pertinent past surgical history (Acute) Social History household members: spouse and family Smoking Status: Former smoker alcohol intake: current alcohol intake frequency: 0-2 drinks per day Substance Use Type: does not use Exam Initial Vital Signs Initial Vital Signs: Vital Signs Temperature 97.8 F 07/19/19 01:00 Pulse Rate 84 07/19/19 01:00 Respiratory Rate 16 07/19/19 01:00 Blood Pressure 155/63 H 07/19/19 01:00 Pulse Oximetry 94 07/19/19 01:00 GENERAL: Alert pleasant elderly male HEENT: Head atraumatic,EOMI, pupils reactive, face symmetric, no vertebral tenderness no step-off CARDIOVASCULAR: Regular rate and rhythm without murmurs, rubs or gallops. RESPIRATORY: Breath sounds equal bilaterally, no wheezes rales or rhonchi. ABDOMEN: Soft, nontender. Normoactive bowel sounds all 4 quadrants. No guarding or rebound. EXTREMITIES: Normal range of motion, no clubbing or edema. 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 Course Orders Ordered: ED Orders 07/19/19 01:05 XR hip w pel if done LT 2V Stat 07/19/19 01:36 EKG-12 Lead Stat 07/19/19 02:05 Complete Blood Count AUTO DIFF Stat Comprehensive Metabolic Panel Stat Partial Thromboplastin Time Stat Prothrombin Time INR Stat 07/19/19 04:00 Consult to Orthopedic Surgery Routine Acetaminophen (Tylenol) 650 mg PO Q6HR PRN PRN Reason: As Needed for Fever/Mild Pain Sodium Chloride (Normal Saline 0.9%) 1,000 mls @ 125 mls/hr IV CONT RM Morphine Sulfate (Morphine) 2 mg IV Q4HR PRN PRN Reason: Pain, Moderate (4-6) Ondansetron HCl (Zofran) 4 mg IV Q4HR PRN PRN Reason: Nausea And Vomiting Discontinued Medications Lidocaine HCl (Urojet) 5 ml TOP NOW ONE Stop: 07/19/19 02:24 Last Admin: 07/19/19 02:40 Dose: 5 ml Documented by: PAMELA Morphine Sulfate (Morphine) 2 mg IV NOW ONE Stop: 07/19/19 01:29 Last Admin: 07/19/19 03:47 Dose: Not Given Documented by: PAMELA Consultations Consultation #1: Ortho Dr. Alcaraz, updated on patient's symptoms test results of with admission to Medicine NPO for likely OR today. Time: 02:22 Consultation #2: Dr. Irene updated on patient's symptoms test results agrees with admission Vital Signs Vital signs: Vital Signs - 8 hr 07/19/19 01:00 07/19/19 01:29 07/19/19 02:44 Temperature 97.8 F Pulse Rate 84 84 85 Respiratory Rate 16 18 16 Blood Pressure 155/63 H Blood Pressure [Right Arm] 161/64 H 147/63 H Pulse Oximetry 94 94 92 07/19/19 03:06 Temperature Pulse Rate Respiratory Rate Blood Pressure Blood Pressure [Right Arm] Pulse Oximetry 100 MDM - Fall Lab Data Attestation: I reviewed the patient's lab results. Result diagrams: 07/19/19 02:05 07/19/19 02:05 Labs: Lab Results 07/19/19 07/19/19 07/19/19 Range/Units 02:05 02:05 02:05 WBC 8.4 (4.5-11.0) X10^3/uL RBC 3.84 L (4.5-5.9) X10^6/uL Hgb 11.8 L (13.5-17.5) g/dL Hct 34.1 L (41-53) % MCV 88.9 (80-100) fL MCH 30.8 (26-34) PG MCHC 34.6 (30-36) % RDW 13.8 (11.6-14.8) % Plt Count 311 (150-400) X10^3/uL Neut % (Auto) 77.8 H (50-75) % Lymph % (Auto) 11.5 L (25-40) % [place] % (Auto) 9.7 (3-14) % Eos % (Auto) 0.4 L (2-4) % Baso % (Auto) 0.6 (0-2) % Neut # (Auto) 6500 (7705-7591) /uL Lymph # (Auto) 1000 L (7261-4891) /uL [place] # (Auto) 800 (0-900) /uL Eos # (Auto) 0 (0-450) /uL Baso # (Auto) 100 (0-100) /uL PT 11.0 (10.1-12.7) SECONDS INR 1.0 (0.9-1.3) APTT 29 (26.4-36.2) SECONDS Sodium 129 L (137-145) mmol/L Potassium 4.5 (3.4-5.1) mmol/L Chloride 94 L (98-107) mmol/L Carbon Dioxide 27 (22-32) mmol/L BUN 19 (9-20) mg/dL Creatinine 0.80 (0.66-1.25) mg/dL Estimated GFR > 60.0 (>60) mL/min BUN/Creatinine Ratio 23.8 H (6-22) Glucose 116 H (80-110) mg/dL Calcium 8.8 (8.4-10.2) mg/dL Total Bilirubin 0.5 (0.2-1.3) mg/dL AST 32 (17-59) IU/L ALT 16 (<50) IU/L Alkaline Phosphatase 63 (38-126) U/L Total Protein 7.1 (6.3-8.2) g/dL Albumin 4.1 (3.5-5.0) g/dL Globulin 3.0 (1.7-4.1) g/dL Albumin/Globulin Ratio 1.4 (1.0-2.8) Imaging Data Left hip:: Attestation: I personally reviewed and interpreted this imaging study as follows: My impression: Left femoral neck fracture ECG Data Attestation: I personally reviewed and interpreted this ECG as follows: Prior ECG tracings: available for review Interpretation: Sinus rhythm rate 84 p.r. interval [address] changes no T-wave inversions 06/08/2019 [facility] Narrative Medical decision making narrative: The patient's pain is relatively controlled he is actually able to bend his left knee. Peripheral pulses intact. Discharge Plan Departure Patient Disposition: Admitted As Inpatient Clinical Impression: Chronic hyponatremia Closed left hip fracture Qualifiers: Encounter type: initial encounter Qualified Code(s): S72.002A - Fracture of unspecified part of neck of left femur, initial encounter for closed fracture Discharge Date/Time: 07/19/19 03:50 Admit Date/Time: 07/19/19 03:36 Admit Provider: Fernando Irene
[2019-07-19 02:12] LABS: Add Manual Diff / Slide Review NO; Basophils Absolute Auto 100 /uL (0-100); Basophils Percent Auto 0.6 % (0-2); Eosinophils Absolute Auto 0 /uL (0-450); Eosinophils Percent Auto 0.4 % (2-4); Hematocrit 34.1 % (41-53); Hemoglobin 11.8 g/dL (13.5-17.5); Lymphocytes Absolute Auto 1000 /uL (1100-4500); Lymphocytes Percent Auto 11.5 % (25-40); Mean Corpuscular HGB Conc 34.6 % (30-36); Mean Corpuscular Hemoglobin 30.8 PG (26-34); Mean Corpuscular Volume 88.9 fL (80-100); Monocytes Absolute Auto 800 /uL (0-900); Monocytes Percent Auto 9.7 % (3-14); Neutrophils Absolute Auto 6500 /uL (1500-7000); Neutrophils Percent Auto 77.8 % (50-75); Platelet Count 311 X10^3/uL (150-400); Red Blood Cell Count 3.84 X10^6/uL (4.5-5.9); Red Cell Distribution Width 13.8 % (11.6-14.8); White Blood Cell Count 8.4 X10^3/uL (4.5-11.0)
[2019-07-19 02:21] LABS: PTT Partial Thromboplastin Tim 29 SECONDS (26.4-36.2)
[2019-07-19 02:24] LABS: Alanine Aminotransferase 16 IU/L (<50); Albumin 4.1 g/dL (3.5-5.0); Albumin Globulin Ratio 1.4 (1.0-2.8); Alkaline Phosphatase 63 U/L (38-126); Aspartate Aminotransferase 32 IU/L (17-59); BUN Creatinine Ratio 23.8 (6-22); Bilirubin Total 0.5 mg/dL (0.2-1.3); Blood Urea Nitrogen 19 mg/dL (9-20); Calcium 8.8 mg/dL (8.4-10.2); Carbon Dioxide 27 mmol/L (22-32); Chloride 94 mmol/L (98-107); Estimated Glomerular Filt Rate > 60.0 mL/min (>60); Glucose 116 mg/dL (80-110); HEMOLYSIS 24 (0-50); Potassium 4.5 mmol/L (3.4-5.1); Sodium 129 mmol/L (137-145); Total Protein 7.1 g/dL (6.3-8.2)
[2019-07-19] MEDS: LIDOCAINE 2% (UROJET) 5 ML GEL TOP (02:40)
--- NOTE | 2019-07-19 02:46 | PC.NURSE ---
Patient refusing pain medication. States he has no pain. Pillow given to support LLE. Tolerated placement of simpson well. Clear yellow urine returned with coude catheter.
[2019-07-19] MEDS: SODIUM CHLORIDE 0.9% 1,000 ML 125 ML IV ×3 (04:30→19:05)
--- NOTE | 2019-07-19 05:45 | PC.ADMIT ---
Safe hand off from ED. Pt brought to unit on stretcher and we used a slider board to transfer him to the bed. Pt VSS, lung sounds diminished bilaterally, pt was recently hospitalized at [facility] for bilateral pneumonia. O2 sats are 97% on 2 liters [place] Pt denies pain. Pt has simpson catheter, output blood tinged and brief placed on patient for stool incontinence. Pt has some dementia stated by . Pt is AxO to self w/ some confusion about where he is, why he's here and the month, date or year. Pt was educated about the use of call light, it's within reach, bed is low and locked. Latanoprost medication placed in night pharmacy. [address] A Drink Admission Note: The patient,Caleb Cross,78 y/o, was given written information regarding hospital policies, unit procedures and contact persons. Patient's smoking status: Former smoker. Vital Signs - 8 hr 07/19/19 01:00 07/19/19 01:29 07/19/19 02:44 Temperature 97.8 F Pulse Rate 84 84 85 Respiratory Rate 16 18 16 Blood Pressure 155/63 H Blood Pressure [Right Arm] 161/64 H 147/63 H Pulse Oximetry 94 94 92 07/19/19 03:06 07/19/19 03:48 07/19/19 04:00 Temperature 98.4 F 96.9 F L Pulse Rate 74 92 H Respiratory Rate 18 16 Blood Pressure 132/74 142/74 H Blood Pressure [Right Arm] Pulse Oximetry 100 96 95
--- NOTE | 2019-07-19 08:33 | P.CONS_ITS ---
History of Present Illness Consult details Date Patient Seen: 07/19/19 Time Patient Seen: 08:34 Chief complaint: GLF, Left hip pain Reason for consult: Displaced femoral neck fracture Narrative: Patient is a 78-year-old male who got to the bathroom last night. He had a ground level fall onto his left side and sustained a displaced femoral neck fracture. Patient has a history of dementia. Patient is not currently oriented to place or time. He complains of pain in the hip. He has not complained of any other extremity or axial pain. [facility] Medical History Depression (Chronic) Hyperlipidemia (Chronic) Hypothyroid (Chronic) Memory changes (Chronic) PSA elevation (Chronic) Urinary incontinence (Chronic) Surgical History No pertinent past surgical history (Acute) Social History household members: spouse and family Smoking Status: Former smoker alcohol intake: current Meds Home Medications and Allergies Home Medications Medication Instructions Recorded Confirmed Type aspirin 81 mg PO DAILY #0 03/13/11 07/19/19 History Complete Multivitamin 1 tab PO DAILY 05/28/18 07/19/19 History red yeast rice 600 mg PO DAILY 05/28/18 07/19/19 History tamsulosin 2 cap PO DAILY 05/28/18 07/19/19 History vitamin B complex 1 cap PO DAILY 05/28/18 07/19/19 History acetaminophen 650 mg PO Q6HR PRN #50 tab 05/30/18 07/19/19 Rx latanoprost [Xalatan] 1 drops EYE-LEFT BEDTIME #1 ml 05/30/18 07/19/19 Rx hydrocortisone 1 applic TOPICAL BID PRN 30 Days 06/18/19 07/19/19 Rx #25 gram Allergies Allergy/AdvReac Type Severity Reaction Status Date / Time No Known Drug Allergies Allergy Verified 05/28/18 14:32 Review of Systems Review of Systems ROS Unobtainable: unobtainable due to mental condition Exam Vital Signs (past 8 hours): - 07/19/19 01:00 07/19/19 01:29 07/19/19 02:44 Temperature 97.8 F Pulse Rate 84 84 85 Respiratory Rate 16 18 16 Blood Pressure 155/63 H Blood Pressure [Right Arm] 161/64 H 147/63 H Pulse Oximetry 94 94 92 07/19/19 03:06 07/19/19 03:48 07/19/19 04:00 Temperature 98.4 F 96.9 F L Pulse Rate 74 92 H Respiratory Rate 18 16 Blood Pressure 132/74 142/74 H Blood Pressure [Right Arm] Pulse Oximetry 100 96 95 Oxygen Delivery Method Nasal Cannula Oxygen Flow Rate 2 Narrative Exam Narrative: Oriented to person. Not oriented to place or time. Left lower extremity is shortened as compared to the right. Sensation grossly intact to the left lower extremity. Patient is able to dorsiflex plantar flexion and fire EHL. No open wounds about the hip. Objective Labs Result Diagrams: 07/19/19 02:05 07/19/19 02:05 Labs: Laboratory Results - last 24 hr 07/19/19 07/19/19 07/19/19 02:05 02:05 02:05 WBC 8.4 RBC 3.84 L Hgb 11.8 L Hct 34.1 L MCV 88.9 MCH 30.8 MCHC 34.6 RDW 13.8 Plt Count 311 Neut % (Auto) 77.8 H Lymph % (Auto) 11.5 L [place] % (Auto) 9.7 Eos % (Auto) 0.4 L Baso % (Auto) 0.6 Neut # (Auto) 6500 Lymph # (Auto) 1000 L [place] # (Auto) 800 Eos # (Auto) 0 Baso # (Auto) 100 PT 11.0 INR 1.0 APTT 29 Sodium 129 L Potassium 4.5 Chloride 94 L Carbon Dioxide 27 BUN 19 Creatinine 0.80 Estimated GFR > 60.0 BUN/Creatinine Ratio 23.8 H Glucose 116 H Calcium 8.8 Total Bilirubin 0.5 AST 32 ALT 16 Alkaline Phosphatase 63 Total Protein 7.1 Albumin 4.1 Globulin 3.0 Albumin/Globulin Ratio 1.4 Assessment & Plan Assessment & Plan narrative: Patient is a 78-year-old male who had a ground level fall on his left side sustaining a displaced femoral neck fracture. Patient denies any previous history of left hip or groin pain. The patient also has history of dementia. Due to his dementia and no previous groin pain we will like to proceed with a left hip hemiarthroplasty. I will consent the when she is at bedside. -NPO -nonweightbearing left lower extremity Time Spent With Patient Time with patient: less than 15 minutes
--- NOTE | 2019-07-19 09:49 | PM.HP.1 ---
History of Present Illness History of Present Illness Date Patient Seen: 07/19/19 Time Patient Seen: 09:49 Chief complaint: GLF, Left hip pain Narrative: Patient is a 78-year-old patient of Dr. Abreu nurse who I am covering for who presents with ground level fall. Was getting up to go to the bathroom. usually helps him but did not wake up. As he was approaching the bed he fell. Appeared to trip. No other symptoms or signs. Was awake through the whole process. helped him up in the bed. Was unable to ambulate. Otherwise to peer normal. No history of other trauma. No other complaint or problem. Patient has been recently discharged from the hospital for pneumonia. Was getting better. Home health and just left the house. Ambulation seem better. He was more stable. Still was weak but was improving daily. Have been out of the house recently without other complaints or problems. He is not complaining of chest pain. Fevers chills or cough. Had no other complaint or problem. Past medical history: Alzheimer's dementia Hyperlipidemia Hypothyroidism History of atrial fibrillation GERD BPH Fecal incontinence Urinary incontinence Chronic alcoholism in remission Former smoker Past surgical history: Tonsillectomy Eye surgery Family history: Father: Heart attack Mother unknown cause. Brother lung cancer Social history to [place]. Retired longshoreman. Twelve years of education. Supportive children in town. Patient History Medical History Depression (Chronic) Hyperlipidemia (Chronic) Hypothyroid (Chronic) Memory changes (Chronic) PSA elevation (Chronic) Urinary incontinence (Chronic) Surgical History No pertinent past surgical history (Acute) Family & Social History Social History: household members spouse,family Prior Living Arrangements House Safety & Behavioral: Feels Safe in Current Yes Environment Been Physically Hurt or No Threatened By a Person Suicidal Ideation Description None Suicide Plan Description No Plan Tobacco & Substance use: Tobacco type cigarettes Smoking Status Former smoker alcohol intake current alcohol intake frequency a few times a week Substance Use Type does not use Meds Home Medications and Allergies Home Medications Medication Instructions Recorded Confirmed Type aspirin 81 mg PO DAILY #0 03/13/11 07/19/19 History Complete Multivitamin 1 tab PO DAILY 05/28/18 07/19/19 History red yeast rice 600 mg PO DAILY 05/28/18 07/19/19 History tamsulosin 2 cap PO DAILY 05/28/18 07/19/19 History vitamin B complex 1 cap PO DAILY 05/28/18 07/19/19 History acetaminophen 650 mg PO Q6HR PRN #50 tab 05/30/18 07/19/19 Rx latanoprost [Xalatan] 1 drops EYE-LEFT BEDTIME #1 ml 05/30/18 07/19/19 Rx hydrocortisone 1 applic TOPICAL BID PRN 30 Days 06/18/19 07/19/19 Rx #25 gram Allergies Allergy/AdvReac Type Severity Reaction Status Date / Time No Known Drug Allergies Allergy Verified 05/28/18 14:32 Review of Systems Review of Systems ROS Unobtainable: All systems reviewed & are unremarkable except as noted in HPI and below Exam Vital Signs (past 8 hours): - 07/19/19 02:44 07/19/19 03:06 07/19/19 03:48 Temperature 98.4 F Pulse Rate 85 74 Respiratory Rate 16 18 Blood Pressure 132/74 Blood Pressure [Right Arm] 147/63 H Pulse Oximetry 92 100 96 07/19/19 04:00 07/19/19 08:28 07/19/19 08:30 Temperature 96.9 F L 99.1 F Pulse Rate 92 H 78 Respiratory Rate 16 20 Blood Pressure 142/74 H 150/66 H Blood Pressure [Right Arm] Pulse Oximetry 95 89 L 96 Oxygen Delivery Method Nasal Cannula Oxygen Flow Rate 2 Narrative Exam Narrative: Alert elderly male interactive somewhat confused in no acute distress. HEENT exam pupils require spots of light no oral lesions. Mucous membranes moist. Neck supple without adenopathy JVD or bruits. Lungs are clear without rhonchi wheeze or crackles. Heart regular rate and rhythm without murmurs clicks rubs or gallops abdomen is soft positive bowel sounds nontender. Extremities without cyanosis clubbing edema. Did not move left leg. Moving all extremities except for left leg at this time due to pain. Neuro exam otherwise unremarkable. Nonfocal. Psychologically he is alert and oriented to self and . Knows he is in the hospital knows he broke his hip knows he had a fall. Thinks it is 1975 and he is in the [facility]. Psychologically appears fine. Objective Labs Result Diagrams: 07/19/19 02:05 07/19/19 02:05 Labs: Laboratory Results - last 24 hr 07/19/19 07/19/19 07/19/19 02:05 02:05 02:05 WBC 8.4 RBC 3.84 L Hgb 11.8 L Hct 34.1 L MCV 88.9 MCH 30.8 MCHC 34.6 RDW 13.8 Plt Count 311 Neut % (Auto) 77.8 H Lymph % (Auto) 11.5 L [place] % (Auto) 9.7 Eos % (Auto) 0.4 L Baso % (Auto) 0.6 Neut # (Auto) 6500 Lymph # (Auto) 1000 L [place] # (Auto) 800 Eos # (Auto) 0 Baso # (Auto) 100 PT 11.0 INR 1.0 APTT 29 Sodium 129 L Potassium 4.5 Chloride 94 L Carbon Dioxide 27 BUN 19 Creatinine 0.80 Estimated GFR > 60.0 BUN/Creatinine Ratio 23.8 H Glucose 116 H Calcium 8.8 Total Bilirubin 0.5 AST 32 ALT 16 Alkaline Phosphatase 63 Total Protein 7.1 Albumin 4.1 Globulin 3.0 Albumin/Globulin Ratio 1.4 Assessment & Plan Assessment & Plan narrative: Dementia. Quite severe. Family has elected for no treatment. Had seen a neurologist in the past. Will follow. History of atrial fibrillation. Appears to be in sinus rhythm at this time. Will follow closely after surgery. Have elected for no treatment in the past. Left hip fracture as per orthopedist will be operated on today. Hypoxia. Probably combination of immobility and recent history of pneumonia. Does not seem to be actively an issue but will follow. Will continue oxygen until surgery and then slowly wean once we get him up and mobilized a little more. If not will consider chest x-ray and further workup. History of pneumonia stable at this time. Does not appear to be actively an issue. Had been improving Ground level fall. Does not appear to be cardiac or neurologic probably secondary to weakness and poor decision-making secondary to his dementia. Hyponatremia. Longstanding. Certainly not worse will follow. Hypothyroidism. Patient has been considered to be euthyroid. Will continue off medication. Fecal and urinary incontinence. Will continue diapering certainly [place] until after surgery. Code status. Patient has had pulsed form signed confirmed with no code is the desired goal if occurrence happens Disposition is suspect will be here 3 days and then transfer to assisted rehab center when able.
--- NOTE | 2019-07-19 12:26 | CM.DANOTE ---
Addendum entered by Loreto Saha R.N. 07/19/19 15:15: Maryan from [facility] called back to let us know that they think they will be able to accept the patient but it will depend on post surgery PT/OT notes and patients needs following todays surgery. CM department to f/u with [facility] once patient has PT/OT evaluations. Loreto Saha RN Addendum entered by Loreto Saha R.N. 07/19/19 14:35: PASRR done. Original Note: DCP Assessment: EMR Reviewed: Patient is a 78 yr old male who was admitted for a GLF, Broken Lt Hip. PCP is Dr. Aguero. CM/RN met with patient and his Demi at the bedside and explained what CM/RN role is. patient has dementia and lives at home with his and adult daughter. Patient fell yesterday while at home and broke his hip and will need surgical repair today 07/19/2019. Patient was not alert or oriented at CM visit. CM/RN spoke with patients who is his DPOA about D/C planning options since patient was not able to participate. Patients and Dr. Irene both agree that patient will need a stay at SNF after surgical repair and a few days here at [facility] PT/OT will evaluate post surgery. CM/RN gave the patients the SNF medicare list to choose preferred option. She chose [facility]. CM/RN contacted [facility] they are reviewing for possible placement. Insurance: 1st: medicare 2nd: First choice. Plan: D/C to SNF when medically stable. [facility] reviewing. Loreto Saha RN Discharge Planning/Care Management CM Discharge Assessment Start: 07/19/19 12:22 Freq: Status: Active Protocol: Document 07/19/19 12:22 HS (Rec: 07/19/19 12:25 HS [id number]) Discharge Planning Assessment Assigned Materials And Processes Manager Loreto saha RN DPOA/Assigned Designee Name Demi Cross () Contact Information [phone] Advance Directives? Yes: POLST/DPOA, LIVING WILL, GDPOA Advance Directives on File No History Provided By Significant Other,Medical Record Has Patient been admitted in last 30 No days? Comment pt last IP admission was 2018 Prior Living Arrangements House Household Members spouse,family Type of transporation used prior to Relies on Others admit Independent with ADL's No Is patient alert and oriented? No: patient has dementia Needs Assistance With Bathing,Meal Prep,Home Chores / Shopping Caregiver for Another No DME Already Rented / Owned Bath Bench,FWW / Walker,Cane Comment Rarely uses cane, according to . Patient/Family Preference Halfway Facility Discharge Plan Halfway Facility Transportation Arrangement Family. Referrals Initiated Halfway Additional Comment Referral made to [facility], reviewing If patient plan is SNF: Has PASSR been Yes completed? Whiteboard Updated in Patient Room with Yes name and ext. # of Materials And Processes Manager Review Status In Process Next Review Type Continued Stay Review
--- NOTE | 2019-07-19 12:57 | PC.NURSE ---
Addendum entered by Michaelle Ritter R.N. 07/19/19 13:50: Large amount of leaking noted around penis. Brief soaked with bloody urine. Small amount of urine in catheter bag. [facility] provided. Urinary catheter balloon deflated, 4mls rec'd out. Inflated balloon with 10mls. report given to RADHA Krishna at 1352, and aware. Right heel red, blanchable, heels floated with pillows. Oral care provided. Original Note: Day Shift- Pt oriented to name, , age, situation, states he is in [facility], 1975. Whne asked how to get help, pt states I push the red button. High fall risk precautions in place, bed alarm on, call light within reach. Pt has not used call light this shift. Denies pain, able to slightly reposition using PANCHO bed tilt function, and pt denied pain. Pt able to wiggle toes and flex at ankle to bilateral feet. PPP, warm to touch. Pt's bilateral knees are bent, unable to assess length of legs. Pt's Demi at bedside this AM, update given, pt remains NPO, awaiting surgery this afternoon. Demi aware that consent for surgery needs to be signed after speaking to Dr. Alcaraz. She is aware this might happen on the unit versus in pre-op area. No other voiced concerns.
--- NOTE | 2019-07-19 15:00 | PC.NURSE ---
Patient just left for hip surgery. in room and signed consent for his surgery. o pain complaints
[2019-07-19] MEDS: LACTATED RINGERS 1,000 ML 42 ML IV ×2 (15:10→16:38)
[2019-07-19] MEDS: CEFAZOLIN 2 GM/100 ML FROZ.PIGGY IV ×2 (15:41→23:39)
[2019-07-19] MEDS: ROPIVACAINE 0.5% PF 20ML 60 ML, MORPHINE 4 MG, KETOROLAC 30 MG INJ (16:02)
[2019-07-19] MEDS: TRANEXAMIC ACID 1,000 MG VIAL 1000 MG IV ×2 (16:03→16:39)
--- NOTE | 2019-07-19 16:07 | SUR.OPER ---
Lateral on padded OR bed. Gel axillary roll. Arms secured on padded armboard with pillow supporting top arm. Padded hip positioner braces x4 - anterior and posterior chest and pelvis. Additional gel pad used anterior pelvis. Gel pad under bottom leg from knee to foot and secured with tape over sheet.
--- NOTE | 2019-07-19 17:05 | PM.OP.1 ---
Operative Date/Time/Diagnoses Date of procedure: 07/19/19 Time of procedure: 17:05 Pre-op diagnosis: Left displaced intra-capsular femoral neck fracture Post-op diagnosis: same Procedure & Clinicians Procedure: Left hip hemiarthroplasty Same procedure as scheduled: Yes Indications: Displaced left intra-capsular femoral neck fracture Surgeon: Rajesh Alcaraz Chemical Checker: Isaias Rutledge Anesthesia Type: General Operative Notes Closure Type: primary Specimen(s): none sent Prosthetic devices, grafts, tissues, transplants, or devices: [employer] Synergy high offset size 13 28 mm cobalt chrome head 28 mm inside diameter 48 mm outside diameter cobalt chrome shell ultra-high molecular weight polyethylene liner Applied: catheter Estimated Blood Loss (mL): 100 Blood products transfused: none Procedure in detail: The patient was met in the preoperative holding area with sinusitis remarkably MD all last minute questions were answered. Patient was then brought back in the operating room where the patient was placed under general anesthesia before being transferred onto the operating room table. Patient is a thin placed in the right lateral decubitus position all bony prominences were well padded. The left hip and leg were then prepped and draped in normal sterile fashion. A surgical time-out was then performed verifying side and site of surgery as well as the name and MRN of the patient. A 10 cm long incision was made over the greater trochanter at a 40 degree angle posteriorly. Incision was made using 10. Blade electrocautery was then used down to the level of the glute max fashion IT band. ID band was then split using sharp knife and the glue fascia was also split with the same night. The gluteus carole fibers and split using blunt dissection and electrocautery. The piriformis was then identified and released off the back of the greater trochanter. The short external rotators were also released. The capsule was incised using electrocautery and taken down off the back of the neck in 1 large flap. Both the piriformis and the capsule were then tagged. Corkscrew on power was then placed into the femoral head and the femoral head was removed. A freshening cut of the femoral neck was then performed using a reciprocating saw. A canal finer was then used followed by powered reamers up sizing from [id number] and 13. Broaches were then used sequentially in size from 05/13/2011 12 in . A 13 broach was then left in the canal and a calcar Reamer was then used to freshen up the calcar. A standard offset neck was then placed along with a 40 mm outside diameter bipolar head. This is then reduced and trialed through range of motion. Intraoperative x-ray was taken showing good canal fill. Intraoperative x-ray showed that we had decreased his offset as compared to his contralateral side. At this time we decided to select a 13 synergy high offset stem. The hip was then dislocated the broach was removed along with the bipolar head and neck. The final stem was then placed. The 40 mm outside diameter bipolar hemiarthroplasty head was then impacted onto the Guerrero taper of the neck. The hip was then reduced taken through range of motion. He was stable through range of motion without impingement. For flexion to 90? with internal rotation to approximately 80?. The surgical site was then thoroughly irrigated with normal saline local anesthetic was then injected. Nisreen the bone was then used to repair the capsule. A small drill hole was placed in the back of the trochanter and 1 of the limbs of the tagging suture for the piriformis then passed through the back of the trochanter using a [employer] suture Passer the other limb of the tag suture was then passed through the gluteus medius tendon insertion in the piriformis was repaired in this fashion. The ID band was then closed using interrupted 1. Vicryl suture. The gluteus carole fascia was then closed using a running locking 1. Vicryl suture. A 1. Vicryl was used in the fat layer followed by 2 0 Vicryl in the subcutaneous layer followed by sutures on skin and an Aquacel dressing Josiane then removed a hip abduction pillow was then placed and patient was transferred onto the hospital room bed. He was transferred to PACU in stable condition. Complications: none Post-operative Condition: stable Disposition: PACU Plan for aftercare: Posterior hip precautions. Weightbearing as tolerated left lower extremity. I anticipate patient will require halfway facility at time of discharge. We will him follow up in 2 weeks time for x-rays and wound check.
--- NOTE | 2019-07-19 20:27 | PC.NURSE ---
Pt off unit to [facility] dept at 1500 during shift change. Pt returned to unit at approx 1800. Drowsy, oriented to self and place. VSS. 2L NC sating high 90's. Drsg c/d/i. CMS+. Denies pain. Lowry draining erickson urine to gravity. IVF per orders. Bed alarm on. Call light within reach. Door open for close monitoring. Supportive at bedside.
[2019-07-20] VITALS (20 sets, daily range): BP systolic 103–142; BP diastolic 48–66; PULSE 88–135; RESP 18–24; TEMP 36.5–37.4; O2SAT 82–98
--- NOTE | 2019-07-20 00:01 | PC.NURSE ---
Addendum entered by Shannon Jimenes R.N. 07/20/19 06:21: Noted O2 sat to be at 89% so increased oxygen to 1.5L/min and sat still at 89% so increased to 2L. Original Note: Patient is oriented to self, birthdate, age and knows he is in the hospital following a fall but thought town was [place] and did not remember he had surgery. Breath sounds diminished and has intermittent moist sounding non productive cough. Oxygen at 1L/min per NC with sat of 96%. HRR and telemetry reading was SR w/1st degree AVB. Denies nausea. BT hypoactive; abdomen is soft. Indwelling catheter is patent; has hematuria but no clots noted. Dressing to left hip is CDI. Abductor pillow between legs. Has 1+ edema in bilateral feet. Needs assistance to reposition q2h as unable to turn himself. Wearing bilateral calf SCD's. Fall risk score is high and bed alarm is activated.
[2019-07-20] MEDS: SODIUM CHLORIDE 0.9% 1,000 ML 125 ML IV (03:37)
[2019-07-20 05:53] LABS: BUN Creatinine Ratio 13.8 (6-22); Blood Urea Nitrogen 11 mg/dL (9-20); Calcium 7.9 mg/dL (8.4-10.2); Carbon Dioxide 26 mmol/L (22-32); Chloride 98 mmol/L (98-107); Estimated Glomerular Filt Rate > 60.0 mL/min (>60); Glucose 114 mg/dL (80-110); HEMOLYSIS < 15 (0-50); Potassium 4.8 mmol/L (3.4-5.1); Sodium 131 mmol/L (137-145)
[2019-07-20] MEDS: CEFAZOLIN 2 GM/100 ML FROZ.PIGGY IV (08:35)
[2019-07-20] MEDS: HYDROCODONE/ACET 5/325 TABLET 1 TAB PO ×2 (08:36→13:57)
[2019-07-20] MEDS: TAMSULOSIN 0.4 MG CAPSULE 0.8 MG PO (08:36)
[2019-07-20] MEDS: ASPIRIN EC 81 MG TABLET PO (08:36)
[2019-07-20] MEDS: ENOXAPARIN 30 MG/0.3 ML SYRINGE SUBCUT (08:43)
--- NOTE | 2019-07-20 08:59 | PC.NURSE ---
Day Shift- Per Dr. Alcaraz at 0858, okay for pt to have ice pack intermittent to surgical site, Change activity order to activity as tolerated and weight bear as tolerated. Hip flexion no more than 90 degrees.
--- NOTE | 2019-07-20 09:25 | PM.PN.1 ---
Subjective Subjective Date Patient Seen: 07/20/19 Time Patient Seen: 09:25 Interval history: POD #1 from left hip hemiarthroplasty. No pain complaints this morning. Patient is oriented to place and person but is not oriented to time. Exam Vital Signs (past 8 hours): - 07/20/19 04:20 07/20/19 05:45 07/20/19 06:21 Temperature 98.5 F Pulse Rate 89 Respiratory Rate 19 Blood Pressure 142/66 H Pulse Oximetry 90 L 89 L 89 L 07/20/19 06:30 07/20/19 06:50 07/20/19 07:20 Temperature 99.3 F Pulse Rate 93 H Respiratory Rate 20 Blood Pressure 130/54 L Pulse Oximetry 88 L 97 94 07/20/19 08:34 07/20/19 08:45 Temperature Pulse Rate Respiratory Rate Blood Pressure Pulse Oximetry 97 97 Oxygen Delivery Method Nasal Cannula Oxygen Flow Rate 2 Narrative Exam Narrative: Dressings clean dry intact without strike through. Patient is able the dorsiflex plantar flex and fire EHL. Thigh is soft and nontender. Objective Labs Result Diagrams: 07/19/19 02:05 07/20/19 05:16 Labs: Laboratory Results - last 24 hr 07/20/19 05:16 Sodium 131 L Potassium 4.8 Chloride 98 Carbon Dioxide 26 BUN 11 Creatinine 0.80 Estimated GFR > 60.0 BUN/Creatinine Ratio 13.8 Glucose 114 H Calcium 7.9 L Assessment & Plan Assessment & Plan narrative: Patient is a 78-year-old male with dementia who sustained a left intracapsular femoral neck fracture. He is now postop day 1 from left hip hemiarthroplasty. Patient is weight-bearing as tolerated. Posterior hip precautions. Time Spent With Patient Time with patient: less than 15 minutes
--- NOTE | 2019-07-20 10:41 | PM.PN.1 ---
Subjective Subjective Date Patient Seen: 07/20/19 Time Patient Seen: 10:41 Interval history: Overall doing well. No major issues. Patient is not complaining of any pain. Not feeling any chest pain shortness of breath or other change. Has no complaints this morning. Exam Vital Signs (past 8 hours): - 07/20/19 04:20 07/20/19 05:45 07/20/19 06:21 Temperature 98.5 F Pulse Rate 89 Respiratory Rate 19 Blood Pressure 142/66 H Pulse Oximetry 90 L 89 L 89 L 07/20/19 06:30 07/20/19 06:50 07/20/19 07:20 Temperature 99.3 F Pulse Rate 93 H Respiratory Rate 20 Blood Pressure 130/54 L Pulse Oximetry 88 L 97 94 07/20/19 08:34 07/20/19 08:45 Temperature Pulse Rate Respiratory Rate Blood Pressure Pulse Oximetry 97 97 Oxygen Delivery Method Nasal Cannula Oxygen Flow Rate 2 Narrative Exam Narrative: Alert male in no acute distress Lungs are clear. Heart regular rate and rhythm. Abdomen is soft positive bowel sounds nontender neurologic exam peers be nonfocal he is alert awake and responsive Objective Labs Result Diagrams: 07/19/19 02:05 07/20/19 05:16 Labs: Laboratory Results - last 24 hr 07/20/19 05:16 Sodium 131 L Potassium 4.8 Chloride 98 Carbon Dioxide 26 BUN 11 Creatinine 0.80 Estimated GFR > 60.0 BUN/Creatinine Ratio 13.8 Glucose 114 H Calcium 7.9 L Assessment & Plan Assessment & Plan narrative: Hypoxia. Etiology is unclear but I suspect this is secondary to patient just being a little weak and not up we encouraged incentive spirometry. Discussed with . Hopefully once we get him ambulating things will go better. Lung exam looks normal and will have to follow. No other changes. Re-evaluate in a.m. hopefully will be off O2 by that time. Left hip fracture status post replacement. Physical therapy and further care by orthopedist. Is going to need senior care placement discussed with social service. They will be working on that today. Dementia. Stable. No changes at this time. Code status no code. Disposition hopefully discharge tomorrow Time Spent With Patient Time with patient: 15-24 minutes
--- NOTE | 2019-07-20 11:07 | OT.IP.EVAL ---
Surgery Performed Operation Date: 07/19/19 11:00 Actual Procedures p Hip Hemiarthroplasty(Left) - Rajesh Alcaraz MD Past Medical History (Last Reviewed 07/19/19 @ 08:35 by Rajesh Alcaraz MD) Depression (Chronic) Hyperlipidemia (Chronic) Hypothyroid (Chronic) Memory changes (Chronic) PSA elevation (Chronic) Urinary incontinence (Chronic) Surgical History (Last Reviewed 07/19/19 @ 01:50 by Torrie Morales DO) No pertinent past surgical history (Acute) Occupational Therapy Inpatient Evaluation/Re-Eval M1 PT/OT-IP Prior Functional Status Start: 07/20/19 11:41 Freq: NEEDED Status: Active Protocol: Document 07/20/19 11:41 CGR (Rec: 07/20/19 12:00 CGR [email or web address]) Medical Review Prior Functional Status Medical History Reviewed Yes Communication Pt is able to communicate effectively. Mobility and Gait Pt was SBA to min a with hand held assist by the . He does not use a cane or walker. Activities of Daily Living and IADL's Pt needed assist with bathing, and toileting but was able to dress and perform simple ADLs with VC and set up. Social History Household Members spouse,family Living Arrangements House Number of Floors (Floors) One Floor Number of Stairs To Enter/Railing? 1 step no rail. Home Environment High Toilet,Tub/Shower Home Equipment Straight Cane,Shower Seat with Backrest,Grab Bars In Shower Employment Status Retired Additional Social History Comment Pt has dementia and his is his time analysis clerk caregiver. M2 OT-IP Current Condition Start: 07/20/19 11:41 Freq: Status: Active Protocol: Document 07/20/19 11:41 CGR (Rec: 07/20/19 12:00 CGR [email or web address]) Occupational Therapy Current Condition Current Condition Evaluation Date 07/20/19 Treatment Diagnosis Fall with L hip fx s/p 07/19 L hip arthroplasty posterior. Diagnosis Onset Date 07/19/19 Post Operative Precautions Posterior Hip Precautions No Hip Flexion > 90 degrees,No Hip Internal Rotation,No Hip Adduction Weight Bearing Status Weight Bearing Status Weight Bear as Tolerated M3 OT- IP Subjective and Pain Start: 07/20/19 11:41 Freq: Status: Active Protocol: Document 07/20/19 11:41 CGR (Rec: 07/20/19 12:00 CGR [email or web address]) OT- Subjective Occupational Therapy Visit Type Type Initial Evaluation Visit Start Time 10:49 Visit Stop Time 11:07 Total Visit Minutes 18 Notes Cotreat with P.T. OT Pain Assessment Pain When Pain Assessed During Mobility Pain Present Pain Present Pain Reported Location Left Hip Scale Used unable to rate but states pain with movement. Management Techniques Distraction,Modification of Treatment,Re-positioning, Timing of Activity with Medications M4 OT- IP ADL's Start: 07/20/19 11:41 Freq: Status: Active Protocol: Document 07/20/19 11:41 CGR (Rec: 07/20/19 12:00 CGR [email or web address]) OT [id number] Comments OT Self-Feeding Comments not meal time OT ADL-Grooming Comments OT Grooming Comments performed iwth pt prior to OT services. OT ADL-Oral Care Comments Oral Care Comments performed iwth pt prior to OT services. OT ADL-Dressing General Eval Lower Body Dressing Ability Total Assistance Areas Needing Assistance Socks OT ADL-Toileting Comments OT Toileting Comments Pt with simpson OT ADL-Bathing Comments OT Bathing Comments Not performed in this session. M5 OT- IP IADL's Start: 07/20/19 11:41 Freq: Status: Active Protocol: Document 07/20/19 11:41 CGR (Rec: 07/20/19 12:00 CGR [email or web address]) OT-Instrumental Activities of Daily Living Deficits IADL Deficits Identified Deficits Home Safety Awareness Awareness of Need for Assistance at Home Decreased Awareness Ability to Problem Solve Emergency Unable to Problem Solve Situations Medication Management Medication Management Caregiver Administers Money Management Money Management Caregiver Provides Assistance Meal Preparation Meal Preparation Caregiver Provides Assist Cotton Candy Maker Cotton Candy Maker Caregiver Provides Assist Driving Driving Comments Pt does not drive. M6 OT- IP Functional Cognition Start: 07/20/19 11:41 Freq: Status: Active Protocol: Document 07/20/19 11:41 CGR (Rec: 07/20/19 12:00 CGR [email or web address]) Cognitive Factors Limiting Selfcare Function Cognitive Ability Level of Alertness Alert Patient Orientation Name,Birthday,Place Attention Span Ability Capable of Focused Attention, Capable of Sustained Attention Ability to Follow Commands Able to Follow One Step Commands with Increased Time, Able to Follow One Step Commands with Repetition Memory Description Immediate Impaired,Short Term Impaired,Nursing Home Impaired, Working Impaired Safety Awareness Decreased Recall of Precautions Cognitive Comments Cognitive Assessment Comments Pt has a diagnosis of advanced dementia OT- Vision and Hearing OT- Hearing Assessment OT- Hearing Assessment Use of Hearing Aids OT- Vision Assessment Visual Acuity Glasses All The Time Visual Attentiveness WFL Occular Pursuits WFL Visual Convergence WFL Visual [place] WFL Vision Assessment Comments Pt wears bifocals M7 OT- IP Mobility and Balance Start: 07/20/19 11:41 Freq: Status: Active Protocol: Document 07/20/19 11:41 CGR (Rec: 07/20/19 12:00 CGR [email or web address]) OT- Bed Mobility Assessment Scooting Scooting to Edge of Bed Maximum Assistance,1 Person Assistance OT-Transfer Assessment Sit to and From Stand Sit to and from Stand Maximum Assistance,2 Person Assistance Transfers Transfer Ability Maximum Assistance,2 Person Assistance Technique Transfer Destination Bed,Chair Transfer Technique Stand Step Pivot Devices Transfer Assistive Devices Gait Belt,Front Wheeled Walker Comments Mobility Comments Pt needed assist with weight shifting and encouragment to perform sit to stand. Pt needed the chair pulled up behind him as he started to sit prior to being infront of the chair and wouldn't return to full standing to take further steps dispite verbal cues. OT- Balance Assessment Sitting Balance and Reactions Static Sitting Balance Ability Good Dynamic Sitting Balance Ability Fair M8 OT- IP Objective Assessments Start: 07/20/19 11:41 Freq: Status: Active Protocol: Document 07/20/19 11:41 CGR (Rec: 07/20/19 12:00 CGR [email or web address]) OT Gross Range of Motion Upper Extremity Range of Motion Assessment Within Functional Limits OT Strength Upper Extremity Strength Assessment Within Functional Limits Comments Strength Comments grossly 4/5 OT- Coordination Assessment Upper Extremity Finger to Nose Test Within Functional Limits Finger Tapping Test Within Functional Limits OT-Muscle Tone Assessment Muscle Tone WNL Yes OT Sensation Assessment Comments Summary Comments No sensation deficits noted Edema Edema Absent M9 OT- IP Assessment and Plan Start: 07/20/19 11:41 Freq: Status: Active Protocol: Document 07/20/19 11:41 CGR (Rec: 07/20/19 12:00 CGR [email or web address]) OT Summary Assessment and Plan Potential Rehabilitation Potential Good Analytic Complexity at Evaluation Moderate Summary OT Impairments Pain,Strength,Balance, Functional Cognition, Functional Mobility,Self- Feeding,Grooming,Dressing, Toileting,Bathing,Toilet Transfers,Shower Transfers Progress Towards Goals Slow Progress due to Pain,Slow Progress due to Cognition Assessment Summary Pt presents as a moderate complexity evaluation s/p fall and L hip arthroplasty. Pt has posterior hip precautions and a history of dementia. Pt will benefit from OT services to address declines. Pt will likley do best with transfer to SNF for intensive rehab prior to returning home. Goals Grooming Goal Independent Dressing Goal Standby Assistance,Campground Hand, Sock Aid Toileting Goal Minimal Assistance Toilet Transfer Goal Minimal Assistance,Raised Toilet Seat,Grab Bars Days to Meet Goals 10 Frequency of Treatment Frequency Of Treatment Once a Day Treatment Plan OT Treatment Plan ADL Training,Functional Cognition Training,Functional Mobility,Patient/Family Education,Discharge Planning Other Treatment Recommendations and Next ADLs seated. Treatment Focus Discharge Recommendations OT Discharge Recommendations SNF Rehab Home Equipment Needs TBD
--- NOTE | 2019-07-20 12:18 | PT.IIE ---
Surgery Performed Operation Date: 07/19/19 11:00 Actual Procedures p Hip Hemiarthroplasty(Left) - Rajesh Alcaraz MD Surgical History (Last Reviewed 07/19/19 @ 01:50 by Torrie Morales DO) No pertinent past surgical history (Acute) Medical History (Last Reviewed 07/19/19 @ 08:35 by Rajesh Alcaraz MD) Depression (Chronic) Hyperlipidemia (Chronic) Hypothyroid (Chronic) Memory changes (Chronic) PSA elevation (Chronic) Urinary incontinence (Chronic) Physical Therapy Inpatient Evaluation/Re-Eval M1 PT/OT-IP Prior Functional Status Start: 07/20/19 11:41 Freq: NEEDED Status: Active Protocol: Document 07/20/19 11:44 AW (Rec: 07/20/19 12:17 AW [id number]) Medical Review Prior Functional Status Medical History Reviewed Yes Diet/Fluid Consistency Regular Communication Poor. Pt with dementia. Mobility and Gait Pt walked and transferred with spouse assist SBA to min A of hand hold assist. Activities of Daily Living and IADL's Setup assist required for dressing. Setup and some physical assist required for showering. Hygiene assist required for toileting Prior Functional Level (Other details) Pt with Alzheimer's dementia. Fecal and urinary incontinence at baseline Social History Household Members spouse,family Living Arrangements House Number of Floors (Floors) One Floor Number of Stairs To Enter/Railing? 1 [place], no railing. Home Environment High Toilet,Tub/Shower Home Equipment Straight Cane,Shower Seat with Backrest,Hand Held Shower, Grab Bars In Shower Employment Status Retired Additional Social History Comment Pt lives with his spouse, Ericka, who is his primary caregiver. His daughter and granddaughter also live in the house and provide occasional respite for Ericka. Pt had just closed with [facility] last week . M2 PT-IP Current Condition Start: 07/20/19 08:32 Freq: NEEDED Status: Active Protocol: Document 07/20/19 11:44 AW (Rec: 07/20/19 12:17 AW [id number]) Physical Therapy Current Condition Current Condition Evaluation Date 07/20/19 Treatment Diagnosis left hip fracture s/p hemiarthroplasty, impaired mobility. Precautions Posterior Hip Precautions No Hip Flexion > 90 degrees,No Hip Internal Rotation,No Hip Adduction Other Precautions Pt has SpO2 goal of 91%. Pt in abduction pillow. Weight Bearing Status Weight Bearing Status Weight Bear as Tolerated M3 PT-IP Subjective Start: 07/20/19 08:32 Freq: NEEDED Status: Active Protocol: Document 07/20/19 11:44 AW (Rec: 07/20/19 12:17 AW [id number]) Subjective Physical Therapy Visit Type Type Initial Evaluation Visit Start Time 10:22 Visit Stop Time 11:06 Total Visit Minutes 44 Number of CUTTING TORCH OPERATOR Visits 0 Physical Therapy Visit Comments Patient Comments Pt willing to work with therapy. Spouse at bedside encouraging pt to participate. Patient Goals Pt's spouse notes pt may require SNF rehab Therapy Pain Assessment Pain When Pain Assessed During Mobility Pain Present Pain Present Pain Reported FLACC Pain Scale Face Occasional grimace/frown Legs Uneasy, restless, tense Activity Squirming,shifting Cry No cry (awake or asleep) Consolability Reassurable with touch FLACC Total 4 M4 PT-IP Mobility and Gait Start: 07/20/19 08:32 Freq: NEEDED Status: Active Protocol: Document 07/20/19 11:44 AW (Rec: 07/20/19 12:17 AW [id number]) PT-Bed Mobility Assessment Supine to Sit Supine to Sit Maximum Assistance,1 Person Assistance,Head of Bed Elevated Scooting Scooting to Edge of Bed Maximum Assistance PT-Transfer Assessment Sit to and From Stand Sit to and from Stand Maximum Assistance,2 Person Assistance,Use of Upper Extremities Equipment Transfer Assistive Device Gait Belt,Front Wheeled Walker Orthotic/Prosthetic Devices or Brace: No Transfers Transfer Destination Chair Transfer Technique Stand Step Pivot Transfer Ability Level of Assist Maximum Assistance,2 Person Assistance,Use of Upper Extremities Comments Mobility Comments Pt completed supine to sit with HOB elevated and scooting toward EOB with max assist x 1 with use of draw sheet to pivot hips and pull to EOB. Pt was able to sit without UE support ~2 minutes. Pt completed sit to stand with max assist x 2. He then completed stand step pivot transfer to chair using FWW and max assist x 2 including assist to weight shift and advance each LE plus max verbal cues. Pt with decreased safety awareness - evident in attempts to sit during transfer before he was positioned in front of chair. Pt left in reclined chair with spouse attending, abduction pillow placed for precautions. Call light and table within reach. RN notified of vitals ( BP stable 116/56, 110/51; SpO2 91% on room air at rest to poor reading at 70% during transfer). Gait Assessment Comments Gait Comments See mobility comments Stair Climbing Assessment Comments Stair Climbing Comments Not assessed. PT-Balance Assessment Sitting Balance and Reactions Static Sitting Balance Ability Fair Dynamic Sitting Balance Ability Fair Standing Balance and Reactions Static Standing Balance Ability Poor Dynamic Standing Balance Ability Poor M5 PT-IP Objective Assessments Start: 07/20/19 08:32 Freq: NEEDED Status: Active Protocol: Document 07/20/19 11:44 AW (Rec: 07/20/19 12:17 AW [id number]) Orientation Orientation/Cognition Level of Alertness Confusional State Orientation Name,Birthday,Situation Language Function Ability Expressive Aphasia Safety Awareness Decreased Safety Awareness Memory Description Short Term Impaired,Jail Impaired Comments Pt able to follow 1-step instructions for MMT, but required spouse assist to answer most questions. Gross Range of Motion Upper Extremity ROM Assessment Bilaterally Impaired Lower Extremity ROM Assessment Bilaterally Impaired Strength Upper Extremity Strength Assessment Bilaterally Impaired Shoulder 4-/5 Elbow 4-/5 Hand 4/5 Lower Extremity Strength Assessment Bilaterally Impaired Comments Strength Comments RLE grossly 4-/5 to 4/5 Sensation Assessment Comments Sensation Comments Difficult to assess due to cognition, but no observable deficit on exam. M6 PT-IP Treatment Start: 07/20/19 08:32 Freq: NEEDED Status: Active Protocol: Document 07/20/19 11:44 AW (Rec: 07/20/19 12:17 AW [id number]) Physical Therapy Treatment Education Education Provided Precautions,Weight Bearing Status,Safety M7 PT-IP Assessment and Plan Start: 07/20/19 08:32 Freq: NEEDED Status: Active Protocol: Document 07/20/19 11:44 AW (Rec: 07/20/19 12:17 AW [id number]) PT Summary Assessment and Plan Potential Rehabilitation Potential Fair Status of Condition at Evaluation Evolving Summary Impairments Pain,ROM,Strength,Balance, Cognition,Bed Mobility, Transfers,Gait,Activity Tolerance Assessment Summary Pt is a 78 yo man seen for PT eval on POD1 following left hip hemiarthroplasty subsequent to a GLF at home. PLOF: Pt with dementia and required hand hold assist/min assist for ambulation without assistive device and setup assist for most ADL's. CLOF: Pt required max assist x 1 for bed mobility and mas assist x 2 for sit to stand and transfers. Pt is not safe for home environment and will require SNF rehab to reinforce posterior hip precautions, for strengthening, and to increase independence with transfers, ambulation. Goals Bed Mobility Goal Minimal Assistance Transfer Goal Minimal Assistance,Front Wheeled Walker Gait Goal Minimal Assistance,Front Wheel Walker Gait Distance 50 Other Goals up/down 1 step without railing min assist Days to Meet Goals 10 Frequency of Treatment Frequency Of Treatment Twice a Day Treatment Plan Physical Therapy Treatment Plan Bed Mobility Training,Transfer Training,Gait Training, Therapeutic Exercise,Balance Retraining,Post Op Education, Discharge Planning,Hot or Cold Pack,Neuromuscular Re-ed, Coordination Retraining,Manual Therapy Recommendations To Nursing Amount of Assist Needed 2 Person Assist,Mechanical Lift Discharge Recommendations PT Discharge Recommendations SNF Rehab
--- NOTE | 2019-07-20 16:12 | PT.IPTN ---
Surgery Performed Operation Date: 07/19/19 11:00 Actual Procedures p Hip Hemiarthroplasty(Left) - Rajesh Alcaraz MD Physical Therapy Treatment Note M2 PT-IP Current Condition Start: 07/20/19 08:32 Freq: NEEDED Status: Active Protocol: Document 07/20/19 11:44 AW (Rec: 07/20/19 12:17 AW [id number]) Physical Therapy Current Condition Current Condition Evaluation Date 07/20/19 Treatment Diagnosis left hip fracture s/p hemiarthroplasty, impaired mobility. Precautions Posterior Hip Precautions No Hip Flexion > 90 degrees,No Hip Internal Rotation,No Hip Adduction Other Precautions Pt has SpO2 goal of 91%. Pt in abduction pillow. Weight Bearing Status Weight Bearing Status Weight Bear as Tolerated M3 PT-IP Subjective Start: 07/20/19 08:32 Freq: NEEDED Status: Active Protocol: Document 07/20/19 16:03 AW (Rec: 07/20/19 16:12 AW [id number]) Subjective Physical Therapy Visit Type Type Treatment Note Visit Start Time 15:43 Visit Stop Time 15:58 Total Visit Minutes 15 Number of EARLY HEAD START DIRECTOR Visits 0 Physical Therapy Visit Comments Patient Comments Pt comfortable in chair, not ready to get back to bed yet. Therapy Pain Assessment Pain When Pain Assessed During Mobility Pain Present Pain Present Denied Pain M4 PT-IP Mobility and Gait Start: 07/20/19 08:32 Freq: NEEDED Status: Active Protocol: Document 07/20/19 16:03 AW (Rec: 07/20/19 16:12 AW [id number]) PT-Transfer Assessment Sit to and From Stand Sit to and from Stand Maximum Assistance,2 Person Assistance,Use of Upper Extremities Comments Mobility Comments Pt not interested in return to bed but agreed to work on sit to stand and standing tolerance. Pt attempted sit to stand x 4 but unable to achieve full extension. Standing attempts required max assist x 2 and max cues for placement of right foot and pushof with upper extremities. Pt reported no pain, but complained that he did not feel well and did not wish to continue. Repositioned pt in recliner with abduction pillow in place, call light and table within reach, and spouse at bedside. Communicated with NAC about need to use mechanical lift for return to bed. M5 PT-IP Objective Assessments Start: 07/20/19 08:32 Freq: NEEDED Status: Active Protocol: Document 07/20/19 11:44 AW (Rec: 07/20/19 12:17 AW [id number]) Orientation Orientation/Cognition Level of Alertness Confusional State Orientation Name,Birthday,Situation Language Function Ability Expressive Aphasia Safety Awareness Decreased Safety Awareness Memory Description Short Term Impaired,Circuit Court Clerk Impaired Comments Pt able to follow 1-step instructions for MMT, but required spouse assist to answer most questions. Gross Range of Motion Upper Extremity ROM Assessment Bilaterally Impaired Lower Extremity ROM Assessment Bilaterally Impaired Strength Upper Extremity Strength Assessment Bilaterally Impaired Shoulder 4-/5 Elbow 4-/5 Hand 4/5 Lower Extremity Strength Assessment Bilaterally Impaired Comments Strength Comments RLE grossly 4-/5 to 4/5 Sensation Assessment Comments Sensation Comments Difficult to assess due to cognition, but no observable deficit on exam. M6 PT-IP Treatment Start: 07/20/19 08:32 Freq: NEEDED Status: Active Protocol: Document 07/20/19 16:03 AW (Rec: 07/20/19 16:12 AW [id number]) Physical Therapy Treatment Education Education Provided Precautions,Weight Bearing Status,Safety M7 PT-IP Assessment and Plan Start: 07/20/19 08:32 Freq: NEEDED Status: Active Protocol: Document 07/20/19 16:03 AW (Rec: 07/20/19 16:12 AW [id number]) PT Summary Assessment and Plan Summary Assessment Summary Pt unable to bear weight this session, requiring max assist x 2 for multiple attempts to stand from chair. Discussed recommendation for SNF rehab with pt and spouse who are agreeable. They mentioned they have been talking with discharge planning as well. Goals Bed Mobility Goal Minimal Assistance Transfer Goal Minimal Assistance,Front Wheeled Walker Gait Goal Minimal Assistance,Front Wheel Walker Gait Distance 50 Other Goals up/down 1 step without railing min assist Days to Meet Goals 10 Frequency of Treatment Frequency Of Treatment Twice a Day Treatment Plan Physical Therapy Treatment Plan Bed Mobility Training,Transfer Training,Gait Training, Therapeutic Exercise,Balance Retraining,Post Op Education, Discharge Planning,Hot or Cold Pack,Neuromuscular Re-ed, Coordination Retraining,Manual Therapy Recommendations To Nursing Amount of Assist Needed Mechanical Lift Discharge Recommendations PT Discharge Recommendations SNF Rehab
--- NOTE | 2019-07-20 17:47 | RT ---
Spoke with RADHA Regalado about patient in light of his increasing oxygen demands and productive cough. Feel patient would benefit from a CXR as he recently had pneumonia and was still recovering from it prior to fracturing his hip. Feel patient could possibly be backsliding in regards to his respiratory status.
--- NOTE | 2019-07-20 17:58 | PC.NURSE ---
Addendum entered by Sabine Agrawal R.N. 07/20/19 21:11: Dr. Irene returned call and ordered CXR, Lasix and UA. Orders placed. HR has remained elevated 100-130 this evening. Paged rec VTO for Levaquin and 500 ml bolus tonight, Labs and EKG in AM. Original Note: Assumed care of pt at 1500. Pt sitting up in chair during bedside hand-off. 2L NC sats 92-97%. Denies chest discomfort of SOB. At approx 1750 pt started coughing after using I.S.; desat to 87%, coughing fit caused vomiting. R.T. witness event, suctioned right away. Dr. Irene paged to notify of event and request chest x-ray. Awaiting return call.
--- NOTE | 2019-07-20 18:06 | RT ---
Standing at nurses station with RADHA Regalado when patient had an episode of vomiting. This advertising copywriter immediately set up suction and suctioned patient's mouth obtaining a small amount of brown vomitus. Patient's gown was saturated with a large amount of brown vomitus. Before suctioning patient's mouth, patient did have a gurgly voice but this resolved after suction. Breath sounds remained the same after this event, again demonstrating diminished lung ely with some fine crackles. Patient 98% on 3 liters, weaned down to 2 liters and sats are 96%.
--- NOTE | 2019-07-20 18:51 | DI.RAD.S_ITS ---
PROCEDURE: XR CHEST 1V INDICATIONS: Crackles in lungs; increased cough TECHNIQUE: One view of the chest was acquired. COMPARISON: [facility], CR, XR CHEST 2V, 06/13/2019, 10:39. FINDINGS: Surgical changes and devices: None. Lungs and pleura: Hyperlucent lungs with coarse interstitial markings. Patchy bilateral lower lung alveolar opacities. Development of small left pleural effusion.. No pleural effusions or pneumothorax. Mediastinum: Mediastinal contours appear normal. Prominent central pulmonary arteries. Heart size is normal. Bones and chest wall: No suspicious bony lesions. Overlying soft tissues appear unremarkable. IMPRESSION: 1. Patchy bilateral alveolar opacities and small left effusion. This may be secondary to interstitial and alveolar edema versus infection and atelectasis. 2. Underlying features of moderate emphysema. Dictated by: Rhoda Castillo M.D. on 07/20/2019 at 19:30 Approved by: Rhoda Castillo M.D. on 07/20/2019 at 19:33
[2019-07-20 19:38] LABS: Appearance Urine UA SL CLOUDY; Bilirubin Urine UA NEGATIVE (NEGATIVE); Glucose Urine UA NEGATIVE (Negative); Ketones Urine UA NEGATIVE (NEGATIVE); Leukocyte Esterase Urine UA 1+ (NEGATIVE); Nitrite Urine UA NEGATIVE (Negative); Occult Blood Urine UA 3+ (Negative); Protein Urine UA 2+ (Negative); Specific Gravity Urine UA <=1.005 (1.000-1.035)
[2019-07-20 19:54] LABS: Color Urine UA Other
[2019-07-20 19:55] LABS: RBC Urine >100/HPF (0-5/HPF)
[2019-07-20 19:56] LABS: Bacteria Urine Moderate (10-30); Culture Indicated Urine Specimen Cultured; Squamous Epithelial Cell Urine 0-1 /HPF (0-5/HPF); WBC Urine 5-10/HPF (0-5/HPF)
[2019-07-20] MEDS: DOCUSATE 100 MG CAPSULE PO (20:18)
[2019-07-20] MEDS: FUROSEMIDE 20 MG/2 ML VIAL IV (20:18)
[2019-07-20] MEDS: LATANOPROST 1 EACH EYE-LEFT (20:19)
[2019-07-20] MEDS: SODIUM CHLORIDE 0.9% 500 ML IV (21:54)
[2019-07-20] MEDS: levoFLOXacin 500 MG/100 ML PIGGYBACK 100 MG IV (21:54)
[2019-07-21] VITALS (11 sets, daily range): BP systolic 134–159; BP diastolic 58–74; PULSE 74–100; RESP 17–20; TEMP 36.5–37.2; O2SAT 88–100
[2019-07-21 06:03] LABS: Add Manual Diff / Slide Review NO; Basophils Absolute Auto 100 /uL (0-100); Basophils Percent Auto 0.5 % (0-2); Eosinophils Absolute Auto 100 /uL (0-450); Eosinophils Percent Auto 0.9 % (2-4); Hematocrit 30.3 % (41-53); Hemoglobin 10.7 g/dL (13.5-17.5); Lymphocytes Absolute Auto 900 /uL (1100-4500); Lymphocytes Percent Auto 8.5 % (25-40); Mean Corpuscular HGB Conc 35.3 % (30-36); Mean Corpuscular Hemoglobin 31.3 PG (26-34); Mean Corpuscular Volume 88.7 fL (80-100); Monocytes Absolute Auto 1300 /uL (0-900); Monocytes Percent Auto 13.1 % (3-14); Neutrophils Absolute Auto 7900 /uL (1500-7000); Platelet Count 295 X10^3/uL (150-400); Red Blood Cell Count 3.41 X10^6/uL (4.5-5.9); White Blood Cell Count 10.3 X10^3/uL (4.5-11.0)
[2019-07-21 06:12] LABS: Blood Urea Nitrogen 18 mg/dL (9-20); Calcium 8.1 mg/dL (8.4-10.2); Carbon Dioxide 25 mmol/L (22-32); Chloride 95 mmol/L (98-107); Estimated Glomerular Filt Rate > 60.0 mL/min (>60); Glucose 121 mg/dL (80-110); HEMOLYSIS < 15 (0-50); Potassium 4.2 mmol/L (3.4-5.1); Sodium 127 mmol/L (137-145)
--- NOTE | 2019-07-21 07:21 | P.PN_ITS ---
Subjective Subjective Date Patient Seen: 07/21/19 Time Patient Seen: 07:21 Interval history: Patient denies pain. No fever /chills. Exam Vital Signs (past 8 hours): - 07/20/19 23:45 07/21/19 02:55 Temperature 98.5 F Pulse Rate 98 H Respiratory Rate 20 Blood Pressure 141/68 H Pulse Oximetry 97 96 Oxygen Delivery Method Nasal Cannula Oxygen Flow Rate 2 Narrative Exam Narrative: Left hip dressing is clean, dry and intact. Sensation grossly intact to light touch distal left lower extremity. Motor functions intact distal left lower extremity. Left leg is warm and dry. Objective Labs Result Diagrams: 07/21/19 05:49 07/21/19 05:49 Labs: Laboratory Results - last 24 hr 07/20/19 07/21/19 07/21/19 19:10 05:49 05:49 WBC 10.3 RBC 3.41 L Hgb 10.7 L Hct 30.3 L MCV 88.7 MCH 31.3 MCHC 35.3 RDW 14.0 Plt Count 295 Neut % (Auto) 77.0 H Lymph % (Auto) 8.5 L [place] % (Auto) 13.1 Eos % (Auto) 0.9 L Baso % (Auto) 0.5 Neut # (Auto) 7900 H Lymph # (Auto) 900 L [place] # (Auto) 1300 H Eos # (Auto) 100 Baso # (Auto) 100 Sodium 127 L Potassium 4.2 Chloride 95 L Carbon Dioxide 25 BUN 18 Creatinine 0.90 Estimated GFR > 60.0 BUN/Creatinine Ratio 20.0 Glucose 121 H Calcium 8.1 L Urine Color Other Urine Appearance Sl cloudy Urine pH 6.0 Ur Specific [place] <=1.005 Urine Protein 2+ H Urine Glucose (UA) Negative Urine Ketones Negative Urine Occult Blood 3+ H Urine Nitrate Negative Urine Bilirubin Negative Urine Urobilinogen 1.0 Ur Leukocyte Esterase 1+ H Urine RBC >100/hpf Urine WBC 5-10/hpf H Ur Squamous Epith Cells 0-1 /hpf Urine Bacteria Moderate (10-30) H Ur Culture Indicated? Specimen cultured Assessment & Plan Post-op Postoperative Procedures: Procedures Operation Date: 07/19/19 11:00 Actual Procedures Side Surgeon p Hip Hemiarthroplasty Left Rajesh Alcaraz MD Postop day 2 status post left total hip arthroplasty due to left displaced intracapsular femoral neck fracture. Weightbearing as tolerated. Posterior hip precautions. Mobilize with physical therapy. Possible discharge tomorrow if medically stable.
--- NOTE | 2019-07-21 07:49 | PM.PN.1 ---
Subjective Subjective Date Patient Seen: 07/21/19 Time Patient Seen: 07:49 Interval history: Patient was short of breath overnight, Lasix given x1. Pulse was running high last night, now normal. Afebrile. White count this morning is normal. Oxygen saturations dropped to 88% this morning, now 92, on 2 L of oxygen. Chest x-ray yesterday showed a small left pleural effusion significant for interstitial versus alveolar edema versus infiltrate versus atelectasis. Patient reports that he just feels tired this mornign and wants to go to sleep, denies pain or dyspnea. Appetite is good, no nausea or vomiting. Exam Vital Signs (past 8 hours): - 07/21/19 02:55 07/21/19 07:05 07/21/19 07:30 Temperature 98.5 F Pulse Rate 98 H Respiratory Rate 20 Blood Pressure 141/68 H Pulse Oximetry 96 88 L 92 Oxygen Delivery Method Nasal Cannula Oxygen Flow Rate 2 Narrative Exam Narrative: GENERAL: Alert but disoriented, appearing stated age and in no acute distress. HEENT: Head normocephalic/atraumatic. LUNGS: Diminished inspiratory effort, no wheezes, rhonchi or rales. CV: Normal S1 and S2 with regular rate and rhythm, no audible murmurs, rubs or gallops. ABDOMEN: Soft, non-tender, non-distended, no organomegaly. Positive bowel sounds. EXTREMITIES: SCDs in place, bandage, left hip. NEURO: Cranial nerves II through XII grossly intact, no focal deficits. SKIN: No concerning lesions. Objective Labs Result Diagrams: 07/21/19 05:49 07/21/19 05:49 Labs: Laboratory Results - last 24 hr 07/20/19 07/21/19 07/21/19 19:10 05:49 05:49 WBC 10.3 RBC 3.41 L Hgb 10.7 L Hct 30.3 L MCV 88.7 MCH 31.3 MCHC 35.3 RDW 14.0 Plt Count 295 Neut % (Auto) 77.0 H Lymph % (Auto) 8.5 L [place] % (Auto) 13.1 Eos % (Auto) 0.9 L Baso % (Auto) 0.5 Neut # (Auto) 7900 H Lymph # (Auto) 900 L [place] # (Auto) 1300 H Eos # (Auto) 100 Baso # (Auto) 100 Sodium 127 L Potassium 4.2 Chloride 95 L Carbon Dioxide 25 BUN 18 Creatinine 0.90 Estimated GFR > 60.0 BUN/Creatinine Ratio 20.0 Glucose 121 H Calcium 8.1 L Urine Color Other Urine Appearance Sl cloudy Urine pH 6.0 Ur Specific [place] <=1.005 Urine Protein 2+ H Urine Glucose (UA) Negative Urine Ketones Negative Urine Occult Blood 3+ H Urine Nitrate Negative Urine Bilirubin Negative Urine Urobilinogen 1.0 Ur Leukocyte Esterase 1+ H Urine RBC >100/hpf Urine WBC 5-10/hpf H Ur Squamous Epith Cells 0-1 /hpf Urine Bacteria Moderate (10-30) H Ur Culture Indicated? Specimen cultured Assessment & Plan Assessment & Plan narrative: 1. Hypoxia, worsened. X-ray nondiagnostic but there is a left pleural effusion that could be simply atelectasis from his surgery versus an infiltrate. He is certainly at risk for pneumonia with his recent infection and with his worsening dyspnea and oxgyen status, will continue prophylactic coverage with levofloxacin 750 mg p.o. q.day and watch closely over the next 24 hours. Will start incentive spirometry and continue OT/PT. If all is well, plan for [facility] to [facility] tomorrow. 2. Left hip fracture status post replacement. Occupational/physical therapy and orthopedist consulting. Plan for discharge to SNF tomorrow if medically stable. 3. Dementia. Stable. No changes at this time. 4. Hyponatremia/hypochloremia, chronic, at baseline. 5. Hypothyroidism, euthyroid, not requiring medication. 6. Paroxysmal atrial fibrillation, history, two lifetime episodes, watching closely. Due to age and infrequent episodes, patient is not being rate controlled and anticoagulated. DVT prophylaxis: Lovenox, SCDs Code: DNR/DNI Disposition: hopeful for transfer to SNF tomorrow.
[2019-07-21] MEDS: SODIUM CHLORIDE 0.9% FLUSH 10 ML IV ×2 (08:54→20:24)
--- NOTE | 2019-07-21 10:51 | CM.DPC ---
Addendum entered by Esthela Bansal R.N. 07/21/19 11:28: Did get in touch with Maryan at [facility] in admissions, and confirmed, they can accept patient tomorrow if medically stable. Original Note: DCP Cont: Met with patient and , Ericka. Patient had just been discharged from [facility], before sustaining a fall at home. very supportive. This classification case manager is familiar with patient and , from recent hospitalization. Verified with that [facility] is the facility of choice. Left a message with [facility] to confirm acceptance, have not yet heard back, but will call again. Patient would be eligible by tomorrow, according to Medicare guidelines. P: DCP to continue to follow and will follow up with [facility]. Esthela Bansal RN/[employer]
[2019-07-21] MEDS: ACETAMINOPHEN 325 MG TABLET 650 MG PO (11:32)
--- NOTE | 2019-07-21 12:26 | PC.NURSE ---
Swallowing: Patient's is here and assisting him with his lunch. This service writer advisor noted patient coughing frequently while eating. states he tends to pocket food sometimes. And at home sometimes he can eat a steak just fine, and other times coughs a lot. reports patient was seen by FINANCIAL SALES ASSISTANT last hospitalization for pneumonia w/ no diet changes at that time. This service writer advisor spoke w/ Dr Shepard and alerted her to concerns about potential aspiration. New order for FINANCIAL SALES ASSISTANT eval. Patient and aware of consult and agreeable.
--- NOTE | 2019-07-21 12:31 | PT-IP ANOTE ---
Pt sleeping soundly this AM. Discussed case with his nurse who requested to let him sleep.
--- NOTE | 2019-07-21 13:53 | OT.IP.TRT ---
Surgery Performed Operation Date: 07/19/19 11:00 Actual Procedures p Hip Hemiarthroplasty(Left) - Rajesh Alcaraz MD Occupational Therapy Treatment Note M2 OT-IP Current Condition Start: 07/20/19 11:41 Freq: Status: Active Protocol: Document 07/20/19 11:41 CGR (Rec: 07/20/19 12:00 CGR [email or web address]) Occupational Therapy Current Condition Current Condition Evaluation Date 07/20/19 Treatment Diagnosis Fall with L hip fx s/p 07/19 L hip arthroplasty posterior. Diagnosis Onset Date 07/19/19 Post Operative Precautions Posterior Hip Precautions No Hip Flexion > 90 degrees,No Hip Internal Rotation,No Hip Adduction Weight Bearing Status Weight Bearing Status Weight Bear as Tolerated M3 OT- IP Subjective and Pain Start: 07/20/19 11:41 Freq: Status: Active Protocol: Document 07/21/19 15:16 CCC (Rec: 07/21/19 15:29 CCC [email or web address]) OT- Subjective Occupational Therapy Visit Type Type Treatment Note Visit Start Time 13:53 Visit Stop Time 14:43 Total Visit Minutes 50 Occupational Therapy Visit Comments Patient Comments Pt needing encouragement from to get up. Patient/Caregiver Goals Pt wants to be able to go home . OT Pain Assessment Pain When Pain Assessed At Rest Pain Present Pain Present Denied Pain M4 OT- IP ADL's Start: 07/20/19 11:41 Freq: Status: Active Protocol: Document 07/21/19 15:16 [facility] (Rec: 07/21/19 15:29 [facility] [email or web address]) OT [id number] Comments OT Self-Feeding Comments Noted increased coughing after drinking liquids, BOND BROKER present to to eval pt for swallowing needs, however to come back later as pt needing to be cleaning up due to incontinence of bowel. OT ADL-Grooming General Evaluation Grooming Ability Moderate Assistance Comments OT Grooming Comments Pt with cues able to wash his mouth with wash cloth and needs MODA for completeness. OT ADL-Oral Care Comments Oral Care Comments Had to assist pt to use suction to help get secretions out of his mouth. Educated pt's to call for nursing to assist for suctioning as needed. OT ADL-Dressing General Eval Lower Body Dressing Ability Total Assistance Areas Needing Assistance Underpants/Brief OT ADL-Toileting General Evaluation Areas Needing Assistance Manage Clothing,Perform Perineal Hygiene Comments OT Toileting Comments Pt with simpson. Total assist for hygiene while supine in the bed. Use of wedge in between his legs while turning due to posterior hip precautions. OT ADL-Bathing Comments OT Bathing Comments Not performed in this session. M5 OT- IP IADL's Start: 07/20/19 11:41 Freq: Status: Active Protocol: Document 07/20/19 11:41 CGR (Rec: 07/20/19 12:00 CGR [email or web address]) OT-Instrumental Activities of Daily Living Deficits IADL Deficits Identified Deficits Home Safety Awareness Awareness of Need for Assistance at Home Decreased Awareness Ability to Problem Solve Emergency Unable to Problem Solve Situations Medication Management Medication Management Caregiver Administers Money Management Money Management Caregiver Provides Assistance Meal Preparation Meal Preparation Caregiver Provides Assist Roll Carrier Roll Carrier Caregiver Provides Assist Driving Driving Comments Pt does not drive. M6 OT- IP Functional Cognition Start: 07/20/19 11:41 Freq: Status: Active Protocol: Document 07/20/19 11:41 CGR (Rec: 07/20/19 12:00 CGR [email or web address]) Cognitive Factors Limiting Selfcare Function Cognitive Ability Level of Alertness Alert Patient Orientation Name,Birthday,Place Attention Span Ability Capable of Focused Attention, Capable of Sustained Attention Ability to Follow Commands Able to Follow One Step Commands with Increased Time, Able to Follow One Step Commands with Repetition Memory Description Immediate Impaired,Short Term Impaired,Jail Impaired, Working Impaired Safety Awareness Decreased Recall of Precautions Cognitive Comments Cognitive Assessment Comments Pt has a diagnosis of advanced dementia OT- Vision and Hearing OT- Hearing Assessment OT- Hearing Assessment Use of Hearing Aids OT- Vision Assessment Visual Acuity Glasses All The Time Visual Attentiveness WFL Occular Pursuits WFL Visual Convergence WFL Visual Marques WFL Vision Assessment Comments Pt wears bifocals M7 OT- IP Mobility and Balance Start: 07/20/19 11:41 Freq: Status: Active Protocol: Document 07/21/19 15:16 CCC (Rec: 07/21/19 15:29 CCC [email or web address]) OT- Bed Mobility Assessment Supine to Sit Supine to Sit Assist Maximum Assistance,2 Person Assistance OT-Transfer Assessment Sit to and From Stand Sit to and from Stand Maximum Assistance,2 Person Assistance Transfers Transfer Ability Maximum Assistance,2 Person Assistance Technique Transfer Destination Bed,Chair Transfer Technique Stand Step Pivot Devices Transfer Assistive Devices Gait Belt,Front Wheeled Walker Comments Mobility Comments MAX A X2 to get to the edge of bed , stand and transfer to recliner. Pt tends to lean into posterior tilt, assist for balance, moving and management of FWW, and to help lower to recliner. M8 OT- IP Objective Assessments Start: 07/20/19 11:41 Freq: Status: Active Protocol: Document 07/20/19 11:41 CGR (Rec: 07/20/19 12:00 CGR [email or web address]) OT Gross Range of Motion Upper Extremity Range of Motion Assessment Within Functional Limits OT Strength Upper Extremity Strength Assessment Within Functional Limits Comments Strength Comments grossly 4/5 OT- Coordination Assessment Upper Extremity Finger to Nose Test Within Functional Limits Finger Tapping Test Within Functional Limits OT-Muscle Tone Assessment Muscle Tone WNL Yes OT Sensation Assessment Comments Summary Comments No sensation deficits noted Edema Edema Absent M9 OT- IP Assessment and Plan Start: 07/20/19 11:41 Freq: Status: Active Protocol: Document 07/21/19 15:16 CCC (Rec: 07/21/19 15:29 CCC [email or web address]) OT Summary Assessment and Plan Potential Rehabilitation Potential Good Analytic Complexity at Evaluation Moderate Summary OT Impairments Pain,Strength,Balance, Functional Cognition, Functional Mobility,Self- Feeding,Grooming,Dressing, Toileting,Bathing,Toilet Transfers,Shower Transfers Progress Towards Goals Slow Progress due to Pain,Slow Progress due to Cognition Assessment Summary Continue to work with pt on increasing mobility, participation in ADl's and caregiver training with pt's while here in the hospital. Pt to go to skilled rehab when medically stable. Goals Grooming Goal Independent Dressing Goal Standby Assistance,Retail Salesworker, Sock Aid Toileting Goal Minimal Assistance Toilet Transfer Goal Minimal Assistance,Raised Toilet Seat,Grab Bars Days to Meet Goals 10 Frequency of Treatment Frequency Of Treatment Once a Day Treatment Plan OT Treatment Plan ADL Training,Functional Cognition Training,Functional Mobility,Patient/Family Education,Discharge Planning Discharge Recommendations OT Discharge Recommendations SNF Rehab Home Equipment Needs TBD
--- NOTE | 2019-07-21 14:20 | DIET.PN ---
Dietary Note Assessment: Mr. Cross is a 78 yom admitted for left hip pain due to a GLF. Pt was present during assessment. Reports he was just admitted x 1mo ago and has gained nearly 15 lb since discharge. His appetite is good. He has no N/V although he did experience some vomiting this morning which was initiated by uncontrollable coughing. He was assessed by respiratory therapy. HT: 170.18 WT: 71 kg UBW: 59.5 kg (x6 weeks ago) BMI: 24.5 Labs: Hgb: 10.7 Hct: 30.3 Na: 127 Gluc: 114-121 MNA: 12 Sudnay: 18 Nutrition Diagnosis: No nutrition DX Interventions: 1. Discussed appetite and PO's with . If PO's < 75% will initiate ONS ensure enlive with trays for nutrition support. Diet Order: General EER: Calories: 2100 hyacinth @ 30 hyacinth /kg Protein: 85-106 g @ 1.2-1.5 g/kg Monitoring/Evaluations: Weight, PO's, need for ONS enlive.
--- NOTE | 2019-07-21 14:46 | PT.IPTN ---
Surgery Performed Operation Date: 07/19/19 11:00 Actual Procedures p Hip Hemiarthroplasty(Left) - Rajesh Alcaraz MD Physical Therapy Treatment Note M2 PT-IP Current Condition Start: 07/20/19 08:32 Freq: NEEDED Status: Active Protocol: Document 07/20/19 11:44 AW (Rec: 07/20/19 12:17 AW [id number]) Physical Therapy Current Condition Current Condition Evaluation Date 07/20/19 Treatment Diagnosis left hip fracture s/p hemiarthroplasty, impaired mobility. Precautions Posterior Hip Precautions No Hip Flexion > 90 degrees,No Hip Internal Rotation,No Hip Adduction Other Precautions Pt has SpO2 goal of 91%. Pt in abduction pillow. Weight Bearing Status Weight Bearing Status Weight Bear as Tolerated M3 PT-IP Subjective Start: 07/20/19 08:32 Freq: NEEDED Status: Active Protocol: Document 07/21/19 14:46 DLM (Rec: 07/21/19 18:39 DLM [id number]) Subjective Physical Therapy Visit Type Type Treatment Note Visit Start Time 14:00 Visit Stop Time 14:46 Total Visit Minutes 46 Notes coordinated treatment with OT for pt safety and his limited activity tolerance Number of ENGINEERING ANALYST Visits 0 Therapy Pain Assessment Pain When Pain Assessed During Mobility Pain Present Pain Present Pain Reported Location Left Hip Intensity 0 Pain Behaviors Wincing Pain Management Techniques Re-positioning M4 PT-IP Mobility and Gait Start: 07/20/19 08:32 Freq: NEEDED Status: Active Protocol: Document 07/21/19 14:46 DLM (Rec: 07/21/19 18:39 DLM [id number]) PT-Bed Mobility Assessment Rolling Type of Rolling Roll to Left Level of Assist Maximal Assistance,2 Person Assistance Supine to Sit Supine to Sit Maximum Assistance,2 Person Assistance,Head of Bed Elevated Scooting Scooting to Edge of Bed Dependent Scooting Up and Down in Bed Dependent PT-Transfer Assessment Sit to and From Stand Sit to and from Stand Maximum Assistance,2 Person Assistance Equipment Transfer Assistive Device Gait Belt,Front Wheeled Walker Transfers Transfer Destination Chair Transfer Technique Stand Step Pivot Transfer Ability Level of Assist Maximum Assistance,2 Person Assistance Comments Mobility Comments foam wedge used for all rolling, pt incontinent of loose bowel and coordinated with nursing to clean him up before getting up to recliner, pt left in recliner with chair alarm on and his visiting. Gait Assessment Comments Gait Comments pt unable to ambulate Pt coughing up large amounts of mucos this visit intermittently into blue bag. PT-Balance Assessment Sitting Balance and Reactions Static Sitting Balance Ability Fair Dynamic Sitting Balance Ability Poor Standing Balance and Reactions Static Standing Balance Ability Poor Dynamic Standing Balance Ability Poor Device Used FWW M5 PT-IP Objective Assessments Start: 07/20/19 08:32 Freq: NEEDED Status: Active Protocol: Document 07/20/19 11:44 AW (Rec: 07/20/19 12:17 AW [id number]) Orientation Orientation/Cognition Level of Alertness Confusional State Orientation Name,Birthday,Situation Language Function Ability Expressive Aphasia Safety Awareness Decreased Safety Awareness Memory Description Short Term Impaired,Surveying Teacher Impaired Comments Pt able to follow 1-step instructions for MMT, but required spouse assist to answer most questions. Gross Range of Motion Upper Extremity ROM Assessment Bilaterally Impaired Lower Extremity ROM Assessment Bilaterally Impaired Strength Upper Extremity Strength Assessment Bilaterally Impaired Shoulder 4-/5 Elbow 4-/5 Hand 4/5 Lower Extremity Strength Assessment Bilaterally Impaired Comments Strength Comments RLE grossly 4-/5 to 4/5 Sensation Assessment Comments Sensation Comments Difficult to assess due to cognition, but no observable deficit on exam. M6 PT-IP Treatment Start: 07/20/19 08:32 Freq: NEEDED Status: Active Protocol: Document 07/21/19 14:46 DLM (Rec: 07/21/19 18:39 DL [id number]) Physical Therapy Treatment Exercises Exercises Ankle Pumps Education Education Provided Precautions,Safety Other Treatments Other Treatment Performed Ther ex- seated knee extension M7 PT-IP Assessment and Plan Start: 07/20/19 08:32 Freq: NEEDED Status: Active Protocol: Document 07/21/19 14:46 DLM (Rec: 07/21/19 18:39 [facility] [id number]) PT Summary Assessment and Plan Summary Impairments Pain,ROM,Strength,Balance, Cognition,Bed Mobility, Transfers,Gait,Activity Tolerance Progress Towards Goals Slow Progress due to Activity Tolerance Assessment Summary Caleb is alert this afternoon and willing to get up to recliner. He continues to needs max assist of two people for mobility. He participates in transfers but is not able to progress to gait yet. He does not complain of pain unless left LE is moved in certain positions during mobility. Pt had frequent cough this visit. Continue to recommend SNF rehab at discharge. Goals Bed Mobility Goal Minimal Assistance Transfer Goal Minimal Assistance,Front Wheeled Walker Gait Goal Minimal Assistance,Front Wheel Walker Gait Distance 50 Other Goals up/down 1 step without railing min assist Days to Meet Goals 10 Frequency of Treatment Frequency Of Treatment Twice a Day Treatment Plan Physical Therapy Treatment Plan Bed Mobility Training,Transfer Training,Gait Training, Therapeutic Exercise,Balance Retraining,Post Op Education, Discharge Planning,Hot or Cold Pack,Neuromuscular Re-ed Recommendations To Nursing Amount of Assist Needed 2 Person Assist,Mechanical Lift Discharge Recommendations PT Discharge Recommendations SNF Rehab
[2019-07-21] MEDS: levoFLOXacin 250 MG TABLET 750 MG PO (16:46)
[2019-07-21] MEDS: ENOXAPARIN 30 MG/0.3 ML SYRINGE SUBCUT (16:47)
[2019-07-21] MEDS: TAMSULOSIN 0.4 MG CAPSULE 0.8 MG PO (16:47)
[2019-07-21] MEDS: LATANOPROST 1 EACH EYE-LEFT (16:47)
[2019-07-21] MEDS: DOCUSATE 100 MG CAPSULE PO (16:47)
--- NOTE | 2019-07-21 17:11 | ST.IPIE ---
Visit Care Team Role Provider Type Su Aguero MD Primary Care Provider Physician Specialty: Family Practice Address: [address] [place] [address], [place], [address] Email: [email or web address] Rajesh Alcaraz MD Other Providers Physician Specialty: Orthopedic Surgery Address: [address] [place] [address], [id number] Email: [email or web address] Torrie Morales DO Emergency Provider Physician Specialty: Emergency Medicine Address: [address] [place] [address], [id number] Email: [email or web address] Admit Provider Physician Attending Provider Specialty: [facility] Address: [address] [place] [address], [id number] Email: [email or web address] Past Medical History (Last Reviewed 07/19/19 @ 08:35 by Rajesh Alcaraz MD) Depression (Chronic Medical) No current treatment Hyperlipidemia (Chronic Medical) No current treatment Hypothyroid (Chronic Medical) No current treatment Memory changes (Chronic Medical) With suspected dementia, possibly Alzheimer's type followed by local neurology PSA elevation (Chronic Medical) No recent lab values Urinary incontinence (Chronic Medical) Chronic persistent ST IP Initial Evaulation Report AIR CREW MEMBER Clinical Swallow Evaluation Start: 07/21/19 16:37 Freq: Status: Active Protocol: Document 07/21/19 16:37 SAMSON (Rec: 07/21/19 16:39 [facility]SON [email or web address]) Clinical Swallow Evaluation Session Time Visit Start Time 15:40 Visit Stop Time 16:35 Total Visit Minutes [address] Su Aguero Reason for Referral Dysphagia Setting Assessment Location Acute Care Visit Type Note Type Initial Evaluation Next Note Type Next Note Type Treatment Note Patient Information Identification Type Name,ID Card History 78-yr-old male with Alzheimer' s dementia recovering from hip surgery after a fall at home. Now with small left pleural effusion significant for interstitial versus alveolar edema versus infiltrate versus atelectasis, per chest x-ray taken yesterday. The pt was recently hospitalized (2018) for pneumonia. At that time, pt tended to eat impulsively and pocket occasionally at right buccal cavity, but no overt s/ sx of aspiration were observed and diet was not modified. The pt's reported occasional coughing with intake at home, but not consistently. Subjective Observations The pt was seen with present. He was sitting up in chair, boosted to center with pillows as he tends to list leftward. He was awake and alert, agreeable to swallow evaluation. Evaluation Liquids Trialed Thin,Darwin Solids Trialed Puree,Dysphagia Mechanical, Mechanical Soft Administration Type Cup Single Sip,Self-Feeding Oral Impairment Moderately Impaired Oral Strategies Upright at 90 degrees,Lingual Sweep,Controlled Bite/Sip Size ,Dementia Strategies Oral Phase Comments Oral peripheral exam: Moderately-severe lingual weakness and subsequent reduced ROM. Pt is able to perform lingual sweep bilaterally. Mild-moderately reduced lingual and buccal strength and coordination. Jaw strength, coordination and ROM is WFL. Mildly reduced hyolaryngeal elevation/ excursion observed via palpation. Soft palate elevates moderately with phonation. Pt wears full upper /lower dentures, good fitting. Oral Phase: Good anterior oral containment. Slowed bolus prep, a/p propulsion and swallow trigger. A/P propulsion of bolus is mashing in nature d/t lingual weakness, often with pt's head tilted upward, promoting early posterior escape to pharynx prior to swallow trigger. This increases the pt 's risk of aspiration. Mild oral residue at right teeth and buccal cavity was observed with most trials. Pt was able to follow cues for lingual sweep, which mostly cleared residue. Pharyngeal Impairment Mildly Impaired Pharyngeal Strategies Sitting Upright (90 deg),Chin Tuck,Small Bites and Sips Pharyngeal Phase Comments Delayed and immediate cough observed with 2 trials of thin liquid. No overt s/sx of aspiration with NTL, applesauce, diced peaches, and 1 bite of soft sandwich. Due to munching form of bolus prep with liquids, the pt was instructed to tuck chin with liquids to reduce risk of posterior spillage and subsequent aspiration, which he did with verbal cues. Other Observations: The pt followed all 1-step directions . The pt was observed by this AIR CREW MEMBER during last hospital stay to tend toward rapid consumption, which increased right side pocketing. Today the pt was instructed to put down his spoon after every bite, which he did and which maintained an appropriate rate of consumption. He tended to list to left despite pillow boosts, requiring occasional repositioning. He also tended to look upward while preparing boluses of solids, increasing risk of early posterior escape to pharynx. Findings Rehabilitation Potential Good Impressions The pt presents with moderate oral and mild pharyngeal dysphagia secondary to reduced strength and Alzheimer's dementia. Significantly reduced lingual strength impacts bolus formation and a/ p propulsion, likely allowing early escape of bolus to pharynx. Pt also exhibited immediate and delayed throat clearing with thin liquid, indicating incomplete airway protection and likely pharyngeal residue. He is at moderate risk of aspiration, which will hopefully reduce as the pt recovers from recent surgery and regains strength. However, modification of diet to protect airway and conserve energy is recommended at this time, as well as exercises to increase strength of swallow musculature, particularly with pt's diagnosis of progressive dementia. Diet Recommendations Liquids Order Darwin Diet Order Dysphagia Mechanical Comments Medications as tolerated in carrier Additional Dietary Needs Single Sips,1:1 Supervision, Reminders to Use Strategies Aspiration Precautions Recommended Precautions Upright at 90 Degrees,Small Bites/Sips,Chin Tuck,Lingual Sweep,Check for Pocketing, Liquids from Cup Additional Precautions Minimize distractions Treatment Plan Placement Recommendations after [facility] Facility Discharge Appropriate for Therapy Yes Therapy Recommendations Ongoing assessment of swallow safety and education to pt/ family. Training of compensatory swallow strategies and exercises to increase strength , coordination and ROM of swallow musculature. Dysphagia Goals 1. Pt will follow safe swallow strategies with verbal cuing to reduce risk of aspiration. 2. Pt will perform exercises to increase lingual and buccal strength and airway protection with 1:1 assistance . 3. Pt will tolerate least restrictive diet to meet his nutrition and hydration needs.
--- NOTE | 2019-07-21 21:42 | PC.NURSE ---
Evening note: Caleb is disoriented to place, time & situation, oriented to self & his birthdate. Latanya S.T. here to assess swallow, changing his diet to dysphagia with liquids nectar thick, saying he did pocket food in right cheek, needing 1:1 supervision with all meals. MAINTENANCE TRAINER in room to assist him with his dinner, no cough observed until about 25 minutes after he ate meal. He had intermittent productive cough for about 15 minutes, able to clear throat, spitting out clear phlegm. Oral care done, dentures taken out & cleaned, patient instructed to swish & spit multiple times after I noticed him chewing on small pieces salmon. Patient sat in recliner until about 1930 when the MAINTENANCE TRAINER & I used the michelle lift to transfer him to bed. here until about 1800 when left for the night, before she left she said do you want to give him his pills while I am still here? Since he refused meds earlier today I went ahead & gave him his levaquin, lovenox, ASA and other 2100 meds early, as they were either not given earlier today because he refused &/or Qday. He took meds one at a time in applesauce, needing cues to put chin down when swallowing. No observed cough with med pass. Since left, patient increasingly confused, took O2 NC off nares, RA oxygen maintaining 96% I left off O2 NC and rechecked him now with sat maintaining 92% Pt dozing at times, other times repeatedly pressing nurse call button, then appearing anxious when staff keep checking on him. He verbally denies pain, aqucel is dry/intact with small area of shadow drainage. CMS intact. Wearing foam wedge between knees, SCD's on bilaterally. Alarm active for safety & fall precautions in place.
[2019-07-22 00:45] VITALS: BP 120/85; PULSE 183; RESP 18; TEMP 37.1; O2SAT 92
[2019-07-22 04:00] VITALS: BP 138/65; PULSE 104; RESP 18; TEMP 37.1; O2SAT 92
[2019-07-22 06:11] LABS: Add Manual Diff / Slide Review NO; Basophils Absolute Auto 0 /uL (0-100); Basophils Percent Auto 0.3 % (0-2); Eosinophils Absolute Auto 100 /uL (0-450); Eosinophils Percent Auto 0.6 % (2-4); Hematocrit 29.6 % (41-53); Hemoglobin 10.2 g/dL (13.5-17.5); Lymphocytes Absolute Auto 1100 /uL (1100-4500); Lymphocytes Percent Auto 12.2 % (25-40); Mean Corpuscular HGB Conc 34.3 % (30-36); Mean Corpuscular Hemoglobin 30.7 PG (26-34); Mean Corpuscular Volume 89.5 fL (80-100); Monocytes Absolute Auto 1200 /uL (0-900); Monocytes Percent Auto 13.3 % (3-14); Neutrophils Absolute Auto 6700 /uL (1500-7000); Neutrophils Percent Auto 73.6 % (50-75); Platelet Count 327 X10^3/uL (150-400); Red Blood Cell Count 3.31 X10^6/uL (4.5-5.9); Red Cell Distribution Width 13.4 % (11.6-14.8)
[2019-07-22 06:19] LABS: BUN Creatinine Ratio 17.8 (6-22); Blood Urea Nitrogen 16 mg/dL (9-20); Calcium 8.1 mg/dL (8.4-10.2); Carbon Dioxide 24 mmol/L (22-32); Chloride 95 mmol/L (98-107); Estimated Glomerular Filt Rate > 60.0 mL/min (>60); Glucose 113 mg/dL (80-110); HEMOLYSIS < 15 (0-50); Potassium 4.1 mmol/L (3.4-5.1); Sodium 127 mmol/L (137-145)
[2019-07-22 07:40] VITALS: BP 154/89; PULSE 96; RESP 18; TEMP 37.1; O2SAT 91
--- NOTE | 2019-07-22 08:38 | PM.DS.1 ---
History of Present Illness History of Present Illness Chief complaint: GLF, Left hip pain Discharge Providers Provider Date of admission: 07/19/19 03:36 Discharge Date: 07/22/19 Primary care physician: Su Aguero MD Consults: 07/19/19 04:00 Consult to Orthopedic Surgery Routine Comment: Consulting Provider: Rajesh Alcaraz Reason for consultation: left femoral neck fracture Has provider been notified: Yes 07/19/19 18:15 Consult to Physical Therapy Evaluate & Treat Comment: WBAT LLE, posterior hip precautions Physician Instructions: Evaluate and Treat 07/19/19 20:39 Consult to Dietitian, Adult Routine Comment: Reason For Exam: Sunday score 07/20/19 09:20 Consult to Occupational Therapy Evaluate & Treat Comment: Physician Instructions: Evaluate and treat 07/21/19 12:25 Consult to Speech Therapy Evaluate & Treat Comment: Coughing while eating Physician Instructions: Evaluate and treat Discharge provider: Mitzi Real MD Summary Hospital Course Discharge Diagnosis: Status post fall with hip fracture status post hip replacement, left Hypoxemia with suspected underlying pneumonia, improved and treated with Levaquin Dementia, stable Hyponatremia, stable and at baseline Hospital Course: Patient sustained a fall and was brought to emergency room for evaluation found to have a hip fracture on the left. Patient was admitted underwent surgical treatment on SundayJuly 19. Patient's recovery was complicated by a brief period of hypoxemia on 07/20/2019 late. He was given IV Lasix and started on IV Levaquin. He has remained stable on room air. He was found to be choking while eating and speech therapy evaluated him on 07/21/2019 and placed him on a mechanical soft diet nectar thick. His pain was well controlled with Tylenol. Vicodin was given which caused more confusion. Patient is discharged to skilled care facility on hospital day 4. For continued speech therapy, physical therapy and occupational therapy. A Lowry catheter will be continued due to patient's inability to void and difficulty placing catheter and immobility and recent surgery. Will discontinue as soon as we are able to. Patient will be continued on a regular diet that is mechanical soft and nectar thick. Discharge medications will include his home medications of Flomax 0.8 mg daily, his eye drops Xalatan, baby aspirin, and [place] red rice extract. He will be continued for 5 more days on the levofloxacin 750 mg daily and a prescription is written for this. He will be on Colace stool softener. He will be on Tylenol 650 mg as needed Status at Discharge Cognitive/behavioral status at discharge: at baseline, confused Functional status at discharge: bed bound Overall status at discharge: patient is progressing back to baseline Time Spent with Patient Time spent: Greater than 30 minutes Exam Vital Signs (past 8 hours): - 07/22/19 00:45 07/22/19 04:00 Temperature 98.8 F 98.8 F Pulse Rate 183 H 104 H Respiratory Rate 18 18 Blood Pressure 120/85 138/65 Pulse Oximetry 92 92 Oxygen Delivery Method Room Air Oxygen Flow Rate 0 Narrative Exam Narrative: Patient is sitting in hospital bed. He is awake and alert but does not really answer questions or interact with me other than looking at me and following my directions. His is at bedside. He denies any pain or difficulty breathing or abdominal pain. His states that he has a very high pain tolerance. Tylenol has been effective for pain control and the Vicodin made him more confused. He does have a history of dementia. Neck: Supple without adenopathy or thyromegaly or jugular venous distention or bruit Cor: Regular rate and rhythm with distant S1 and S2 Chest: Decreased breath sounds bibasilar but no crackles, wheezes or rhonchi. Patient is stable on room air Abdomen: Positive bowel sounds x4. Nontender. Nondistended. No hepatosplenomegaly Extremities: Trace bilateral pedal and ankle edema. Pulses intact Skin: Unremarkable Objective Labs Result Diagrams: 07/22/19 06:00 07/22/19 06:00 Labs: Laboratory Results - last 24 hr 07/22/19 07/22/19 06:00 06:00 WBC 9.0 RBC 3.31 L Hgb 10.2 L Hct 29.6 L MCV 89.5 MCH 30.7 MCHC 34.3 RDW 13.4 Plt Count 327 Neut % (Auto) 73.6 Lymph % (Auto) 12.2 L [place] % (Auto) 13.3 Eos % (Auto) 0.6 L Baso % (Auto) 0.3 Neut # (Auto) 6700 Lymph # (Auto) 1100 [place] # (Auto) 1200 H Eos # (Auto) 100 Baso # (Auto) 0 Sodium 127 L Potassium 4.1 Chloride 95 L Carbon Dioxide 24 BUN 16 Creatinine 0.90 Estimated GFR > 60.0 BUN/Creatinine Ratio 17.8 Glucose 113 H Calcium 8.1 L Discharge Plan Discharge Plan Patient Disposition: SNF Transfer to: [facility] Under care of provider: Dr. Aguero Consult as needed: Dental, Hearing, Mental health, Podiatry and Vision Discharge orders & Medications Prescriptions: New levofloxacin 250 mg Tablet 750 mg PO BEDTIME Qty: 5 RF: 0 docusate sodium [DOK] 100 mg Capsule 100 mg PO BID Qty: 60 RF: 0 tamsulosin [Flomax] 0.4 mg Capsule 0.8 mg PO DAILY Qty: 30 RF: 0 acetaminophen 325 mg Tablet 650 mg PO Q4HR PRN (Reason: As Needed For Fever/Mild Pain) Qty: 60 RF: 0 Continued aspirin 81 mg Tablet,Delayed Release (Dr/Ec) 81 mg PO DAILY Qty: 0 RF: 0 tamsulosin 0.4 mg capsule 2 cap PO DAILY RF: 0 vitamin B complex Capsule 1 cap PO DAILY RF: 0 Complete Multivitamin Tablet 1 tab PO DAILY RF: 0 red yeast rice 600 mg Capsule 600 mg PO DAILY RF: 0 latanoprost [Xalatan] 0.005 % Drops 1 drops EYE-LEFT BEDTIME Qty: 1 RF: 0 acetaminophen 325 mg Tablet 650 mg PO Q6HR PRN (Reason: As Needed For Fever/Mild Pain) Qty: 50 RF: 0 hydrocortisone 1 % Cream 1 applic topical BID PRN (Reason: Eczema) 30 Days Qty: 25 RF: 0 Follow up/Referrals: Su Aguero MD [Primary Care Provider] - Discharge Health Status Multidrug resistant organism: No MDRO Diet/Activity/Treatments Diet: Diet as Tolerated Liquid consistency: [place] Consistency Food texture: Soft Activity: per ortho posterior hip fracture precautions Cold/Heat Therapy: prn Catheter: 2-way [facility] Reason for rehabilitation: Post-operative therapy and Recovery r/t decondition Rehab type: Physical therapy, Occupational therapy and Speech therapy Visit Report/Discharge Packet Instructions: DI for Hip Replacement, How to Prevent Falls Stand Alone Forms: Surgery Discharge Discharge Data Primary Care Provider: Su Aguero
[2019-07-22] MEDS: SODIUM CHLORIDE 0.9% FLUSH 10 ML IV (08:57)
[2019-07-22] MEDS: ASPIRIN EC 81 MG TABLET PO (08:59)
[2019-07-22] MEDS: DOCUSATE 100 MG CAPSULE PO (09:00)
[2019-07-22] MEDS: ACETAMINOPHEN 325 MG TABLET 650 MG PO (09:03)
[2019-07-22] MEDS: TAMSULOSIN 0.4 MG CAPSULE 0.8 MG PO (09:04)
[2019-07-22] MEDS: ENOXAPARIN 30 MG/0.3 ML SYRINGE SUBCUT (09:04)
--- NOTE | 2019-07-22 09:04 | CM.DPC ---
Addendum entered by Esthela Bansal R.N. 07/22/19 11:35: Dr. Real completed prescriptions, but did not sign med sheets. Called her office, and faxed over med sheets for signature. Spoke to Dr. Real over the phone, for she had not yet received, and told her that this case manage would re-send. Did receive fax back. Spoke to nurse, Zofia, and she stated that patient had a change on his aspirin, and orthopedic PAC signed updated med sheet. Went ahead and faxed over updated med sheet, PASSR, discharge summary and prescriptions to [facility]. Confirmed with February at [facility] that chart picker time is 11:30. Nurse is aware, as well as patient's daughter, Ericka. Original Note: DCP Cont: Patient has discharge orders, left a message with February at [facility] to see when patient can be picked up. Spoke to daughter, Ericka, she is aware. PASSR done, and discharge summary. As soon as med sheet is signed, Delmis will fax over to [facility], as well as DC summary and PASSR. P: Patient is to be discharged to [facility] today, will await call from February regarding time of chart picker. Esthela Bansal RN/Panel Machine Tender
--- NOTE | 2019-07-22 09:58 | ST.IPDYTX ---
Visit Care Team Role Provider Type Su Aguero MD Primary Care Provider Physician Specialty: [facility] Practice Address: [address] [place] [address], [facility] [place], [address] Email: [email or web address] Rajesh Alcaraz MD Other Providers Physician Specialty: Orthopedic Surgery Address: [address] [place] [address], [address] Email: [email or web address] Emergency Provider Physician Specialty: Emergency Medicine Address: [address] [place] [address], [address] Email: [email or web address] Irene MD Admit Provider Physician Attending Provider Specialty: [facility] Address: [address] [place] [address], [address] Email: [email or web address] [email or web address] Dysphagia Treatment [id number] PROGRAMMER Dysphagia Treatment Start: 07/21/19 16:37 Freq: Status: Active Protocol: Document 07/22/19 09:47 LNK (Rec: 07/22/19 09:57 LNK [id number]) Dysphagia Treatment Session Time Visit Start Time 09:25 Visit Stop Time 09:45 Total Visit Minutes 20 Setting Assessment Location Acute Care Visit Type Note Type Treatment Note Patient Information Identification Type Name,ID Wristband Subjective Observations pt was up in bed with present in the room. Pt was just finishing morning meal. Nsg reported that the pt slept through the night without supplemental O2. Treatment Liquids Trialed [place] Solids Trialed Dysphagia Mechanical Administration Type Dependent Feeding Pharyngeal Strategies Sitting Upright (90 deg),Chin Tuck,Small Bites and Sips Treatment Activities Observed pt with current diet of dysphagia mechanical texture and thin liquids. He needed assisted feeding, which his was performing. Cuing to tuck chin consistently. Pt appears to be able to safely tolerate PO. No obvious s/sx of aspiration observed. No cough/ choke observed. Pt will d/c to [facility] today with OT, PT and ST Diet Recommendations Recommendations Continue Current Diet Medication Recommendations Crushed in Carrier Aspiration Precautions Recommended Precautions Upright at 90 Degrees,Small Bites/Sips,Chin Tuck Treatment Plan Placement Recommendation after Discharge [facility] Facility
--- NOTE | 2019-07-22 10:52 | PM.PN.1 ---
Subjective Subjective Date Patient Seen: 07/22/19 Time Patient Seen: 10:52 Interval history: Patient is post op left hemiarthroplasty with Dr. Alcaraz. Denies pain. No numbness or tingling. Exam Vital Signs (past 8 hours): - 07/22/19 04:00 07/22/19 07:40 Temperature 98.8 F 98.7 F Pulse Rate 104 H 96 H Respiratory Rate 18 18 Blood Pressure 138/65 154/89 H Pulse Oximetry 92 91 Oxygen Delivery Method Room Air Oxygen Flow Rate 0 Narrative Exam Narrative: 78 year old male resting in bed. Alert and following commands. No acute distress. Aquacel dressing in place over left hip is intact. Mild to moderate shadow drainage on the dressing. Patient able to fire toe flexor/extensors. Palpable pedal pulse. Sensation intact to light touch. Objective Labs Result Diagrams: 07/22/19 06:00 07/22/19 06:00 Labs: Laboratory Results - last 24 hr 07/22/19 07/22/19 06:00 06:00 WBC 9.0 RBC 3.31 L Hgb 10.2 L Hct 29.6 L MCV 89.5 MCH 30.7 MCHC 34.3 RDW 13.4 Plt Count 327 Neut % (Auto) 73.6 Lymph % (Auto) 12.2 L [place] % (Auto) 13.3 Eos % (Auto) 0.6 L Baso % (Auto) 0.3 Neut # (Auto) 6700 Lymph # (Auto) 1100 [place] # (Auto) 1200 H Eos # (Auto) 100 Baso # (Auto) 0 Sodium 127 L Potassium 4.1 Chloride 95 L Carbon Dioxide 24 BUN 16 Creatinine 0.90 Estimated GFR > 60.0 BUN/Creatinine Ratio 17.8 Glucose 113 H Calcium 8.1 L Assessment & Plan Assessment & Plan narrative: Patient is orthopedically stable for discharge to SNF today. Apply new Aquacel dressing prior to discharge. WBAT on left lower extremity. ASA 81mg BID for DVT prophylaxis.
--- NOTE | 2019-07-22 11:54 | PT.IPTN ---
Current Diagnoses Fracture of unspecified part of neck of left femur, initial encounter for closed fracture (07/19/19) Surgery Performed Operation Date: 07/19/19 11:00 Actual Procedures p Hip Hemiarthroplasty(Left) - Rajesh Alcaraz MD Physical Therapy Treatment Note M2 PT-IP Current Condition Start: 07/20/19 08:32 Freq: NEEDED Status: Active Protocol: Document 07/20/19 11:44 AW (Rec: 07/20/19 12:17 AW [id number]) Physical Therapy Current Condition Current Condition Evaluation Date 07/20/19 Treatment Diagnosis left hip fracture s/p hemiarthroplasty, impaired mobility. Precautions Posterior Hip Precautions No Hip Flexion > 90 degrees,No Hip Internal Rotation,No Hip Adduction Other Precautions Pt has SpO2 goal of 91%. Pt in abduction pillow. Weight Bearing Status Weight Bearing Status Weight Bear as Tolerated M3 PT-IP Subjective Start: 07/20/19 08:32 Freq: NEEDED Status: Active Protocol: Document 07/22/19 11:47 AW (Rec: 07/22/19 11:54 AW [email or web address]) Subjective Physical Therapy Visit Type Type Treatment Note Visit Start Time 11:18 Visit Stop Time 11:44 Total Visit Minutes 26 Number of BUSINESS SYSTEMS ADVISOR Visits 0 Physical Therapy Visit Comments Patient Comments Pt preparing for discharge to [facility], at bedside Therapy Pain Assessment Pain When Pain Assessed At Rest Pain Present Pain Present Denied Pain M4 PT-IP Mobility and Gait Start: 07/20/19 08:32 Freq: NEEDED Status: Active Protocol: Document 07/22/19 11:47 AW (Rec: 07/22/19 11:54 AW [email or web address]) PT-Bed Mobility Assessment Supine to Sit Supine to Sit Maximum Assistance,2 Person Assistance,Head of Bed Elevated Scooting Scooting to Edge of Bed Dependent PT-Transfer Assessment Sit to and From Stand Sit to and from Stand Maximum Assistance,2 Person Assistance Equipment Transfer Assistive Device Gait Belt,Front Wheeled Walker Transfers Transfer Destination Wheelchair Transfer Technique Stand Step Pivot Transfer Ability Level of Assist Maximum Assistance,2 Person Assistance Comments Mobility Comments Pt continues to require max assist x 2 for all mobility, dependent for scooting to EOB. PT-Balance Assessment Sitting Balance and Reactions Static Sitting Balance Ability Fair Dynamic Sitting Balance Ability Poor Standing Balance and Reactions Static Standing Balance Ability Poor Dynamic Standing Balance Ability Poor Device Used FWW M5 PT-IP Objective Assessments Start: 07/20/19 08:32 Freq: NEEDED Status: Active Protocol: Document 07/20/19 11:44 AW (Rec: 07/20/19 12:17 AW [id number]) Orientation Orientation/Cognition Level of Alertness Confusional State Orientation Name,Birthday,Situation Language Function Ability Expressive Aphasia Safety Awareness Decreased Safety Awareness Memory Description Short Term Impaired,Plant Operations Vice President Impaired Comments Pt able to follow 1-step instructions for MMT, but required spouse assist to answer most questions. Gross Range of Motion Upper Extremity ROM Assessment Bilaterally Impaired Lower Extremity ROM Assessment Bilaterally Impaired Strength Upper Extremity Strength Assessment Bilaterally Impaired Shoulder 4-/5 Elbow 4-/5 Hand 4/5 Lower Extremity Strength Assessment Bilaterally Impaired Comments Strength Comments RLE grossly 4-/5 to 4/5 Sensation Assessment Comments Sensation Comments Difficult to assess due to cognition, but no observable deficit on exam. M6 PT-IP Treatment Start: 07/20/19 08:32 Freq: NEEDED Status: Active Protocol: Document 07/22/19 11:47 AW (Rec: 07/22/19 11:54 AW [email or web address]) Physical Therapy Treatment Exercises Exercises Ankle Pumps,Quad Sets,Heel Slides Other Treatments Other Treatment Performed Pt minimally able to contract quadriceps for active knee extension. Better control noted in active knee flexion. M7 PT-IP Assessment and Plan Start: 07/20/19 08:32 Freq: NEEDED Status: Active Protocol: Document 07/22/19 11:47 AW (Rec: 07/22/19 11:54 AW [email or web address]) PT Summary Assessment and Plan Summary Impairments Pain,ROM,Strength,Balance, Cognition,Bed Mobility, Transfers,Gait,Activity Tolerance Progress Towards Goals Slow Progress due to Activity Tolerance Assessment Summary Caleb was sleepy today, requiring frequent reorientation to task. Max assist x 2 required for all mobility. He is discharging to [facility] for SNF rehab. Goals Bed Mobility Goal Minimal Assistance Transfer Goal Minimal Assistance,Front Wheeled Walker Gait Goal Minimal Assistance,Front Wheel Walker Gait Distance 50 Other Goals up/down 1 step without railing min assist Days to Meet Goals 10 Frequency of Treatment Frequency Of Treatment Twice a Day Treatment Plan Physical Therapy Treatment Plan Bed Mobility Training,Transfer Training,Gait Training, Therapeutic Exercise,Balance Retraining,Post Op Education, Discharge Planning,Hot or Cold Pack,Neuromuscular Re-ed Recommendations To Nursing Amount of Assist Needed 2 Person Assist Discharge Recommendations PT Discharge Recommendations SNF Rehab
--- NOTE | 2019-07-22 11:54 | PC.NURSE ---
Transfer to SNF: IV dc'd intact. New Aquacel dressing placed to L hip per APRIL Powell. Incision was well-approximated with karli. Surrounding skin without erythema, no active bleeding or drainage noted. Lowry left in place, vannesa-care and clean brief placed just before he left. All personal belongings collected and sent with patient's . PT assisted with stand-pivot transfer to wheelchair. Patient taken out by transport staff accompanied by his . Report called to Su at [facility]- emphasized difficulty of transfers (either PT/2-MAX assist or michelle).
== END 2019-07-22 12:07 | DRG 469 ==
LOC: ED 03:35 → AC 03:37
PROVIDERS: Orthopaedic Surgery Adult Reconstructive Orthopaedic Surgery; Admitting Provider Family Medicine; Emergency Provider Emergency Medicine; PCP Student in an Organized Health Care Education/Training Program; Visit Provider Family Medicine
PROC: 0SRS0JZ Replacement of Left Hip Joint, Femoral Surface with Synthetic Substitute, Open Approach (ICD-10-PCS; CPT 27125; principal; 2019-07-19 11:00)
DX: S72.002A Fracture of unspecified part of neck of left femur, initial encounter for closed fracture (principal); J18.9 Pneumonia, unspecified organism; E87.1 Hypo-osmolality and hyponatremia; R09.02 Hypoxemia; G30.9 Alzheimer's disease, unspecified; F02.80 Dementia in other diseases classified elsewhere, unspecified severity, without behavioral disturbance, psychotic disturbance, mood disturbance, and anxiety; I48.0 Paroxysmal atrial fibrillation; R41.0 Disorientation, unspecified; T40.2X5A Adverse effect of other opioids, initial encounter; F32.9 Major depressive disorder, single episode, unspecified; R32 Unspecified urinary incontinence; W18.30XA Fall on same level, unspecified, initial encounter; Y92.002 Bathroom of unspecified non-institutional (private) residence as the place of occurrence of the external cause
CPT/HCPCS: 36415; 51701; 71045; 72170; 73502; 80048; 80053; 81001; 85025; 85610; 85730; 87086; 92526; 92610; 93005; 97110; 97162; 97166; 97530; 97535; 99283; 99284; C1776; J0330; J0690; J1650; J1885; J1940; J1956; J2270; J2405; J2704; J2795; J3010

== ENCOUNTER → 2019-07-29 13:40 | Outpatient (ROUT) | payer SELFPAY ==
[2019-07-19 03:47] VITALS: BMI 23.8
[2019-07-29 13:44] LABS: Bacteria Urine None Seen
[2019-07-29 13:48] LABS: Bilirubin Urine UA NEGATIVE (NEGATIVE); Color Urine UA YELLOW; Glucose Urine UA NEGATIVE (Negative); Ketones Urine UA TRACE (NEGATIVE); Leukocyte Esterase Urine UA NEGATIVE (NEGATIVE); Nitrite Urine UA NEGATIVE (Negative); Occult Blood Urine UA 3+ (Negative); Protein Urine UA TRACE (Negative)
[2019-07-29 13:57] LABS: Appearance Urine UA Slightly Cloudy; RBC Urine 10-30/HPF (0-5/HPF); WBC Urine 0-1/HPF (0-5/HPF)
[2019-07-29 13:58] LABS: Amorphous Sediment Urine 1+; Culture Indicated Urine Cult Not Indicated; Mucus Urine 1+ (Negative); Squamous Epithelial Cell Urine 0-1 /HPF (0-5/HPF)
== END ==
PROVIDERS: PCP Student in an Organized Health Care Education/Training Program; Visit Provider Licensed Practical Nurse
DX: R50.9 Fever, unspecified (principal); R31.9 Hematuria, unspecified
CPT/HCPCS: 81001

== ENCOUNTER → 2019-08-03 13:18 | Outpatient (CLI) | payer MEDICARE, OTHER, SELFPAY ==
[2019-07-19 03:47] VITALS: BMI 23.8
[2019-08-03 13:30] LABS: Add Manual Diff / Slide Review NO; Basophils Absolute Auto 100 /uL (0-100); Basophils Percent Auto 0.5 % (0-2); Eosinophils Absolute Auto 100 /uL (0-450); Hematocrit 26.8 % (41-53); Hemoglobin 9.4 g/dL (13.5-17.5); Lymphocytes Absolute Auto 900 /uL (1100-4500); Lymphocytes Percent Auto 9.1 % (25-40); Mean Corpuscular HGB Conc 35.2 % (30-36); Mean Corpuscular Hemoglobin 30.5 PG (26-34); Mean Corpuscular Volume 86.5 fL (80-100); Monocytes Absolute Auto 1000 /uL (0-900); Monocytes Percent Auto 10.3 % (3-14); Neutrophils Absolute Auto 7700 /uL (1500-7000); Neutrophils Percent Auto 79.1 % (50-75); Red Cell Distribution Width 13.3 % (11.6-14.8); White Blood Cell Count 9.7 X10^3/uL (4.5-11.0)
[2019-08-03 13:42] LABS: Alanine Aminotransferase 52 IU/L (<50); Albumin 2.9 g/dL (3.5-5.0); Albumin Globulin Ratio 1.1 (1.0-2.8); Alkaline Phosphatase 83 U/L (38-126); Aspartate Aminotransferase 75 IU/L (17-59); Bilirubin Total 0.8 mg/dL (0.2-1.3); Blood Urea Nitrogen 9 mg/dL (9-20); Calcium 8.1 mg/dL (8.4-10.2); Carbon Dioxide 24 mmol/L (22-32); Estimated Glomerular Filt Rate > 60.0 mL/min (>60); Globulin 2.7 g/dL (1.7-4.1); Glucose 104 mg/dL (80-110); HEMOLYSIS < 15 (0-50); Potassium 4.8 mmol/L (3.4-5.1); Total Protein 5.6 g/dL (6.3-8.2)
[2019-08-03 14:04] LABS: Chloride 80 mmol/L (98-107)
[2019-08-03 14:09] LABS: Sodium 115 mmol/L (137-145)
[2019-08-03 14:20] LABS: Anisocytosis 1+; Hypochromasia 1+; Platelet Count 812 X10^3/uL (150-400)
== END ==
PROVIDERS: PCP Student in an Organized Health Care Education/Training Program; Visit Provider Internal Medicine
DX: R53.83 Other fatigue (principal)
CPT/HCPCS: 80053; 85025

== ENCOUNTER 2019-08-03 15:41 | Inpatient (IN) | payer MEDICARE, OTHER, SELFPAY ==
[2019-07-19 03:47] VITALS: BMI 23.8
--- NOTE | 2019-08-03 15:56 | DI.RAD.S_ITS ---
PROCEDURE: XR CHEST 1V INDICATIONS: sob TECHNIQUE: One view of the chest was acquired. COMPARISON: [facility], CT, CT CHEST WO CON, 06/14/2019, 13:36. [facility], CR, XR CHEST 2V, 06/08/2019, 11:10. [facility], CR, XR CHEST 2V, 06/13/2019, 10:39. [facility], CR, XR CHEST 1V, 07/20/2019, 19:01. FINDINGS: Surgical changes and devices: None. Lungs and pleura: Persistent left basilar airspace opacities are noted. These are similar in extent to the study dated 06/13/19. The upper lungs are clear. No pleural effusion or pneumothorax. Mediastinum: Mediastinal contours appear normal. Heart size is normal. Bones and chest wall: No suspicious bony lesions. Overlying soft tissues appear unremarkable. IMPRESSION: Persistent left basilar pulmonary opacities. Differential considerations include atypical pneumonia and aspiration. Additionally, neoplasm cannot be excluded. Dictated by: Khushbu Roberts M.D. on 08/03/2019 at 15:10 Approved by: Khushbu Roberts M.D. on 08/03/2019 at 15:12
[2019-08-03 16:05] VITALS: BP 162/54; PULSE 90; RESP 20; TEMP 36.3; O2SAT 94
[2019-08-03 16:07] VITALS: RESP 27; O2SAT 95
[2019-08-03 16:27] LABS: Add Manual Diff / Slide Review NO; Basophils Absolute Auto 0 /uL (0-100); Basophils Percent Auto 0.3 % (0-2); Eosinophils Absolute Auto 100 /uL (0-450); Eosinophils Percent Auto 0.7 % (2-4); Hematocrit 28.2 % (41-53); Hemoglobin 9.9 g/dL (13.5-17.5); Lymphocytes Absolute Auto 800 /uL (1100-4500); Lymphocytes Percent Auto 7.9 % (25-40); Mean Corpuscular HGB Conc 35.2 % (30-36); Mean Corpuscular Hemoglobin 30.5 PG (26-34); Mean Corpuscular Volume 86.7 fL (80-100); Monocytes Absolute Auto 500 /uL (0-900); Monocytes Percent Auto 4.8 % (3-14); Neutrophils Absolute Auto 8700 /uL (1500-7000); Neutrophils Percent Auto 86.3 % (50-75); Platelet Count 845 X10^3/uL (150-400); Red Blood Cell Count 3.25 X10^6/uL (4.5-5.9); Red Cell Distribution Width 13.6 % (11.6-14.8)
[2019-08-03 16:35] LABS: INR 1.2 (0.9-1.3); Prothrombin Time 14.4 SECONDS (10.1-12.7)
[2019-08-03 16:36] LABS: Appearance Urine UA SL CLOUDY; Bilirubin Urine UA NEGATIVE (NEGATIVE); Color Urine UA YELLOW; Glucose Urine UA NEGATIVE (Negative); Ketones Urine UA 1+ (NEGATIVE); Leukocyte Esterase Urine UA 2+ (NEGATIVE); Nitrite Urine UA NEGATIVE (Negative); Occult Blood Urine UA 3+ (Negative); Protein Urine UA 3+ (Negative); Specific Gravity Urine UA <=1.005 (1.000-1.035); pH Urine UA >= 9.0 (4.5-8.0)
[2019-08-03 16:37] LABS: PTT Partial Thromboplastin Tim 28 SECONDS (26.4-36.2)
--- NOTE | 2019-08-03 16:38 | ED.SOB ---
HPI - SOB/Dyspnea General Chief Complaint: Shortness of Breath/Dyspnea Stated Complaint: SOB Time Seen by Provider: 08/03/19 15:55 Source: EMS Mode of arrival: EMS History of Present Illness HPI Narrative: The patient is 78-year-old male with dementia from the [facility] presenting with possible aspiration pneumonia. He started having wet sounding and cough difficulty breathing. He is currently afebrile with normal oxygen. He also had blood work done as an outpatient this morning which did show sodium of 114 which is new for him.He was admitted 07/19/2019 for closed hip fracture. Sodium level of 127. Today is is significantly worse. at bedside states that she was instructed to help increase his fluid intake so she made sure he drank at least 4-5 16 oz glasses of water every day since Sunday. They thought that it might help with his secretions. Yesterday she noticed that he was more confused and difficult to arouse. She has an indwelling Lowry catheter which apparently was replaced on Sunday. said that they checked his urine twice this week and said it was negative. He does have quite cloudy urine in the Lowry catheterization for tube. MD Complaint: cough Related Data Home Medications Medication Instructions Recorded Confirmed Complete Multivitamin 1 tab PO DAILY 05/28/18 07/19/19 red yeast rice 600 mg PO DAILY 05/28/18 07/19/19 tamsulosin 2 cap PO DAILY 05/28/18 07/19/19 vitamin B complex 1 cap PO DAILY 05/28/18 07/19/19 Previous Rx's Medication Instructions Recorded acetaminophen 650 mg PO Q6HR PRN #50 tab 05/30/18 latanoprost [Xalatan] 1 drops EYE-LEFT BEDTIME #1 ml 05/30/18 acetaminophen 650 mg PO Q4HR PRN #60 tab 07/22/19 aspirin 81 mg PO BID #0 tab 07/22/19 docusate sodium [DOK] 100 mg PO BID #60 cap 07/22/19 levofloxacin 750 mg PO BEDTIME #5 tab 07/22/19 tamsulosin [Flomax] 0.8 mg PO DAILY #30 cap 07/22/19 Allergies Allergy/AdvReac Type Severity Reaction Status Date / Time No Known Drug Allergies Allergy Verified 05/28/18 14:32 Review of Systems Review of Systems ROS Unobtainable: Unobtainable due to medical condition Patient History Medical History Depression (Chronic) Hyperlipidemia (Chronic) Hypothyroid (Chronic) Memory changes (Chronic) PSA elevation (Chronic) Urinary incontinence (Chronic) Surgical History No pertinent past surgical history (Acute) Social History household members: spouse and family Smoking Status: Former smoker alcohol intake: current alcohol intake frequency: a few times a week Substance Use Type: does not use Exam Initial Vital Signs Initial Vital Signs: Vital Signs Temperature 97.3 F L 08/03/19 16:05 Pulse Rate 90 08/03/19 16:05 Respiratory Rate 20 08/03/19 16:05 Blood Pressure 162/54 H 08/03/19 16:05 Pulse Oximetry 94 08/03/19 16:05 GENERAL: Alert elderly male HEENT: Head atraumatic,EOMI, pupils reactive, face symmetric CARDIOVASCULAR: Regular rate and rhythm without murmurs, rubs or gallops. RESPIRATORY: Breath sounds equal bilaterally, no wheezes rales or rhonchi. Upper respiratory secretions ABDOMEN: Soft, nontender. Normoactive bowel sounds all 4 quadrants. No guarding or rebound. EXTREMITIES: Normal range of motion, no clubbing or edema. Neurovascularly intact : Lowry catheter in place cloudy with sediment NEUROLOGICAL: Alert . Overall weak SKIN: Right heel lesion with bandage placed Course Orders Ordered: ED Orders 08/03/19 15:56 XR chest 1V Stat 08/03/19 16:16 Complete Blood Count AUTO DIFF Stat Comprehensive Metabolic Panel Stat Lactate (Lactic Acid) Stat Partial Thromboplastin Time Stat Procalcitonin Stat Prothrombin Time INR Stat TSH w/ Reflex to FT4 Stat 08/03/19 16:19 Sodium Urine Random Stat Urinalysis and Microscopic Stat Urine Culture Stat 08/03/19 16:45 Blood Culture Stat 08/03/19 18:10 Sputum Culture Stat Sodium Chloride (Normal Saline 0.9%) 1,000 mls @ 200 mls/hr IV CONT RM Last Infusion: 08/03/19 18:35 Dose: 75 mls/hr Documented by: Admin: 08/03/19 16:47 Dose: 75 mls/hr Documented by: WESLY Sodium Chloride (Normal Saline 0.9%) 1,000 mls @ 80 mls/hr IV CONT RM Last Admin: 08/03/19 17:17 Dose: Not Given Documented by: WESLY Discontinued Medications Ceftriaxone Sodium/Dextrose (Rocephin) 1 gm in 50 mls @ 100 mls/hr IV NOW ONE Stop: 08/03/19 18:51 Last Infusion: 08/03/19 18:36 Dose: 100 mls/hr Documented by: Admin: 08/03/19 18:02 Dose: 100 mls/hr Documented by: WESLY Consultations Consultation #1: Dr. Martinez updated on patient's symptoms test results his requests correction of sodium and recheck in the morning. Time: 17:42 Vital Signs Vital signs: Vital Signs - 8 hr 08/03/19 16:05 08/03/19 16:07 Temperature 97.3 F L Pulse Rate 90 Respiratory Rate 20 27 H Blood Pressure 162/54 H Pulse Oximetry 94 95 MDM - SOB/Dyspnea Lab Data Attestation: I reviewed the patient's lab results. Result diagrams: 08/03/19 16:16 08/03/19 16:16 Labs: Lab Results 08/03/19 08/03/19 08/03/19 Range/Units 16:16 16:16 16:16 WBC 10.0 (4.5-11.0) X10^3/uL RBC 3.25 L (4.5-5.9) X10^6/uL Hgb 9.9 L (13.5-17.5) g/dL Hct 28.2 L (41-53) % MCV 86.7 (80-100) fL MCH 30.5 (26-34) PG MCHC 35.2 (30-36) % RDW 13.6 (11.6-14.8) % Plt Count 845 H (150-400) X10^3/uL Neut % (Auto) 86.3 H (50-75) % Lymph % (Auto) 7.9 L (25-40) % [place] % (Auto) 4.8 (3-14) % Eos % (Auto) 0.7 L (2-4) % Baso % (Auto) 0.3 (0-2) % Neut # (Auto) 8700 H (7966-4864) /uL Lymph # (Auto) 800 L (7590-1482) /uL [place] # (Auto) 500 (0-900) /uL Eos # (Auto) 100 (0-450) /uL Baso # (Auto) 0 (0-100) /uL RBC Morphology Not Reportable Hypochromasia 1+ H Anisocytosis 1+ H PT 14.4 H (10.1-12.7) SECONDS INR 1.2 (0.9-1.3) APTT 28 (26.4-36.2) SECONDS Sodium (137-145) mmol/L Potassium (3.4-5.1) mmol/L Chloride (98-107) mmol/L Carbon Dioxide (22-32) mmol/L BUN (9-20) mg/dL Creatinine (0.66-1.25) mg/dL Estimated GFR (>60) mL/min BUN/Creatinine Ratio (6-22) Glucose (80-110) mg/dL Serum Osmolality Lactate (0.7-2.1) mmol/L Calcium (8.4-10.2) mg/dL Total Bilirubin (0.2-1.3) mg/dL AST (17-59) IU/L ALT (<50) IU/L Alkaline Phosphatase (38-126) U/L Total Protein (6.3-8.2) g/dL Albumin (3.5-5.0) g/dL Globulin (1.7-4.1) g/dL Albumin/Globulin Ratio (1.0-2.8) Procalcitonin 0.14 (<0.5) ng/mL TSH (0.47-4.68) uIU/mL Urine Color Urine Appearance Urine pH (4.5-8.0) Ur Specific [place] (1.000-1.035) Urine Protein (Negative) Urine Glucose (UA) (Negative) g/dL Urine Ketones (NEGATIVE) Urine Occult Blood (Negative) Urine Nitrate (Negative) Urine Bilirubin (NEGATIVE) Urine Urobilinogen (0.2) E.U./dL Ur Leukocyte Esterase (NEGATIVE) Urine RBC (0-5/HPF) Urine WBC (0-5/HPF) Amorphous Sediment Urine Bacteria (None) Ur Culture Indicated? Urine Osmolality Ur Random Sodium (30-90) mmol/L Ref Test (Refrig) 08/03/19 08/03/19 08/03/19 Range/Units 16:16 16:16 16:16 WBC (4.5-11.0) X10^3/uL RBC (4.5-5.9) X10^6/uL Hgb (13.5-17.5) g/dL Hct (41-53) % MCV (80-100) fL MCH (26-34) PG MCHC (30-36) % RDW (11.6-14.8) % Plt Count (150-400) X10^3/uL Neut % (Auto) (50-75) % Lymph % (Auto) (25-40) % [place] % (Auto) (3-14) % Eos % (Auto) (2-4) % Baso % (Auto) (0-2) % Neut # (Auto) (2497-2032) /uL Lymph # (Auto) (2968-7763) /uL [place] # (Auto) (0-900) /uL Eos # (Auto) (0-450) /uL Baso # (Auto) (0-100) /uL RBC Morphology Hypochromasia Anisocytosis PT (10.1-12.7) SECONDS INR (0.9-1.3) APTT (26.4-36.2) SECONDS Sodium 114 L* (137-145) mmol/L Potassium 4.8 (3.4-5.1) mmol/L Chloride 79 L (98-107) mmol/L Carbon Dioxide 25 (22-32) mmol/L BUN 9 (9-20) mg/dL Creatinine 0.70 (0.66-1.25) mg/dL Estimated GFR > 60.0 (>60) mL/min BUN/Creatinine Ratio 12.9 (6-22) Glucose 101 (80-110) mg/dL Serum Osmolality Cancelled Lactate 2.8 H (0.7-2.1) mmol/L Calcium 8.0 L (8.4-10.2) mg/dL Total Bilirubin 0.9 (0.2-1.3) mg/dL AST 78 H (17-59) IU/L ALT 52 H (<50) IU/L Alkaline Phosphatase 91 (38-126) U/L Total Protein 6.3 (6.3-8.2) g/dL Albumin 3.4 L (3.5-5.0) g/dL Globulin 2.9 (1.7-4.1) g/dL Albumin/Globulin Ratio 1.2 (1.0-2.8) Procalcitonin (<0.5) ng/mL TSH (0.47-4.68) uIU/mL Urine Color Urine Appearance Urine pH (4.5-8.0) Ur Specific [place] (1.000-1.035) Urine Protein (Negative) Urine Glucose (UA) (Negative) g/dL Urine Ketones (NEGATIVE) Urine Occult Blood (Negative) Urine Nitrate (Negative) Urine Bilirubin (NEGATIVE) Urine Urobilinogen (0.2) E.U./dL Ur Leukocyte Esterase (NEGATIVE) Urine RBC (0-5/HPF) Urine WBC (0-5/HPF) Amorphous Sediment Urine Bacteria (None) Ur Culture Indicated? Urine Osmolality Ur Random Sodium (30-90) mmol/L Ref Test (Refrig) 08/03/19 08/03/19 08/03/19 Range/Units 16:16 16:19 16:19 WBC (4.5-11.0) X10^3/uL RBC (4.5-5.9) X10^6/uL Hgb (13.5-17.5) g/dL Hct (41-53) % MCV (80-100) fL MCH (26-34) PG MCHC (30-36) % RDW (11.6-14.8) % Plt Count (150-400) X10^3/uL Neut % (Auto) (50-75) % Lymph % (Auto) (25-40) % [place] % (Auto) (3-14) % Eos % (Auto) (2-4) % Baso % (Auto) (0-2) % Neut # (Auto) (0829-4237) /uL Lymph # (Auto) (2923-1526) /uL [place] # (Auto) (0-900) /uL Eos # (Auto) (0-450) /uL Baso # (Auto) (0-100) /uL RBC Morphology Hypochromasia Anisocytosis PT (10.1-12.7) SECONDS INR (0.9-1.3) APTT (26.4-36.2) SECONDS Sodium (137-145) mmol/L Potassium (3.4-5.1) mmol/L Chloride (98-107) mmol/L Carbon Dioxide (22-32) mmol/L BUN (9-20) mg/dL Creatinine (0.66-1.25) mg/dL Estimated GFR (>60) mL/min BUN/Creatinine Ratio (6-22) Glucose (80-110) mg/dL Serum Osmolality Lactate (0.7-2.1) mmol/L Calcium (8.4-10.2) mg/dL Total Bilirubin (0.2-1.3) mg/dL AST (17-59) IU/L ALT (<50) IU/L Alkaline Phosphatase (38-126) U/L Total Protein (6.3-8.2) g/dL Albumin (3.5-5.0) g/dL Globulin (1.7-4.1) g/dL Albumin/Globulin Ratio (1.0-2.8) Procalcitonin (<0.5) ng/mL TSH 2.14 (0.47-4.68) uIU/mL Urine Color Yellow Urine Appearance Sl cloudy Urine pH >= 9.0 H (4.5-8.0) Ur Specific [place] <=1.005 (1.000-1.035) Urine Protein 3+ H (Negative) Urine Glucose (UA) Negative (Negative) g/dL Urine Ketones 1+ H (NEGATIVE) Urine Occult Blood 3+ H (Negative) Urine Nitrate Negative (Negative) Urine Bilirubin Negative (NEGATIVE) Urine Urobilinogen 1.0 (0.2) E.U./dL Ur Leukocyte Esterase 2+ H (NEGATIVE) Urine RBC 30-100/hpf H (0-5/HPF) Urine WBC 5-10/hpf H (0-5/HPF) Amorphous Sediment 2+ Urine Bacteria Moderate (10-30) H (None) Ur Culture Indicated? Specimen cultured Urine Osmolality Ur Random Sodium 100 H (30-90) mmol/L Ref Test (Refrig) 08/03/19 08/03/19 Range/Units 16:19 17:41 WBC (4.5-11.0) X10^3/uL RBC (4.5-5.9) X10^6/uL Hgb (13.5-17.5) g/dL Hct (41-53) % MCV (80-100) fL MCH (26-34) PG MCHC (30-36) % RDW (11.6-14.8) % Plt Count (150-400) X10^3/uL Neut % (Auto) (50-75) % Lymph % (Auto) (25-40) % [place] % (Auto) (3-14) % Eos % (Auto) (2-4) % Baso % (Auto) (0-2) % Neut # (Auto) (9168-5910) /uL Lymph # (Auto) (1145-4047) /uL [place] # (Auto) (0-900) /uL Eos # (Auto) (0-450) /uL Baso # (Auto) (0-100) /uL RBC Morphology Hypochromasia Anisocytosis PT (10.1-12.7) SECONDS INR (0.9-1.3) APTT (26.4-36.2) SECONDS Sodium (137-145) mmol/L Potassium (3.4-5.1) mmol/L Chloride (98-107) mmol/L Carbon Dioxide (22-32) mmol/L BUN (9-20) mg/dL Creatinine (0.66-1.25) mg/dL Estimated GFR (>60) mL/min BUN/Creatinine Ratio (6-22) Glucose (80-110) mg/dL Serum Osmolality Lactate (0.7-2.1) mmol/L Calcium (8.4-10.2) mg/dL Total Bilirubin (0.2-1.3) mg/dL AST (17-59) IU/L ALT (<50) IU/L Alkaline Phosphatase (38-126) U/L Total Protein (6.3-8.2) g/dL Albumin (3.5-5.0) g/dL Globulin (1.7-4.1) g/dL Albumin/Globulin Ratio (1.0-2.8) Procalcitonin (<0.5) ng/mL TSH (0.47-4.68) uIU/mL Urine Color Urine Appearance Urine pH (4.5-8.0) Ur Specific [place] (1.000-1.035) Urine Protein (Negative) Urine Glucose (UA) (Negative) g/dL Urine Ketones (NEGATIVE) Urine Occult Blood (Negative) Urine Nitrate (Negative) Urine Bilirubin (NEGATIVE) Urine Urobilinogen (0.2) E.U./dL Ur Leukocyte Esterase (NEGATIVE) Urine RBC (0-5/HPF) Urine WBC (0-5/HPF) Amorphous Sediment Urine Bacteria (None) Ur Culture Indicated? Urine Osmolality Cancelled Ur Random Sodium (30-90) mmol/L Ref Test (Refrig) Cancelled Imaging Data Chest x-ray: Radiologist's impression: PROCEDURE: XR CHEST 1V INDICATIONS: sob TECHNIQUE: One view of the chest was acquired. COMPARISON: [facility], CT, CT CHEST WO CON, 06/14/2019, 13:36. [facility], CR, XR CHEST 2V, 06/08/2019, 11:10. [facility], CR, XR CHEST 2V, 06/13/2019, 10:39. [facility], CR, XR CHEST 1V, 07/20/2019, 19:01. FINDINGS: Surgical changes and devices: None. Lungs and pleura: Persistent left basilar airspace opacities are noted. These are similar in extent to the study dated 06/13/19. The upper lungs are clear. No pleural effusion or pneumothorax. Mediastinum: Mediastinal contours appear normal. Heart size is normal. Bones and chest wall: No suspicious bony lesions. Overlying soft tissues appear unremarkable. IMPRESSION: Persistent left basilar pulmonary opacities. Differential considerations include atypical pneumonia and aspiration. Additionally, neoplasm cannot be excluded. Dictated by: Khushbu Roberts M.D. on 08/03/2019 at 15:10 Approved by: Khushbu Roberts M.D. on 08/03/2019 at 15:12 MDM Narrative Medical decision making narrative: Patient likely had increased free water, causing his acute hyponatremia and confusion. X-ray shows persistent left basilar pulmonary opacities. His similar to previous chest x-ray on the . His secretions cleared easily with respiratory suction. His Sodium deficit with goal of correcting sodium to 124 in the 1st 24 hours is 351. (124-114)*0.5*70.3=351 Discharge Plan Departure Patient Disposition: Admitted As Inpatient Clinical Impression: Acute hyponatremia Discharge Date/Time: 08/03/19 18:48 Admit Date/Time: 08/03/19 17:52 Admit Provider: Jairo Martinez
[2019-08-03 16:40] LABS: Alanine Aminotransferase 52 IU/L (<50); Albumin 3.4 g/dL (3.5-5.0); Albumin Globulin Ratio 1.2 (1.0-2.8); Alkaline Phosphatase 91 U/L (38-126); Aspartate Aminotransferase 78 IU/L (17-59); BUN Creatinine Ratio 12.9 (6-22); Bilirubin Total 0.9 mg/dL (0.2-1.3); Blood Urea Nitrogen 9 mg/dL (9-20); Carbon Dioxide 25 mmol/L (22-32); Chloride 79 mmol/L (98-107); Estimated Glomerular Filt Rate > 60.0 mL/min (>60); Globulin 2.9 g/dL (1.7-4.1); Glucose 101 mg/dL (80-110); HEMOLYSIS < 15 (0-50); Lactate (Lactic Acid) 2.8 mmol/L (0.7-2.1); Potassium 4.8 mmol/L (3.4-5.1); Total Protein 6.3 g/dL (6.3-8.2)
[2019-08-03 16:43] LABS: Anisocytosis 1+; Hypochromasia 1+; Sodium 114 mmol/L (137-145)
[2019-08-03] MEDS: SODIUM CHLORIDE 0.9% 1,000 ML 75 ML IV (16:47)
[2019-08-03 16:49] LABS: RBC Urine 30-100/HPF (0-5/HPF); WBC Urine 5-10/HPF (0-5/HPF)
[2019-08-03 16:50] LABS: Amorphous Sediment Urine 2+; Bacteria Urine Moderate (10-30); Culture Indicated Urine Specimen Cultured
[2019-08-03 16:53] LABS: Procalcitonin 0.14 ng/mL (<0.5)
--- NOTE | 2019-08-03 16:53 | PC.NURSE ---
Pt arrives via EMS from [facility]. Awake, alert to sounds, confused. Pt with coarse upper airway sounds and SOB requiring 4L O2 in route. On arrival, Dr Morales at bedside. EKG obtained. Placed on teletypesetter monitor. IV placed and labs drawn including lactate and cultures. Pt with poor distal perfusion, pleth adequate intermittently. 97% on 4L. RT in room to deep nasal suction with moderate thick white output. Bilateral arms contracted inwards. Pt lungs with improvement post suction. Oxygen reduced to 2L and pt 100%. NSR 91. CXR obtained. fluids infusing at 75mL/hr--verbal order to reduce from 200mL/hr as originally ordered. pt with NAD. resting in bed.
[2019-08-03 17:27] LABS: Sodium Urine Random 100 mmol/L (30-90)
--- NOTE | 2019-08-03 17:38 | PC.NURSE ---
arrived and at bedside. reports that pt has h/o reoccurring pneumonia, h/o smoking, dementia and reports the contracture of the arms is new. reports he had recent L hip surgery which is why he is job care, dressing intact. Lowry in place and urine is dark yellow and odorous Noted wound to L heel with dressing intact.
[2019-08-03 17:48] LABS: TSH w/ Reflex to FT4 2.14 uIU/mL (0.47-4.68)
[2019-08-03] MEDS: CEFTRIAXONE 1 GM/50 ML FROZ.PIGGY IV (18:02)
[2019-08-03 18:22] LABS: Reflexed Lactate in 2 Hours Y
[2019-08-03 18:47] VITALS: BP 124/56; PULSE 90; RESP 16; O2SAT 94
[2019-08-03 19:00] VITALS: BP 123/68; PULSE 90; RESP 24; TEMP 37.1; O2SAT 95
[2019-08-03] MEDS: SODIUM CHLORIDE 0.9% 1,000 ML 80 ML IV (19:00)
[2019-08-03 19:21] VITALS: BMI 23.6
[2019-08-03 19:38] VITALS: O2SAT 98
[2019-08-03 22:27] LABS: Lactate 2HR (Lactic Acid Rflx) 0.6 mmol/L (0.7-2.1)
[2019-08-03 22:29] LABS: Carbon Dioxide 23 mmol/L (22-32); Chloride 80 mmol/L (98-107); HEMOLYSIS < 15 (0-50); Potassium 4.7 mmol/L (3.4-5.1)
[2019-08-03 22:37] LABS: Sodium 113 mmol/L (137-145)
--- NOTE | 2019-08-03 23:27 | PC.NURSE ---
Evening Shift Note Patient low sodium level of 113 upon repeat check. No new neuro changes and VSS. MD career and technology education teacher paged and verbal orders received to increase fluid rate and repeat BMP and CBC in am. Orders initiated by this RN and minibus driver nurse updated.
[2019-08-04] VITALS (11 sets, daily range): BP systolic 99–137; BP diastolic 46–73; PULSE 74–101; RESP 16–18; TEMP 36.4–36.9; O2SAT 95–100
[2019-08-04] MEDS: SODIUM CHLORIDE 0.9% 1,000 ML 100 ML IV (04:39)
[2019-08-04 05:43] LABS: Add Manual Diff / Slide Review NO; Basophils Absolute Auto 0 /uL (0-100); Basophils Percent Auto 0.4 % (0-2); Eosinophils Absolute Auto 0 /uL (0-450); Eosinophils Percent Auto 0.3 % (2-4); Hemoglobin 8.3 g/dL (13.5-17.5); Lymphocytes Absolute Auto 800 /uL (1100-4500); Lymphocytes Percent Auto 7.3 % (25-40); Mean Corpuscular HGB Conc 35.6 % (30-36); Mean Corpuscular Hemoglobin 30.4 PG (26-34); Mean Corpuscular Volume 85.5 fL (80-100); Monocytes Absolute Auto 500 /uL (0-900); Monocytes Percent Auto 5.3 % (3-14); Neutrophils Absolute Auto 9100 /uL (1500-7000); Neutrophils Percent Auto 86.7 % (50-75); Platelet Count 712 X10^3/uL (150-400); Red Blood Cell Count 2.72 X10^6/uL (4.5-5.9); Red Cell Distribution Width 13.6 % (11.6-14.8); White Blood Cell Count 10.4 X10^3/uL (4.5-11.0)
[2019-08-04 05:44] LABS: Hematocrit 23.3 % (41-53)
[2019-08-04 05:46] LABS: BUN Creatinine Ratio 11.7 (6-22); Blood Urea Nitrogen 7 mg/dL (9-20); Calcium 7.6 mg/dL (8.4-10.2); Carbon Dioxide 22 mmol/L (22-32); Chloride 86 mmol/L (98-107); Estimated Glomerular Filt Rate > 60.0 mL/min (>60); Glucose 90 mg/dL (80-110); HEMOLYSIS < 15 (0-50); Potassium 4.3 mmol/L (3.4-5.1)
[2019-08-04 05:56] LABS: Sodium 116 mmol/L (137-145)
--- NOTE | 2019-08-04 06:07 | PC.NURSE ---
Dr. Carlos A Martinez called at 0600 to notify of the patient's telemetry rhythm at 0539 read atrial fibrillation with a heart rate of 97-115. Patient is asymptomatic; asleep in the bed. Also notified of the critical laboratory value (sodium 116). No orders given for the heart rhythm and Dr Carlos A Martinez stated that the patient would be assessed in the morning. Order received for the patient to be NPO and to initiate aspirations precautions.
--- NOTE | 2019-08-04 08:40 | PM.HP.1 ---
History of Present Illness History of Present Illness Date Patient Seen: 08/04/19 Time Patient Seen: 08:01 Chief complaint: SOB Narrative: Patient 78-year-old male who developed increasing cough shortness of breath acutely over the last 24 hours with progressive weakness. Had been having increased water intake over last few days prior to admission. In her ER found to be severely hyponatremic Patient History Medical History Depression (Chronic) Hyperlipidemia (Chronic) Hypothyroid (Chronic) Memory changes (Chronic) PSA elevation (Chronic) Urinary incontinence (Chronic) Surgical History No pertinent past surgical history (Acute) Family & Social History Social History: household members spouse,family Prior Living Arrangements Skilled Nurse Facility Safety & Behavioral: Feels Safe in Current Yes Environment Been Physically Hurt or No Threatened By a Person Tobacco & Substance use: Tobacco type cigarettes Smoking Status Former smoker alcohol intake current alcohol intake frequency a few times a week Substance Use Type does not use Meds Home Medications and Allergies Home Medications Medication Instructions Recorded Confirmed Type Complete Multivitamin 1 tab PO DAILY 05/28/18 07/19/19 History red yeast rice 600 mg PO DAILY 05/28/18 07/19/19 History tamsulosin 2 cap PO DAILY 05/28/18 07/19/19 History vitamin B complex 1 cap PO DAILY 05/28/18 07/19/19 History acetaminophen 650 mg PO Q6HR PRN #50 tab 05/30/18 07/19/19 Rx latanoprost [Xalatan] 1 drops EYE-LEFT BEDTIME #1 ml 05/30/18 07/19/19 Rx acetaminophen 650 mg PO Q4HR PRN #60 tab 07/22/19 Rx aspirin 81 mg PO BID #0 tab 07/22/19 07/19/19 Rx docusate sodium [DOK] 100 mg PO BID #60 cap 07/22/19 Rx levofloxacin 750 mg PO BEDTIME #5 tab 07/22/19 Rx tamsulosin [Flomax] 0.8 mg PO DAILY #30 cap 07/22/19 Rx Allergies Allergy/AdvReac Type Severity Reaction Status Date / Time No Known Drug Allergies Allergy Verified 05/28/18 14:32 Review of Systems Review of Systems Narrative: Patient demented not communicating well opens eyes to stimulation No complaints of chest pain. between immune through the ER my seeing him he has gone into atrial fibrillation which as not adversely affected his oxygen saturation no complaints of chest pain and no increased shortness of breath No complaints of fevers or chills per patient or his spouse who was with him through the his ER evaluation no complaints of abdominal pain No nausea vomiting diarrhea Recent fractured hip within the last month with Lowry in place pretty much since then and suggestions of issues with possible UTI Neuro with significant cognitive deficit consistent with dementia diffuse weakness History of depression and has been on medications for that for some time. Exam Vital Signs (past 8 hours): - 08/04/19 04:25 08/04/19 07:45 Temperature 98.3 F 97.8 F Pulse Rate 81 101 H Respiratory Rate 18 17 Blood Pressure 99/50 L 109/48 L Pulse Oximetry 96 98 Oxygen Delivery Method Nasal Cannula Oxygen Flow Rate 2 Narrative Exam Narrative: Patient in bed able to arouse with eye contact but not getting meaningful verbal input from him. No neck mass Lungs a little bit better than on admission but still with rhonchi and maintaining oxygen saturation. Admission chest x-ray shows opacities Cardiovascular shows irregular rate and rhythm consistent with AFib. Will get 12 lead EKG Abdomen nontender no mass or hepatosplenomegaly Neuro shows cognitive neuro deficit motor deficit decreased strength and. Skin without significant breakdowns Lowry in place Psych shows no real flu clear response to be able to evaluate that at this point musculoskeletal shows diffuse weakness and but symmetrical hip fracture on 1 side from a month ago Objective Labs Result Diagrams: 08/04/19 05:18 08/04/19 05:18 Labs: Laboratory Results - last 24 hr 08/03/19 08/03/19 08/03/19 16:16 16:16 16:16 WBC 10.0 RBC 3.25 L Hgb 9.9 L Hct 28.2 L MCV 86.7 MCH 30.5 MCHC 35.2 RDW 13.6 Plt Count 845 H Neut % (Auto) 86.3 H Lymph % (Auto) 7.9 L Hunt % (Auto) 4.8 Eos % (Auto) 0.7 L Baso % (Auto) 0.3 Neut # (Auto) 8700 H Lymph # (Auto) 800 L [place] # (Auto) 500 Eos # (Auto) 100 Baso # (Auto) 0 RBC Morphology Not Reportable Hypochromasia 1+ H Anisocytosis 1+ H PT 14.4 H INR 1.2 APTT 28 Sodium Potassium Chloride Carbon Dioxide BUN Creatinine Estimated GFR BUN/Creatinine Ratio Glucose Serum Osmolality Lactate Calcium Total Bilirubin AST ALT Alkaline Phosphatase Total Protein Albumin Globulin Albumin/Globulin Ratio Procalcitonin 0.14 TSH Urine Color Urine Appearance Urine pH Ur Specific [place] Urine Protein Urine Glucose (UA) Urine Ketones Urine Occult Blood Urine Nitrate Urine Bilirubin Urine Urobilinogen Ur Leukocyte Esterase Urine RBC Urine WBC Amorphous Sediment Urine Bacteria Ur Culture Indicated? Urine Osmolality Ur Random Sodium Ref Test (Refrig) 08/03/19 08/03/19 08/03/19 16:16 16:16 16:16 WBC RBC Hgb Hct MCV MCH MCHC RDW Plt Count Neut % (Auto) Lymph % (Auto) Hunt % (Auto) Eos % (Auto) Baso % (Auto) Neut # (Auto) Lymph # (Auto) [place] # (Auto) Eos # (Auto) Baso # (Auto) RBC Morphology Hypochromasia Anisocytosis PT INR APTT Sodium 114 L* Potassium 4.8 Chloride 79 L Carbon Dioxide 25 BUN 9 Creatinine 0.70 Estimated GFR > 60.0 BUN/Creatinine Ratio 12.9 Glucose 101 Serum Osmolality Cancelled Lactate 2.8 H Calcium 8.0 L Total Bilirubin 0.9 AST 78 H ALT 52 H Alkaline Phosphatase 91 Total Protein 6.3 Albumin 3.4 L Globulin 2.9 Albumin/Globulin Ratio 1.2 Procalcitonin TSH Urine Color Urine Appearance Urine pH Ur Specific [place] Urine Protein Urine Glucose (UA) Urine Ketones Urine Occult Blood Urine Nitrate Urine Bilirubin Urine Urobilinogen Ur Leukocyte Esterase Urine RBC Urine WBC Amorphous Sediment Urine Bacteria Ur Culture Indicated? Urine Osmolality Ur Random Sodium Ref Test (Refrig) 08/03/19 08/03/19 08/03/19 16:16 16:19 16:19 WBC RBC Hgb Hct MCV MCH MCHC RDW Plt Count Neut % (Auto) Lymph % (Auto) Hunt % (Auto) Eos % (Auto) Baso % (Auto) Neut # (Auto) Lymph # (Auto) Hunt # (Auto) Eos # (Auto) Baso # (Auto) RBC Morphology Hypochromasia Anisocytosis PT INR APTT Sodium Potassium Chloride Carbon Dioxide BUN Creatinine Estimated GFR BUN/Creatinine Ratio Glucose Serum Osmolality Lactate Calcium Total Bilirubin AST ALT Alkaline Phosphatase Total Protein Albumin Globulin Albumin/Globulin Ratio Procalcitonin TSH 2.14 Urine Color Yellow Urine Appearance Sl cloudy Urine pH >= 9.0 H Ur Specific [place] <=1.005 Urine Protein 3+ H Urine Glucose (UA) Negative Urine Ketones 1+ H Urine Occult Blood 3+ H Urine Nitrate Negative Urine Bilirubin Negative Urine Urobilinogen 1.0 Ur Leukocyte Esterase 2+ H Urine RBC 30-100/hpf H Urine WBC 5-10/hpf H Amorphous Sediment 2+ Urine Bacteria Moderate (10-30) H Ur Culture Indicated? Specimen cultured Urine Osmolality Ur Random Sodium 100 H Ref Test (Refrig) 08/03/19 08/03/19 08/03/19 16:19 17:41 22:06 WBC RBC Hgb Hct MCV MCH MCHC RDW Plt Count Neut % (Auto) Lymph % (Auto) Hunt % (Auto) Eos % (Auto) Baso % (Auto) Neut # (Auto) Lymph # (Auto) Hunt # (Auto) Eos # (Auto) Baso # (Auto) RBC Morphology Hypochromasia Anisocytosis PT INR APTT Sodium Potassium Chloride Carbon Dioxide BUN Creatinine Estimated GFR BUN/Creatinine Ratio Glucose Serum Osmolality Lactate 0.6 L Calcium Total Bilirubin AST ALT Alkaline Phosphatase Total Protein Albumin Globulin Albumin/Globulin Ratio Procalcitonin TSH Urine Color Urine Appearance Urine pH Ur Specific [place] Urine Protein Urine Glucose (UA) Urine Ketones Urine Occult Blood Urine Nitrate Urine Bilirubin Urine Urobilinogen Ur Leukocyte Esterase Urine RBC Urine WBC Amorphous Sediment Urine Bacteria Ur Culture Indicated? Urine Osmolality Cancelled Ur Random Sodium Ref Test (Refrig) Cancelled 08/03/19 08/04/19 08/04/19 22:06 05:18 05:18 WBC 10.4 RBC 2.72 L Hgb 8.3 L Hct 23.3 L MCV 85.5 MCH 30.4 MCHC 35.6 RDW 13.6 Plt Count 712 H Neut % (Auto) 86.7 H Lymph % (Auto) 7.3 L Hunt % (Auto) 5.3 Eos % (Auto) 0.3 L Baso % (Auto) 0.4 Neut # (Auto) 9100 H Lymph # (Auto) 800 L Hunt # (Auto) 500 Eos # (Auto) 0 Baso # (Auto) 0 RBC Morphology Hypochromasia Anisocytosis PT INR APTT Sodium 113 L* 116 L* Potassium 4.7 4.3 Chloride 80 L 86 L Carbon Dioxide 23 22 BUN 7 L Creatinine 0.60 L Estimated GFR > 60.0 BUN/Creatinine Ratio 11.7 Glucose 90 Serum Osmolality Lactate Calcium 7.6 L Total Bilirubin AST ALT Alkaline Phosphatase Total Protein Albumin Globulin Albumin/Globulin Ratio Procalcitonin TSH Urine Color Urine Appearance Urine pH Ur Specific [place] Urine Protein Urine Glucose (UA) Urine Ketones Urine Occult Blood Urine Nitrate Urine Bilirubin Urine Urobilinogen Ur Leukocyte Esterase Urine RBC Urine WBC Amorphous Sediment Urine Bacteria Ur Culture Indicated? Urine Osmolality Ur Random Sodium Ref Test (Refrig) Assessment & Plan Assessment & Plan narrative: Assessment 1. Progressive shortness of breath seems consistent with possibility with his increased cough and sputum production that he might have had an aspiration event. Chest x-ray is not dramatically different but he may be a little bit on the dry side as well. Overall weakness and inability to stay at a care facility certainly qualify this patient for inpatient is stay will get. Will get a swallow evaluation and antibiotics next Assessment 2. Hyponatremia patient not been placed on any diuretics in an or any new particular physical complaints that might be associated with exception of possible pneumonia leading to low sodium. Sodium down to 114 could be SIADH from pulmonary issue. Could also be that his has really been pushing a lot of fluid for 512 oz glasses in a of water a day and person with a small overall frame. Will monitor and give some sodium replacement at this point while watching for fluid overload Assessment 3. Possible aspiration will get swallowing evaluation Assessment for no onset of atrial fibrillation during the night. No complaints of pain worsening sats lower pressure. Will get 12 lead EKG and evaluate further. His SPECT with all his other issues he is not a good candidate for anticoagulation or cardioversion. Patient is a no code Assessment 5. Patient has possible urinary tract issues and has had UTIs in the past Lowry has been present and he has leukocyte esterase positive and and will culture that and started on antibiotics for that and potential pneumonia as above. Assessment 6. Elevated liver enzymes this is acute Wonder if he could of had gallstone or some other abdominal issue. Nontender in that area will monitor. Assessment 7. Dementia. Progressive disability although apparently is still smokes and drinks. Assessment 8. Anemia. Some of this may be delusional there is no evidence of any blood anywhere except there is blood in his UA not gross. Will follow hematocrit closely.
[2019-08-04] MEDS: SODIUM CHLORIDE 0.45% 1,000 ML 100 ML IV ×2 (09:01→19:15)
[2019-08-04] MEDS: levoFLOXacin 500 MG/100 ML PIGGYBACK 100 MG IV (09:08)
--- NOTE | 2019-08-04 10:01 | CM.DANOTE ---
DCP: Case received, EMR reviewed and checked on patient. Patient sleeping in bed, put name of this residential case manager on white board in room. not currently present. Was able to call and confirm from February, [facility] admissions, that patient did come from [facility] ([place] [facility]). DCP assessment completed with information currently available. Patient is a 78 year old male who admitted yesterday afternoon to the care of the hospitalist chelly. PCP: Dr. Aguero. Payer: confirmed: Medicare/[employer]. Patient is a 78 year old male with dementia, who had come over to the hospital via ambulance from [facility]. Patient was here recently with hip fracture, secondary to a ground level fall that happened at home. Patient then went to [facility] for rehab, and came over here secondary to increased cough, potential aspiration pneumonia. Patient holds a diagnosis of hyponatremia, secondary to increased free water. Respiratory Therapy seeing patient, and stated that they had to suction him yesterday, due to copious amounts of mucus. February at [facility] confirmed that patient is a hoier at their facility, but could not confirm that patient is feeding himself, or if he is assisted. Prior to being at [facility] and hospitalization, he was residing at home with spouse, Ericka, who is very supportive. He also has a daughter named Vera, who resides with him as well. Dr. Martinez has seen patient and is ordering speech eval. P: DCP to follow closely. May discuss palliative care with provider, if he shows no sign of improvement. Patient could also return back to [facility] when he is medically stable. Hospice could also potentially do an informational visit as well, but has not yet been discussed with spouse as of yet. Esthela Bansal RN/[employer]
--- NOTE | 2019-08-04 11:39 | SLP.IPNOTE ---
Orders for swallow evaluation received. Chart reviewed. Contacted ARELI Ayala at [facility], [place] who reports patient was on a mechanical soft diet, nectar thick liquids with chin tuck at that facility. Per notes, patient's had been giving patient water to increase fluid intake. Suspect patient may have had aspiration event. Attempted swallow evaluation, but patient refused, requesting to sleep at this time. Will re-attempt swallow later this afternoon.
--- NOTE | 2019-08-04 14:25 | SLP.IPNOTE ---
Patient again refused swallow evaluation, requesting instead to rest. Patient's Ericka reports patient has consumed only nectar thick liquids as recommended during his time at [facility] since discharge from his previous hospital stay. Given history of recurrent pneumonia, a Modified Barium Swallow Study is recommended to assess swallow function and make diet recommendations. Verbal education was provided regarding aspiration, pneumonia, MBSS vs. Clinical Swallow evaluation. Ericka verbalized understanding and was in agreement with MBS recommendations pending MD agreement. Patient not a good candidate for MBS today due to fatigue, but may appropriate tomorrow. ST to collaborate with MD, nursing and dx imaging to schedule.
[2019-08-05] VITALS (9 sets, daily range): BP systolic 116–149; BP diastolic 54–70; PULSE 70–99; RESP 16–22; TEMP 36.3–37.1; O2SAT 93–100
[2019-08-05] MEDS: SODIUM CHLORIDE 0.45% 1,000 ML 100 ML IV (05:47)
[2019-08-05 05:57] LABS: Add Manual Diff / Slide Review NO; Basophils Absolute Auto 0 /uL (0-100); Basophils Percent Auto 0.6 % (0-2); Eosinophils Absolute Auto 0 /uL (0-450); Eosinophils Percent Auto 0.7 % (2-4); Hematocrit 24.1 % (41-53); Hemoglobin 8.5 g/dL (13.5-17.5); Lymphocytes Absolute Auto 800 /uL (1100-4500); Lymphocytes Percent Auto 11.5 % (25-40); Mean Corpuscular HGB Conc 35.4 % (30-36); Mean Corpuscular Hemoglobin 30.6 PG (26-34); Mean Corpuscular Volume 86.5 fL (80-100); Monocytes Absolute Auto 900 /uL (0-900); Monocytes Percent Auto 12.2 % (3-14); Neutrophils Absolute Auto 5400 /uL (1500-7000); Platelet Count 761 X10^3/uL (150-400); Red Blood Cell Count 2.78 X10^6/uL (4.5-5.9); Red Cell Distribution Width 13.3 % (11.6-14.8); White Blood Cell Count 7.2 X10^3/uL (4.5-11.0)
[2019-08-05 06:09] LABS: BUN Creatinine Ratio 11.4 (6-22); Blood Urea Nitrogen 8 mg/dL (9-20); Calcium 7.8 mg/dL (8.4-10.2); Carbon Dioxide 21 mmol/L (22-32); Chloride 89 mmol/L (98-107); Estimated Glomerular Filt Rate > 60.0 mL/min (>60); Glucose 57 mg/dL (80-110); HEMOLYSIS < 15 (0-50); Potassium 3.9 mmol/L (3.4-5.1); Sodium 122 mmol/L (137-145)
[2019-08-05 06:44] LABS: Anisocytosis 1+; Rouleaux 1+
--- NOTE | 2019-08-05 07:01 | PM.PN.1 ---
Subjective Subjective Date Patient Seen: 08/05/19 Time Patient Seen: 13:21 Interval history: Patient seen with his who provides most of the history. She reports that he was having a decline in the long-term for the 3-4 days leading up to this admission. He has had urinary retention and has been catheterized since being in the long-term, she reported that his urine had become pink with sedimentation and even and after changing the catheter, it did not change. She was trying to get him to drink more water to help his urine clear. Two days prior to admission, he had muscle hypertonicity and was closing his eyes tightly. His appetite was reduced. After eating on Sunday morning, he vomited up his breakfast and later that afternoon, EMS was called to take patient the ED. reports that he developed a pressure ulcer at the long-term, left heel. Also reports that he fell out of bed at the long-term onto his recently operated-on, left hip. She thinks he is doing better today, still remains NPO while awaiting the swallow evaluation. Lowry now draining clear yellow urine. Not clamping his eyes shut anymore, less rigid. Exam Vital Signs (past 8 hours): - 08/04/19 23:49 08/05/19 05:00 Temperature 98.3 F 98.8 F Pulse Rate 82 76 Respiratory Rate 16 16 Blood Pressure 137/59 L 127/67 Pulse Oximetry 99 100 Oxygen Delivery Method Nasal Cannula Oxygen Flow Rate 2 Narrative Exam Narrative: GENERAL: Alert and oriented, appearing stated age and in no acute distress. HEENT: Head normocephalic/atraumatic. LUNGS: Clear to ausculation bilaterally, no wheezes, rhonchi or rales. CV: Normal S1 and S2 with regular rate and rhythm, no audible murmurs, rubs or gallops. ABDOMEN: Soft, non-tender, non-distended, no organomegaly. Positive bowel sounds. EXTREMITIES: Weakness, generalized, poor range of motion in left hip secondary to fracture on 07/19/19. NEURO: Cranial nerves 2-12 grossly intact. PSYCH: Chronic dementia. SKIN: Partial thickness ulceration, left heel with surrounding crust. Objective Labs Result Diagrams: 08/05/19 05:43 08/05/19 05:43 Labs: Laboratory Results - last 24 hr 08/05/19 08/05/19 05:43 05:43 WBC 7.2 RBC 2.78 L Hgb 8.5 L Hct 24.1 L MCV 86.5 MCH 30.6 MCHC 35.4 RDW 13.3 Plt Count 761 H Neut % (Auto) 75.0 Lymph % (Auto) 11.5 L [place] % (Auto) 12.2 Eos % (Auto) 0.7 L Baso % (Auto) 0.6 Neut # (Auto) 5400 Lymph # (Auto) 800 L [place] # (Auto) 900 Eos # (Auto) 0 Baso # (Auto) 0 RBC Morphology See below Anisocytosis 1+ H Rouleaux 1+ H Sodium 122 L Potassium 3.9 Chloride 89 L Carbon Dioxide 21 L BUN 8 L Creatinine 0.70 Estimated GFR > 60.0 BUN/Creatinine Ratio 11.4 Glucose 57 L Calcium 7.8 L Assessment & Plan Assessment & Plan narrative: Assessment 1. Progressive shortness of breath with increased sputum production. Chest x-ray inconclusive, differential diagnosis includes atypical pneumonia versus aspiration pneumonia versus neoplasm. Patient has been on 2 L of oxygen overnight. Plan: Will get CT chest with and without contrast to clarify. OT is consulting and swallow evaluation pending; patient on aspiration precautions. Will also continue prophylactic antibiotics but switch levofloxacin to ceftriaxone and azithromycin as levofloxacin possibly thought to be contributing to patient's hyponatremia during his June 2019 hospitalization. Will wean oxygen today if possible. Assessment 2. Hyponatremia, acute on chronic, basesline 126. Now improved with sodium replacement at 122 from 114. Etiology is unclear, possibly secondary to increased fluid intake versus pneumonia versus SIADH. During his June 2019 inpatient stay, patient had worsening of his chronic hyponatremia for unclear reasons. Urine sodium concentration was initially elevated but then normalized. Urine osmolality was normal at that time. Patient has not been acutely ill with persistent vomiting/diarrhea and is not on diuretics. He does not have hyperglycemia, his glucose was actually low this morning at 57, new finding. His kidney function is normal and he has an indwelling urinary catheter, he put out 2850 cc of urine yesterday. He has been in atrial fibrillation during this stay but does not have signs of heart failure including edema or ascites, no fibrillation heard on clinical exam today. TSH last checked on 08/22/2018, 3.5. No evidence of adrenal insufficiency. Concern for SIADH either idiopathic or from a plasma cell dyscrasia such as multiple myeloma; new evidence of rouleaux on peripheral smear Plan: Continue D5 half-normal saline at 100 cc/hour and trend BMP. Will fluid restrict with 800 cc TAR/day. Will get oncology consult to assess for SIADH due to malignancy. Assessment 3. Abnormal peripheral smear, rouleaux formation, concern for multiple myeloma especially in light of recent hip fracture and worsening anemia. Plan: SPEP/UPEP. Skeletal survey. Hematology/oncology consult, Dr. Carson. Assessment 4. Anemia, normocytic/normochromic, worsening. Baseline hemoglobin 10-12, baseline hematocrit 29.6-34.8. Again, concern for underlying malignancy. Possibly worsening from recent hip fracture. Plan: Please see 3. Will trend CBC. Assessment 5. Atrial fibrillation, paroxysmal. Seems to be exacerbated when patient is acutely ill, this is his 3rd lifetime episode. He is a poor candidate for rate/rhythm control and anticoagulation secondary to age, dementia. Patient is DNR. Plan: No treatment, will watch closely. Assessment 6: Hypochloremia, baseline 95, trending up. Plan: Will continue to trend BMP. Assessment 7: Hypoglycemia, new, isolated episode. Plan: Continue D5 half-normal saline at 100 cc/hour, recheck glucose in 1 hour. A1c. Assessment 7: Possible aspiration. Plan: Please see 1. Plan to advance diet when swallow study returns. Assessment 8: Abnormal urinalysis with proteinuria, hematuria, leukorrhea and positive leukocyte esterase. Possible UTI versus hemorrhagic cystitis versus malignancy. Plan: UPEP as noted above, awaiting urine culture, will continue antibiotics. Assessment 9. Elevated liver enzymes, acute. Etiology unclear, possibly secondary to gallstone, abdominal issue, liver mets, drugs, or acute phase. Plan: Will repeat LFTs and await results from multiple myeloma workup. Assessment 10: Decubitus ulcer, stage II, left heel present on admission Plan: Wound care. Assessment 11: Weakness secondary to recent hip surgery Plan: PT. Assessment 12. Dementia, chronic. Progressive disability. Plan: Supportive care. Assessment 13: Hyperlipidemia, chronic. Plan: Diet controlled at home, will not treat aggressively in the hospital. Assessment 14: Hypothyroidism, per history only has been euthyroid for the past 3 years. Plan: Will update TSH. Assessment 15. GERD, chronic, needs ongoing PPI. Plan: Will start Protonix 20 mg p.o. q.day. Assessment 16. History of alcoholism and tobacco dependence. Still drinks 1-2 whiskey/argueta weekly. Has not smoked for the last 3 years. DVT prophylaxis: SCDs. Code: DNR/DNI
--- NOTE | 2019-08-05 07:52 | DI.RAD.S_ITS ---
PROCEDURE: XR BONE SURVEY INDICATIONS: r/o multiple myeloma, rouleaux formation, anemia, hip fx TECHNIQUE: Multiple views obtained of various bony structures as described below. COMPARISON: None. FINDINGS: Skull (lateral): No suspicious bony lesions. No fractures. Thoracic spine (AP, lateral): No suspicious bony lesions. No acute vertebral body compression fractures. Lumbar spine (AP, lateral): No suspicious bony lesions. No acute vertebral body compression fractures. Pelvis (AP): No suspicious bony lesions. No fractures. Overlying soft tissues appear unremarkable. Right and left humeri (AP): No suspicious bony lesions. No fractures. Overlying soft tissues appear unremarkable. Right and left femurs (AP): No suspicious bony lesions. No fractures. Overlying soft tissues appear unremarkable. IMPRESSION: Chronic degenerative changes, left total hip arthroplasty recently performed, by this examination there is no evidence for focal or generalized ostiolysis involving the axial or appendicular skeleton. Mild alveolar airspace disease left lung base behind the heart with a slight pleural effusion. Dictated by: Enrique Rodriguez M.D. on 08/05/2019 at 9:32 Approved by: Enrique Rodriguez M.D. on 08/05/2019 at 9:34
--- NOTE | 2019-08-05 08:16 | PC.NURSE ---
Patient glucose on lab draw 57, Dr Real called, IVF order change, blood glucose finger stick recheck 63.
--- NOTE | 2019-08-05 08:31 | DI.CT.S_ITS ---
PROCEDURE: CT CHEST W CON INDICATIONS: r/o mass, check for multiple myeloma vs. met vs. mass. TECHNIQUE: After the administration of intravenous contrast, 5 mm thick sections acquired from the pulmonary apices to the posterior costophrenic angles. 1 mm axial lung, 5 mm thick coronal and sagittal reformats and 7 mm axial MIP were acquired. For radiation dose reduction, the following was used: automated exposure control, adjustment of mA and/or kV according to patient size. COMPARISON: None. FINDINGS: Image quality: Excellent. Lungs and pleura: There are bilateral pleural effusions that are small in size, and also bilateral mid and upper lung mild pneumonia with a greater degree of alveolar consolidation at the left lung base than the right, overall the appearance is worrisome for pneumonia. Unusual manifestation of tumor infiltration conceivably could produce this appearance but this is unlikely. No focal mass lesion is present within the chest. No pneumothorax. Central and peripheral airways are patent and normal in caliber. Mediastinum: Heart size is normal. No pericardial effusion. No mediastinal or hilar adenopathy by size criteria. Thoracic aorta and central pulmonary arteries are normal in size. The thoracic aorta shows areas of calcific and soft plaquing that is moderately severe the middle third of the descending thoracic aorta. Esophagus is normal in caliber. No hiatal hernia. Bones and chest wall: No suspicious bony lesions. No vertebral body compression fractures. No axillary or supraclavicular adenopathy by size criteria. Thyroid gland appears normal where well seen. Abdomen: Visualized upper abdominal solid organs appear normal. Upper abdominal bowel loops are normal in caliber. IMPRESSION: Bilateral pneumonia pattern, no adenopathy seen. No osseous lesion identified. Small bilateral pleural effusions and alveolar airspace disease is associated, greatest at the left lung base. The effusions are of a small size that would not allow safe access for thoracentesis. Dictated by: Enrqiue Rodriguez M.D. on 08/05/2019 at 9:34 Approved by: Enrique Rodriguez M.D. on 08/05/2019 at 9:42
[2019-08-05] MEDS: DEXTROSE 5%-0.45% NS 1,000 ML 100 ML IV (09:08)
[2019-08-05] MEDS: CEFTRIAXONE 1 GM/50 ML FROZ.PIGGY IV (09:30)
[2019-08-05] MEDS: AZITHROMYCIN 500 MG in DEXTROSE 5% IN WATER 250 ML IV (10:23)
[2019-08-05 11:51] LABS: Hemoglobin A1C% w Est Avg Glu 5.5 % (4.0-6.0)
[2019-08-05 13:06] LABS: TSH w/ Reflex to FT4 2.27 uIU/mL (0.47-4.68)
--- NOTE | 2019-08-05 13:25 | PC.NURSE ---
Pt is lying on his back and comfortable. Scooted up in bed. Pt has a open blister to his l.heel that is now open to air. Dressings not sticking well to area. He denies pain. Last BS taken was 83, pt is not exhibiting any s/sx of hypoglycemia. Unable to make it down to Modified Barrium Swallow today as pt is weak and having a hard time getting up. He is confused at times, in room.
--- NOTE | 2019-08-05 14:15 | PT.IIE ---
Surgical History (Last Reviewed 08/03/19 @ 17:07 by Torrie Morales DO) No pertinent past surgical history (Acute) Medical History (Last Reviewed 08/03/19 @ 17:07 by Torrie Morales DO) Depression (Chronic) Hyperlipidemia (Chronic) Hypothyroid (Chronic) Memory changes (Chronic) PSA elevation (Chronic) Urinary incontinence (Chronic) Physical Therapy Inpatient Evaluation/Re-Eval M1 PT/OT-IP Prior Functional Status Start: 08/05/19 13:56 Freq: NEEDED Status: Active Protocol: Document 08/05/19 14:15 AB (Rec: 08/05/19 15:53 AB [email or web address]) Medical Review Prior Functional Status Medical History Reviewed Yes Communication inconsistent with answering questions Mobility and Gait prior to recent L hip hemiarthroplasty: spouse assists pt with all mobilities providing pt with MACHINIST WOOD. pt does not use any AD. Prior Functional Level (Other details) pt has been in and out of the hospital for last few months: admitted last june for weakness and pt went home afterwards. pt admitted last july s/p fall and sustained a L hip fracture and underwent L hemiarthroplasty. pt went to [facility] afterwards and has been there for ~ 2 weeks. pt currently admitted for acute hyponatremia Social History Household Members spouse,family Living Arrangements House Number of Floors (Floors) One Floor Number of Stairs To Enter/Railing? 1 step to enter without rails Home Environment High Toilet,Tub/Shower Home Equipment Straight Cane,Shower Seat with Backrest,Hand Held Shower, Grab Bars In Shower Employment Status Retired M2 PT-IP Current Condition Start: 08/05/19 13:56 Freq: NEEDED Status: Active Protocol: Document 08/05/19 14:15 AB (Rec: 08/05/19 15:53 AB [email or web address]) Physical Therapy Current Condition Current Condition Evaluation Date 08/05/19 Treatment Diagnosis acute hyponatremia; difficulty in walking Onset Date 08/03/19 Precautions Posterior Hip Precautions No Hip Flexion > 90 degrees,No Hip Internal Rotation,No Hip Adduction Other Precautions falls; L posterior hip precautions due to recent hemiarthroplasty 07/19/19 Weight Bearing Status Weight Bearing Status Weight Bear as Tolerated M3 PT-IP Subjective Start: 08/05/19 13:56 Freq: NEEDED Status: Active Protocol: Document 08/05/19 14:15 AB (Rec: 08/05/19 15:53 AB [email or web address]) Subjective Physical Therapy Visit Type Type Initial Evaluation Visit Start Time 14:15 Visit Stop Time 15:06 Total Visit Minutes 51 Number of WATER PUMPER Visits 0 Physical Therapy Visit Comments Patient Comments pt agreeable to do PT Therapy Pain Assessment Pain Present Pain Present Denied Pain M4 PT-IP Mobility and Gait Start: 08/05/19 13:56 Freq: NEEDED Status: Active Protocol: Document 08/05/19 14:15 AB (Rec: 08/05/19 15:53 AB [email or web address]) PT-Bed Mobility Assessment Supine to Sit Supine to Sit Maximum Assistance,1 Person Assistance,Head of Bed Elevated Scooting Scooting to Edge of Bed Maximum Assistance,Dependent PT-Transfer Assessment Sit to and From Stand Sit to and from Stand Maximum Assistance,2 Person Assistance,Use of Upper Extremities Equipment Transfer Assistive Device Gait Belt,Front Wheeled Walker Orthotic/Prosthetic Devices or Brace: No Transfers Transfer Destination Chair Transfer Technique Stand Pivot Transfer Ability Level of Assist Maximum Assistance,Total Assistance,2 Person Assistance ,Use of Upper Extremities Comments Mobility Comments pt completed suine to sit max A and max cues with HOB elevted. pt requires repeated cues and is not consistent with following directions. pt was able to sit on EOB with initial max A but able to sit CGA after repositionining. pt completed sit <>stand x 3 reps max A x 2-3 and max cues with increas posterior trunk leaning/pushing and pt unable to stand upright. repeated sit to stand and on 3rd try requires a 3rd person to assist to prevent pt from pushing backwrds. pt completed pivot transfer max A x2-3 and max cues. pt completed another sit to stand from the chair requiring max A x 2 and max cues and was able to maintain standing using fWW for support max A x 2 while another person assists with managing chair sheet/ pads. informed NAC and nurse regarding sit<>stand lift recommendation. assessed pt with sit<>stand lift and pt was able to tolerate. positioned pt on the chair. call light and table placed within reach. abductor pillow positioned. chair alarm on. Left pt with spouse in room. Gait Assessment Comments Gait Comments unable at this time PT-Balance Assessment Sitting Balance and Reactions Static Sitting Balance Ability Good Dynamic Sitting Balance Ability Fair Standing Balance and Reactions Static Standing Balance Ability Poor Dynamic Standing Balance Ability Poor Device Used FWW M5 PT-IP Objective Assessments Start: 08/05/19 13:56 Freq: NEEDED Status: Active Protocol: Document 08/05/19 14:15 AB (Rec: 08/05/19 15:53 AB [email or web address]) Orientation Orientation/Cognition Orientation Name Safety Awareness Decreased Safety Awareness Memory Description Short Term Impaired,Research Program Assistant Impaired Comments pt has dementia and is not consistent with following directions Gross Range of Motion Lower Extremity ROM Assessment Bilaterally Impaired Impairments bilateral ankle PF contractures: R>L Strength Comments Strength Comments unable to formally conduct MMT due to pt's difficulty in following directions. Attempted but pt unable to follow thru. pt also has rigidity during PROM affecting MMT Muscle Tone Muscle Tone WNL No Muscle Tone Location Bilateral Lower Extremity Type of Tone Rigidity Severity of Tone Moderate M6 PT-IP Treatment Start: 08/05/19 13:56 Freq: NEEDED Status: Active Protocol: Document 08/05/19 14:15 AB (Rec: 08/05/19 15:53 AB [email or web address]) Physical Therapy Treatment Exercises Exercises Heel Slides Education Education Provided Precautions,Safety Other Treatments Other Treatment Performed completed ankle PROM and stretching to DF reviewed L hip posterior precautions and pt unable to recall M7 PT-IP Assessment and Plan Start: 08/05/19 13:56 Freq: NEEDED Status: Active Protocol: Document 08/05/19 14:15 AB (Rec: 08/05/19 15:53 AB [email or web address]) PT Summary Assessment and Plan Potential Rehabilitation Potential Fair Status of Condition at Evaluation Evolving Summary Impairments Pain,ROM,Strength,Balance, Coordination,Sensation,Tone, Cognition,Bed Mobility, Transfers,Gait,Activity Tolerance Assessment Summary pt requiring max A x 2-3 to total A x 2 and max cues with all tasks. pt has decrease safety awareness affecting mobility. pt will require SNF rehab to improve strength and decrerase burden of care. Goals Bed Mobility Goal Minimal Assistance Transfer Goal Minimal Assistance,Front Wheeled Walker Gait Goal Minimal Assistance,Front Wheel Walker Gait Distance 50 Days to Meet Goals 10 Frequency of Treatment Frequency Of Treatment Once a Day Treatment Plan Physical Therapy Treatment Plan Bed Mobility Training,Transfer Training,Gait Training, Therapeutic Exercise,Balance Retraining,Post Op Education, Discharge Planning,Hot or Cold Pack,Neuromuscular Re-ed, Coordination Retraining,Manual Therapy Other Recommendations and Next Treatment transfers, ambulation Focus Recommendations To Nursing Amount of Assist Needed 2 Person Assist,Power Sit- Stand Discharge Recommendations PT Discharge Recommendations SNF Rehab
--- NOTE | 2019-08-05 14:15 | CM.DPC ---
DCP Cont: Met briefly with patient's , Ericka. Patient notes increased awareness this morning, answering questions. He was going down to have a bone study done. Speech therapy is also working with patient. is wanting to ensure that [facility] is holding patient's room, and wanted to discuss Medicare coverage. Encouraged her to talk to February in admissions, as well. Spoke to February in admissions. Patient has several more days there, he was admitted on 07/19. Updated her that patient could be here for several more days, due to different issues. 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 Patient also has UTI as well. Diet will be advanced when able, per speech therapy. P: DCP will continue to follow closely. Will see how he progresses here in hospital. Anticipate that he will be here for several more days, until stable to go back to [facility]. Esthela Bansal RN/Tour Guide
--- NOTE | 2019-08-05 14:52 | SLP.IPNOTE ---
Modified Barium Swallow Study scheduled for 12:30pm was not completed as patient was found to be too weak to transfer and maintain upright posture to participate. I visited with the patient and his in his room shortly after and discussed options. Patient is not requesting food/liquids at this time and states he would prefer to rest. Verbal education was provided to the patient's regarding importance of oral care during NPO status. Collaborated with nursing who states patient may stronger and able to participate in MBS tomorrow. ST will follow-up tomorrow.
--- NOTE | 2019-08-05 16:52 | P.CONONC_ITS ---
History of Present Illness - Data of Consult Consult date: 08/05/19 Primary Care Provider: Su Aguero MD - Consult Narrative Narrative: Diagnosis: Anemia History of present illness: Caleb Cross is a 78 year old male who I was asked to evaluate in the hospital. He has a history of dementia and the history is obtained from his . He has had a series of hospitalizations this fall. The 1st was in June. At that time, he had developed weakness and poor appetite. He was found to have a pneumonia and was treated with antibiotics. At the time of his admission in June, his hematocrit was 39.2. In July, he had a fall and f ractured his left hip. He did have surgical repair. His hematocrit during that hospital stay started at 34.1. After that discharge, he was making some progress with physical therapy but then developed hyponatremia and weakness again. He was hospitalized on August 03 and found to have hematocrit 26.8. Today it is 24.1. At the time of his admission, the lab noted 1+ rouleaux formation on his CBC. The patient does not have any prior history of anemia. He has never required a transfusion. He has had a little bit of blood in his [place] but has not had any significant bleeding. There has been no epistaxis or gingival bleeding. He has had a little bit of ecchymoses at the site of vena punctures. He does not seem to be in any pain. He has not been losing weight. His creatinine and calcium have been normal. His albumin and globulin are normal as well. He does have an SPEP and UPEP which are pending. Skeletal survey done earlier today did not show any lytic lesions. Likewise, CT scan of the chest did not show any bony lesions. His past medical history is notable for Alzheimer's and recent pneumonia. He has had a recent hip fracture. He has had hyponatremia. He has had an elevated PSA and hypothyroidism. His medications include Protonix azithromycin and ceftriaxone. Family history is notable for brother with rectal cancer. There is no other family history of malignancy. CC: Jairo Martinez MD Home Medications and Allergies Home Medications Medication Instructions Recorded Confirmed Type red yeast rice 600 mg PO DAILY 05/28/18 08/05/19 History vitamin B complex 1 cap PO DAILY 05/28/18 08/05/19 History latanoprost [Xalatan] 1 drops EYE-LEFT BEDTIME #1 ml 05/30/18 08/05/19 Rx acetaminophen 650 mg PO Q4HR PRN #60 tab 07/22/19 08/05/19 Rx aspirin 81 mg PO BID #0 tab 07/22/19 08/05/19 Rx docusate sodium [DOK] 100 mg PO BID #60 cap 07/22/19 08/05/19 Rx tamsulosin [Flomax] 0.8 mg PO DAILY #30 cap 07/22/19 08/05/19 Rx Aria-Tussin 10 ml PO Q4H PRN 08/05/19 08/05/19 History albuterol sulfate 2.5 mg INHALATION Q6H PRN 08/05/19 08/05/19 History bisacodyl 5 mg PO PRN PRN 08/05/19 08/05/19 History bisacodyl 10 mg UT PRN PRN 08/05/19 08/05/19 History darifenacin 7.5 mg PO DAILY 08/05/19 08/05/19 History hydrocortisone 1 applic TOPICAL DAILY PRN 08/05/19 08/05/19 History ipratropium-albuterol 3 ml INHALATION Q6H PRN 08/05/19 08/05/19 History multivitamin with minerals 1 tab PO DAILY 08/05/19 08/05/19 History polyethylene glycol 3350 [Miralax] 17 g PO PRN PRN 08/05/19 08/05/19 History Allergies Allergy/AdvReac Type Severity Reaction Status Date / Time No Known Drug Allergies Allergy Verified 05/28/18 14:32 Medical History - Medical, Surgical, Family History Medical History: Medical History (Last Reviewed 08/03/19 @ 17:07 by Torrie Morales DO) Depression Hyperlipidemia Hypothyroid Memory changes PSA elevation Urinary incontinence Surgical History: Surgical History (Last Reviewed 08/03/19 @ 17:07 by Torrie Morales DO) No pertinent past surgical history - Social History Smoking Status: Former smoker Exam Vital signs: Vital Signs Temp Pulse Resp BP Pulse Ox 08/05/19 14:00 98.3 F 70 18 130/64 100 08/05/19 10:52 95 08/05/19 09:45 97 08/05/19 08:00 97.4 F L 71 18 116/54 L 100 08/05/19 05:00 98.8 F 76 16 127/67 100 08/04/19 23:49 98.3 F 82 16 137/59 L 99 08/04/19 23:00 99 08/04/19 20:45 98.5 F 74 17 126/59 L 100 08/04/19 18:59 82 99 Intake and Output 08/05/19 08/05/19 08/05/19 07:59 15:59 23:59 Intake Total 1000 / 2300 1300 / 2300 Output Total 1100 / 2800 1700 / 2800 Balance -100 / -500 -400 / -500 Intake: IV 1000 / 2300 1300 / 2300 Azithromycin 500 mg In Dextrose 250 / 250 5% in Water 250 ml @ 250 mls/ hr IV Q24H RM Rx#:[id number] Ceftriaxone 1 gm In 50 ml @ 100 50 / 50 mls/hr IV Q24H RM Rx#: [id number] Sodium Chloride 0.45% 1,000 ml 1000 / 2000 1000 / 2000 @ 100 mls/hr IV CONT RM Rx#: [id number] Output: Urine Amount (Catheter) 1100 / 2800 1700 / 2800 Other: Weight 69 kg Patient Weight 08/05/19 23:59 Weight 69 kg - Constitutional positive no acute distress Comments: He is in a chair and sleeping. He is not further examined. Results - Labs Laboratory Last Values WBC 7.2 X10^3/uL (4.5-11.0) 08/05/19 05:43 RBC 2.78 X10^6/uL (4.5-5.9) L 08/05/19 05:43 Hgb 8.5 g/dL (13.5-17.5) L 08/05/19 05:43 Hct 24.1 % (41-53) L 08/05/19 05:43 MCV 86.5 fL (80-100) 08/05/19 05:43 MCH 30.6 PG (26-34) 08/05/19 05:43 MCHC 35.4 % (30-36) 08/05/19 05:43 RDW 13.3 % (11.6-14.8) 08/05/19 05:43 Plt Count 761 X10^3/uL (150-400) H 08/05/19 05:43 Neut % (Auto) 75.0 % (50-75) 08/05/19 05:43 Lymph % (Auto) 11.5 % (25-40) L 08/05/19 05:43 [place] % (Auto) 12.2 % (3-14) 08/05/19 05:43 Eos % (Auto) 0.7 % (2-4) L 08/05/19 05:43 Baso % (Auto) 0.6 % (0-2) 08/05/19 05:43 Neut # (Auto) 5400 /uL (6809-6005) 08/05/19 05:43 Lymph # (Auto) 800 /uL (9729-4387) L 08/05/19 05:43 [place] # (Auto) 900 /uL (0-900) 08/05/19 05:43 Eos # (Auto) 0 /uL (0-450) 08/05/19 05:43 Baso # (Auto) 0 /uL (0-100) 08/05/19 05:43 RBC Morphology See below 08/05/19 05:43 Hypochromasia 1+ H 08/03/19 16:16 Anisocytosis 1+ H 08/05/19 05:43 Rouleaux 1+ H 08/05/19 05:43 PT 14.4 SECONDS (10.1-12.7) H 08/03/19 16:16 INR 1.2 (0.9-1.3) 08/03/19 16:16 APTT 28 SECONDS (26.4-36.2) 08/03/19 16:16 Sodium 122 mmol/L (137-145) L 08/05/19 05:43 Potassium 3.9 mmol/L (3.4-5.1) 08/05/19 05:43 Chloride 89 mmol/L (98-107) L 08/05/19 05:43 Carbon Dioxide 21 mmol/L (22-32) L 08/05/19 05:43 BUN 8 mg/dL (9-20) L 08/05/19 05:43 Creatinine 0.70 mg/dL (0.66-1.25) 08/05/19 05:43 Estimated GFR > 60.0 mL/min (>60) 08/05/19 05:43 BUN/Creatinine Ratio 11.4 (6-22) 08/05/19 05:43 Glucose 57 mg/dL (80-110) L 08/05/19 05:43 Hemoglobin A1c 5.5 % (4.0-6.0) 08/05/19 11:15 Serum Osmolality Cancelled 08/03/19 16:16 Lactate 0.6 mmol/L (0.7-2.1) L 08/03/19 22:06 Calcium 7.8 mg/dL (8.4-10.2) L 08/05/19 05:43 Total Bilirubin 0.9 mg/dL (0.2-1.3) 08/03/19 16:16 AST 78 IU/L (17-59) H 08/03/19 16:16 ALT 52 IU/L (<50) H 08/03/19 16:16 Alkaline Phosphatase 91 U/L (38-126) 08/03/19 16:16 Total Protein 6.3 g/dL (6.3-8.2) 08/03/19 16:16 Albumin 3.4 g/dL (3.5-5.0) L 08/03/19 16:16 Globulin 2.9 g/dL (1.7-4.1) 08/03/19 16:16 Albumin/Globulin Ratio 1.2 (1.0-2.8) 08/03/19 16:16 Procalcitonin 0.14 ng/mL (<0.5) 08/03/19 16:16 TSH 2.27 uIU/mL (0.47-4.68) 08/05/19 11:15 Urine Color Yellow 08/03/19 16:19 Urine Appearance Sl cloudy 08/03/19 16:19 Urine pH >= 9.0 (4.5-8.0) H 08/03/19 16:19 Ur Specific [place] <=1.005 (1.000-1.035) 08/03/19 16:19 Urine Protein 3+ (Negative) H 08/03/19 16:19 Urine Glucose (UA) Negative g/dL (Negative) 08/03/19 16:19 Urine Ketones 1+ (NEGATIVE) H 08/03/19 16:19 Urine Occult Blood 3+ (Negative) H 08/03/19 16:19 Urine Nitrate Negative (Negative) 08/03/19 16:19 Urine Bilirubin Negative (NEGATIVE) 08/03/19 16:19 Urine Urobilinogen 1.0 E.U./dL (0.2) 08/03/19 16:19 Ur Leukocyte Esterase 2+ (NEGATIVE) H 08/03/19 16:19 Urine RBC 30-100/hpf (0-5/HPF) H 08/03/19 16:19 Urine WBC 5-10/hpf (0-5/HPF) H 08/03/19 16:19 Amorphous Sediment 2+ 08/03/19 16:19 Urine Bacteria Moderate (10-30) (None) H 08/03/19 16:19 Ur Culture Indicated? Specimen cultured 08/03/19 16: Urine Osmolality Cancelled 08/03/19 16: Ur Random Sodium 100 mmol/L (30-90) H 08/03/19 16: Ref Test (Refrig) Cancelled 08/03/19 17:41 - Imaging Additional studies: Procedures Replacement of Left Hip Joint, Femoral Surface with Metal Synthetic Substitute, Uncemented, Open Approach (07/19/19) Assessment and Plan (1) Anemia Current visit: Yes Status: Acute 78-year-old man with a history of dementia and a recent hip fracture. He cu rrently has evidence of pneumonia. He has developed a relatively acute anemia over the last month. I think this is most likely related to his hip surgery and to acute illness. I think would be helpful to check for iron deficiency, B12 and folate deficiency. Reticulocyte count would be helpful as well. He did have rouleaux formation noted on 1 CBC but not on others. This at least raises the possibility of multiple myeloma. Cis skeletal survey and CT scan did not show any lytic lesions. There is no renal insufficiency or hypercalcemia. His total protein and globulin are not elevated. I think that this is unlikely to represent multiple myeloma. Nevertheless an SPEP and UPEP are pending.
--- NOTE | 2019-08-05 22:41 | PC.NURSE ---
TALKED WITH ABOUT INCREASED HEART RATE AT TIMES,NEW ORDER TO D/C TELE
[2019-08-06] VITALS (10 sets, daily range): BP systolic 113–140; BP diastolic 49–68; PULSE 69–100; RESP 15–24; TEMP 36.6–37; O2SAT 93–97; BMI 23.1
[2019-08-06] MEDS: DEXTROSE 5%-0.45% NS 1,000 ML 100 ML IV ×2 (01:12→21:24)
[2019-08-06 05:14] LABS: Hematocrit 25.2 % (41-53); Hemoglobin 8.8 g/dL (13.5-17.5); Mean Corpuscular HGB Conc 34.8 % (30-36); Mean Corpuscular Volume 86.3 fL (80-100); Platelet Count 766 X10^3/uL (150-400); Red Blood Cell Count 2.92 X10^6/uL (4.5-5.9); Red Cell Distribution Width 13.4 % (11.6-14.8); White Blood Cell Count 7.2 X10^3/uL (4.5-11.0)
[2019-08-06 05:36] LABS: HEMOLYSIS < 15 (0-50); Iron 18 ug/dL (49-181)
[2019-08-06 05:38] LABS: Alanine Aminotransferase 37 IU/L (<50); Albumin 2.7 g/dL (3.5-5.0); Alkaline Phosphatase 76 U/L (38-126); Aspartate Aminotransferase 42 IU/L (17-59); Bilirubin Total 0.4 mg/dL (0.2-1.3); Blood Urea Nitrogen 7 mg/dL (9-20); Calcium 7.7 mg/dL (8.4-10.2); Carbon Dioxide 25 mmol/L (22-32); Chloride 89 mmol/L (98-107); Estimated Glomerular Filt Rate > 60.0 mL/min (>60); Globulin 2.8 g/dL (1.7-4.1); Glucose 124 mg/dL (80-110); HEMOLYSIS < 15 (0-50); Potassium 3.8 mmol/L (3.4-5.1); Sodium 122 mmol/L (137-145); Total Protein 5.5 g/dL (6.3-8.2)
[2019-08-06 05:44] LABS: Neutrophils Absolute Manual 5472 /uL (3000-5900); Total Cells Counted 100
[2019-08-06 05:46] LABS: Percent Iron Saturation 9 % (20-50); Total Iron Binding Capacity 193 ug/dL (261-462); Transferrin 129 mg/dL (206-381)
[2019-08-06 05:47] LABS: Anisocytosis 1+; Rouleaux 1+
--- NOTE | 2019-08-06 05:47 | PC.NURSE ---
Pt is alert to self; does not really respond to my questions often, appearing fatigued. Delayed responses. Looks as though pt has some b/l foot drop; asked him to flex toes or do ankle waves but very minimal movement. Cannot lift up legs. Heels floated on pillows and floated boots placed. Turned and positioned q2h with pillows and bed support. Tolerating RA at 94%; Chest congestion/coarse lungs. coughing intermittently but unable to bring anything up. D5-1/2NS@100mL/hr running throughout shift. According to previous reports, it appears Simpson catheter was placed at [facility]; unsure of date, will ask day shift to ask if pt's knows. Some sediment note in simpson. Pt refusing SCDs, explained DVT risks but pt still refusing.
[2019-08-06 06:26] LABS: Vitamin B12 > 1000 pg/mL (239-931)
--- NOTE | 2019-08-06 06:33 | P.PN_ITS ---
Subjective Subjective Time Patient Seen: 06:33 Interval history: Patient is sleepy at time of interview. Nursing reports that he has been hard to arouse throughout the night and that he requires a 3-person assist to transition him to a chair. Swallow studies not done for this reason yesterday. NPO thus removed and diet advanced and blood sugar normalized. No issues with aspiration in the last 24 hours. Patient denies pain or shortness of breath. Oxygen has now been weaned to room air. Physical therapy was by yesterday, patient did have an elevation of heart rate without chest pain, EKG showed no atrial fibrillation. Dr. Carson was by yesterday to see patient, please see his note for details. In brief, he noted that rouleaux formation has only been seen once and that no evidence of lytic lesions were seen on either chest CT or skeletal survey. SPEP and UPEP are still pending. Multiple myeloma still a consideration but less likely. Notably, rouleaux formation was present again today on peripheral smear. Wound Care has seen patient and is managing his decubitus ulcer. Exam Vital Signs (past 8 hours): - 08/05/19 23:00 08/06/19 00:00 08/06/19 04:07 Temperature 98.4 F 98.2 F Pulse Rate 100 H 97 H Respiratory Rate 24 24 Blood Pressure 140/67 120/63 Pulse Oximetry 93 94 94 Oxygen Delivery Method Room Air Oxygen Flow Rate 0 Narrative Exam Narrative: GENERAL: Alert and oriented, appearing stated age and in no acute distress. HEENT: Head normocephalic/atraumatic. LUNGS: Clear to ausculation bilaterally, no wheezes, rhonchi or rales. CV: Normal S1 and S2 with regular rate and rhythm, no audible murmurs, rubs or gallops. ABDOMEN: Soft, non-tender, non-distended, no organomegaly. Positive bowel sounds. EXTREMITIES: Weakness, generalized, poor range of motion in left hip secondary to fracture on 07/19/19. NEURO: Cranial nerves 2-12 grossly intact. PSYCH: Chronic dementia. SKIN: Partial thickness ulceration, left heel with surrounding crust. Objective Labs Result Diagrams: 08/06/19 04:56 08/06/19 04:56 Labs: Laboratory Results - last 24 hr 08/05/19 08/05/19 08/05/19 05:43 11:15 11:15 WBC RBC Hgb Hct MCV MCH MCHC RDW Plt Count Total Counted Seg Neutrophils % Lymphocytes % (Manual) Monocytes % (Manual) Neutrophils # (Manual) RBC Morphology See below Anisocytosis 1+ H Rouleaux 1+ H Sodium Potassium Chloride Carbon Dioxide BUN Creatinine Estimated GFR BUN/Creatinine Ratio Glucose Hemoglobin A1c 5.5 Calcium Iron TIBC % Saturation Transferrin Ferritin Total Bilirubin AST ALT Alkaline Phosphatase Total Protein Albumin Globulin Albumin/Globulin Ratio Vitamin B12 TSH 2.27 08/06/19 08/06/19 08/06/19 04:56 04:56 04:56 WBC 7.2 RBC 2.92 L Hgb 8.8 L Hct 25.2 L MCV 86.3 MCH 30.0 MCHC 34.8 RDW 13.4 Plt Count 766 H Total Counted 100 Seg Neutrophils % 76.0 H Lymphocytes % (Manual) 15.0 L Monocytes % (Manual) 9.0 Neutrophils # (Manual) 5472 RBC Morphology See below Anisocytosis 1+ H Rouleaux 1+ H Sodium 122 L Potassium 3.8 Chloride 89 L Carbon Dioxide 25 BUN 7 L Creatinine 0.70 Estimated GFR > 60.0 BUN/Creatinine Ratio 10.0 Glucose 124 H Hemoglobin A1c Calcium 7.7 L Iron TIBC % Saturation Transferrin Ferritin 268.0 Total Bilirubin 0.4 AST 42 ALT 37 Alkaline Phosphatase 76 Total Protein 5.5 L Albumin 2.7 L Globulin 2.8 Albumin/Globulin Ratio 1.0 Vitamin B12 TSH 08/06/19 08/06/19 04:56 04:56 WBC RBC Hgb Hct MCV MCH MCHC RDW Plt Count Total Counted Seg Neutrophils % Lymphocytes % (Manual) Monocytes % (Manual) Neutrophils # (Manual) RBC Morphology Anisocytosis Rouleaux Sodium Potassium Chloride Carbon Dioxide BUN Creatinine Estimated GFR BUN/Creatinine Ratio Glucose Hemoglobin A1c Calcium Iron 18 L TIBC 193 L % Saturation 9 L Transferrin 129 L Ferritin Total Bilirubin AST ALT Alkaline Phosphatase Total Protein Albumin Globulin Albumin/Globulin Ratio Vitamin B12 > 1000 H TSH Assessment & Plan Assessment & Plan narrative: Assessment 1. Progressive shortness of breath with increased sputum production. Chest x-ray inconclusive, CT chest suggestive of bilateral pneumonia with very minor pleural effusions bilaterally. Patient was last treated with IV antibiotics for community-acquired pneumonia 2 months ago and has had an interval hip fracture and SNF stay, risk for healthcare- associated pneumonia. Sputum culture showed normal beba only and admission procalcitonin was within normal limits. Neoplasm not seen on CT exam but not excluded. Oxygen now weaned to room air, which is an improvement but patient still very weak. Plan: As chest CT is suggesting a bilateral pneumonia over a lung mass, will consider this patient at risk for multidrug resistant pathogen secondary to his recent IV antibiotic use and SNF stay and consider this a healthcare associated pneumonia. Sputum culture showed only mixed beba but does not rule out a more serious process. Will not put patient through a bronchoscope for definitive diagnosis secondary to his frailty and DNR/DNI status. Will discontinue ceftriaxone and azithromycin and broaden his antibiotics to cover Pseudomonas, Gram-negative bacilli, and MRSA with Zosyn, cefipime, and vancomycin per pharmacy. OT consulting, aspiration precautions continue. Have discontinued swallow study as patient is too weak to complete the process. Assessment 2. Hyponatremia, acute on chronic, basesline 126. No change in sodium, still at 122, concern for SIADH. Rouleax again present on peripheral smear today, Dr. Carson consulting. Plan: Continue D5 half-normal saline at 100 cc/hour and trend BMP. Continue fluid restrictions with 800 cc TAR/day. Oncololgy following. Assessment 3. Abnormal peripheral smear, rouleaux formation, concern for multiple myeloma especially in light of recent hip fracture and worsening anemia. Skeletal survey showed no lytic lesions. SPEP/UPEP pending. Plan: Dr. Carson consulting, please see his note. Assessment 4. Anemia, normocytic/normochromic, iron studies show iron deficiency. B12 elevated, folate pending. Plan: Patient is a poor candidate for oral therapy, will give iron transfusion today. Will discontinue home B vitamin on discharge. Elevated B12 could also be due to blood dyscrasia, will consult with Dr. Carson. Assessment 5. Atrial fibrillation, paroxysmal. Seems to be exacerbated when patient is acutely ill, this is his 3rd lifetime episode. He is a poor candidate for rate/rhythm control and anticoagulation secondary to age, dementia. Patient is DNR. Plan: No treatment, will watch closely. Assessment 6: Hypochloremia, baseline 95, has trended up, now unchanged at 89. Plan: Will continue to trend BMP. Assessment 7: Hypoglycemia, new, isolated episode, resolved with refeeding. Plan: Will watch closely. Assessment 7: Possible aspiration. Plan: Please see 1. Holding on swallow study due to weakness, on aspiration precautions. Assessment 8: Abnormal urinalysis with proteinuria, hematuria, leukorrhea and positive leukocyte esterase. Urine culture negative for infection. Lowry d raining straw colored urine, clear. Plan: Grossly improved, patient on antibiotics. Will retest in outpatient setting. UPEP pending. Assessment 9. Elevated liver enzymes, acute. resolved. Plan: Will trend. Assessment 10: Decubitus ulcer, stage II, left heel, present on admission Plan: Wound care consulting. Assessment 11: Weakness secondary to recent hip surgery Plan: PT/OT consulting. Assessment 12. Dementia, chronic. Progressive disability. Plan: Supportive care. Assessment 13: Hyperlipidemia, chronic. Plan: Diet controlled at home, will not treat aggressively in the hospital. Assessment 14: Hypothyroidism, per history only has been euthyroid for the past 3 years. Plan: TSH normal. Assessment 15. GERD, chronic, needs ongoing PPI. Plan: Changed Protonix 20 mg to IV. q.day secondary to difficulty swallowing. Assessment 16. History of alcoholism and tobacco dependence. Still drinks 1-2 whiskey/argueta weekly. Has not smoked for the last 3 years. DVT prophylaxis: SCDs. Code: DNR/DNI
[2019-08-06 06:43] LABS: Folate 12.2 ng/mL (2.76-20.0)
--- NOTE | 2019-08-06 07:10 | PC.NURSE ---
offered water several times he refused each time
[2019-08-06] MEDS: CEFTRIAXONE 1 GM/50 ML FROZ.PIGGY IV (08:11)
--- NOTE | 2019-08-06 10:01 | PC.NURSE ---
Addendum entered by Erendira Gavin R.N. 08/06/19 13:42: Pt is eating better at meals. He has had minimal to know coughing. Pt does have some pnuemonia, crackles heard in lower lobes bilaterally. He is 97% on ra. Original Note: Assess- Pt is Alert but disorientedx2. He is sleepy this morning. Pt has an incision to his l.hip from previous fall and surgery. He also has a skin ulcer from a blister to his l.heel. Foot is being floated on pillows and we have a heel protector in place to prevent more break down. Simpson patent and putting out yellow urine, this am he has 200cc of yellow urine in simpson bag. Physical therapy into see patient and they were only to reposition him as he was groggy. Patients in room now and he is more awake. She is able to give him some breakfast and liquids. IVF infusing and pts antibiotics have been changed per Dr. Aguero.
[2019-08-06] MEDS: PIPERACILLIN-TAZO 4.5 GM/100 ML FROZ.PIGGY IV ×3 (10:25→21:23)
[2019-08-06] MEDS: PANTOPRAZOLE 40 MG VIAL 20 MG IV (10:25)
[2019-08-06] MEDS: IRON SUCROSE 200 MG in SODIUM CHLORIDE 0.9% 100 ML 220 ML IV (11:05)
--- NOTE | 2019-08-06 11:27 | ST.IPCSEOM ---
Speech-Language Pathology Swallow Evaluation [facility] Clinical Swallow Evaluation Start: 08/06/19 11:12 Freq: Status: Active Protocol: Document 08/06/19 11:12 [facility] (Rec: 08/06/19 11:27 [facility] [email or web address]) Clinical Swallow Evaluation Session Time Visit Start Time 10:40 Visit Stop Time 11:05 Total Visit Minutes 25 Setting Assessment Location Acute Care Visit Type Note Type Treatment Note Next Note Type Next Note Type Treatment Note Patient Information History Patient has recurrent pneumonia with likely episode of aspiration. He was on a nectar thick liquid, dysphagia mechanical diet at [facility] prior to being admitted to the hospital. He was evaluated by [facility] upon admission and an MBS was recommended; however, he has been unable to participate due to fatigue and varying levels of alertness. The MBS order was canceled yesterday and Dr. Aguero advanced his diet from NPO to Dysphagia mech, nectar thick liquids. Subjective Observations Patient's was completing oral care on patient when I entered the room. He was poorly positioned in bed and coughing. Evaluation Liquids Trialed [place] Oral Phase Comments Oral mucosa is pink and moist with minimal debris which was easily removed from the oral cavity with a swab. Patient was unable to clear debris independently. His reports he consumed peaches and oatmeal without difficulty or coughing, but began coughing during oral care. Education was provided regarding importance of upright posture for meals and oral care as well as use of suction to assist with oral care. After oral care was provided, patient agreed to a sip of nectar thick liquids. Bolus acceptance from tsp was poor with anterior loss of bolus from the left side. This was likely due to increased fatigue following oral care and no further trials were given for patient safety. Pharyngeal Phase Comments Patient was coughing as I entered the room. His cough sounded productive, but he was unable to spit anything out. During the one teaspoon trial of nectar thick liquids, he swallowed without overt s/sx of aspiration. Findings Rehabilitation Potential Fair Impressions Suspect moderate-severe oral and pharyngeal dysphagia given patient's overall weakness. He is unable to participate in MBS at this time and his understands this. She is supportive and in agreement with the plan to continue PO intake (as advanced by Dr. Patel) under strict aspiration precautions and complete MBS when able to do so, which may not be until patient discharges from the hospital. Patient's has been compliant with oral care. Safe swallowing precautions have been posted above the patient's bed. Diet Recommendations Liquids Order Ch[place] Diet Order Dysphagia Mechanical Medication Recommendations As Tolerated Additional Dietary Needs Single Sips,1:1 Assistance, Reminders to Use Strategies Aspiration Precautions Recommended Precautions Upright at 90 Degrees, Alternate Liquids/Solids, Frequent Rest Periods,Small Bites/Sips Treatment Plan Placement Recommendations after Care Home Facility Discharge Appropriate for Therapy Yes Dysphagia Goals Caleb will maintain alertness and implement strategies as prompted in order to consume a meal safely for nutrition.
[2019-08-06] MEDS: VANCOMYCIN 1,000 MG/200 ML PIGGYBACK 200 MG IV ×2 (11:54→22:16)
--- NOTE | 2019-08-06 12:00 | OT.IP.TRT ---
Current Diagnoses Anemia, unspecified (08/03/19) Occupational Therapy Treatment Note M3 OT- IP Subjective and Pain Start: 08/06/19 11:58 Freq: Status: Active Protocol: Document 08/06/19 11:58 [facility] (Rec: 08/06/19 12:00 [facility] [email or web address]) OT- Subjective Occupational Therapy Visit Type Type Patient Refusal Notes Pt's requesting for pt to rest today and to have OT come back tomorrow for OT eval .
[2019-08-06] MEDS: CEFEPIME 2 GM in SODIUM CHLORIDE 0.9% 100 ML 200 ML IV ×2 (13:32→19:14)
--- NOTE | 2019-08-06 15:15 | DIET.PN ---
Dietary Progress Note Assessment: 78y M admitted for weakness, SOB, and hyponatremia who has been seen by nutrition several times this year. Mr. Cross has gained 12kg since 05/28/18 (14 months) despite being limited to mechanical soft/nectar thick diet. Pt's instructed at some point to push fluids to help clear phlegm, gave him 4-5 16oz water per day leading up to admit and critical hyponatremia. Pt has iron deficiency anemia and has high b12 >1,000. Pt was NPO until yesterday and intake has been 50-100% since then. Pt's is attentive and cues c 1:1 feeding assist. HT: 172.7cm WT: 69kg BMI: 23.1 Labs: b12 >1,000 H, Na+ on admit was 113 has risen to 122 L, A1c 5.5 MNA: 9 at risk Sunday: 15 Nutrition Diagnosis: inadequate PRO intake r/t weakness, dysphagia and dementia aeb pt NPO for 2d, current POs 50-100% reliant on 1:1 feeding assistance, labs showing iron deficiency anemia, pt too weak to perform MBS. Interventions: consider ONS ensure enlive bid if fluid restriction lifted. Prioritize iron containing foods (beef, beans) and Vit C foods (citrus, strickland peppers, strawberries) to support iron deficiency anemia Prioritize PRO foods eaten first if pt continues weakness Diet Order: dysphagia- [facility] soft/ nkt EER: 1700kcal, 70g PRO (1g/kg) Monitoring/Evaluations: POs, Na+ labs
--- NOTE | 2019-08-06 15:34 | PT.IPTN ---
Current Diagnoses Anemia, unspecified (08/03/19) Physical Therapy Treatment Note M2 PT-IP Current Condition Start: 08/05/19 13:56 Freq: NEEDED Status: Active Protocol: Document 08/05/19 14:15 AB (Rec: 08/05/19 15:53 AB [email or web address]) Physical Therapy Current Condition Current Condition Evaluation Date 08/05/19 Treatment Diagnosis acute hyponatremia; difficulty in walking Onset Date 08/03/19 Precautions Posterior Hip Precautions No Hip Flexion > 90 degrees,No Hip Internal Rotation,No Hip Adduction Other Precautions falls; L posterior hip precautions due to recent hemiarthroplasty 07/19/19 Weight Bearing Status Weight Bearing Status Weight Bear as Tolerated M3 PT-IP Subjective Start: 08/05/19 13:56 Freq: NEEDED Status: Active Protocol: Document 08/06/19 15:33 L[facility] (Rec: 08/06/19 15:33 LJ [id number]) Subjective Physical Therapy Visit Type Type Patient Unavailable Notes hold per nursing M4 PT-IP Mobility and Gait Start: 08/05/19 13:56 Freq: NEEDED Status: Active Protocol: Document 08/05/19 14:15 AB (Rec: 08/05/19 15:53 AB [email or web address]) PT-Bed Mobility Assessment Supine to Sit Supine to Sit Maximum Assistance,1 Person Assistance,Head of Bed Elevated Scooting Scooting to Edge of Bed Maximum Assistance,Dependent PT-Transfer Assessment Sit to and From Stand Sit to and from Stand Maximum Assistance,2 Person Assistance,Use of Upper Extremities Equipment Transfer Assistive Device Gait Belt,Front Wheeled Walker Orthotic/Prosthetic Devices or Brace: No Transfers Transfer Destination Chair Transfer Technique Stand Pivot Transfer Ability Level of Assist Maximum Assistance,Total Assistance,2 Person Assistance ,Use of Upper Extremities Comments Mobility Comments pt completed suine to sit max A and max cues with HOB elevted. pt requires repeated cues and is not consistent with following directions. pt was able to sit on EOB with initial max A but able to sit CGA after repositionining. pt completed sit <>stand x 3 reps max A x 2-3 and max cues with increas posterior trunk leaning/pushing and pt unable to stand upright. repeated sit to stand and on 3rd try requires a 3rd person to assist to prevent pt from pushing backwrds. pt completed pivot transfer max A x2-3 and max cues. pt completed another sit to stand from the chair requiring max A x 2 and max cues and was able to maintain standing using fWW for support max A x 2 while another person assists with managing chair sheet/ pads. informed NAC and nurse regarding sit<>stand lift recommendation. assessed pt with sit<>stand lift and pt was able to tolerate. positioned pt on the chair. call light and table placed within reach. abductor pillow positioned. chair alarm on. Left pt with spouse in room. Gait Assessment Comments Gait Comments unable at this time PT-Balance Assessment Sitting Balance and Reactions Static Sitting Balance Ability Good Dynamic Sitting Balance Ability Fair Standing Balance and Reactions Static Standing Balance Ability Poor Dynamic Standing Balance Ability Poor Device Used FWW M5 PT-IP Objective Assessments Start: 08/05/19 13:56 Freq: NEEDED Status: Active Protocol: Document 08/05/19 14:15 [facility] (Rec: 08/05/19 15:53 [facility] [email or web address]) Orientation Orientation/Cognition Orientation Name Safety Awareness Decreased Safety Awareness Memory Description Short Term Impaired,Intermediate Impaired Comments pt has dementia and is not consistent with following directions Gross Range of Motion Lower Extremity ROM Assessment Bilaterally Impaired Impairments bilateral ankle PF contractures: R>L Strength Comments Strength Comments unable to formally conduct MMT due to pt's difficulty in following directions. Attempted but pt unable to follow thru. pt also has rigidity during PROM affecting MMT Muscle Tone Muscle Tone WNL No Muscle Tone Location Bilateral Lower Extremity Type of Tone Rigidity Severity of Tone Moderate M6 PT-IP Treatment Start: 08/05/19 13:56 Freq: NEEDED Status: Active Protocol: Document 08/06/19 09:28 [facility] (Rec: 08/06/19 14:42 [facility] [email or web address]) Physical Therapy Treatment Other Treatments Other Treatment Performed Ankle prom, repositioning of hips, legs, and feet. M7 PT-IP Assessment and Plan Start: 08/05/19 13:56 Freq: NEEDED Status: Active Protocol: Document 08/06/19 09:28 [facility] (Rec: 08/06/19 14:42 [facility] [email or web address]) PT Summary Assessment and Plan Potential Rehabilitation Potential Fair Status of Condition at Evaluation Evolving Summary Impairments Pain,ROM,Strength,Balance, Coordination,Sensation,Tone, Cognition,Bed Mobility, Transfers,Gait,Activity Tolerance Assessment Summary Pt had decreased alertness and had a hard time keeping his eyes open. Did not want to get around in bed, but agreed to having therapy reposition him and perform ankle PROM to prevent blood clots, stiffness , and pressure sores. Goals Bed Mobility Goal Minimal Assistance Transfer Goal Minimal Assistance,Front Wheeled Walker Gait Goal Minimal Assistance,Front Wheel Walker Gait Distance 50 Days to Meet Goals 10 Frequency of Treatment Frequency Of Treatment Once a Day Treatment Plan Physical Therapy Treatment Plan Bed Mobility Training,Transfer Training,Gait Training, Therapeutic Exercise,Balance Retraining,Post Op Education, Discharge Planning,Hot or Cold Pack,Neuromuscular Re-ed, Coordination Retraining,Manual Therapy Recommendations To Nursing Amount of Assist Needed 2 Person Assist,Power Sit- Stand Discharge Recommendations PT Discharge Recommendations SNF Rehab
[2019-08-07] VITALS (11 sets, daily range): BP systolic 110–137; BP diastolic 49–97; PULSE 67–87; RESP 15–20; TEMP 36.4–37.4; O2SAT 95–99
[2019-08-07] MEDS: PIPERACILLIN-TAZO 4.5 GM/100 ML FROZ.PIGGY IV ×4 (02:01→21:13)
[2019-08-07] MEDS: CEFEPIME 2 GM in SODIUM CHLORIDE 0.9% 100 ML 200 ML IV ×2 (03:33→12:01)
[2019-08-07 05:54] LABS: Hematocrit 26.6 % (41-53); Hemoglobin 9.2 g/dL (13.5-17.5); Mean Corpuscular HGB Conc 34.7 % (30-36); Mean Corpuscular Hemoglobin 29.9 PG (26-34); Mean Corpuscular Volume 86.1 fL (80-100); Platelet Count 789 X10^3/uL (150-400); Red Blood Cell Count 3.08 X10^6/uL (4.5-5.9); Red Cell Distribution Width 13.5 % (11.6-14.8)
--- NOTE | 2019-08-07 06:05 | PC.NURSE ---
Pt had 2 large liquid incontinent bowel movements. T&P q2h. B/L heels floated Barrier cream applied to linear abrasion or right groin possibly from brief. Will pass along for day shift to find out from patients when his simpson catheter was inserted at [facility]. IVF running as ordered.
[2019-08-07 06:08] LABS: Reticulocyte Count, Percent 2.5 % (0.87-2.60)
[2019-08-07 06:16] LABS: Alanine Aminotransferase 33 IU/L (<50); Albumin 2.8 g/dL (3.5-5.0); Albumin Globulin Ratio 0.9 (1.0-2.8); Alkaline Phosphatase 74 U/L (38-126); Aspartate Aminotransferase 36 IU/L (17-59); BUN Creatinine Ratio 7.5 (6-22); Bilirubin Total 0.7 mg/dL (0.2-1.3); Blood Urea Nitrogen 6 mg/dL (9-20); Calcium 7.8 mg/dL (8.4-10.2); Carbon Dioxide 24 mmol/L (22-32); Chloride 90 mmol/L (98-107); Estimated Glomerular Filt Rate > 60.0 mL/min (>60); Glucose 109 mg/dL (80-110); HEMOLYSIS < 15 (0-50); Potassium 3.7 mmol/L (3.4-5.1); Sodium 123 mmol/L (137-145); Total Protein 5.8 g/dL (6.3-8.2)
[2019-08-07 06:29] LABS: Neutrophils Absolute Manual 4690 /uL (3000-5900); Total Cells Counted 100
[2019-08-07 06:31] LABS: RBC Morphology Normal Morphology
[2019-08-07] MEDS: PANTOPRAZOLE 40 MG VIAL 20 MG IV (08:00)
--- NOTE | 2019-08-07 08:19 | P.PN_ITS ---
Subjective Subjective Date Patient Seen: 08/07/19 Time Patient Seen: 08:20 Interval history: is present at time of interview, reports patient is still profoundly weak, not at baseline. He has been sleeping okay. Appetite is poor this morning but he generally does not like breakfast. He does have some peaches on his tray and his is going to try to help him eat those later. She is very careful with his meals to ensure that he is chewing fully. He so metimes gets food stuck in/behind his dentures and that could contribute to his aspiration risk. Patient denies any pain. concerned that he missed his orthopedic follow-up with Dr. Krishnan since he was taken to the hospital instead and admitted. He was supposed to have his karli taken out that day. Exam Vital Signs (past 8 hours): - 08/07/19 03:00 08/07/19 07:19 Temperature 99.4 F Pulse Rate 71 Respiratory Rate 15 Blood Pressure 110/55 L Pulse Oximetry 96 97 Oxygen Delivery Method Room Air Oxygen Flow Rate 0 Narrative Exam Narrative: GENERAL: Alert and oriented, appearing stated age and in no acute distress. HEENT: Head normocephalic/atraumatic. LUNGS: Clear to ausculation bilaterally, no wheezes, rhonchi or rales. CV: Normal S1 and S2 with regular rate and rhythm, no audible murmurs, rubs or gallops. ABDOMEN: Soft, non-tender, non-distended, no organomegaly. Positive bowel so unds. EXTREMITIES: Weakness, generalized, poor range of motion in left hip secondary to fracture on 07/19/19. NEURO: Cranial nerves 2-12 grossly intact. PSYCH: Chronic dementia. SKIN: Left heel with dressing in place. Left hip bandage removed and incision is non erythematous, nonedematous, with karli intact, no signs of infection or induration. Objective Labs Result Diagrams: 08/07/19 05:27 08/07/19 05:27 Labs: Laboratory Results - last 24 hr 08/07/19 08/07/19 08/07/19 05:27 05:27 05:27 WBC 7.0 RBC 3.08 L Hgb 9.2 L Hct 26.6 L MCV 86.1 MCH 29.9 MCHC 34.7 RDW 13.5 Plt Count 789 H Total Counted 100 Seg Neutrophils % 66.0 Band Neutrophils % 1.0 L Lymphocytes % (Manual) 25.0 Monocytes % (Manual) 5.0 Eosinophils % (Manual) 3.0 Neutrophils # (Manual) 4690 RBC Morphology Normal morphology Percent Retic 2.5 Sodium 123 L Potassium 3.7 Chloride 90 L Carbon Dioxide 24 BUN 6 L Creatinine 0.80 Estimated GFR > 60.0 BUN/Creatinine Ratio 7.5 Glucose 109 Calcium 7.8 L Total Bilirubin 0.7 AST 36 ALT 33 Alkaline Phosphatase 74 Total Protein 5.8 L Albumin 2.8 L Globulin 3.0 Albumin/Globulin Ratio 0.9 L Assessment & Plan Assessment & Plan narrative: Hospital Day #3 Assessment 1. Progressive shortness of breath with increased sputum production. Chest x-ray inconclusive, CT chest suggestive of bilateral pneumonia with very minor pleural effusions bilaterally. Patient was last treated with IV antibiotics for community-acquired pneumonia 2 months ago and has had an interval hip fracture and SNF stay, risk for healthcare-associated pneumonia. Sputum culture showed normal beba only and admission procalcitonin was within normal limits. Neoplasm not seen on CT exam but not excluded. Oxygen now weaned to room air, which is an improvement but patient still very weak. Plan: As chest CT is suggesting a bilateral pneumonia over a lung mass, will consider this patient at risk for multidrug resistant pathogen secondary to his recent IV antibiotic use and SNF stay and consider this a healthcare associated pneumonia. Sputum culture showed only mixed beba but does not rule out a more serious process. Will not put patient through a bronchoscope for definitive diagnosis secondary to his frailty and DNR/DNI status. Have discontinued ceftriaxone and azithromycin and broadened his antibiotics to cover Pseudomonas, Gram-negative bacilli, and MRSA with Zosyn, cefipime, and vancomycin per pharmacy, continue. OT consulting, aspiration precautions continue. Have discontinued swallow study as patient is too weak to complete the process. Assessment 2. Hyponatremia, acute on chronic, basesline 126. Slight improvement in sodium, 123 from 122, approaching his baseline. 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 Low sodium could be exacerbated by his healthcare associated pneumonia, chronic dementia, etc. Multiple myeloma is still in the differential and could be driving the SIADH but rouleaux formation was not present on peripheral smear today. Dr. Carson consulting. Plan: Continue D5 half-normal saline at 100 cc/hour and trend BMP. Continue fluid restrictions with 800 cc TAR/day. Oncololgy consulting. Assessment 3. Abnormal peripheral smear, rouleaux formation, concern for multiple myeloma especially in light of recent hip fracture and worsening anemia. Skeletal survey showed no lytic lesions. SPEP/UPEP pending. Plan: Dr. Carson consulting, please see his note, wiill consult again if rouleaux formation persists and SPEP/UPEP concerning for multiple myeloma. Will discuss elevation in Vitamin B12 with Dr. Carson if rouleaux formation persists as well. Assessment 4. Anemia, normocytic/normochromic, iron studies show iron deficiency. B12 elevated, folate normal. Hemoglobin/hematocrit trending up status post iron transfusion. Plan: Will discontinue home B vitamin on discharge. Elevated B12 could also be due to blood dyscrasia, Dr. Carson consulting, please see #3. Plan for repeat i martita trannfusion again in 1 week, inpatient or outpatient. Assessment 5. Atrial fibrillation, paroxysmal. Seems to be exacerbated when patient is acutely ill, this is his 3rd lifetime episode. He is a poor candidate for rate/rhythm control and anticoagulation secondary to age, dementia. Patient is DNR. Plan: No treatment, will watch closely. Assessment 6: Hypochloremia, baseline 95, trending up, now at 90. Plan: Will continue to trend BMP. Assessment 7: Hypoglycemia, new, isolated episode, resolved with refeeding. Plan: Will watch closely. Assessment 7: Possible aspiration. Plan: Please see 1. Holding on swallow study due to weakness, on aspiration precautions, no reported concerns. Assessment 8: Abnormal urinalysis with proteinuria, hematuria, leukorrhea and positive leukocyte esterase. Urine culture negative for infection. Lowry draining straw colored urine, clear. Plan: Grossly improved, patient on antibiotics. Will retest in outpatient setting. UPEP pending. Assessment 9. Elevated liver enzymes, acute. resolved. Plan: Will trend. Assessment 10: Decubitus ulcer, stage II, left heel, present on admission Plan: Wound care consulting. Assessment 11: Weakness secondary to recent hip surgery Plan: PT/OT consulting. Coordinated care with Dr. Krishnan today regarding his post-operative wound follow up including suture removal, PA will round on patient today. Assessment 12. Dementia, chronic. Progressive disability. Plan: Supportive care. Assessment 13: Hyperlipidemia, chronic. Plan: Diet controlled at home, will not treat aggressively in the hospital. Assessment 14: Hypothyroidism, per history only has been euthyroid for the past 3 years. Plan: TSH normal. Assessment 15. GERD, chronic, needs ongoing PPI. Plan: Protonix 20 mg to IV. q.day secondary to difficulty in swallowing. Assessment 16. History of alcoholism and tobacco dependence. Still drinks 1-2 whiskey/argueta weekly. Has not smoked for the last 3 years. DVT prophylaxis: SCDs. Code: DNR/DNI Disposition: Discussed prognosis with today. Patient has now had three inpatient hospitalizations in the last 2 months. Did recover well from his 1st pneumonia but just 3 days after he got back to baseline, he fell and broke his hip and has not been the same since his hip surgery. He remains extremely weak in the hospital and is wondering if he is going to be able to get back to his baseline. It is unclear at this point if there is a malignant process kierra ayala. Watching him closely. Will continue to discuss prognosis with and family. communicated that if he is not going to return to baseline, that they do not want to continue with aggressive interventions. Advised her that we would continue to discuss this over the next few days.
--- NOTE | 2019-08-07 09:59 | PC.NURSE ---
Addendum entered by Michaelle Ritter R.N. 08/07/19 14:43: waffle boot/leg to left foot, right foot has foam cushion. Elevated on pillows. SCD's to BLE. Pt's Demi at bedside for entire shift, plans to go home around 1500. Helps pt with ADL's. Addendum entered by Michaelle Ritter R.N. 08/07/19 14:38: left hip dressing removed as distal end was exposed and incision compromised. Incision well approximated with karli intact. Greer along incision, dry crusted drainage along parts of incision that is dark yellow. No redness, surrounding edema to left hip. Incision cleansed with NS, pat dry and 2 overlapping coversite dressings placed. Awaiting further orders regarding staple removal. Addendum entered by Michaelle Ritter R.N. 08/07/19 13:23: some yaunker suction needed after meals, pt has weak to strong moist cough, sputum production which pt seems to swallow, encouraged not to swallow when providing yaunker suction attempts. Addendum entered by Michaelle Ritter R.N. 08/07/19 11:21: APRIL Esparza aware at 1120 regarding Ortho follow up as stated below. Addendum entered by Michaelle Ritter R.N. 08/07/19 11:08: Left message at [address] Alcaraz office to clarify post op care, F/U Xray, wound check, staple removal. Original Note: Day Shift- [facility] WITH [facility] called by another RN to clarify when urinary catheter was placed. THe date of placement was 07/29.
--- NOTE | 2019-08-07 10:05 | OT.IP.EVAL ---
Current Diagnoses Anemia, unspecified (08/03/19) Past Medical History (Last Reviewed 08/03/19 @ 17:07 by Torrie Morales DO) Depression (Chronic) Hyperlipidemia (Chronic) Hypothyroid (Chronic) Memory changes (Chronic) PSA elevation (Chronic) Urinary incontinence (Chronic) Surgical History (Last Reviewed 08/03/19 @ 17:07 by Torrie Morales DO) No pertinent past surgical history (Acute) Occupational Therapy Inpatient Evaluation/Re-Eval M1 PT/OT-IP Prior Functional Status Start: 08/05/19 13:56 Freq: NEEDED Status: Active Protocol: Document 08/07/19 10:05 PJAva (Rec: 08/07/19 15:27 PJ [id number]) Medical Review Prior Functional Status Medical History Reviewed Yes Diet/Fluid Consistency Mechanical Soft,Troy Thick Communication Able to make needs known but with confusion due to dementia Mobility and Gait Prior to PNA in June 2019, reports pt was ambulatory in the house without a device . His provided handhold assist in the community, Activities of Daily Living and IADL's Prior to June 2019, pt was SBA with verbal cues for standing grooming, dressing while seated on the toilet, min assist with vannesa care after brief change, min assist with seated shower. Pt was incontinent of bowel and bladder. Prior Functional Level (Other details) does all IADLS and provides 24 hr supervision to pt. Social History Household Members spouse,family Living Arrangements House Number of Floors (Floors) One Floor Number of Stairs To Enter/Railing? 1 step to enter without rails Home Environment High Toilet,Tub/Shower Home Equipment Straight Cane,Shower Seat with Backrest,Hand Held Shower, Grab Bars In Shower Employment Status Retired Additional Social History Comment Pt lives with , daughter(who works) and granddaughter. M2 OT-IP Current Condition Start: 08/06/19 11:58 Freq: Status: Active Protocol: Document 08/07/19 10:05 PJM (Rec: 08/07/19 15:27 [facility] [id number]) Occupational Therapy Current Condition Current Condition Evaluation Date 08/07/19 Treatment Diagnosis decr'd self care, mobility due to HCAP, hyponatremia, recent hip fx Diagnosis Onset Date 08/03/19 Post Operative Precautions Posterior Hip Precautions No Hip Flexion > 90 degrees,No Hip Internal Rotation,No Hip Adduction Other Precautions L hip fx 07/19/19 Weight Bearing Status Allowed Weight Bearing Amount (enter % LLE WBAT for hip fx per ortho, or #) (%) but strict NWB on L heel due to ulcer per wound care M3 OT- IP Subjective and Pain Start: 08/06/19 11:58 Freq: Status: Active Protocol: Document 08/07/19 10:05 PJM (Rec: 08/07/19 15:27 PJM [id number]) OT- Subjective Occupational Therapy Visit Type Type Initial Evaluation Visit Start Time 09:42 Visit Stop Time 10:05 Total Visit Minutes 23 Notes here this session to provide information about pt's prior level of function. Pt was at [facility] recovering from hip fx prior to admit here. Pt orhtostatic with P.T. this AM so seen at bedside this session. Occupational Therapy Visit Comments Patient Comments minimal verbalizations form pt this session Patient/Caregiver Goals Pt unable to verbalize goal due cognitive status OT Pain Assessment Pain When Pain Assessed At Rest Pain Present Pain Present Denied Pain M4 OT- IP ADL's Start: 08/06/19 11:58 Freq: Status: Active Protocol: Document 08/07/19 10:05 PJM (Rec: 08/07/19 15:27 PJM [id number]) OT [id number] General Evaluation Diet Level for Self-Feeding DMA w/nectar thick Self-Feeding Ability Maximum Assistance Comments OT Self-Feeding Comments has been feeding pt OT ADL-Grooming General Evaluation Grooming Ability Moderate Assistance Areas Needing Assistance Face Washing Comments OT Grooming Comments for thoroughness OT ADL-Oral Care General Eval Oral Care Ability Total Assistance Devices Oral Care Devices Sponge/Foam Tipped Swab Comments Oral Care Comments oral suction after oral care OT ADL-Dressing General Eval Upper Body Dressing Ability Total Assistance Lower Body Dressing Ability Total Assistance OT ADL-Toileting General Evaluation Toileting Ability Total Assistance Areas Needing Assistance Perform Perineal Hygiene OT ADL-Bathing Bathing Type Bathing Type Bed Bath General Evaluation Bathing Ability Total Assistance M5 OT- IP IADL's Start: 08/06/19 11:58 Freq: Status: Active Protocol: Document 08/07/19 10:05 PJM (Rec: 08/07/19 15:27 PJ [id number]) OT-Instrumental Activities of Daily Living Deficits IADL Deficits Identified Deficits Home Safety Awareness Awareness of Need for Assistance at Home Decreased Awareness Ability to Problem Solve Emergency Unable to Problem Solve Situations Medication Management Medication Management Caregiver Administers Money Management Money Management Caregiver Provides Assistance Meal Preparation Meal Preparation Caregiver Provides Assist Test Engine Evaluator Test Engine Evaluator Caregiver Provides Assist Driving Driving Caregiver Provides Assist M6 OT- IP Functional Cognition Start: 08/06/19 11:58 Freq: Status: Active Protocol: Document 08/07/19 10:05 PJM (Rec: 08/07/19 15:27 PJ [id number]) Cognitive Factors Limiting Selfcare Function Cognitive Ability Level of Alertness Drowsy,Lethargic Patient Orientation Name,Birthday Attention Span Ability Unable to Focus,Unable to Sustain Attention Ability to Follow Commands Able to Follow One Step Commands with Increased Time, Able to Follow One Step Commands with Repetition Memory Description Immediate Impaired,Short Term Impaired Cognitive Comments Cognitive Assessment Comments Pt drowsy this session but does follow one step commands. Minimal one word verbalizations in response to questions. OT- Vision and Hearing OT- Hearing Assessment OT- Hearing Assessment WFL OT- Vision Assessment Visual Acuity Glasses All The Time Vision Assessment Comments pt able to see clock with glasses but confused re: hand placement M7 OT- IP Mobility and Balance Start: 08/06/19 11:58 Freq: Status: Active Protocol: Document 08/07/19 10:05 PJM (Rec: 08/07/19 15:27 PJ [id number]) OT-Transfer Assessment Comments Mobility Comments see P.T. notes OT- Gait Assessment Comments Gait Ability Comments see P.T. notes OT- Balance Assessment Comments Other Balance Tests/Deviations/Treatment see P.T. notes : M8 OT- IP Objective Assessments Start: 08/06/19 11:58 Freq: Status: Active Protocol: Document 08/07/19 10:05 PJM (Rec: 08/07/19 15:27 [facility] [id number]) OT Gross Range of Motion Upper Extremity Range of Motion Assessment Bilaterally Impaired ROM Impairments Pt rests with BUE's internally rotated, elbows flexed and hands fisted. He actively resists AROM. AAROM limited to about 80 degrees of scaption, distally WFL and able to achieved full finger extension with slow stretching. OT Strength Upper Extremity Strength Assessment Within Functional Limits Comments Strength Comments No focal weakness observed. Strong active resistance to PROM and very forceful B electrical plumbing supervisor noted. OT- Coordination Assessment Comments Coordination Comments Impaired by confusion and apraxia. OT-Muscle Tone Assessment Muscle Tone Location Bilateral Lower Extremity Type of Tone Rigidity Manifestation of Tone Fluctuation OT Sensation Assessment Comments Summary Comments Unable to assess due to cognition Edema Edema Absent M9 OT- IP Assessment and Plan Start: 08/06/19 11:58 Freq: Status: Active Protocol: Document 08/07/19 10:05 PJAva (Rec: 08/07/19 15:27 PJM [email or web address]) OT Summary Assessment and Plan Potential Rehabilitation Potential Fair Analytic Complexity at Evaluation Moderate Summary OT Impairments Pain,Range of Motion,Strength, Balance,Coordination,Tone, Functional Cognition, Functional Mobility,Self- Feeding,Grooming,Dressing, Toileting,Bathing,Toilet Transfers,Shower Transfers Assessment Summary Moderate complexity OT assessment completed due to multiple medical issues including recurrent PNA, recent L hip fx with L heel ulcer with strict NWB on L heel, dementia with cognitive deficits and flexion posturing of BUE's in this 78 yr old male. Pt presents with severe performance deficits in all functional mobility, transfers , self care and BUE function. He is far below his baseline level of function of 2 months ago as described above. Pt will need SNF at d/c for further rehab services due to current care needs. He will benefit from OT services here to address goals below. Goals Self-Feeding Goal Minimal Assistance Grooming Goal Minimal Assistance Dressing Goal Minimal Assistance Toilet Transfer Goal Moderate Assistance,Bedside Commode OT-Other Goals Dressing goal is for upper body dressing in chair. Days to Meet Goals 10 Frequency of Treatment Frequency Of Treatment Once a Day Treatment Plan OT Treatment Plan ADL Training,Functional Mobility,Vision Retraining, Patient/Family Education Discharge Recommendations OT Discharge Recommendations SNF Rehab Home Equipment Needs to be determined in next rehab setting pending progress
[2019-08-07] MEDS: VANCOMYCIN 1,000 MG/200 ML PIGGYBACK 200 MG IV ×2 (10:20→22:13)
--- NOTE | 2019-08-07 10:56 | PT.IPTN ---
this is to certify that I have reviewed this documentation and is involved with this pt's care Current Diagnoses Anemia, unspecified (08/03/19) Physical Therapy Treatment Note M2 PT-IP Current Condition Start: 08/05/19 13:56 Freq: NEEDED Status: Active Protocol: Document 08/05/19 14:15 AB (Rec: 08/05/19 15:53 AB [email or web address]) Physical Therapy Current Condition Current Condition Evaluation Date 08/05/19 Treatment Diagnosis acute hyponatremia; difficulty in walking Onset Date 08/03/19 Precautions Posterior Hip Precautions No Hip Flexion > 90 degrees,No Hip Internal Rotation,No Hip Adduction Other Precautions falls; L posterior hip precautions due to recent hemiarthroplasty 07/19/19 Weight Bearing Status Weight Bearing Status Weight Bear as Tolerated M3 PT-IP Subjective Start: 08/05/19 13:56 Freq: NEEDED Status: Active Protocol: Document 08/07/19 10:56 MT (Rec: 08/07/19 13:28 MT [id number]) Subjective Physical Therapy Visit Type Type Treatment Note Visit Start Time 10:56 Visit Stop Time 11:31 Total Visit Minutes 35 Number of COMMUTATOR REPAIRER Visits 0 Physical Therapy Visit Comments Patient Comments pt was lethargic but was aggreeable to do PT after encouragement from and PT 's Therapy Pain Assessment Pain When Pain Assessed At Rest Pain Present Pain Present Denied Pain M4 PT-IP Mobility and Gait Start: 08/05/19 13:56 Freq: NEEDED Status: Active Protocol: Document 08/07/19 10:56 MT (Rec: 08/07/19 13:28 MT [id number]) PT-Bed Mobility Assessment Supine to Sit Supine to Sit Total Assistance,2 Person Assistance Sit to Supine Sit to Supine Total Assistance,2 Person Assistance Scooting Scooting to Edge of Bed Maximum Assistance Scooting Up and Down in Bed Dependent PT-Transfer Assessment Comments Mobility Comments Pt was found in bed with pts's L heel in dressing after being seen by wound care and pt was in a heel floating boot . Ptompleted sit to supine with 2 person total dependent. Pt required repeated cueing and did not keep his eyes open during session, but would responded to his name and questions when repeated. Performed activities sitting EOB with pt. Pt was inconsistent with his ability to keep himself sitting upright. He required Jeremiah to maxA to stay sitting upright EOB, but most consistently with maxA to prevent backward leaning. Gait Assessment Comments Gait Comments unable at this time PT-Balance Assessment Sitting Balance and Reactions Static Sitting Balance Ability Poor Dynamic Sitting Balance Ability Poor M5 PT-IP Objective Assessments Start: 08/05/19 13:56 Freq: NEEDED Status: Active Protocol: Document 08/05/19 14:15 AB (Rec: 08/05/19 15:53 AB [email or web address]) Orientation Orientation/Cognition Orientation Name Safety Awareness Decreased Safety Awareness Memory Description Short Term Impaired,Detention Impaired Comments pt has dementia and is not consistent with following directions Gross Range of Motion Lower Extremity ROM Assessment Bilaterally Impaired Impairments bilateral ankle PF contractures: R>L Strength Comments Strength Comments unable to formally conduct MMT due to pt's difficulty in following directions. Attempted but pt unable to follow thru. pt also has rigidity during PROM affecting MMT Muscle Tone Muscle Tone WNL No Muscle Tone Location Bilateral Lower Extremity Type of Tone Rigidity Severity of Tone Moderate M6 PT-IP Treatment Start: 08/05/19 13:56 Freq: NEEDED Status: Active Protocol: Document 08/07/19 10:56 MT (Rec: 08/07/19 13:28 MT [id number]) Physical Therapy Treatment Exercises Exercises Ankle Pumps,Seated Knee Flexion/Extension Education Education Provided Safety Other Treatments Other Treatment Performed sitting balance exericse focused on reaching and weight shifts. Pt had poor static and dynamic sitting balance and required maxA to maintain upright sitting. PROM on B elbow/wist/hand d/t pt's presentation with UE rigidity into finger and elbow flexion. M7 PT-IP Assessment and Plan Start: 08/05/19 13:56 Freq: NEEDED Status: Active Protocol: Document 08/07/19 10:56 MT (Rec: 08/07/19 13:28 MT [id number]) PT Summary Assessment and Plan Potential Rehabilitation Potential Fair Status of Condition at Evaluation Evolving Summary Impairments Pain,ROM,Strength,Balance, Coordination,Sensation,Tone, Cognition,Bed Mobility, Transfers,Gait,Activity Tolerance Progress Towards Goals Slow Progress due to Medical Issues,Slow Progress due to Activity Tolerance Assessment Summary Pt had decreased alertness and had a hard time keeping his eyes open. Pt was unable to stand during this session due to his lethargic state and decreased strength. Performed LE ROm exercises and reaching exercises at EOB. Pt had poor sitting balance and requires 2 person assist with EOB exercises and required motly maxA to stay upright at EOB. At this time, pt would still benefit from d/c to SNF due to the need for 2 person assist for his mobility and his decreased activity tolerance, balance, and strength. Goals Bed Mobility Goal Minimal Assistance Transfer Goal Minimal Assistance,Front Wheeled Walker Gait Goal Minimal Assistance,Front Wheel Walker Gait Distance 50 Days to Meet Goals 10 Frequency of Treatment Frequency Of Treatment Once a Day Treatment Plan Physical Therapy Treatment Plan Bed Mobility Training,Transfer Training,Gait Training, Therapeutic Exercise,Balance Retraining,Post Op Education, Discharge Planning,Hot or Cold Pack,Neuromuscular Re-ed, Coordination Retraining,Manual Therapy Recommendations To Nursing Amount of Assist Needed 2 Person Assist,Power Sit- Stand Discharge Recommendations PT Discharge Recommendations SNF Rehab
--- NOTE | 2019-08-07 15:17 | ST.IPDYTX ---
Visit Care Team Role Provider Type Su Aguero MD Primary Care Provider Physician Specialty: Family Practice Address: [address] [place] [address], [address] Email: [email or web address] [email or web address] Dotty Morrissey DPM Other Providers Non-Staff Specialty: Podiatry Address: [address] [place] [address], [address] Email: Demario Abreu MD Other Providers Physician Specialty: Wound Care Address: [address] [place] [address], [address] Email: [email or web address] Torrie Morales DO Emergency Provider Physician Specialty: Emergency Medicine Address: [address] [place] [address], [facility] Email: [email or web address] MD Admit Provider Physician Attending Provider Specialty: [facility] Address: [address] [place] [address], [address] Email: [email or web address] [employer] Dysphagia Treatment [employer] Dysphagia Treatment Start: 08/07/19 14:59 Freq: Status: Active Protocol: Document 08/07/19 14:59 LNK (Rec: 08/07/19 15:16 LNK [id number]) Dysphagia Treatment Session Time Visit Start Time 12:15 Visit Stop Time 12:40 Total Visit Minutes 25 Setting Assessment Location Acute Care Visit Type Note Type Treatment Note Next Note Type Next Note Type Treatment Note Patient Information Identification Type Name,ID Wristband Subjective Observations Pt was up in his bed eating lunch. Treatment Liquids Trialed [place] Solids Trialed Dysphagia Mechanical Administration Type Tea Spoon,Straw,Self-Feeding, Dependent Feeding Oral Strategies Upright at 90 degrees,Lingual Sweep,Controlled Bite/Sip Size Treatment Activities Pt's was assisting him with his meal. She was able to provide appropriate cues, assist him with self-feeding and encourage his clearance of left side pocketing. Pt was observed once to spontaneously clear pocketing with a lingual sweep to the left. Pt was alert, indicating what he wanted to eat via yes/no questions. No overt s/sx of aspiration observed. Coughing was observed, however it cannot be differentiated from pneumonia. recommended to pt' s that when he is able to tolerate it, a MBSS is recommend to determine aspiration risk as well as direct continued treatment. Assessment Patient Response to Treatment Good Assessment of Improvement Pt more alert, answering questions and attempting to self feed. Diet Recommendations Recommendations Continue Current Diet Liquids Order [place] Diet Order Dysphagia Mechanical Medication Recommendations As Tolerated,Crushed in Carrier Additional Dietary Needs Single Sips,1:1 Supervision,1: 1 Assistance,Encourage to Self -Feed Aspiration Precautions Recommended Precautions Upright at 90 Degrees,Small Bites/Sips,Lingual Sweep,Check for Pocketing Treatment Plan Placement Recommendation after Discharge Longterm Facility Appropriate for Continued Therapy Yes Dysphagia Goals Caleb will maintain alertness and implement strategies as prompted in order to consume a meal safely for nutrition.
[2019-08-07] MEDS: DEXTROSE 5%-0.45% NS 1,000 ML 100 ML IV (18:33)
[2019-08-07 21:44] LABS: Vancomycin Trough 11.3 ug/mL (10-20)
--- NOTE | 2019-08-07 22:40 | PC.NURSE ---
Assumed care of pt at 1500. Pt resting in bed during bedside hand-off. Somnolent but arousable to voice and touch. PA removed karli to L hip incision and placed steri-strips and tegaderm. L. Foot in waffle boot; R. foot in foam boot. Heels floated. Repositioning for pressure injury prevention. IVF infusing per orders. Poor PO intake this shift and remains mostly sleepy.
[2019-08-08] VITALS (7 sets, daily range): BP systolic 123–127; BP diastolic 43–58; PULSE 67–86; RESP 15–22; TEMP 36.4–37.7; O2SAT 95–100
[2019-08-08] MEDS: PIPERACILLIN-TAZO 4.5 GM/100 ML FROZ.PIGGY IV ×4 (02:18→20:10)
[2019-08-08 06:09] LABS: BUN Creatinine Ratio 6.3 (6-22); Blood Urea Nitrogen 5 mg/dL (9-20); Calcium 7.9 mg/dL (8.4-10.2); Carbon Dioxide 26 mmol/L (22-32); Chloride 89 mmol/L (98-107); Estimated Glomerular Filt Rate > 60.0 mL/min (>60); Glucose 99 mg/dL (80-110); HEMOLYSIS < 15 (0-50); Potassium 3.5 mmol/L (3.4-5.1); Sodium 122 mmol/L (137-145)
[2019-08-08] MEDS: DEXTROSE 5%-0.45% NS 1,000 ML 100 ML IV ×2 (06:25→18:17)
--- NOTE | 2019-08-08 06:29 | PC.NURSE ---
NOC NOTE: Pt denies pain, has occ productive cough, LCTA and diminished throughout. Lowry cath patent with sediment noted. Trace edema to feet and ankles. IVF running as ordered.
[2019-08-08 06:56] LABS: Hemoglobin 9.3 g/dL (13.5-17.5); Mean Corpuscular HGB Conc 35.6 % (30-36); Mean Corpuscular Hemoglobin 30.2 PG (26-34); Mean Corpuscular Volume 84.9 fL (80-100); Platelet Count 747 X10^3/uL (150-400); Red Blood Cell Count 3.07 X10^6/uL (4.5-5.9); Red Cell Distribution Width 13.3 % (11.6-14.8); White Blood Cell Count 6.7 X10^3/uL (4.5-11.0)
--- NOTE | 2019-08-08 07:28 | PM.PN.1 ---
Subjective Subjective Date Patient Seen: 08/08/19 Time Patient Seen: 07:28 Interval history: Nursing reports that patient continues to be difficult to arouse and is confused, concurs. GCS yesterday 11 per nursing at 08:00. Patient reports this morning that he is in a jewelry store in [place]. Denies pain, reports that he feels sleepy, then falls back to sleep. Oxygen supplementation remains off. Denies an appetite, no nausea or vomiting. Denies dyspnea. Exam Vital Signs (past 8 hours): - 08/07/19 23:30 08/07/19 23:40 08/08/19 04:00 Temperature 98.6 F 99 F Pulse Rate 87 85 Respiratory Rate 15 15 Blood Pressure 135/58 L 125/46 L Pulse Oximetry 96 96 96 Oxygen Delivery Method Room Air Oxygen Flow Rate 0 Narrative Exam Narrative: GENERAL: Alert and disoriented, appearing stated age and in no acute distress. HEENT: Head normocephalic/atraumatic. LUNGS: Clear to ausculation bilaterally, no wheezes, rhonchi or rales. CV: Normal S1 and S2 with regular rate and rhythm, no audible murmurs, rubs or gallops. ABDOMEN: Soft, non-tender, non-distended, no organomegaly. Positive bowel sounds. EXTREMITIES: Weakness, generalized, poor range of motion in left hip secondary to fracture on 07/19/19. NEURO: Cranial nerves 2-12 grossly intact. PSYCH: Chronic dementia. SKIN: Left heel with dressing in place. Left hip bandage in place, clean, dry, intact. Objective Labs Result Diagrams: 08/08/19 05:48 08/08/19 05:48 Labs: Laboratory Results - last 24 hr 08/07/19 08/08/19 08/08/19 21:14 05:48 05:48 WBC 6.7 RBC 3.07 L Hgb 9.3 L Hct 26.0 L MCV 84.9 MCH 30.2 MCHC 35.6 RDW 13.3 Plt Count 747 H Sodium 122 L Potassium 3.5 Chloride 89 L Carbon Dioxide 26 BUN 5 L Creatinine 0.80 Estimated GFR > 60.0 BUN/Creatinine Ratio 6.3 Glucose 99 Calcium 7.9 L Vancomycin Trough 11.3 Assessment & Plan Assessment & Plan narrative: Hospital Day #4 Assessment 1. Progressive shortness of breath with increased sputum production. Chest x-ray inconclusive, CT chest suggestive of bilateral pneumonia with very minor pleural effusions bilaterally. Patient was last treated with IV antibiotics for community-acquired pneumonia 2 months ago and has had an interval hip fracture and SNF stay, risk for healthcare-associated pneumonia. Sputum culture showed normal beba only and admission procalcitonin was within normal limits. Neoplasm not seen on CT exam but not excluded. Oxygen now weaned to room air, which is an improvement but patient still very weak, making slower than expected progress. Plan: As chest CT is suggesting a bilateral pneumonia over a lung mass, will consider this patient at risk for multidrug resistant pathogen secondary to his recent IV antibiotic use and SNF stay and consider this a healthcare associated pneumonia. Sputum culture showed only mixed beba but does not rule out a more serious process. Will not put patient through a bronchoscope for definitive diagnosis secondary to his frailty and DNR/DNI status. Have discontinued ceftriaxone and azithromycin and broadened his antibiotics to cover Pseudomonas, Gram-negative bacilli, and MRSA with Zosyn and vancomycin. Discontinued cefipime yesterday per pharmacy recommendation. OT consulting, aspiration precautions continue. Have discontinued swallow study as patient is too weak to complete the process. Assessment 2. Hyponatremia, acute on chronic, basesline 126. Slight worsening in sodium, 122 from 123. 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 Low sodium could be exacerbated by his healthcare associated pneumonia, chronic dementia, etc. Multiple myeloma is still in the differential and could be driving the SIADH but rouleaux formation was not present on peripheral smear yesterday, results pending today. Dr. Carson consulting. Plan: Continue D5 half-normal saline at 100 cc/hour and trend BMP. Continue fluid restrictions with 800 cc TAR/day. Oncololgy consulting. Assessment 3. Abnormal peripheral smear, rouleaux formation, concern for multiple myeloma especially in light of recent hip fracture and worsening anemia. Skeletal survey showed no lytic lesions. SPEP/UPEP pending. Plan: Dr. Carson consulting, please see his note, wll consult again if rouleaux formation persists and SPEP/UPEP concerning for multiple myeloma. Will discuss elevation in Vitamin B12 with Dr. Carson if rouleaux formation persists as well. Assessment 4. Anemia, normocytic/normochromic, iron studies show iron deficiency. B12 elevated, folate normal. Hemoglobin/hematocrit trending up status post iron transfusion. Plan: Will discontinue home B vitamin on discharge. Elevated B12 could also be due to blood dyscrasia, Dr. Carson consulting, please see #3. Plan for repeat iron trannfusion again in 1 week, inpatient or outpatient. Assessment 5. Atrial fibrillation, paroxysmal. Seems to be exacerbated when patient is acutely ill, this is his 3rd lifetime episode. He is a poor candidate for rate/rhythm control and anticoagulation secondary to age, dementia. Patient is DNR. Plan: No treatment, will watch closely. Assessment 6: Hypochloremia, baseline 95, trending down slightly, 89 from 90. Plan: Will continue to trend BMP. Assessment 7: Hypoglycemia, new, isolated episode, resolved with refeeding. Plan: Will watch closely. Assessment 7: Possible aspiration. Plan: Please see 1. Holding on swallow study due to weakness, on aspiration precautions, no reported concerns. Assessment 8: Abnormal urinalysis with proteinuria, hematuria, leukorrhea and positive leukocyte esterase. Urine culture negative for infection. Lowry draining straw colored urine, clear. Plan: Grossly improved, patient on antibiotics. Will retest in outpatient setting. UPEP pending. Assessment 9. Elevated liver enzymes, acute. resolved. Plan: Will trend. Assessment 10: Decubitus ulcer, stage II, left heel, present on admission Plan: Wound care consulting. Assessment 11: Weakness secondary to recent hip surgery, making slower than expected progress. Plan: PT/OT consulting. Coordinated care with Dr. Krishnan yesterday for post-operative evaluation of sutures. Assessment 12. Dementia, chronic with progressive disability with worsening confusion and somnolence in the setting of hyponatremia and pneumonia, likely secondary to metabolic encephalopathy. Plan: Treating underlying disease, please see #1-2. Will also continue supportive care. Assessment 13: Hyperlipidemia, chronic. Plan: Diet controlled at home, will not treat aggressively in the hospital. Assessment 14: Hypothyroidism, per history only has been euthyroid for the past 3 years. Plan: TSH normal. Assessment 15. GERD, chronic, needs ongoing PPI. Plan: Protonix 20 mg to IV. q.day secondary to difficulty in swallowing. Assessment 16. History of alcoholism and tobacco dependence. Still drinks 1-2 whiskey/argueta weekly. Has not smoked for the last 3 years. DVT prophylaxis: SCDs. Code: DNR/DNI Disposition: Patient has now had three inpatient hospitalizations in the last 2 months. He has had a steep decline in baseline since his hip fracture. He is making slower than expected progress in the hospital with his healthcare acquired pneumonia, hyponatremia and metabolic encephalopathy. He is profoundly weak and movement is difficult with his hip fracture and repair. Will continue with full care for now, but if showing no improvement, will begin talking with the family about palliative care. Will place hospice consult today in anticipation of an intake visit in the next few days.
--- NOTE | 2019-08-08 08:02 | PC.NURSE ---
Addendum entered by Michaelle Ritter R.N. 08/08/19 10:19: Pt's Demi present, assist's with ADL. Assisted with breakfast. Pt ate 100% of oatmeal, 50% yogurt, 100% cranberry juice, required no oral suctioning after. Left hip surgical incision covered with CDI steri-strips and tegaderm. Plan for portable hip XRAY per APRIL Lopez. Original Note: Day Shift- Rec'd call back from [facility] office, APRIL Lopez to check in on pt regarding wound check and F/U hip XRAY. 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
[2019-08-08 08:24] LABS: Neutrophils Absolute Manual 4690 /uL (3000-5900); Platelet Estimate Increased on smear; Total Cells Counted 100
[2019-08-08] MEDS: PANTOPRAZOLE 40 MG VIAL 20 MG IV (08:31)
[2019-08-08] MEDS: VANCOMYCIN 1,000 MG/200 ML PIGGYBACK 200 MG IV (10:29)
--- NOTE | 2019-08-08 10:42 | CM.DPC ---
DCP Cont: Per MD, pt continues to be quite frail and sodium levels improving but quite slowly. MD has begun discussion regarding Goals of Care if pt does not improve and made Palliative/Hospice order. SAVANNAH called Dr. Aguero's office and confirmed that she would like SW to make Hospice referral for info visit and in case pt and spouse decide to go with a [facility] rather than treatment/rehab at [facility]. SAVANNAH called [facility] to confirm that they have openings and provided them with brief update on the pt and possible change to [facility] pending his progress. [facility] cannot leave [facility] for a Info Visit at [facility] but they can speak to pt/family via phone to answer questions and provide information. Currently [facility] has openings available for start of care this weekend and next week. WALESKA Benites faxed clinicals for new referral to [facility] to review. Per ST, pt making some progress with his swallow and beginning to do some self feeding again but has lots of supportive assist from his spouse as well. Pt too weak for recommended barium swallow but has been more responsive since his admit. [facility] following for pt to return to their facility for rehab at this time unless pt changes to [facility] then further discussion will likely be needed. SW met bedside with pt and spouse and pt was sleeping soundly. Spouse confirms that her preference is for pt to return to [facility] for rehab at this time and is hopeful that after this weekend pt will begin making more progress. SW discussed briefly the option of Palliative/Hospice support if pt does not improve and spouse very thankful for the information and at this time not quite ready for a Hospice Info Visit and states that she would like to see how pt does over the weekend but that she and pt have previously discussed that pt would prefer to remain comfortable if he isn't improving or gets a dx of cancer. SAVANNAH called [facility] and updated that spouse not quite ready for a phone call Info Visit but to please review the clinical referral and keep pt on their list in case needed over the weekend or after the weekend if he doesn't improve. Plan: SW to follow closely over the weekend to determine return to [facility] rehab when stable vs possible change to [facility] if pt doesn't improve. [facility] Hospice referral made and reviewing in case Hospice/Palliative care needed. BAKARI Paz
--- NOTE | 2019-08-08 11:04 | DI.RAD.S_ITS ---
PROCEDURE: XR HIP W PEL IF DONE LT 2V COMPARISON: [facility], CR, XR HIP W PEL IF DONE LT 2V, 07/19/2019, 1:07. INDICATIONS: Postop left hip hemiarthroplasty 07/19/2019 FINDINGS: 3 views show normal alignment after left total hip arthroplasty. IMPRESSION: Excellent anatomic alignment established and maintained after left total hip arthroplasty mid last month. Dictated by: Enrique Rodriguez M.D. on 08/08/2019 at 12:21 Approved by: Enrique Rodriguez M.D. on 08/08/2019 at 12:22
--- NOTE | 2019-08-08 11:06 | PM.PNPO.1 ---
Subjective Subjective Date Patient Seen: 08/08/19 Time Patient Seen: 11:06 Interval history: I was asked to see the patient today while he is in the hospital. He underwent left hip hemiarthroplasty on 07/19/[address] Alcaraz for 5 left femoral neck fracture. Patient was discharged to [facility]. He was readmitted to the hospital on 08/04/2019 for cough, weakness, hyponatremia. He is due for postop follow-up. He was seen by TAN Blevins yesterday for dressing change and staple removal but did not have hip x-ray ordered. He is weight-bearing as tolerated to left leg but has had limited weight-bearing according to his daughter. Exam Vital Signs (past 8 hours): - 08/08/19 04:00 08/08/19 08:00 Temperature 99 F 97.6 F Pulse Rate 85 80 Respiratory Rate 15 22 Blood Pressure 125/46 L 126/43 L Pulse Oximetry 96 97 Oxygen Delivery Method Room Air Oxygen Flow Rate 0 Narrative Exam Narrative: Patient lying in bed and sleeping. Low left leg. Dressing to left hip is dry without drainage or inflammation. No calf pain or swelling. Objective Labs Result Diagrams: 08/08/19 05:48 08/08/19 05:48 Labs: Laboratory Results - last 24 hr 08/07/19 08/08/19 08/08/19 21:14 05:48 05:48 WBC 6.7 RBC 3.07 L Hgb 9.3 L Hct 26.0 L MCV 84.9 MCH 30.2 MCHC 35.6 RDW 13.3 Plt Count 747 H Total Counted 100 Seg Neutrophils % 69.0 Band Neutrophils % 1.0 L Lymphocytes % (Manual) 9.0 L Atypical Lymphs % 1.0 H Monocytes % (Manual) 12.0 H Eosinophils % (Manual) 8.0 H Neutrophils # (Manual) 4690 Platelet Estimate Increased on smear RBC Morphology Not Reportable Sodium 122 L Potassium 3.5 Chloride 89 L Carbon Dioxide 26 BUN 5 L Creatinine 0.80 Estimated GFR > 60.0 BUN/Creatinine Ratio 6.3 Glucose 99 Calcium 7.9 L Vancomycin Trough 11.3 Assessment & Plan Post-op Postoperative Postoperative status narrative: Plan: Will obtain AP and lateral left hip to check postop position of prosthesis. Continue with care through his PCP.
--- NOTE | 2019-08-08 11:30 | ST.IPDYTX ---
Visit Care Team Role Provider Type Su Aguero MD Primary Care Provider Physician Specialty: Family Practice Address: [address] [place] [address], [address] Email: [email or web address] Dotty Morrissey DPM Other Providers Non-Staff Specialty: Podiatry Address: [address] [place] [address], [address] Email: Demario Abreu MD Other Providers Physician Specialty: Wound Care Address: [address] [place] [address], [address] Email: [email or web address] Torrie Morales DO Emergency Provider Physician Specialty: Emergency Medicine Address: [address] [place] [address], [facility] Email: [email or web address] Martinez MD Admit Provider Physician Attending Provider Specialty: [facility] Address: [address] [place] [address], [address] Email: [email or web address] [facility] center [employer] OPERATOR Dysphagia Treatment [employer] OPERATOR Dysphagia Treatment Start: 08/07/19 14:59 Freq: Status: Active Protocol: Document 08/08/19 10:49 LNK (Rec: 08/08/19 11:29 LNK [id number]) Dysphagia Treatment Session Time Visit Start Time 10:15 Visit Stop Time 10:35 Total Visit Minutes 20 Setting Assessment Location Acute Care Visit Type Note Type Treatment Note Patient Information Identification Type Name,ID Wristband Subjective Observations Pt was in bed with present in the room. Treatment Treatment Activities Pt seen in room, he had just finished breakfast and oral care, per . Nursing and reported pt ate all of his cereal and yogurt and part of his eggs. Assisted feeding this morning. No cough/choke observed or reported. Dysphagia education for family re: aspiration precautions. reported that pt will vomit undigested foods if he eats too much or too fast. Discussed the possibility of esophageal dysmotility and the need to remain upright following meals for at least 30 minutes to allow for gravity to assist esophageal clearance. If bed is laid flat the esophagus may not completely empty increasing aspiration risk. She indicated that she understood. Diet Recommendations Recommendations Continue Current Diet Liquids Order Blanket Diet Order Dysphagia Mechanical Medication Recommendations As Tolerated,Crushed in Carrier Aspiration Precautions Recommended Precautions Upright at 90 Degrees,Small Bites/Sips,Lingual Sweep,Check for Pocketing Additional Precautions REMAIN UPRIGHT FOLLOWING MEALS TO AID IN ESOPHAGEAL CLEARANCE Treatment Plan Placement Recommendation after Discharge Assisted Facility Appropriate for Continued Therapy Yes Dysphagia Goals Caleb will maintain alertness and implement strategies as prompted in order to consume a meal safely for nutrition.
[2019-08-08 14:31] LABS: Free Kappa Light Chain 22.3 mg/L (3.3-19.4); Free Kappa/ Lambda Ratio 0.73 (0.26-1.65); Free Lambda 30.6 mg/L (5.7-26.3)
--- NOTE | 2019-08-08 16:50 | OT.IP.TRT ---
Current Diagnoses Anemia, unspecified (08/03/19) Occupational Therapy Treatment Note M2 OT-IP Current Condition Start: 08/06/19 11:58 Freq: Status: Active Protocol: Document 08/07/19 10:05 PJM (Rec: 08/07/19 15:27 PJM [id number]) Occupational Therapy Current Condition Current Condition Evaluation Date 08/07/19 Treatment Diagnosis decr'd self care, mobility due to HCAP, hyponatremia, recent hip fx Diagnosis Onset Date 08/03/19 Post Operative Precautions Posterior Hip Precautions No Hip Flexion > 90 degrees,No Hip Internal Rotation,No Hip Adduction Other Precautions L hip fx 07/19/19 Weight Bearing Status Allowed Weight Bearing Amount (enter % LLE WBAT for hip fx per ortho, or #) (%) but strict NWB on L heel due to ulcer per wound care MD M3 OT- IP Subjective and Pain Start: 08/06/19 11:58 Freq: Status: Active Protocol: Document 08/08/19 16:50 [facility] (Rec: 08/08/19 17:18 [facility] [id number]) OT- Subjective Occupational Therapy Visit Type Type Patient Unavailable Notes Pt asleep in bed, pt did not arouse when name spoken, to attempt to see pt tomorrrow for OT treatment.
--- NOTE | 2019-08-08 17:04 | PT.IPTN ---
Current Diagnoses Anemia, unspecified (08/03/19) Physical Therapy Treatment Note M2 PT-IP Current Condition Start: 08/05/19 13:56 Freq: NEEDED Status: Active Protocol: Document 08/05/19 14:15 AB (Rec: 08/05/19 15:53 AB [email or web address]) Physical Therapy Current Condition Current Condition Evaluation Date 08/05/19 Treatment Diagnosis acute hyponatremia; difficulty in walking Onset Date 08/03/19 Precautions Posterior Hip Precautions No Hip Flexion > 90 degrees,No Hip Internal Rotation,No Hip Adduction Other Precautions falls; L posterior hip precautions due to recent hemiarthroplasty 07/19/19 Weight Bearing Status Weight Bearing Status Weight Bear as Tolerated M3 PT-IP Subjective Start: 08/05/19 13:56 Freq: NEEDED Status: Active Protocol: Document 08/08/19 09:18 NALLELY (Rec: 08/08/19 10:06 NALLELY [email or web address]) Subjective Physical Therapy Visit Type Type Treatment Note Visit Start Time 09:18 Visit Stop Time 09:50 Total Visit Minutes 32 Notes Treatment supervised by WILD LIFE MANAGER Elida. Pts present during treatment. Number of WILD LIFE MANAGER Visits 1 Physical Therapy Visit Comments Patient Comments Pt did not want to participate in therapy, but agreed after being convinced by . Therapy Pain Assessment Pain When Pain Assessed During Mobility Pain Present Pain Present Denied Pain M4 PT-IP Mobility and Gait Start: 08/05/19 13:56 Freq: NEEDED Status: Active Protocol: Document 08/08/19 09:18 NALLELY (Rec: 08/08/19 10:06 NALLELY [email or web address]) PT-Transfer Assessment Comments Mobility Comments Pt was in bed w/ HOB elevated upon arrival from therapy. Pt had floating boot on L LE and pillows beneath both knees. Needed frequent cues to keep eyes open and remain alert. AAROM for knee extension and flexion, pt had hamstring spasms throughout ROM. Repositioned pt w/ knees extended to prevent contractures. Pt left w/ all needs in reach and present in room and SCDs on. Gait Assessment Comments Gait Comments unable at this time M5 PT-IP Objective Assessments Start: 08/05/19 13:56 Freq: NEEDED Status: Active Protocol: Document 08/05/19 14:15 AB (Rec: 08/05/19 15:53 AB [email or web address]) Orientation Orientation/Cognition Orientation Name Safety Awareness Decreased Safety Awareness Memory Description Short Term Impaired,Control Board Operator Impaired Comments pt has dementia and is not consistent with following directions Gross Range of Motion Lower Extremity ROM Assessment Bilaterally Impaired Impairments bilateral ankle PF contractures: R>L Strength Comments Strength Comments unable to formally conduct MMT due to pt's difficulty in following directions. Attempted but pt unable to follow thru. pt also has rigidity during PROM affecting MMT Muscle Tone Muscle Tone WNL No Muscle Tone Location Bilateral Lower Extremity Type of Tone Rigidity Severity of Tone Moderate M6 PT-IP Treatment Start: 08/05/19 13:56 Freq: NEEDED Status: Active Protocol: Document 08/08/19 09:18 NALLELY (Rec: 08/08/19 10:06 NALLELY [email or web address]) Physical Therapy Treatment Exercises Exercises Ankle Pumps,Quad Sets,Seated Knee Flexion/Extension Other Treatments Other Treatment Performed Repositioning of trunk, hips, and LE. M7 PT-IP Assessment and Plan Start: 08/05/19 13:56 Freq: NEEDED Status: Active Protocol: Document 08/08/19 09:18 NALLELY (Rec: 08/08/19 10:06 NALLELY [email or web address]) PT Summary Assessment and Plan Potential Rehabilitation Potential Fair Status of Condition at Evaluation Evolving Summary Impairments Pain,ROM,Strength,Balance, Coordination,Sensation,Tone, Cognition,Bed Mobility, Transfers,Gait,Activity Tolerance Progress Towards Goals Slow Progress due to Medical Issues,Slow Progress due to Activity Tolerance Assessment Summary Pt was lethargic and weak today. Performed AAROM for knee flexion and extension to prevent contractures and increase blood flow. Pt had frequent hamstring spasms during ROM. Cues to keep eyes open during treatment. Pt denied any pain. Pts present throught treatment. Goals Bed Mobility Goal Minimal Assistance Transfer Goal Minimal Assistance,Front Wheeled Walker Gait Goal Minimal Assistance,Front Wheel Walker Gait Distance 50 Days to Meet Goals 10 Treatment Plan Physical Therapy Treatment Plan Bed Mobility Training,Transfer Training,Gait Training, Therapeutic Exercise,Balance Retraining,Post Op Education, Discharge Planning,Hot or Cold Pack,Neuromuscular Re-ed, Coordination Retraining,Manual Therapy Other Recommendations and Next Treatment transfers, ambulation Focus Recommendations To Nursing Amount of Assist Needed 2 Person Assist Discharge Recommendations PT Discharge Recommendations SNF Rehab Equipment Needed for Home Before FWW if needed Discharge
--- NOTE | 2019-08-08 17:16 | PT.IPTN ---
Current Diagnoses Anemia, unspecified (08/03/19) Physical Therapy Treatment Note M2 PT-IP Current Condition Start: 08/05/19 13:56 Freq: NEEDED Status: Active Protocol: Document 08/05/19 14:15 AB (Rec: 08/05/19 15:53 AB [email or web address]) Physical Therapy Current Condition Current Condition Evaluation Date 08/05/19 Treatment Diagnosis acute hyponatremia; difficulty in walking Onset Date 08/03/19 Precautions Posterior Hip Precautions No Hip Flexion > 90 degrees,No Hip Internal Rotation,No Hip Adduction Other Precautions falls; L posterior hip precautions due to recent hemiarthroplasty 07/19/19 Weight Bearing Status Weight Bearing Status Weight Bear as Tolerated M3 PT-IP Subjective Start: 08/05/19 13:56 Freq: NEEDED Status: Active Protocol: Document 08/08/19 09:18 NALLELY (Rec: 08/08/19 10:06 NALLELY [email or web address]) Subjective Physical Therapy Visit Type Type Treatment Note Visit Start Time 09:18 Visit Stop Time 09:50 Total Visit Minutes 32 Notes Treatment supervised by PILLOWCASE MAKER Elida. Pts present during treatment. Number of PILLOWCASE MAKER Visits 1 Physical Therapy Visit Comments Patient Comments Pt did not want to participate in therapy, but agreed after being convinced by . Therapy Pain Assessment Pain When Pain Assessed During Mobility Pain Present Pain Present Denied Pain M4 PT-IP Mobility and Gait Start: 08/05/19 13:56 Freq: NEEDED Status: Active Protocol: Document 08/08/19 09:18 NALLELY (Rec: 08/08/19 10:06 NALLELY [email or web address]) PT-Transfer Assessment Comments Mobility Comments Pt was in bed w/ HOB elevated upon arrival from therapy. Pt had floating boot on L LE and pillows beneath both knees. Needed frequent cues to keep eyes open and remain alert. AAROM for knee extension and flexion, pt had hamstring spasms throughout ROM. Repositioned pt w/ knees extended to prevent contractures. Pt left w/ all needs in reach and present in room and SCDs on. Gait Assessment Comments Gait Comments unable at this time M5 PT-IP Objective Assessments Start: 08/05/19 13:56 Freq: NEEDED Status: Active Protocol: Document 08/05/19 14:15 AB (Rec: 08/05/19 15:53 AB [email or web address]) Orientation Orientation/Cognition Orientation Name Safety Awareness Decreased Safety Awareness Memory Description Short Term Impaired,Supervisor Securities Vault Impaired Comments pt has dementia and is not consistent with following directions Gross Range of Motion Lower Extremity ROM Assessment Bilaterally Impaired Impairments bilateral ankle PF contractures: R>L Strength Comments Strength Comments unable to formally conduct MMT due to pt's difficulty in following directions. Attempted but pt unable to follow thru. pt also has rigidity during PROM affecting MMT Muscle Tone Muscle Tone WNL No Muscle Tone Location Bilateral Lower Extremity Type of Tone Rigidity Severity of Tone Moderate M6 PT-IP Treatment Start: 08/05/19 13:56 Freq: NEEDED Status: Active Protocol: Document 08/08/19 09:18 NALLELY (Rec: 08/08/19 10:06 NALLELY [email or web address]) Physical Therapy Treatment Exercises Exercises Ankle Pumps,Quad Sets,Seated Knee Flexion/Extension Other Treatments Other Treatment Performed Repositioning of trunk, hips, and LE. M7 PT-IP Assessment and Plan Start: 08/05/19 13:56 Freq: NEEDED Status: Active Protocol: Document 08/08/19 09:18 NALLELY (Rec: 08/08/19 10:06 NALLELY [email or web address]) PT Summary Assessment and Plan Potential Rehabilitation Potential Fair Status of Condition at Evaluation Evolving Summary Impairments Pain,ROM,Strength,Balance, Coordination,Sensation,Tone, Cognition,Bed Mobility, Transfers,Gait,Activity Tolerance Progress Towards Goals Slow Progress due to Medical Issues,Slow Progress due to Activity Tolerance Assessment Summary Pt was lethargic and weak today. Performed AAROM for knee flexion and extension to prevent contractures and increase blood flow. Pt had frequent hamstring spasms during ROM. Cues to keep eyes open during treatment. Pt denied any pain. Pts present throught treatment. Goals Bed Mobility Goal Minimal Assistance Transfer Goal Minimal Assistance,Front Wheeled Walker Gait Goal Minimal Assistance,Front Wheel Walker Gait Distance 50 Days to Meet Goals 10 Treatment Plan Physical Therapy Treatment Plan Bed Mobility Training,Transfer Training,Gait Training, Therapeutic Exercise,Balance Retraining,Post Op Education, Discharge Planning,Hot or Cold Pack,Neuromuscular Re-ed, Coordination Retraining,Manual Therapy Other Recommendations and Next Treatment transfers, ambulation Focus Recommendations To Nursing Amount of Assist Needed 2 Person Assist Discharge Recommendations PT Discharge Recommendations SNF Rehab Equipment Needed for Home Before FWW if needed Discharge Reviewed by Elida Vogel PTA
[2019-08-08] MEDS: VANCOMYCIN 1,500 MG/300 ML FROZ.PIGGY 200 MG IV (18:06)
[2019-08-09] VITALS (10 sets, daily range): BP systolic 118–154; BP diastolic 44–61; PULSE 68–97; RESP 15–22; TEMP 36.2–37.2; O2SAT 94–100
[2019-08-09] MEDS: PIPERACILLIN-TAZO 4.5 GM/100 ML FROZ.PIGGY IV ×4 (02:41→20:22)
[2019-08-09 05:16] LABS: Blood Urea Nitrogen 4 mg/dL (9-20); Calcium 7.7 mg/dL (8.4-10.2); Carbon Dioxide 24 mmol/L (22-32); Chloride 89 mmol/L (98-107); Estimated Glomerular Filt Rate > 60.0 mL/min (>60); Glucose 102 mg/dL (80-110); HEMOLYSIS < 15 (0-50); Potassium 3.3 mmol/L (3.4-5.1); Sodium 121 mmol/L (137-145)
[2019-08-09 05:17] LABS: Hematocrit 25.1 % (41-53); Hemoglobin 8.9 g/dL (13.5-17.5); Mean Corpuscular HGB Conc 35.4 % (30-36); Mean Corpuscular Hemoglobin 30.3 PG (26-34); Mean Corpuscular Volume 85.4 fL (80-100); Platelet Count 638 X10^3/uL (150-400); Red Blood Cell Count 2.93 X10^6/uL (4.5-5.9); Red Cell Distribution Width 13.7 % (11.6-14.8); White Blood Cell Count 7.5 X10^3/uL (4.5-11.0)
[2019-08-09] MEDS: VANCOMYCIN 1,500 MG/300 ML FROZ.PIGGY 200 MG IV ×2 (06:00→18:00)
[2019-08-09] MEDS: DEXTROSE 5%-0.45% NS 1,000 ML 100 ML IV (06:04)
[2019-08-09 06:06] LABS: Neutrophils Absolute Manual 5550 /uL (3000-5900); Platelet Estimate Increased on smear; Total Cells Counted 100
[2019-08-09 06:07] LABS: RBC Morphology Normal Morphology
--- NOTE | 2019-08-09 06:33 | PC.NURSE ---
NOC Shift Patient repositioned at least every 2 hours or sooner this shift, sometimes declining. Heels floated, dressings remain CDI. Care is ongoing.
--- NOTE | 2019-08-09 08:03 | DIET.PN ---
Dietary Progress Note RD f/u regarding reported 8.9% unintentional weight loss in 3d (severe) despite pt's attentively feeding pt each meal and providing mouth care. POs meeting <50% EERs likely r/t weakness, reduced appetite, possibly hypermetabolism from unknown etiology. Pt has iron deficiency anemia and has high b12 >1,000. This RD is initiating nutrition dx of Severe Acute PCM r/t inability to orally consume adequate nutrition to maintain positive nitrogen balance aeb weakness -pt unable to participate in PT, POs <50% despite 1:1 feeding, 8.1% wt loss reported in 3d, BMI 21.1 (severe for age), moderate to severe muscle wasting and deconditioning throughout. HT: 172.7cm WT: 63kg (-8.9% in 3d) BMI: 21.1 Labs: b12 >1,000 H, Na+ 122 L, K+ 3.3 L, A1c 5.5 WNL MNA: 9 at risk Sunday: 15 Nutrition Diagnosis: Severe Acute PCM r/t inability to orally consume adequate nutrition to maintain positive nitrogen balance aeb weakness -pt unable to participate in PT, POs <50% despite 1:1 feeding, 8.1% wt loss reported in 3d, BMI 21.1 (severe for age), moderate to severe muscle wasting and deconditioning throughout. Interventions: 1. Daily weights to track wt status 2. Recc ONS Curt packet sent up bid for nursing to add to allowed oral nectar thick fluids to support PRO and skin integrity providing 35% PRO needs. 3. Recc prioritizing PRO and high kcal items on tray r/t poor appetite Diet Order: dysphagia- mech soft/ nkt EER: 1700kcal, 80g PRO (1.3g/kg) increased r/t new severe PCM Monitoring/Evaluations: POs, Na+ labs
--- NOTE | 2019-08-09 08:53 | PC.NURSE ---
Addendum entered by Zofia Leon R.N. 08/09/19 13:37: Was able to eat some of his breakfast and lunch with his 's assistance (he seems to eat much better with her here helping). All RESEARCH EXECUTIVE precautions followed as ordered, only noted coughing a couple times by this press writer. Repositioning Q2H and PRN for comfort. Bilateral heels remain floated in booties. Patient reports he's comfortable, denies pain or SOB at this time. Bridged in bed with 2 pillows at this time. Call light within reach. Bed alarm active. Original Note: Shift summary: Resting quietly in bed. Awakens easily to voice/touch, but falls back to sleep quickly. Oriented to [facility] and [facility]. Denies SOB. Denies pain. Lungs CTA, dim posterior. Room air 99%. HRR, distant to auscultation. Dressing to L heel C/D/I, heel floated in waffle bootie. R heel floated in foam bootie, MANAGER UTILIZATION REVIEW. Dressing to L hip C/D/I. Continues on fluid restriction. Declined breakfast and water when offered this morning. IVF per orders, site in L forearm WNL. SCD's to BLE's. Denies needs. Appears comfortable and in no acute distress. Call light within reach, bed alarm on.
[2019-08-09] MEDS: PANTOPRAZOLE 40 MG VIAL 20 MG IV (09:02)
--- NOTE | 2019-08-09 11:34 | P.PN_ITS ---
Subjective Subjective Date Patient Seen: 08/09/19 Time Patient Seen: 11:34 Interval history: History obtained mostly from at bedside with patient. Patient continues to be confused, when asked where he is at, answers, I don't know. Was able to identify his correctly. was feeding patient just prior to interview, patient didn't want to continue eating. reports that he only likes to eat when she is present. Nursing concurs that patient is eating poorly despite 1:1 feeding. Was referred to RD due to poor intake and weight loss, 8.1% in 3 days. He has been too weak to adequately participate in PT/OT. Denies pain. Oxygen remains off. No aspiration events. Lowry in place, draining clear urine. Exam Vital Signs (past 8 hours): - 08/09/19 04:13 08/09/19 08:00 08/09/19 08:43 Temperature 97.4 F L 98.1 F Pulse Rate 97 H 78 Respiratory Rate 20 20 Blood Pressure 154/61 H 125/52 L Pulse Oximetry 98 98 99 08/09/19 09:59 Temperature Pulse Rate Respiratory Rate Blood Pressure Pulse Oximetry 98 Oxygen Delivery Method Room Air Oxygen Flow Rate 0 Narrative Exam Narrative: GENERAL: Alert and disoriented, appearing stated age and in no acute distress. HEENT: Head normocephalic/atraumatic. LUNGS: Diminished inspiratory effort, mild expiratory wheezes, bilateral upper lobes. No rales. CV: Normal S1 and S2 with regular rate and rhythm, no audible murmurs, rubs or gallops. ABDOMEN: Soft, non-tender, non-distended, no organomegaly. Positive bowel sounds. EXTREMITIES: Weakness, generalized, poor range of motion in left hip secondary to fracture on 07/19/19. NEURO: Cranial nerves 2-12 grossly intact. PSYCH: Chronic dementia. SKIN: Left heel with dressing in place and air cushion. Left hip bandage in place, clean, dry, intact. Objective Labs Result Diagrams: 08/09/19 05:00 08/09/19 05:00 Labs: Laboratory Results - last 24 hr 08/06/19 08/09/19 08/09/19 04:56 05:00 05:00 WBC 7.5 RBC 2.93 L Hgb 8.9 L Hct 25.1 L MCV 85.4 MCH 30.3 MCHC 35.4 RDW 13.7 Plt Count 638 H Total Counted 100 Seg Neutrophils % 73.0 H Band Neutrophils % 1.0 L Lymphocytes % (Manual) 8.0 L Monocytes % (Manual) 11.0 Eosinophils % (Manual) 7.0 H Neutrophils # (Manual) 5550 Platelet Estimate Increased on smear RBC Morphology Normal morphology Sodium 121 L Potassium 3.3 L Chloride 89 L Carbon Dioxide 24 BUN 4 L Creatinine 0.80 Estimated GFR > 60.0 BUN/Creatinine Ratio 5.0 L Glucose 102 Calcium 7.7 L Free [place] Light Chains 22.3 H Free [place] Light Chain 30.6 H Free [place]/Lambda Ratio 0.73 Assessment & Plan Assessment & Plan narrative: Hospital Day #5 Assessment 1. Healthcare associated pneumonia, making slower than expected progress, still profoundly weak. Plan: Continue coverage of Pseudomonas, Gram-negative bacilli, and MRSA with Zosyn and vancomycin. OT consulting, aspiration precautions continue. Assessment 2. Hyponatremia, acute on chronic, basesline 126. Sodium again w orsening, now 121 from 122. Patient not improving. 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 Low sodium could be exacerbated by his healthcare associated pneumonia, chronic dementia, etc. Multiple myeloma is still in the differential and could be driving the SIADH; rouleaux formation has only been present twice; SPEP has resulted and is elevated. Plan: Will reconnect with Dr. Carson regarding the SPEP results, concern for malignancy-driven SIADH. Will continue D5 half-normal saline at 100 cc/hour and trend BMP. Continue fluid restrictions with 800 cc TAR/day. Assessment 3. Abnormal peripheral smear, rouleaux formation, concern for multiple myeloma especially in light of recent hip fracture and worsening anemia. Skeletal survey showed no lytic lesions. SPEP elevated. UPEP pending. Plan: Please see #2. Assessment 4. Anemia, normocytic/normochromic, worsening. Iron studies show iron deficiency, patient has received 1 iron transfusion; however, hemoglobin/hematocrit trending down. B12 is elevated, folate normal. Plan: If hemoglobin/hematocrit continue to trend down patient may be a candidate for a blood transfusion. Will clarify goals of care with family. Hospice consult has been placed, will try to arrange intake appointment today or tomorrow. Assessment 5: Severe acute protein calorie malnutrition secondary to profound weakness and inability to consume adequate calories along with anorexia. Plan: Continue 1:1 feeding. Patient is a poor candidate for a feeding tube and this is outside of his wishes per his . Hospice intake today or tomorrow. Assessment 6. Atrial fibrillation, paroxysmal. Seems to be exacerbated when patient is acutely ill, this is his 3rd lifetime episode. He is a poor candidate for rate/rhythm control and anticoagulation secondary to age, dementia. Patient is DNR. Plan: No treatment, will watch closely. Assessment 7: Hypochloremia, baseline 95, stable today at 89. Plan: Will continue to trend BMP. Assessment 8: Hypokalemia, new. Plan: Will replete. Assessment 9: Possible aspiration. Plan: Please see 1. Holding on swallow study due to weakness, on aspiration precautions, no reported aspiration events. Assessment 10: Abnormal urinalysis with proteinuria, hematuria, leukorrhea and positive leukocyte esterase. Urine culture negative for infection. Lowry draining straw colored urine, clear. Plan: Grossly improved, patient on antibiotics. Will retest in outpatient setting. UPEP pending. Assessment 11. Elevated liver enzymes, acute. resolved. Plan: Will trend. Assessment 12: Decubitus ulcer, stage II, left heel, present on admission Plan: Wound care consulting. Assessment 14: Weakness secondary to recent hip surgery, making slower than expected progress. No signs of infection. Plan: PT/OT consulting. Dr. Krishnan's group consulting, surveillance hip x-ray yesterday showed excellent alignment. Sutures have been removed and dressing replaced. Assessment 15. Dementia, chronic with progressive disability with worsening confusion and somnolence in the setting of hyponatremia and pneumonia, likely secondary to metabolic encephalopathy. Plan: Treating underlying disease, please see #1-2. Will also continue supportive care. Assessment 16: Hyperlipidemia, chronic. Plan: Diet controlled at home, will not treat aggressively in the hospital. Assessment 17: Hypothyroidism, per history only, has been euthyroid for the past 3 years. Plan: TSH normal. Assessment 18. GERD, chronic, needs ongoing PPI. Plan: Protonix 20 mg to IV. q.day secondary to difficulty in swallowing. Assessment 19. History of alcoholism and tobacco dependence. Still drinks 1-2 whiskey/argueta weekly. Has not smoked for the last 3 years. DVT prophylaxis: SCDs. Code: DNR/DNI Disposition: Will coordinate care with Oncology regarding elevated SPEP results; ongoing concern for malignancy. Hospice consult has been placed and we can initiate intake if patient continues to show poor progression and if family desires. This is third inpatient hospitalizations in the last 2 months with a steep decline in patient's baseline since his hip fracture.
--- NOTE | 2019-08-09 12:05 | CM.DPC ---
Addendum entered by Esthela Bansal R.N. 08/09/19 13:10: Spoke to Dr. Aguero regarding patient's status. She is in agreement that they have done what they can for patient, and hospice would be appropriate. She did have discussion with , Lucy. Let MD know that there are some options, since she may be wanting him to be discharged tomorrow. He can go over to [facility] on comfort care, which should be covered for 5 days under Medicare. He then, can go home on hospice as long as all equipment is in the home, and he is ready. Sat down with , Lucy, after speaking to physician, and she is aware that he is failing, and would not want any extra treatment. She is ready to have discussion with hospice. Let her know that he could go over to long-term under Medicare for approximately 5 days, until he can go home on hospice. She is hoping that her daughter, December, can come by tomorrow when Dr. Aguero is here, for she may have some questions as well. Let patient's know that this process planner would go ahead and reach out to [facility] today, since they have received information. Confirmed their phone number of: [phone]. Did get in touch with them, and they are to have their nurse call this process planner. Did speak to Chaz in admissions at [facility] with tentative plan for tomorrow for [facility]. Will await hospice's call back to see the soonest that they can open patient. Original Note: DCP Cont: Checked in with patient's , who was sitting at bedside, patient sleeping. She has not yet seen provider that will be seeing patient today. Let her know that this case assembler can check in with her later after he is seen by MD. P: DCP will follow closely and see how he is doing this week-end. [facility] does have referral in case decides that she would like to speak to them. Esthela Bansal, RADHA/Water Engineer
[2019-08-09 13:40] LABS: Albumin 40 %; Protein/ Creatinine Ratio 984 mg/g creat (22-128); Total Urine Protein 12 mg/dL (5-25); Urine Creatinine, Random 12 mg/dL (20-320)
--- NOTE | 2019-08-09 13:57 | CM.DPC ---
Addendum entered by Esthela Bansal R.N. 08/09/19 15:40: Patient's daughter, December is here. Ericka, patient's came by care management office. Stated that she was able to speak to Mathieu, hospice nurse, and they are looking at the next few days of open. He explained hospice services to patient's . She is hopeful that they can find a place in her home to put the hospital bed. Will continue to be supportive to patient and , as well. May be discharged back to [facility] tomorrow, on comfort care. Original Note: DCP Cont: Received a call back from Mathieu Ferrell, therapeutic recreation leader RN for [facility]. Gave him updated information regarding patient, and , Ericka, wanting an informational visit via phone. He mentioned that Ericka, RN at hospice, has several referrals on her desk, but would reach out to her on Sunday regarding referral. Discussed having patient go to [facility] possibly tomorrow for comfort care for 5 days. Mathieu stated that this should give them time to get equipment into the home. Went ahead and faxed him over latest progress note from Dr. Damian, as well as this meeting planner's latest note. Let him know that other clinical information on this patient was faxed yesterday to them. Included face sheet of patient with 's phone (cell number). Gave him her cell number so he could give her a call today regarding hospice services. P: DCP to continue to follow closely. Patient could potentially be discharged to [facility] tomorrow on comfort care, until hospice can get equipment over to the house. Have mentioned deadline of covered services to [facility] for [facility] 5 day stay on comfort. Esthela Bansal RN/Bait Maker
[2019-08-09] MEDS: DEXTROSE 5%-0.45NS W/KCL 20MEQ 1,000 ML 100 MEQ IV (14:44)
--- NOTE | 2019-08-09 14:48 | OT.IP.TRT ---
Current Diagnoses Anemia, unspecified (08/03/19) Occupational Therapy Treatment Note M2 OT-IP Current Condition Start: 08/06/19 11:58 Freq: Status: Active Protocol: Document 08/07/19 10:05 PJM (Rec: 08/07/19 15:27 PJM [id number]) Occupational Therapy Current Condition Current Condition Evaluation Date 08/07/19 Treatment Diagnosis decr'd self care, mobility due to HCAP, hyponatremia, recent hip fx Diagnosis Onset Date 08/03/19 Post Operative Precautions Posterior Hip Precautions No Hip Flexion > 90 degrees,No Hip Internal Rotation,No Hip Adduction Other Precautions L hip fx 07/19/19 Weight Bearing Status Allowed Weight Bearing Amount (enter % LLE WBAT for hip fx per ortho, or #) (%) but strict NWB on L heel due to ulcer per wound care MD M3 OT- IP Subjective and Pain Start: 08/06/19 11:58 Freq: Status: Active Protocol: Document 08/08/19 16:50 CCC (Rec: 08/08/19 17:18 CCC [id number]) OT- Subjective Occupational Therapy Visit Type Type Patient Unavailable Notes Pt asleep in bed, pt did not arouse when name spoken, to attempt to see pt tomorrrow for OT treatment. M4 OT- IP ADL's Start: 08/06/19 11:58 Freq: Status: Active Protocol: Document 08/09/19 14:56 CGR (Rec: 08/09/19 15:16 CGR [id number]) OT [id number] Comments OT Self-Feeding Comments Not performed in todays session. OT ADL-Grooming General Evaluation Grooming Ability Maximum Assistance Areas Needing Assistance Face Washing Comments OT Grooming Comments Pt without initiation when handed wash cloth into his hand but brought hand to face when wash cloth was put on face. Minimal attempt at washing face by pt. Max a for adequate face washing. OT ADL-Oral Care Comments Oral Care Comments Not performed in this session. OT ADL-Dressing Comments OT Dressing Comments Not performed in this session. OT ADL-Toileting General Evaluation Toileting Ability Total Assistance Areas Needing Assistance Manage Clothing,Perform Perineal Hygiene Comments OT Toileting Comments Pt had bm in brief in bed. Assisted by nursing for back pericare. OT ADL-Bathing Comments OT Bathing Comments Not performed. M5 OT- IP IADL's Start: 08/06/19 11:58 Freq: Status: Active Protocol: Document 08/07/19 10:05 PJM (Rec: 08/07/19 15:27 PJ [id number]) OT-Instrumental Activities of Daily Living Deficits IADL Deficits Identified Deficits Home Safety Awareness Awareness of Need for Assistance at Home Decreased Awareness Ability to Problem Solve Emergency Unable to Problem Solve Situations Medication Management Medication Management Caregiver Administers Money Management Money Management Caregiver Provides Assistance Meal Preparation Meal Preparation Caregiver Provides Assist Weight Analyst Weight Analyst Caregiver Provides Assist Driving Driving Caregiver Provides Assist M6 OT- IP Functional Cognition Start: 08/06/19 11:58 Freq: Status: Active Protocol: Document 08/09/19 14:56 CGR (Rec: 08/09/19 15:16 CGR [email or web address]) Cognitive Factors Limiting Selfcare Function Cognitive Ability Level of Alertness Alert,Drowsy Patient Orientation Name Attention Span Ability Unable to Focus,Unable to Sustain Attention Ability to Follow Commands Able to Follow One Step Commands with Increased Time, Able to Follow One Step Commands with Repetition Memory Description Immediate Impaired,Short Term Impaired Safety Awareness Decreased Recall of Precautions Problem Solving Ability Unable to Identify Errors, Needs Assist to Identify Solutions OT- Vision and Hearing OT- Hearing Assessment OT- Hearing Assessment WFL OT- Vision Assessment Visual Acuity Glasses All The Time Vision Assessment Comments pt able to see clock with glasses but confused re: hand placement M7 OT- IP Mobility and Balance Start: 08/06/19 11:58 Freq: Status: Active Protocol: Document 08/09/19 14:56 CGR (Rec: 08/09/19 15:16 CGR [email or web address]) OT- Bed Mobility Assessment Rolling Type of Rolling Log Rolling Level of Assistance 2 Person Assistance Supine to Sit Supine to Sit Assist Total Assistance,2 Person Assistance Sit to Supine Sit to Supine Assist Total Assistance,2 Person Assistance Scooting Scooting to Edge of Bed Total Assistance,2 Person Assistance Scooting Up and Down in Bed Total Assistance,2 Person Assistance OT-Transfer Assessment Comments Mobility Comments Did not attempt transfer given total assist for sup to sit. OT- Gait Assessment Comments Gait Ability Comments not performed OT- Balance Assessment Sitting Balance and Reactions Static Sitting Balance Ability Poor M8 OT- IP Objective Assessments Start: 08/06/19 11:58 Freq: Status: Active Protocol: Document 08/07/19 10:05 PJM (Rec: 08/07/19 15:27 PJM [id number]) OT Gross Range of Motion Upper Extremity Range of Motion Assessment Bilaterally Impaired ROM Impairments Pt rests with BUE's internally rotated, elbows flexed and hands fisted. He actively resists AROM. AAROM limited to about 80 degrees of scaption, distally WFL and able to achieved full finger extension . OT Strength Upper Extremity Strength Assessment Within Functional Limits Comments Strength Comments No focal weakness observed. Strong active resistance to PROM and very forceful B embedded software programmer noted. OT- Coordination Assessment Comments Coordination Comments Impaired by confusion and apraxia. OT-Muscle Tone Assessment Muscle Tone Location Bilateral Lower Extremity Type of Tone Rigidity Manifestation of Tone Fluctuation OT Sensation Assessment Comments Summary Comments Unbale to assess due to cognition Edema Edema Absent M9 OT- IP Assessment and Plan Start: 08/06/19 11:58 Freq: Status: Active Protocol: Document 08/09/19 14:56 CGR (Rec: 08/09/19 15:16 CGR [email or web address]) OT Summary Assessment and Plan Potential Rehabilitation Potential Poor Analytic Complexity at Evaluation Moderate Summary OT Impairments Pain,Range of Motion,Strength, Balance,Coordination,Tone, Functional Cognition, Functional Mobility,Self- Feeding,Grooming,Dressing, Toileting,Bathing,Toilet Transfers,Shower Transfers Assessment Summary Pt with poor medical prognosis . Current thinking with team is home with hospice once set up. Pt is rigid throughout session but tolerated sitting up with total assist x2. ROM performed to BUE while P.T. performed BLE ROM. Pt left supine in bed, call button within reach and bed fall alarm armed. Goals Self-Feeding Goal Minimal Assistance Grooming Goal Minimal Assistance Dressing Goal Minimal Assistance Toilet Transfer Goal Moderate Assistance,Bedside Commode OT-Other Goals Dressing goal is for upper body dressing in chair. Days to Meet Goals 9 Frequency of Treatment Frequency Of Treatment Once a Day Treatment Plan OT Treatment Plan ADL Training,Functional Mobility,Vision Retraining, Patient/Family Education Discharge Recommendations OT Discharge Recommendations Home with 24/7 Assist,SNF Rehab Other Discharge Recommendations home with hospice vs comfort care to SNF. Home Equipment Needs to be determined in next rehab setting pending progress
--- NOTE | 2019-08-09 15:01 | PT.IPTN ---
Current Diagnoses Anemia, unspecified (08/03/19) Physical Therapy Treatment Note M2 PT-IP Current Condition Start: 08/05/19 13:56 Freq: NEEDED Status: Active Protocol: Document 08/05/19 14:15 AB (Rec: 08/05/19 15:53 AB [email or web address]) Physical Therapy Current Condition Current Condition Evaluation Date 08/05/19 Treatment Diagnosis acute hyponatremia; difficulty in walking Onset Date 08/03/19 Precautions Posterior Hip Precautions No Hip Flexion > 90 degrees,No Hip Internal Rotation,No Hip Adduction Other Precautions falls; L posterior hip precautions due to recent hemiarthroplasty 07/19/19 Weight Bearing Status Weight Bearing Status Weight Bear as Tolerated M3 PT-IP Subjective Start: 08/05/19 13:56 Freq: NEEDED Status: Active Protocol: Document 08/09/19 14:00 LJ (Rec: 08/09/19 15:01 LJ [id number]) Subjective Physical Therapy Visit Type Type Treatment Note Visit Start Time 14:00 Visit Stop Time 14:48 Total Visit Minutes 48 Notes Pt in bed willing to participate in PT Cotreat with OT M4 PT-IP Mobility and Gait Start: 08/05/19 13:56 Freq: NEEDED Status: Active Protocol: Document 08/09/19 14:00 LJ (Rec: 08/09/19 15:01 LJ [id number]) PT-Bed Mobility Assessment Supine to Sit Supine to Sit Total Assistance,2 Person Assistance Sit to Supine Sit to Supine Total Assistance,2 Person Assistance Scooting Scooting to Edge of Bed Maximum Assistance Scooting Up and Down in Bed Dependent PT-Transfer Assessment Comments Mobility Comments Pt was in bed w/ HOB elevated upon arrival from therapy. Needed frequent cues to keep eyes open and remain alert. AAROM for knee extension and flexion, pt had hamstring spasms throughout ROM. Repositioned pt w/ knees extended to prevent contractures. Pt left w/ all needs in reach and present in room and SCDs on. Gait Assessment Comments Gait Comments unable at this time M5 PT-IP Objective Assessments Start: 08/05/19 13:56 Freq: NEEDED Status: Active Protocol: Document 08/05/19 14:15 AB (Rec: 08/05/19 15:53 AB [email or web address]) Orientation Orientation/Cognition Orientation Name Safety Awareness Decreased Safety Awareness Memory Description Short Term Impaired,Mr Teacher Impaired Comments pt has dementia and is not consistent with following directions Gross Range of Motion Lower Extremity ROM Assessment Bilaterally Impaired Impairments bilateral ankle PF contractures: R>L Strength Comments Strength Comments unable to formally conduct MMT due to pt's difficulty in following directions. Attempted but pt unable to follow thru. pt also has rigidity during PROM affecting MMT Muscle Tone Muscle Tone WNL No Muscle Tone Location Bilateral Lower Extremity Type of Tone Rigidity Severity of Tone Moderate M6 PT-IP Treatment Start: 08/05/19 13:56 Freq: NEEDED Status: Active Protocol: Document 08/09/19 14:00 (Rec: 08/09/19 15:01 [id number]) Physical Therapy Treatment Exercises Exercises Heel Slides,Straight Leg Raises,Supine Hip Abduction, Short Arc Quads Education Education Provided Safety Other Treatments Other Treatment Performed Sitting balance at side of bed . M7 PT-IP Assessment and Plan Start: 08/05/19 13:56 Freq: NEEDED Status: Active Protocol: Document 08/09/19 14:00 (Rec: 08/09/19 15:01 [id number]) PT Summary Assessment and Plan Summary Impairments Pain,ROM,Strength,Balance, Coordination,Sensation,Tone, Cognition,Bed Mobility, Transfers,Gait,Activity Tolerance Progress Towards Goals Slow Progress due to Medical Issues,Slow Progress due to Activity Tolerance Assessment Summary Pt was lethargic and weak today. Performed PROM for knee flexion and extension to prevent contractures Pt was unable to assist with ROM or positioning. Goals Bed Mobility Goal Minimal Assistance Transfer Goal Minimal Assistance,Front Wheeled Walker Gait Goal Minimal Assistance,Front Wheel Walker Gait Distance 50 Days to Meet Goals 10 Frequency of Treatment Frequency Of Treatment Once a Day Treatment Plan Physical Therapy Treatment Plan Bed Mobility Training,Transfer Training,Gait Training, Therapeutic Exercise,Balance Retraining,Post Op Education, Discharge Planning,Hot or Cold Pack,Neuromuscular Re-ed, Coordination Retraining,Manual Therapy Other Recommendations and Next Treatment continue PROM and seated Focus balance exercises Recommendations To Nursing Amount of Assist Needed 2 Person Assist,Total Assistance,Mechanical Lift, Power Sit-Stand Discharge Recommendations PT Discharge Recommendations SNF Rehab
[2019-08-10] VITALS (8 sets, daily range): BP systolic 107–147; BP diastolic 43–77; PULSE 67–93; RESP 16–18; TEMP 36.7–37.5; O2SAT 94–99
--- NOTE | 2019-08-10 00:54 | PC.NURSE ---
MILL MANAGER note: tilted Mila bed 4 degrees to right side.
[2019-08-10] MEDS: PIPERACILLIN-TAZO 4.5 GM/100 ML FROZ.PIGGY IV ×4 (02:51→21:24)
[2019-08-10] MEDS: DEXTROSE 5%-0.45NS W/KCL 20MEQ 1,000 ML 100 MEQ IV ×2 (02:52→14:33)
[2019-08-10 05:06] LABS: Hematocrit 26.5 % (41-53); Hemoglobin 9.2 g/dL (13.5-17.5); Mean Corpuscular HGB Conc 34.7 % (30-36); Mean Corpuscular Hemoglobin 29.7 PG (26-34); Mean Corpuscular Volume 85.7 fL (80-100); Platelet Count 622 X10^3/uL (150-400); Red Blood Cell Count 3.09 X10^6/uL (4.5-5.9); Red Cell Distribution Width 13.7 % (11.6-14.8); White Blood Cell Count 8.8 X10^3/uL (4.5-11.0)
[2019-08-10 05:14] LABS: BUN Creatinine Ratio 6.3 (6-22); Blood Urea Nitrogen 5 mg/dL (9-20); Calcium 7.9 mg/dL (8.4-10.2); Carbon Dioxide 23 mmol/L (22-32); Chloride 91 mmol/L (98-107); Estimated Glomerular Filt Rate > 60.0 mL/min (>60); Glucose 108 mg/dL (80-110); HEMOLYSIS < 15 (0-50); Potassium 3.6 mmol/L (3.4-5.1); Sodium 123 mmol/L (137-145)
[2019-08-10 06:33] LABS: Vancomycin Trough 20.6 ug/mL (10-20)
[2019-08-10 07:22] LABS: Hypochromasia 1+; Neutrophils Absolute Manual 6688 /uL (3000-5900); Total Cells Counted 100
[2019-08-10] MEDS: VANCOMYCIN 750 MG/150 ML FROZ.PIGGY 150 MG IV ×2 (08:29→16:53)
[2019-08-10] MEDS: PANTOPRAZOLE 40 MG VIAL 20 MG IV (08:29)
--- NOTE | 2019-08-10 08:59 | PC.NURSE ---
Patient sleeping upon my arrival, awakened easily. Denies pain or other complaint. States he is not hungry and declines breakfast at this time, patient states he will try when his is here. Patient assisted to reposition for comfort and pressure relief measures in bed. Heels to remain floated, right heel in foam booty protector and left heel in waffle cushion protector with bilateral heel dressings remaining intact at this time. Lowry in place draining clear yellow urine. IV vancomycin started per new pharmacy order and dosing (see NOV). Bed alarm on for safety, with call light within reach. Patient back asleep at this time, will continue to monitor.
--- NOTE | 2019-08-10 12:32 | PC.NURSE ---
When wound care was provided to left heel earlier this shift (see wound documentation on worklist) for dressing change, right heel further evaluated, and this RN spoke with patient's to give her an update on patient's wound care and healing. Patient's notes that she did not know about the blister on his right heel and she is concerned because that is how the ulcer to his left heel started. Right heel cleansed with normal saline and patted dry, blistered area is dry and not open at this time, no drainage noted. Foam heel protector reapplied and will continue to float heels and provide pressure relief and wound care as ordered. Photograph taken.
--- NOTE | 2019-08-10 13:11 | CM.DPC ---
Addendum entered by Esthela Bansal R.N. 08/10/19 15:40: Spoke to Janice at [facility], admissions nurse. She is not working tomorrow, but can come in chain link fence installer on Sunday to assess. Let her know that the goal is for discharge on Sunday, which she stated, can still happen. Asked her if she can accept patient before on hospice, and stated that they can, as long as it's not several days before they can open patient. Will need to contact hospice tomorrow to find out when patient can be opened. Attempted to reach [facility] to give update that if he can't go to [facility] Sunday, it would be [facility], but mail box is full. Original Note: DCP Cont: Had a care conference with patient's , Ericka, and her daughter, December, as well as Dr. Aguero. Prior to conference, had called [facility] and talked to Tami, the lan administrator. Asked her if they had rooms available, and stated that they have a room in [facility]. Stated that the daily rate there is $260.00. Asked her if they can accept a patient that is total assist, non-weight bearing, 1:1 feeding. She mentioned that they do take heavy care patients there. Let her know that this major case detective would call her back, and received permission from Tami for patient's to call her, and she could set up a tour. Stated that they would need to assess patient, and would have Janice call tomorrow, and she could come in if needed. Discussed patient at care conference. Daughter tearful. She works at [employer] as an lan administrator medical billing assistant. Discussed option of [facility], and indicated that it is assisted living, but can perform accelerated care. Had to re-emphasize that this is private pay versus federally funded, such as [facility]. Mentioned that rooms are private. Dr. Aguero wants to ensure that they can meet patient's needs, since he is of skilled level. Patient's is open to [facility] as well, since they serve [facility]. Called Tami back at [facility], and let her know that patient does have stage 2 to his heels as well, and this major case detective would be setting up a hospice informational visit here. Let her know that the plan is to discharge Sunday, and could possibly go on comfort care, so she is aware. Spoke to Jennifer at [facility] , and gave her patient's information. She stated to fax information over, including height and weight, social security number, and she will let Ching know tomorrow. Gave Jennifer phone number of patient's , Ericka. Ericka is aware that she will be getting a call from [facility] . Called and updated [facility], that patient would not be needing their services at this time. Dr. Aguero will be getting more labs tomorrow. Patient could potentially switch to comfort care then. Tami at [facility], stated that Janice, admissions nurse will call here tomorrow, and get phone information. She can come and assess patient if she needs to. Tami will set up tour with Ericka tomorrow. If [facility] does not work out, patient will go to [facility] on comfort care. Was able to update Chaz at [facility] as well. P: DCP to follow up with [facility] tomorrow, as well as [facility] regarding info visit. Contact Janice at [facility] if no response, and follow up with Tami. Continue to update [facility]. Esthela Bansal RN/Cam Specialist
--- NOTE | 2019-08-10 13:16 | PM.PN.1 ---
Subjective Subjective Date Patient Seen: 08/10/19 Time Patient Seen: 12:00 Interval history: Patient reports that he is feeling fine this morning. Oriented to place today. reports that she has noticed that he is slightly more lucid today although still profoundly weak with his PT/OT and sleeping for most of the day. Not eating much, approximately 30% of his meals, continues to lose weight. Patient prefers for his to feed him. reports that he has developed a new decubitus ulcer on his right heel, wound care has applied a heel egg-crate cushion to that heel. Exam Vital Signs (past 8 hours): - 08/10/19 09:00 08/10/19 12:00 Temperature 98.2 F 98.7 F Pulse Rate 70 76 Respiratory Rate 17 17 Blood Pressure 132/43 L 128/49 L Pulse Oximetry 97 96 Oxygen Delivery Method Room Air Oxygen Flow Rate 0 Narrative Exam Narrative: GENERAL: Alert and disoriented, appearing stated age and in no acute distress. HEENT: Head normocephalic/atraumatic. LUNGS: Diminished inspiratory effort, mild expiratory wheezes, bilateral upper lobes. No rales. CV: Normal S1 and S2 with regular rate and rhythm, no audible murmurs, rubs or gallops. ABDOMEN: Soft, non-tender, non-distended, no organomegaly. Positive bowel sounds. EXTREMITIES: Weakness, generalized, poor range of motion in left hip secondary to fracture on 07/19/19. NEURO: Cranial nerves 2-12 grossly intact. PSYCH: Chronic dementia. SKIN: Left heel with dressing in place and air cushion. Right heel with 1 cm partial loss of thickness on the calcaneus. Left hip bandage in place, clean, dry, intact. Objective Labs Result Diagrams: 08/10/19 04:50 08/10/19 04:50 Labs: Laboratory Results - last 24 hr 08/05/19 08/10/19 08/10/19 10:30 04:50 04:50 WBC 8.8 RBC 3.09 L Hgb 9.2 L Hct 26.5 L MCV 85.7 MCH 29.7 MCHC 34.7 RDW 13.7 Plt Count 622 H Total Counted 100 Seg Neutrophils % 71.0 H Band Neutrophils % 5.0 Lymphocytes % (Manual) 11.0 L Monocytes % (Manual) 6.0 Eosinophils % (Manual) 4.0 Basophils % (Manual) 3.0 H Neutrophils # (Manual) 6688 H RBC Morphology See below Hypochromasia 1+ H Sodium 123 L Potassium 3.6 Chloride 91 L Carbon Dioxide 23 BUN 5 L Creatinine 0.80 Estimated GFR > 60.0 BUN/Creatinine Ratio 6.3 Glucose 108 Calcium 7.9 L Ur Random Creatinine 12 L Protein/Creatinin Ratio 984 H Urine Total Protein 12 Urine Albumin 40 U Random p-1-Tcjaxdvn 10 U Wvmxo-1-Zysixhgr 20 U Beta Globulin 16 U Gamma Globulin 14 U Abnormal Prot Band 1 Not Reportable U Abnormal Prot Band 2 Not Reportable U Abnormal Prot Band 3 Not Reportable Urine Interpretation See note Vancomycin Trough 08/10/19 05:43 WBC RBC Hgb Hct MCV MCH MCHC RDW Plt Count Total Counted Seg Neutrophils % Band Neutrophils % Lymphocytes % (Manual) Monocytes % (Manual) Eosinophils % (Manual) Basophils % (Manual) Neutrophils # (Manual) RBC Morphology Hypochromasia Sodium Potassium Chloride Carbon Dioxide BUN Creatinine Estimated GFR BUN/Creatinine Ratio Glucose Calcium Ur Random Creatinine Protein/Creatinin Ratio Urine Total Protein Urine Albumin U Random w-2-Jpwhygyx U Mzxsj-2-Xpahaaol U Beta Globulin U Gamma Globulin U Abnormal Prot Band 1 U Abnormal Prot Band 2 U Abnormal Prot Band 3 Urine Interpretation Vancomycin Trough 20.6 H* Assessment & Plan Assessment & Plan narrative: Hospital Day #6 Assessment 1. Healthcare associated pneumonia, making slower than expected progress, still profoundly weak. Plan: Continue coverage of Pseudomonas, Gram-negative bacilli, and MRSA with Zosyn and vancomycin. Will discontinue ST, patient is too weak to participate. Continue aspiration precautions. Assessment 2. Hyponatremia, acute on chronic, basesline 126. Sodium slightly improved, now 123 from 121. Patient still clinically very weak. 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 Low sodium could be exacerbated by his healthcare associated pneumonia, chronic dementia, etc. Multiple myeloma still possible but unlikely per Dr. Carson. Plan: Will continue D5 half-normal saline at 100 cc/hour and trend BMP. Continue fluid restrictions with 800 cc TAR/day. Assessment 3. Abnormal peripheral smear, rouleaux formation, concern for multiple myeloma especially in light of recent hip fracture and worsening anemia. Skeletal survey showed no lytic lesions. SPEP elevated. UPEP pending. Plan: Please see #2. Assessment 4. Anemia, normocytic/normochromic, slightly improved. Iron studies show iron deficiency, patient has received 1 iron transfusion. Plan: Will continue to treat underlying disease and trend labs. Assessment 5: Severe acute protein calorie malnutrition secondary to profound weakness and inability to consume adequate calories along with anorexia. Plan: Continue 1:1 feeding. Likely transition to hospice in next 2 days. Assessment 6. Atrial fibrillation, paroxysmal. Seems to be exacerbated when patient is acutely ill, this is his 3rd lifetime episode. He is a poor candidate for rate/rhythm control and anticoagulation secondary to age, dementia. Patient is DNR. Plan: No treatment, will watch closely. Assessment 7: Hypochloremia, baseline 95, trending up from 89 to 91. Plan: Will continue to trend BMP. Assessment 8: Hypokalemia, new, resolved with potassium rider. Plan: Will continue potassium supplement and trend labs. Assessment 9: Possible aspiration. Plan: Please see 1. Have cancelled swallow study due to weakness, on aspiration precautions, no reported aspiration events. Assessment 10: Abnormal urinalysis with proteinuria, hematuria, leukorrhea and positive leukocyte esterase. Urine culture negative for infection. Lowry draining straw colored urine, clear. Plan: Grossly improved, patient on antibiotics. UPEP pending. Assessment 11. Elevated liver enzymes, acute. resolved. Plan: Will trend. Assessment 12: Decubitus ulcer, stage II, left heel, present on admission. New right heel pressure injury. Patient is not returning to baseline and has protein malnutrition, will be challenging to heal. Plan: Wound care consulting, continue. Assessment 14: Weakness secondary to recent hip surgery, making slower than expected progress. No signs of infection. Plan: PT/OT consulting. Dr. Krishnan's group consulting, surveillance hip x-ray showed excellent alignment. Sutures have been removed and dressing replaced. Assessment 15. Dementia, chronic with progressive disability with worsening confusion and somnolence in the setting of hyponatremia and pneumonia, likely secondary to metabolic encephalopathy. Plan: Treating underlying disease, please see #1-2. Will also continue supportive care. Assessment 16: Hyperlipidemia, chronic. Plan: Diet controlled at home, will not treat aggressively in the hospital. Assessment 17: Hypothyroidism, per history only, has been euthyroid for the past 3 years. Plan: TSH normal. Assessment 18. GERD, chronic, needs ongoing PPI. Plan: Protonix 20 mg to IV. q.day secondary to difficulty in swallowing. Assessment 19. History of alcoholism and tobacco dependence. Still drinks 1-2 whiskey/argueta weekly. Has not smoked for the last 3 years. DVT prophylaxis: SCDs. Code: DNR/DNI Disposition: Had a family care conference with and daughter from 12:00 to 13:10. is POA as patient has dementia. Esthela Bansal, Surveillance Dual Rate Officer was present through some of the meeting to discuss assisted living versus SNF versus hospice options. Patient's current health status and prognosis was communicated to the family. He has now had 2 pneumonias and a hip fracture in the last 8 weeks with 3 inpatient hospitalizations. He is making slower than expected progress and is not returning to baseline. He has developed severe protein malnutrition due to poor appetite. He is losing weight and developing pressure injuries due to his inactivity from profound weakness. He is not able to participate in PT/OT. He has been disoriented and family notes a steep decline in his mental functioning in the last 2 months. Family did have a conversation with [facility] yesterday and they do want to proceed with hospice but are concerned about taking him home due to his need for full ADL assistance. Esthela confirmed that [facility] has an opening in their memory care building and could support a patient on hospice (different company) with high medical needs. The family will discuss this today and make a final decision today or tomorrow. Will continue full care today while they are making their decision. [facility] will be able to provide an assessment tomorrow and if family and [facility] are in agreement, will proceed with discharge to [facility] on hospice on Sunday. Possible transition to comfort care tomorrow if family desires prior to discharge. Will allow family time to discuss all of the options and readdress tomorrow.
--- NOTE | 2019-08-10 15:28 | PT-IP ANOTE ---
RN stated pt will be going on comfort care tomorrow and is very fatigued. Will check with PT to see if pt continues to be appropriate for therapy.
--- NOTE | 2019-08-10 23:58 | PC.NURSE ---
REPAIR SERVICE DISPATCHER position note: placed in Supine position, but floated his coccyx with pillows.
[2019-08-11] VITALS (9 sets, daily range): BP systolic 117–149; BP diastolic 52–91; PULSE 65–99; RESP 15–18; TEMP 36.4–37.7; O2SAT 97–99
[2019-08-11] MEDS: VANCOMYCIN 750 MG/150 ML FROZ.PIGGY 150 MG IV (00:25)
[2019-08-11] MEDS: PIPERACILLIN-TAZO 4.5 GM/100 ML FROZ.PIGGY IV ×4 (02:38→21:25)
[2019-08-11] MEDS: DEXTROSE 5%-0.45NS W/KCL 20MEQ 1,000 ML 100 MEQ IV ×2 (05:15→21:25)
[2019-08-11 05:23] LABS: Blood Urea Nitrogen 4 mg/dL (9-20); Calcium 7.9 mg/dL (8.4-10.2); Carbon Dioxide 24 mmol/L (22-32); Chloride 89 mmol/L (98-107); Estimated Glomerular Filt Rate > 60.0 mL/min (>60); Glucose 107 mg/dL (80-110); HEMOLYSIS < 15 (0-50); Potassium 3.6 mmol/L (3.4-5.1); Sodium 121 mmol/L (137-145)
[2019-08-11 05:28] LABS: Hematocrit 25.6 % (41-53); Mean Corpuscular HGB Conc 35.2 % (30-36); Mean Corpuscular Hemoglobin 30.1 PG (26-34); Mean Corpuscular Volume 85.4 fL (80-100); Platelet Count 586 X10^3/uL (150-400); Red Cell Distribution Width 13.8 % (11.6-14.8); White Blood Cell Count 9.6 X10^3/uL (4.5-11.0)
--- NOTE | 2019-08-11 06:01 | PC.NURSE ---
permanent waver positional note: used the juan pablo bed to turn patient over in a deeper left side lying pose.
[2019-08-11 06:59] LABS: Neutrophils Absolute Manual 7392 /uL (3000-5900); Total Cells Counted 100
[2019-08-11 07:01] LABS: Hypochromasia 1+; Platelet Estimate Increased on smear
--- NOTE | 2019-08-11 07:55 | P.PN_ITS ---
Subjective Subjective Date Patient Seen: 08/11/19 Time Patient Seen: 07:55 Interval history: Patient sleepy at time of interview, disoriented to place and time. Denies pain, nausea. Nursing reports no overnight concerns, still very weak. Has not been eating much, not hungry. No cough or dyspnea, not using oxygen. Exam Vital Signs (past 8 hours): - 08/11/19 05:00 08/11/19 07:20 Temperature 98.0 F Pulse Rate 79 89 Respiratory Rate 15 Blood Pressure 149/91 H Pulse Oximetry 99 97 Oxygen Delivery Method Room Air Oxygen Flow Rate 0 Narrative Exam Narrative: GENERAL: Alert and disoriented, appearing stated age and in no acute distress. HEENT: Head normocephalic/atraumatic. LUNGS: Diminished inspiratory effort, mild expiratory wheezes, bilateral upper lobes. No rales. CV: Normal S1 and S2 with regular rate and rhythm, no audible murmurs, rubs or gallops. ABDOMEN: Soft, non-tender, non-distended, no organomegaly. Positive bowel sounds. EXTREMITIES: Weakness, generalized, poor range of motion in left hip secondary to fracture on 07/19/19. NEURO: Cranial nerves 2-12 grossly intact. PSYCH: Chronic dementia. SKIN: Left heel with dressing in place and air cushion. Right heel with 1 cm partial loss of thickness on the calcaneus. Left hip bandage in place, clean, dry, intact. Objective Labs Result Diagrams: 08/11/19 04:50 08/11/19 04:50 Labs: Laboratory Results - last 24 hr 08/11/19 08/11/19 04:50 04:50 WBC 9.6 RBC 3.00 L Hgb 9.0 L Hct 25.6 L MCV 85.4 MCH 30.1 MCHC 35.2 RDW 13.8 Plt Count 586 H Total Counted 100 Seg Neutrophils % 75.0 H Band Neutrophils % 2.0 L Lymphocytes % (Manual) 10.0 L Monocytes % (Manual) 8.0 Eosinophils % (Manual) 5.0 H Neutrophils # (Manual) 7392 H Platelet Estimate Increased on smear RBC Morphology See below Hypochromasia 1+ H Sodium 121 L Potassium 3.6 Chloride 89 L Carbon Dioxide 24 BUN 4 L Creatinine 0.80 Estimated GFR > 60.0 BUN/Creatinine Ratio 5.0 L Glucose 107 Calcium 7.9 L Assessment & Plan Assessment & Plan narrative: Hospital Day #7 Assessment 1. Healthcare associated pneumonia, making slower than expected pr ogress, still profoundly weak. Plan: Continue coverage of Pseudomonas, Gram-negative bacilli, and MRSA with Zosyn and vancomycin. Have discontinued ST, patient is too weak to participate. Continue aspiration precautions. Will transition to comfort care later today if family desires to do so. Likely discharge tomorrow to [facility] on hospice. Assessment 2. Hyponatremia, acute on chronic, basesline 126. Sodium trending down again, now 121 from 123. Patient still clinically very weak. 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 Low sodium could be exacerbated by his healthcare associated pneumonia, chronic dementia, etc. Multiple myeloma still possible but unlikely per Dr. Carson. Plan: Will continue D5 half-normal saline at 100 cc/hour and trend BMP. Continue fluid restrictions with 800 cc TAR/day. Assessment 3. Abnormal peripheral smear, rouleaux formation, concern for multiple myeloma especially in light of recent hip fracture and worsening anemia. Skeletal survey showed no lytic lesions. SPEP elevated. UPEP pending. Plan: Please see #2. Assessment 4. Anemia, normocytic/normochromic, trending down. Iron studies show iron deficiency, patient has received 1 iron transfusion. Plan: Will continue to treat underlying disease and trend labs. Assessment 5: Severe acute protein calorie malnutrition secondary to profound weakness and inability to consume adequate calories along with anorexia. Plan: Continue 1:1 feeding. Likely transition to hospice tomorrow. Assessment 6. Atrial fibrillation, paroxysmal. Seems to be exacerbated when patient is acutely ill, this is his 3rd lifetime episode. He is a poor candidate for rate/rhythm control and anticoagulation secondary to age, dementia. Patient is DNR. Plan: No treatment, will watch closely. Assessment 7: Hypochloremia, baseline 95, trending down from 91 to 89. Plan: Will continue to trend BMP. Assessment 8: Hypokalemia, new, resolved with potassium rider. Plan: Will continue potassium supplement and trend labs. Assessment 9: Possible aspiration. Plan: Please see 1. Have cancelled swallow study due to weakness, on aspiration precautions, no reported aspiration events. Assessment 10: Abnormal urinalysis with proteinuria, hematuria, leukorrhea and positive leukocyte esterase. Urine culture negative for infection. Lowry draining straw colored urine, clear. Plan: Grossly improved, patient on antibiotics. UPEP pending. Assessment 11. Elevated liver enzymes, acute. resolved. Plan: Will trend. Assessment 12: Decubitus ulcer, stage II, left heel, present on admission. New right heel pressure injury. Patient is not returning to baseline and has protein malnutrition, will be challenging to heal. Plan: Wound care consulting, continue. Assessment 14: Weakness secondary to recent hip surgery, making slower than expected progress. No signs of infection. Plan: PT/OT consulting. Dr. Krishnan's group consulting, surveillance hip x-ray showed excellent alignment. Sutures have been removed and dressing replaced. Continue supportive therapy. Assessment 15. Dementia, chronic with progressive disability with worsening confusion and somnolence in the setting of hyponatremia and pneumonia, likely secondary to metabolic encephalopathy. Plan: Treating underlying disease, please see #1-2. Will also continue supportive care. Assessment 16: Hyperlipidemia, chronic. Plan: Diet controlled at home, will not treat aggressively in the hospital. Assessment 17: Hypothyroidism, per history only, has been euthyroid for the past 3 years. Plan: TSH normal. Assessment 18. GERD, chronic, needs ongoing PPI. Plan: Protonix 20 mg to IV. q.day secondary to difficulty in swallowing. Assessment 19. History of alcoholism and tobacco dependence. Still drinks 1-2 whiskey/argueta weekly. Has not smoked for the last 3 years. DVT prophylaxis: SCDs. Code: DNR/DNI Disposition: Waiting to hear from family regarding their final decision on continued care versus hospice. will be touring [facility] today, anticipate that patient will be discharged there tomorrow on hospice. Possible transition to comfort care later today if family chooses.
[2019-08-11] MEDS: PANTOPRAZOLE 40 MG VIAL 20 MG IV (08:46)
[2019-08-11 08:52] LABS: Vancomycin Trough 20.4 ug/mL (10-20)
[2019-08-11] MEDS: VANCOMYCIN 1,250 MG in SODIUM CHLORIDE 0.9% 250 ML IV ×2 (09:57→22:35)
[2019-08-11] MEDS: ACETAMINOPHEN 325 MG TABLET 650 MG PO (10:56)
--- NOTE | 2019-08-11 13:06 | CM.DPC ---
DCP Cont: Per MD, pt currently receiving IV-Abx and plan for likely change to Comfort Care later today after final discussion with pt's spouse and adult Dtr. SW called [facility] and confirmed Info Visit scheduled for 1100 today with spouse and Dtr bedside. Per Ching, Hospice SW, family signed Hospice Consents and Ching received list of DME needed and will take back to the office in order to place DME equipment delivery to [facility]. SW met bedside with spouse and Dtr as RN was attempting to get pt to drink and eat some applesauce and they confirmed that they are agreeable with [facility] and that they completed tour at [facility] and are agreeable with plan of pt to d/c to [facility] on Hospice . Spouse inquired about transportation to [facility] as they are aware that Medicare likely would not cover the full cost of stretcher transport and are agreeable with w/c transport if safe for the pt. SW met with PT and discussed transport option and preferable mode of transport is in a w/c that tilts back if available through [facility]. SW called Tami at [facility] who states she will confirm that they have a tilted chair that they can use for transport and plan to wheel the patient across the parking lot so that they don't have to take extra time getting into a van. Tami also states that they do not anticipate any issue with accepting pt but RADHA Camacho will complete bedside assess with pt/family tomorrow 08/12/19 at 0830 to confirm acceptance. If accepted, [facility] just asking to have DME delivered prior to pt leaving the hospital. SAVANNAH left ms for [facility] to inquire if delivery time has been set for DME to [facility] yet and requested call back to confirm since plan is for pt to d/c tomorrow 08/12/19. Plan: SW to follow closely for return call from Hospice with time for DME delivery. SW to follow for return call from Tami at [facility] to confirm if they have a tilt chair to transport pt across the street at d/c. BAKARI Paz
[2019-08-11 16:58] LABS: Albumin 2.1 g/dL (3.8-4.8); Alpha 1 Globulin 0.8 g/dL (0.2-0.3); Alpha 2 Globulin 0.8 g/dL (0.5-0.9); Beta 1 Globulin 0.3 g/dL (0.4-0.6); Gamma Globulin 0.7 g/dL (0.8-1.7); Protein, Total 5.1 g/dL (6.1-8.1)
--- NOTE | 2019-08-11 17:40 | PC.NURSE ---
Patient repositioned and sitting up for dinner. A/O to name only. Lowry emptied, patent and draining. Patient at small amount of meal, 10%, coughing afterwards, encouraged to clear throat and swallow. Patients mouth checked for pocketed food and swabbed. Patient to remain upright at 90 degrees post meal for >20 minutes. Patient currently resting with eyes closed.
[2019-08-12] MEDS: PIPERACILLIN-TAZO 4.5 GM/100 ML FROZ.PIGGY IV (03:32)
[2019-08-12 05:00] VITALS: BP 136/61; PULSE 80; RESP 18; TEMP 37.4; O2SAT 95
[2019-08-12] MEDS: DEXTROSE 5%-0.45NS W/KCL 20MEQ 1,000 ML 100 MEQ IV (05:14)
[2019-08-12 08:00] VITALS: BP 131/64; PULSE 81; RESP 18; TEMP 36.6; O2SAT 96
--- NOTE | 2019-08-12 08:42 | CM.DPC ---
Addendum entered by Courtney Lester LPN 08/12/19 09:00: DME will be delivered to [facility] this morning. [facility] RN will open pt to service at 1400. Pt will at 1300, will be hoyered into the w/c that is brought over by [facility] and as per Ericka's request. Orders are in place and signed. Copy to Janice, faxed to [facility] and [facility] to [facility]. Pt is lying in bed, appears comfortable. Will be following until pt leaves for prn assist with this plan. Original Note: DCP: continued: Case received, EMR reviewed and followed up on the d/c plan for new admission to [facility] under [facility]. Have spoken now with pt's Ericka, at bedside, with RN Fina, caring today for pt, with Dr. Real, EDUARDO Camacho and MAX Cuadra. Outcome of discussion: Pt will d/c today to [facility] via a tilt in space w/c.
[2019-08-12 08:45] VITALS: O2SAT 95
--- NOTE | 2019-08-12 08:48 | P.DS_ITS ---
History of Present Illness History of Present Illness Chief complaint: SOB Discharge Providers Provider Date of admission: 08/03/19 17:52 Discharge Date: 08/12/19 Primary care physician: Su Aguero MD Consults: 08/05/19 13:34 Consult to Wound Care Urgent Comment: Consulting Provider: [facility] 08/07/19 19:40 Consult to Dietitian, Adult Routine Comment: Reason For Exam: Low viry score. 08/08/19 08:35 Consult to Palliative Care Routine Comment: Discharge provider: Mitzi Real MD Summary Hospital Course Discharge Diagnosis: Hyponatremia SI ADH Possible multiple myeloma Aspiration pneumonia Dementia Hospital Course: Very pleasant 78-year-old male with a history of dementia, atrial fibrillation, glaucoma, SIADH and hyponatremia with significant worsening and hyponatremia admitted for this. Treated for aspiration pneumonia. History of decubitus ulcers, chronic. Patient was seen by Dr. teja avila for possible blood dyscrasia or multiple myeloma and thought to be unlikely but urine protein electrophoresis is still pending. However given his multiple chronic medical problems and poor prognosis and after lengthy discussion with family and durable [id number] it was felt that hospice care was indicated and it was decided to stop antibiotics and transfer patient to [facility] with hospice. Status at Discharge Cognitive/behavioral status at discharge: at baseline, confused Functional status at discharge: bed bound Overall status at discharge: patient is not back to baseline Time Spent with Patient Time spent: Greater than 30 minutes Exam Vital Signs (past 8 hours): - 08/12/19 05:00 08/12/19 08:00 Temperature 99.3 F 98 F Pulse Rate 80 81 Respiratory Rate 18 18 Blood Pressure 136/61 131/64 Pulse Oximetry 95 96 Oxygen Delivery Method Room Air Oxygen Flow Rate 0 Narrative Exam Narrative: Patient resting comfortably in hospital bed. Not awakened during exam Neck is supple Chest: Clear to auscultation with decreased breath sounds bibasilar but no wheezes or rhonchi Cor: Regular rate and rhythm with distant S1 and S2 Abdomen: Positive bowel sounds, nontender, nondistended Extremities warm, pulses intact, protection for pressure ulcers Objective Labs Result Diagrams: 08/11/19 04:50 08/11/19 04:50 Labs: Laboratory Results - last 24 hr 08/05/19 08/11/19 11:15 07:30 Serum Total Protein 5.1 L Albumin 2.1 L Ahbfd-7-Rkrterlkw 0.8 H Exfff-3-Cjoetuupi 0.8 Tbsf-0-Hazaqtkv 0.3 L Jwdv-7-Vngdhreo 0.4 Gamma Globulins 0.7 L Abnorm Protein Band 1 Not Reportable Abnorm Protein Band 2 Not Reportable Abn Gamma Band 3 Serum Not Reportable PEP Comment See note Vancomycin Trough 20.4 H* THIERRY & SPEP Interp See note Discharge Plan Discharge Plan Patient Disposition: Assisted Living Other facility: [facility] Under care of provider: Laci/Hospice Consult as needed: Dental, Hearing, Mental health, Podiatry and Vision Discharge comment: Discharge to assisted living with hospice to open today Discharge orders & Medications Discharge Orders: Discharge (Order); Ordered 08/12/19 Ordered By: Mitzi Real Prescriptions: Continued acetaminophen 325 mg Tablet 650 mg PO Q4HR PRN (Reason: As Needed For Fever/Mild Pain) Qty: 60 RF: 0 aspirin 81 mg Tablet,Delayed Release (Dr/Ec) 81 mg PO BID Qty: 0 RF: 0 ipratropium-albuterol 0.5 mg-3 mg(2.5 mg base)/3 mL Solution For Nebulization 3 ml INHALATION Q6H PRN (Reason: Shortness Of Breath Or Wheezing) RF: 0 albuterol sulfate 2.5 mg /3 mL (0.083 %) Solution For Nebulization 2.5 mg inhalation Q6H PRN (Reason: Shortness Of Breath Or Wheezing) RF: 0 polyethylene glycol 3350 [Miralax] 17 gram Powder In Packet 17 g PO PRN PRN (Reason: no BM in 3+days) RF: 0 hydrocortisone 1 % cream 1 applic topical DAILY PRN (Reason: eczema) RF: 0 bisacodyl 10 mg Suppository 10 mg LA PRN PRN (Reason: if no BM in 3+ days) RF: 0 bisacodyl 5 mg Tablet 5 mg PO PRN PRN (Reason: no BM in 3+ days) RF: 0 Aria-Tussin 10 ml PO Q4H PRN (Reason: Cough) RF: 0 Discontinued vitamin B complex Capsule 1 cap PO DAILY RF: 0 red yeast rice 600 mg Capsule 600 mg PO DAILY RF: 0 latanoprost [Xalatan] 0.005 % Drops 1 drops EYE-LEFT BEDTIME Qty: 1 RF: 0 tamsulosin [Flomax] 0.4 mg Capsule 0.8 mg PO DAILY Qty: 30 RF: 0 docusate sodium [DOK] 100 mg Capsule 100 mg PO BID Qty: 60 RF: 0 darifenacin 7.5 mg tablet extended release 24 hr 7.5 mg PO DAILY RF: 0 multivitamin with minerals Tablet 1 tab PO DAILY RF: 0 Follow up/Referrals: Su Aguero MD [Primary Care Provider] - Discharge Health Status Care Plan Goals: Comfort care Multidrug resistant organism: No MDRO Precautions: [place] Diet/Activity/Treatments Diet: Diet as Tolerated Liquid consistency: Normal/Thin Food texture: Regular Discharge Data Primary Care Provider: Su Aguero
[2019-08-12 11:00] VITALS: BP 136/70; PULSE 76; RESP 18; TEMP 36.8; O2SAT 95
== END 2019-08-12 13:16 | DRG 177 ==
LOC: ED 17:43 → AC 17:53
PROVIDERS: Admitting Provider Family Medicine; Emergency Provider Emergency Medicine; PCP Student in an Organized Health Care Education/Training Program; Visit Provider Family Medicine
DX: J69.0 Pneumonitis due to inhalation of food and vomit (principal); G93.41 Metabolic encephalopathy; R40.2344 Coma scale, best motor response, flexion withdrawal, 24 hours or more after hospital admission; E43 Unspecified severe protein-calorie malnutrition; E22.2 Syndrome of inappropriate secretion of antidiuretic hormone; C90.00 Multiple myeloma not having achieved remission; J15.6 Pneumonia due to other Gram-negative bacteria; J15.1 Pneumonia due to Pseudomonas; J15.212 Pneumonia due to Methicillin resistant Staphylococcus aureus; G30.9 Alzheimer's disease, unspecified; F02.80 Dementia in other diseases classified elsewhere, unspecified severity, without behavioral disturbance, psychotic disturbance, mood disturbance, and anxiety; R74.0 Nonspecific elevation of levels of transaminase and lactic acid dehydrogenase [LDH]; D64.9 Anemia, unspecified; L89.622 Pressure ulcer of left heel, stage 2; I48.0 Paroxysmal atrial fibrillation; E87.8 Other disorders of electrolyte and fluid balance, not elsewhere classified; Y95 Nosocomial condition; R40.2134 Coma scale, eyes open, to sound, 24 hours or more after hospital admission; R40.2244 Coma scale, best verbal response, confused conversation, 24 hours or more after hospital admission; Z68.21 Body mass index [BMI] 21.0-21.9, adult; L89.612 Pressure ulcer of right heel, stage 2; F32.9 Major depressive disorder, single episode, unspecified; Z87.891 Personal history of nicotine dependence; K21.9 Gastro-esophageal reflux disease without esophagitis; E03.9 Hypothyroidism, unspecified; E16.2 Hypoglycemia, unspecified
CPT/HCPCS: 36415; 71045; 71260; 73502; 77075; 80048; 80051; 80053; 80202; 81001; 82607; 82728; 82746; 82962; 83036; 83540; 83550; 83605; 83883; 84145; 84155; 84156; 84165; 84166; 84300; 84443; 85025; 85045; 85610; 85730; 87040; 87070; 87086; 87205; 92526; 93005; 94760; 94762; 94799; 96361; 96365; 97110; 97112; 97162; 97166; 97530; 97535; 99283; 99284; C9113; J0692; J1756; J1956; J2543; J3370; J7050; Q9967